=== PATIENT | male | born 1955 | race Caucasian/White ===

== ENCOUNTER 2023-04-25 08:36 | Outpatient (REF) | payer MEDICARE, MEDICAID, SELFPAY ==
[2023-04-25 11:39] LABS: MANUAL DIFF FLAG NO
[2023-04-25 11:55] LABS: Basophils Percent Auto 0.1 % (0-2); Eosinophils Absolute Auto 0.1 X10*3/uL (0.0-0.4); Eosinophils Percent Auto 1.4 % (0-4); Hemoglobin 13.5 g/dl (14.0-18.0); Imm Gran Abs Auto 0.02 X10*3/uL (0.00-0.03); Imm Gran Pct Auto 0.3 % (0.0-0.4); Lymphocytes Absolute Auto 1.7 X10*3/uL (1.2-4.9); Mean Corpuscular HGB Conc 31.4 g/dl (31.0-36.0); Mean Corpuscular Volume 95.6 fL (80.0-98.0); Mean Platelet Volume 11.3 fL (9.4-12.4); Monocytes Absolute Auto 0.5 X10*3/uL (0.1-1.2); Monocytes Percent Auto 7.2 % (2-11); Neutrophils Absolute Auto 4.9 x10*3/uL (2.0-8.3); Platelet Count 151 X10*3/uL (160-400); Red Cell Distribution Width 14.6 % (11.0-16.0); White Blood Count 7.2 X10*3/uL (4.8-10.8)
[2023-04-25 12:26] LABS: Alanine Aminotransferase 14 U/L (0-40); Albumin Level 4.4 g/dL (3.5-5.0); Alkaline Phosphatase 87 U/L (39-117); Anion Gap 16 (12-20); Aspartate Amino Transferase 19 U/L (5-37); Bilirubin Total 0.3 mg/dL (0.0-1.0); Blood Urea Nitrogen 10 mg/dL (9-16); Calcium 9.8 mg/dL (8.4-10.2); Carbon Dioxide 23 mmol/L (22-29); Chloride 107 mmol/L (96-108); Estimated Glomerular Filt Rate > 60; Glucose Random 123 mg/dL (60-115); Potassium 4.4 mmol/L (3.3-5.1); Sodium 142 mmol/L (135-145); Total Protein 7.6 g/dL (6.5-8.0)
[2023-04-26 14:29] LABS: Absolute CD3 Count 1247 cells/uL (840-3060); Absolute CD4 Count 666 cells/uL (490-1740); Absolute CD8 Count 592 cells/uL (180-1170); Absolute Lymphocytes 1674 cells/uL (850-3900); CD4 CD8 Ratio 1.13 (0.86-5.00); Percent CD3 Cells 75 % (57-85); Percent CD4 Cells 40 % (30-61); Percent CD8 Cells 35 % (12-42)
[2023-04-26 15:28] LABS: HIV RNA PCR Qn Copies <20 DETECTED copies/mL (NOT DETECTED); HIV RNA PCR Qn Log Copies <1.30 DETECTED (NOT DETECTED)
== END 2023-04-25 08:37 | disposition home or self-care (01) ==
LOC: HO.HHCL 08:36
PROVIDERS: Visit Provider Family Medicine
DX: Z21 Asymptomatic human immunodeficiency virus [HIV] infection status (principal)
CPT/HCPCS: 36415; 80053; 85025; 86359; 86360; 87536

== ENCOUNTER 2023-04-27 09:55 | Outpatient (REF) | payer MEDICARE, MEDICAID, SELFPAY ==
--- NOTE | ~2023-04-27 | CT_ITS ---
EXAMINATION: CT ABDOMEN WITHOUT AND WITH CONTRAST CLINICAL INFORMATION: HIV COMPARISON: CT scan of the abdomen and pelvis dated 03/08/2013, renal ultrasound dated 08/29/2018. TECHNIQUE: Contiguous axial thin section helical images of the abdomen were performed before and after the administration of oral contrast and 85 mL of Omnipaque 350 intravenous contrast. The data set was reformatted in the coronal and sagittal planes and reviewed on an independent workstation. This CT examination was performed using dose optimization techniques as appropriate, variously including the following: *Automated exposure control *Adjustment of mA and/or kV according to patient size (this includes techniques or standardized protocols for targeted exams where dose is matched to indication/reason for exam; i.e. extremities or head) *Use of iterative reconstruction technique DLP: 393 mGy-cm FINDINGS: LUNG BASES: Unremarkable. LIVER, GALLBLADDER, AND BILIARY TREE: Diffuse decreased hepatic attenuation without focal abnormality. The gallbladder contains a gallstone measuring 2.0 cm without surrounding abnormality (image 16, series 5). No pericholecystic fluid. PANCREAS: Unremarkable. SPLEEN: Unremarkable. ADRENAL GLANDS: Unremarkable. KIDNEYS: Nonobstructing intrarenal calculi bilaterally. A calculus in the lower pole the right kidney measures 0.7 cm (image 63, series 8). A calculus in the upper pole left kidney measures 1.2 cm (image 64, series 8). A calculus in the lower pole the left kidney measures 0.3 cm (image 60, series 8). Tiny low-attenuation foci are seen bilaterally are too small to adequately characterize, not requiring follow-up at this time. No hydroureteronephrosis. BOWEL: The stomach, visualized small bowel, appendix and visualized large bowel are unremarkable. LYMPH NODES: No lymphadenopathy. VASCULAR: Moderate atherosclerosis in the infrarenal abdominal aorta measuring up to 2.7 cm in AP dimension (image 27, series 5). BONES: L5-S1 moderate to severe degenerative disc disease with moderate right neural foraminal narrowing. SOFT TISSUES: Mild superficial subcutaneous infiltrative changes are seen along of the left anterior abdominal wall without focal abnormality (image 20, series 5). CT/CT abdomen wo/w IV con IMPRESSION: 1. Hepatic steatosis without focal abnormality. 2. Cholelithiasis without evidence for acute cholecystitis. 3. Nonobstructing intrarenal calculi bilaterally. 4. L5-S1 moderate to severe degenerative disc disease with moderate right neural foraminal narrowing.
[2023-04-27] MEDS: iohexoL 350 MG/ML 100 ML INFUS..BTL IV (11:42)
== END 2023-04-27 09:56 | disposition home or self-care (01) ==
LOC: HO.CT 09:55
PROVIDERS: PCP Internal Medicine; Visit Provider Internal Medicine
DX: R63.4 Abnormal weight loss (principal); Z21 Asymptomatic human immunodeficiency virus [HIV] infection status
CPT/HCPCS: 74170; Q9967

== ENCOUNTER 2023-10-07 09:18 | Outpatient (AMB) | payer MEDICARE, MEDICAID, SELFPAY ==
--- NOTE | 2023-10-07 09:29 | MHC.OFFVIS ---
Intake Intake Visit Reasons: LDCT SD Allergies No Known Allergies [No Known Allergies*] Allergy (Unverified 06/12/20 16:17) HPI HPI Comments History of Present Illness Details Anthony is a pleasant 68 year old male, current 1/2 ppd smoker with a 106 PYH. Patient has been smoking since age 15 for 53 years at 1-3 ppd. Denies marijuana use. Denies exposure to chemicals or substances like asbestos. Admits second hand smoke exposure. Reports father with lung cancer. Denies personal history of cancers. Denies chest CT in last year. Denies recent travel outside the [place]. Denies testing positive for COVID. Admits receiving COVID Vaccine. Denies fever, chills, chest pain, new cough, hemoptysis or unintentional weight loss. Lung Cancer Screening Questionnaire reviewed with patient by provider. Shared Decision Making Completed. Discussed in detail with patient, the risk versus benefit of LDCT screening. Patient in agreement of proceeding with scan. [facility] Medical History (Updated 05/12/23 @ 12:48 by Juliane Mesa PA-C) Nicotine dependence, cigarettes, uncomplicated Type 2 diabetes mellitus Hepatitis B Hepatitis C HIV (human immunodeficiency virus infection) Surgical History (Updated 05/12/23 @ 12:48 by Juliane Mesa PA-C) History of cystoscopy History of colonoscopy Assessment & Plan Assessment & Plan (1) Nicotine dependence, cigarettes, uncomplicated: Code(s): F17.210 - Nicotine dependence, cigarettes, uncomplicated Plan Shared decision-making visit completed today in office. This patient meets criteria for LDCT for lung cancer screening purposes and is asymptomatic. Offered smoking cessation. Patient has been scheduled for a low dose chest CT for screening purposes at [facility]. We discussed how the results will be obtained depending on CT findings. RADS 1 and RADS 2 will receive a letter with results and will follow up for annual LDCT. Patient informed they will be contacted at later date to schedule upcoming LDCT scan. RADS 3 and RADS 4 will receive a telephone call, or an office visit after reviewing case at our Lung Cancer Conference to determine when the next LDCT will be scheduled or further interventions that may be needed. Discussed importance of screening program and compliance with yearly LDCT scan as scheduled. Risks, benefits, and alternatives were discussed in detail and patient agrees to proceed. Risks discussed include but are not limited to: radiation exposure and possibility of additional intervention for benign disease. Benefits include detection of lung cancer at an early stage. A copy of today's visit and LDCT results will be sent to patient's PCP. Incidental findings on LDCT are PCP's responsibility. If there are incidental findings, our office will ensure that PCP office is aware of these findings. All questions were answered and patient is in agreement of plan. Coding Level of Care Code Lung Cancer Screening G0296 Diagnoses Nicotine dependence, cigarettes, uncomplicated F17.210
== END 2023-10-07 09:38 | disposition home or self-care (01) ==
PROVIDERS: PCP Internal Medicine; Visit Provider Nurse Practitioner Family
DX: F17.210 Nicotine dependence, cigarettes, uncomplicated (principal)
CPT/HCPCS: G0296

== ENCOUNTER 2023-10-07 09:39 | Outpatient (REF) | payer MEDICARE, MEDICAID, SELFPAY ==
--- NOTE | ~2023-10-07 | CT_ITS ---
EXAMINATION: CT CHEST LOW-DOSE SCREENING WITHOUT CONTRAST HISTORY: Asymptomatic patient meeting criteria for lung screening. PATIENT PACK-YEAR HISTORY: 40 pack-years. Current Smoker: Yes. If former smoker, years since quitting: Not applicable. COMPARISON: CT abdomen 04/27/2023, chest radiograph 08/08/2009. TECHNIQUE: Multidetector volumetric noncontrast CT imaging of the chest was obtained using low-dose screening CT technique. Axial thin section 0.60 mm reformations in soft tissue and lung windows were obtained. Sagittal and coronal reformations were obtained. Axial MIP images were also created and reviewed. RECONSTRUCTED WIDTH: 1.25 mm x 1.[address] examination was performed using dose optimization techniques as appropriate, variously including the following: *Automated exposure control *Adjustment of mA and/or kV according to patient size (this includes techniques or standardized protocols for targeted exams where dose is matched to indication/reason for exam; i.e. extremities or head) *Use of iterative reconstruction technique TOTAL EXAM DLP: 47 mGy-cm CTDIvol: 1.08 mGy FINDINGS: LUNGS: Moderate emphysematous changes are present, most marked in the upper lobes. Mild peribronchial thickening is present. Lungs bilaterally symmetrically expanded. No effusion or pneumothorax. Central airways patent. At least 8 small pulmonary micronodules are present, the largest measuring 3 mm subpleural left lower lobe (5:289). Saenz images of all have been saved. No worrisome or concerning pulmonary masses seen. LYMPHATIC STRUCTURES: No mediastinal, hilar or axillary adenopathy or free fluid collection. THYROID GLAND: Unremarkable to the extent seen. CARDIOVASCULAR STRUCTURES: Aortic and heart size normal. Mild coronary artery calcifications. No pericardial effusion. UPPER ABDOMEN: The spleen is mildly enlarged at 12.6 cm in greatest dimension. There is new left-sided hydronephrosis. Previously seen left upper pole renal calculus is no longer seen in the included portions of the left kidney. A large calcified 3 cm gallstone is present, similar to prior. The upper abdomen is otherwise unremarkable. OSSEOUS STRUCTURES: No suspicious focal findings. SPINAL COMPRESSION: Absent. CT/CT lung screening IMPRESSION: No findings suspicious for malignancy. There are some small pulmonary micronodules, the largest measuring 3 mm. Incidental note made of splenomegaly and new left-sided hydronephrosis. A stone which had been present in the left upper pole is no longer seen and could be obstructing at the ureteropelvic junction. Ultrasound of the kidneys or a CT urogram may be useful for further evaluation. LUNG-RADS CATEGORY ASSESSMENT: Benign. INCIDENTAL FINDINGS (S CATEGORY): Finding: Left-sided hydronephrosis and cholelithiasis. Significance category: Clinically significant. RECOMMENDATION: Low-dose lung CT overall in 1 year. See recommendations above regarding left-sided hydronephrosis. Visual estimate of coronary calcified plaque burden: None. However, this exam cannot replace a dedicated cardiac CT calcium score for accurate assessment.
== END 2023-10-07 09:40 | disposition home or self-care (01) ==
LOC: HO.CT 09:39
PROVIDERS: PCP Internal Medicine; Visit Provider Physician Assistant Medical
DX: Z12.2 Encounter for screening for malignant neoplasm of respiratory organs (principal); F17.210 Nicotine dependence, cigarettes, uncomplicated
CPT/HCPCS: 71271; G0296

== ENCOUNTER 2023-10-14 09:12 | Outpatient (REF) | payer MEDICARE, MEDICAID, SELFPAY ==
--- NOTE | ~2023-10-14 | US_ITS ---
EXAMINATION: US RETROPERITONEAL LIMITED (RENAL ONLY) CLINICAL INFORMATION: Kidney stone. COMPARISON: CT abdomen 04/27/2023. Renal ultrasound 08/29/2018. Ultrasound abdomen complete 02/11/2016. TECHNIQUE: Real-time imaging of the kidneys. FINDINGS: RIGHT KIDNEY: 10.2 x 4.8 x 5.0 cm (SAG x AP x TRV). The kidney is normal in size, contour, and echogenicity. Renal cortical thickness is normal. No focal parenchymal lesions or hydronephrosis. 0.6 x 0.4 x 0.6 cm lower pole and 0.5 x 0.4 x 0.5 cm lower pole nonobstructing renal calculi are seen. LEFT KIDNEY: 11.7 x 5.3 x 5.9 cm (SAG x AP x TRV). The kidney is normal in size, contour, and echogenicity. Renal cortical thickness is normal. There is dilatation of the upper pole calyces without jet hydronephrosis. 0.7 x 0.5 x 0.5 cm lower pole and 0.4 x 0.5 x 0.5 cm nonobstructing renal calculi are seen. US/US renal BI IMPRESSION: Bilateral nonobstructing renal calculi in the lower pole of the right kidney. Dilatation of the left upper pole calyces without jet hydronephrosis. This is new since prior studies.
== END 2023-10-14 09:13 | disposition home or self-care (01) ==
LOC: HO.US 09:12
PROVIDERS: PCP Internal Medicine; Visit Provider Internal Medicine
DX: N20.0 Calculus of kidney (principal)
CPT/HCPCS: 76775

== ENCOUNTER 2023-10-19 08:36 | Outpatient (REF) | payer MEDICARE, MEDICAID, SELFPAY ==
[2023-10-19 11:18] LABS: Appearance Urine Clear; Color Urine Yellow; Glucose Urine UA Negative (Negative); Leukocyte Esterase Urine Moderate (2+) (Negative); Nitrite Urine Negative (Negative); PH 6.5 (5.0-9.0); UMIC TRIGGER UACC YES; Urine Blood Moderate (2+) (Negative); Urine Ketones Negative (Negative); Urine Protein 30 (1+) mg/dL (Neg-Trace)
[2023-10-19 11:25] LABS: Bacteria Urine None Seen (None Seen); Hyaline Casts Urine 0-2 /LPF (0-2); RBC Urine >20 /HPF (0-2); Squamous Epithelial Cell Urine 0-2 /HPF (0-2); UACC Culture Trigger YES; WBC Urine 21-50 /HPF (0-5)
[2023-10-19 11:34] LABS: MANUAL DIFF FLAG NO
[2023-10-19 11:41] LABS: Basophils Percent Auto 0.2 % (0-2); Eosinophils Absolute Auto 0.1 X10*3/uL (0.0-0.4); Hematocrit 43.2 % (42.0-52.0); Hemoglobin 13.7 g/dl (14.0-18.0); Imm Gran Abs Auto 0.08 X10*3/uL (0.00-0.03); Imm Gran Pct Auto 0.9 % (0.0-0.4); Lymphocytes Absolute Auto 1.3 X10*3/uL (1.2-4.9); Lymphocytes Percent Auto 14.7 % (20-40); Mean Corpuscular HGB Conc 31.7 g/dl (31.0-36.0); Mean Corpuscular Hemoglobin 30.3 pg (27.0-33.0); Mean Corpuscular Volume 95.6 fL (80.0-98.0); Mean Platelet Volume 11.1 fL (9.4-12.4); Monocytes Absolute Auto 0.5 X10*3/uL (0.1-1.2); Monocytes Percent Auto 5.9 % (2-11); Neutrophils Percent Auto 77.3 % (45-73); Platelet Count 153 X10*3/uL (160-400); Red Blood Count 4.52 X10*6/uL (4.60-5.80); Red Cell Distribution Width 14.7 % (11.0-16.0)
[2023-10-19 11:58] LABS: Alanine Aminotransferase 12 U/L (0-40); Albumin Level 4.5 g/dL (3.5-5.0); Alkaline Phosphatase 94 U/L (39-117); Anion Gap 13 (12-20); Aspartate Amino Transferase 16 U/L (5-37); Bilirubin Total 0.3 mg/dL (0.0-1.0); Blood Urea Nitrogen 12 mg/dL (9-16); Calcium 9.8 mg/dL (8.4-10.2); Carbon Dioxide 27 mmol/L (22-29); Chloride 104 mmol/L (96-108); Cholesterol 140 mg/dL (<200); Estimated Glomerular Filt Rate > 60; Glucose Random 99 mg/dL (60-115); HDL Cholesterol 43 mg/dL (>40); LDL Cholesterol Calculated 78 mg/dL (<100); Potassium 3.8 mmol/L (3.3-5.1); Sodium 140 mmol/L (135-145); Total Protein 7.7 g/dL (6.5-8.0); Triglycerides 96 mg/dL (<150)
[2023-10-19 12:32] LABS: Syphilis Screen Nonreactive (Nonreactive)
[2023-10-19 13:41] LABS: CT PCR NOT DETECTED (Not Detect.); NG PCR NOT DETECTED (Not Detect.)
[2023-10-20 08:04] LABS: ~HepC Num1 9.37 S/CO (0.00-0.79); ~Hepatitis C Antibody Reactive (Nonreactive)
[2023-10-21 10:33] LABS: Absolute CD3 Count 1074 cells/uL (840-3060); Absolute CD4 Count 555 cells/uL (490-1740); Absolute CD8 Count 531 cells/uL (180-1170); Absolute Lymphocytes 1440 cells/uL (850-3900); CD4 CD8 Ratio 1.05 (0.86-5.00); Percent CD3 Cells 75 % (57-85); Percent CD4 Cells 39 % (30-61); Percent CD8 Cells 37 % (12-42)
[2023-10-21 17:43] LABS: HIV RNA PCR Qn Copies 40 copies/mL (NOT DETECTED)
[2023-10-21 22:53] LABS: TS Negative Control Passed; TS Panel A 1; TS Panel B 0; TS Positive Control Passed; TSpotTB Negative (Negative)
[2023-10-22 13:18] LABS: HCV Log PCR <1.18 NOT DETECTED Log IU/mL (NOT DETECTED); HepC Viral Load <15 NOT DETECTED IU/mL (NOT DETECTED)
== END 2023-10-19 08:37 | disposition home or self-care (01) ==
LOC: HO.HHCL 08:36
PROVIDERS: Visit Provider Student in an Organized Health Care Education/Training Program
DX: Z21 Asymptomatic human immunodeficiency virus [HIV] infection status (principal)
CPT/HCPCS: 0353U; 36415; 80053; 80061; 81001; 85025; 86359; 86360; 86481; 86780; 86803; 87086; 87522; 87536

== ENCOUNTER 2023-10-31 08:55 | Outpatient (REF) | payer MEDICARE, MEDICAID, SELFPAY ==
[2023-11-01 15:52] LABS: HIV RNA PCR Qn Copies <20 DETECTED copies/mL (NOT DETECTED); HIV RNA PCR Qn Log Copies <1.30 DETECTED (NOT DETECTED)
== END 2023-10-31 08:56 | disposition home or self-care (01) ==
LOC: HO.HHCL 08:55
PROVIDERS: Visit Provider Student in an Organized Health Care Education/Training Program
DX: B20 Human immunodeficiency virus [HIV] disease (principal)
CPT/HCPCS: 36415; 87536

== ENCOUNTER 2024-01-12 09:22 | Outpatient (AMB) | payer MEDICARE, MEDICAID, SELFPAY ==
--- NOTE | 2024-01-12 09:30 | A.OFFVIS_ITS ---
Intake Intake Visit Reasons: kidney stones Intake Note: NEW Patient presents today to established treatment for Kidney Stones: Meds- None Allergies to Antibiotic- No Known Allergies Blood Thinner- None Drain Cleaner Required: Yes Drain Cleaner Language: Azeri Information Interpreted: non-clinical & clinical Accompanied by: Self / Same As Patient Allergies No Known Allergies [No Known Allergies*] Allergy (Verified 01/12/24 09:39) Medication List - Last Reconciled 01/12/24 by Alma Cifuentes MD atorvastatin 20 mg PO DAILY blood sugar diagnostic (FreeStyle Lite Strips) As directed buprenorphine-naloxone 8-2 mg 1 film sublingual DAILY docusate sodium 100 mg PO tnvbytpjbm-txcbbfyw-cmnfgd ala 200-25-25 mg (Odefsey) 1 tab PO DAILY insulin detemir U-100 (Levemir FlexPen) units subcut lancets (TRUEplus Lancets) As directed lisinopril 2.5 mg PO DAILY metformin ER 500 mg PO BID mirtazapine 30 mg PO BEDTIME pen needle, diabetic (Sure Comfort Pen Needle) As directed quetiapine 200 mg PO BEDTIME sertraline 100 mg PO DAILY HPI HPI Comments History of Present Illness Details Anthony is a 68-year-old man who is here for evaluation for nephrolithiasis. 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 Past medical history includes HIV positive, diabetes, nicotine dependence. He states that he has family history of state cancer. He had a renal ultrasound in September that needs bilateral kidney stones. He had a CT scan April of 2023 which also showed bilateral kidney stones with stone burden greater on the right side. The patient states that he has had episodes of gross hematuria. He denies dysuria. I have discussed workup for hematuria. I have discussed treatment options for kidney stones may include shockwave lithotripsy. Plan discussed CT urogram, office cystoscopy. PSA screening. Future stone management, consider shockwave lithotripsy. [facility] Medical History Nicotine dependence, cigarettes, uncomplicated Type 2 diabetes mellitus Hepatitis B Hepatitis C HIV (human immunodeficiency virus infection) Surgical History History of cystoscopy History of colonoscopy Review of Systems Const All systems reviewed & are unremarkable except as noted in HPI and below Reports no additional complaints Eyes Reports no additional complaints ENT Reports no additional complaints Card Reports no additional complaints Resp Reports no additional complaints GI Reports no additional complaints Reports as per HPI Musc Reports no additional complaints Skin/Breast Reports system reviewed and no additional complaints, except as documented Neuro Reports no additional complaints Psych Reports no additional complaints Endo Reports no additional complaints Isreal/Lymph Reports no additional complaints Aller/Immun Reports no additional complaints Physical Exam Const General: healthy appearing, no acute distress and well developed Orientation/consciousness: patient oriented x3 HEENT Head: Yes normocephalic and Yes atraumatic Eyes Conjunctivae: conjunctivae normal Neck Neck: Yes normal visual inspection Chest Chest palpation & inspection: normal inspection of the chest Resp Effort & Inspection: normal respiratory effort Cardio Rate: regular rate GI Inspection: Yes normal to inspection Skin General skin exam: no rashes or lesions noted Neuro General: patient oriented x3 Extrem General: No pedal edema Psych Appearance: grossly normal Affect: normal affect Results AMB Urinalysis, Automated UA Leukoctes 125 Myesha/uL Last Edit by KAYLEE Alcaraz on 01/12/24 09:44 2+ Yolis Sprague 01/12/24 09:44 UA Nitrite Negative Last Edit by KAYLEE Alcaraz on 01/12/24 09:44 UA Urobilinogen 0.2 mg/dL Last Edit by KAYLEE Alcaraz on 01/12/24 09:4 4 UA Protein 15 mg/dL Last Edit by KAYLEE Alcaraz on 01/12/24 09:44 UA pH 6.0 Last Edit by KAYLEE Alcaraz on 01/12/24 09:44 UA Blood 25 Laci/uL Last Edit by KAYLEE Alcaraz on 01/12/24 09:44 1+ Yolis Sprague 01/12/24 09:44 UA Specific [place] 1.015 Last Edit by KAYLEE Alcaraz on 01/12/24 09: 44 UA Ketone Negative Last Edit by KAYLEE Alcaraz on 01/12/24 09:44 UA Bilirubin 0 mg/dL Last Edit by KAYLEE Alcaraz on 01/12/24 09:44 UA Glucose 0 mg/dL Last Edit by KAYLEE Alcaraz on 01/12/24 09:44 Results Reviewed Results Reviewed: Laboratory Last Values Urine pH (Auto) 6.0 01/12/24 09:39 Specific [place] (Auto) 1.015 01/12/24 09:39 Urine Protein (Auto) 15 mg/dL 01/12/24 09:39 Glucose (UA)(Auto) 0 mg/dL 01/12/24 09:39 Urine Ketones (Auto) Negative 01/12/24 09:39 Urine Blood (Auto) 25 Laci/uL 01/12/24 09:39 Urine Nitrite (Auto) Negative 01/12/24 09:39 Urine Bilirubin (Auto) 0 mg/dL 01/12/24 09:39 Urine Urobilinogen (Auto) 0.2 mg/dL 01/12/24 09:39 Leukocyte Esterase (Auto) 125 Myesha/uL 01/12/24 09:39 Assessment & Plan Assessment & Plan (1) Screening PSA (prostate specific antigen): Code(s): Z12.5 - Encounter for screening for malignant neoplasm of prostate (2) FH: prostate carcinoma: Code(s): Z80.42 - Family history of malignant neoplasm of prostate Plan CT urogram, office cystoscopy. PSA screening. Future stone management, consider shockwave lithotripsy. Orders: Orders AMB Urinalysis Automated Today Z13.9 - Encounter for screening, unspecified CT urogram Today R31.0 - Gross hematuria PSA, Ultra Sensitive Today Z12.5 - Encounter for screening for malignant neoplasm of prostate, Z80.42 - Family history of malignant neoplasm of prostate Patient Instructions: The patient had an opportunity to ask questions regarding treatment plan. All questions were answered. Imaging, Laboratory studies and physical exam results were discussed and reviewed in detail. No major barriers to understanding were identified. The patient expressed understanding and agreement with the above treatment plan. The patient is aware they should contact our office by phone for worsening of their current condition or the appearance of new symptoms. Compliance is encouraged with any medications and followup testing that is ordered. It is a privilege to be allowed the opportunity to participate in the urologic care of your patient. If you have any questions or concerns regarding treatment for the above conditions please do not hesitate to contact me. The office telephone contact is [phone]. This note is constructed in part using voice recognition software. While every effort has been made to ensure accuracy office administration errors may have been included. Yours sincerely, Alma Cifuentes MD Coding Level of Care Code New Pt Level 4 (93979) Diagnoses Screening PSA (prostate specific antigen) Z12.5 FH: prostate carcinoma Z80.42
== END 2024-01-12 10:25 | disposition home or self-care (01) ==
PROVIDERS: PCP Internal Medicine; Visit Provider Urology
DX: Z12.5 Encounter for screening for malignant neoplasm of prostate (principal); Z80.42 Family history of malignant neoplasm of prostate; Z13.9 Encounter for screening, unspecified
CPT/HCPCS: 99204

== ENCOUNTER 2024-01-12 09:22 | Outpatient (REF) | payer MEDICARE, MEDICAID, SELFPAY ==
[2024-01-12 16:42] LABS: Urine Cytology See Pathology rpt
== END 2024-01-12 09:23 | disposition home or self-care (01) ==
LOC: HO.LAB 09:22
PROVIDERS: PCP Internal Medicine; Visit Provider Urology
DX: R31.0 Gross hematuria (principal); F17.210 Nicotine dependence, cigarettes, uncomplicated; Z80.42 Family history of malignant neoplasm of prostate
CPT/HCPCS: 81003; 88112; 99202

== ENCOUNTER 2024-03-06 07:51 | Outpatient (REF) | payer MEDICARE, MEDICAID, SELFPAY ==
[2024-03-06 09:02] LABS: Blood Urea Nitrogen 13 mg/dL (9-16); Estimated Glomerular Filt Rate 53
[2024-03-06 09:45] LABS: PSA,Total (Free>4and<10) 3.49 ng/mL (0.00-4.00)
[2024-03-11 18:19] LABS: PSA, Ultra Sensitive 3.52 ng/mL
== END 2024-03-06 07:52 | disposition home or self-care (01) ==
LOC: HO.CT 07:51
PROVIDERS: PCP Internal Medicine; Visit Provider Urology
DX: Z12.5 Encounter for screening for malignant neoplasm of prostate (principal); R31.0 Gross hematuria; Z80.42 Family history of malignant neoplasm of prostate
CPT/HCPCS: 36415; 82565; 84153; 84520

== ENCOUNTER 2024-03-08 13:49 | Outpatient (REF) | payer MEDICARE, MEDICAID, SELFPAY ==
--- NOTE | ~2024-03-08 | CT_ITS ---
EXAMINATION: CT ABDOMEN AND PELVIS WITHOUT AND WITH CONTRAST CLINICAL INFORMATION: Gross hematuria. COMPARISON: Renal ultrasound 10/14/2023, CT abdomen 04/27/2023. TECHNIQUE: Noncontrast CT of the abdomen and pelvis is performed followed by split bolus contrast-enhanced images using 85 mL Omnipaque 350 contrast.?Postcontrast imaging is performed during the combined nephrogram and excretion phase. Sagittal and coronal reformatted images were obtained on the technologist's workstation for both the precontrast and postcontrast phases. This CT examination was performed using dose optimization techniques as appropriate, variously including the following: *Automated exposure control *Adjustment of mA and/or kV according to patient size (this includes techniques or standardized protocols for targeted exams where dose is matched to indication/reason for exam; i.e. extremities or head) *Use of iterative reconstruction technique DLP: 539 mGy-cm FINDINGS: LUNG BASES: The visualized lung bases are unremarkable. LIVER, GALLBLADDER, AND BILIARY TREE: The liver is normal in size, shape, and attenuation. No focal hepatic lesion or biliary ductal dilatation is present. The gallbladder is unremarkable with no evidence of radiopaque gallstones, gallbladder wall thickening, or obvious pericholecystic inflammatory changes. PANCREAS: Unremarkable. SPLEEN: Unremarkable. ADRENAL GLANDS: Unremarkable. KIDNEYS: AND URETERS: The kidneys are normal in size, shape, and attenuation. Renal Stones: On the right, there is a 9 mm nonobstructing lower pole calculus present along with a smaller approximately 6 mm nonobstructing calculus in the mid kidney. This larger stone measures 1200 Hounsfield units and is 4.8 cm from the posterior axillary line. On the left, 2 nonobstructing lower pole calculi are seen, the largest measuring 4 mm. A benign right-sided subcentimeter Bosniak class I renal cyst is noted which requires no additional imaging or follow up. There is a tiny subcentimeter cortical cyst at the lower pole of the left kidney (13:42). No solid renal masses are seen. No right-sided hydronephrosis is seen. On the left, there is a duplicated collecting system present with hydronephrosis of the upper pole associated with a dilated ureter and an obstructing 8 x 10 mm calculus in the distal one third of the ureter. The lower pole collecting system appears normal. No uroepithelial abnormalities are seen in either kidney. BLADDER, PELVIS AND PROSTATE: Bladder is unremarkable aside from an impression from an enlarged prostate which measures 5.9 x 5.9 x 5.7 cm or 104 mL. GASTROINTESTINAL TRACT: The small and large bowel are unremarkable. The appendix is mildly dilated at 0.9 cm but is otherwise unremarkable. ABDOMINAL WALL: No significant hernia is appreciated. Tiny left inguinal hernia contains only fat. LYMPH NODES: No retroperitoneal lymphadenopathy. VASCULAR: Calcific atherosclerotic changes are present in the aorta and iliofemoral vessels with mild fusiform dilatation of the aorta and common iliac arteries with left common iliac artery measuring 1.8 cm and maximal dimension of the infrarenal abdominal aorta of 2.6 cm. OSSEUS STRUCTURES: Marked degenerative changes present at L5-S1. CT/CT urogram IMPRESSION: 1. Bilateral nonobstructing intrarenal calculi. 2. 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 3. Other incidental findings, as described above.
[2024-03-08] MEDS: iohexoL 350 MG/ML 100 ML INFUS..BTL 85 ML IV (14:23)
== END 2024-03-08 13:50 | disposition home or self-care (01) ==
LOC: HO.CT 13:49
PROVIDERS: PCP Internal Medicine; Visit Provider Urology
DX: R31.0 Gross hematuria (principal)
CPT/HCPCS: 74178; Q9967

== ENCOUNTER 2024-05-15 13:24 | Outpatient (REF) | payer MEDICARE, MEDICAID, SELFPAY ==
[2024-05-15 16:03] LABS: MANUAL DIFF FLAG NO
[2024-05-15 16:36] LABS: Basophils Percent Auto 0.4 % (0-2); Eosinophils Absolute Auto 0.1 X10*3/uL (0.0-0.4); Eosinophils Percent Auto 1.5 % (0-4); Hematocrit 34.9 % (42.0-52.0); Hemoglobin 11.5 g/dl (14.0-18.0); Imm Gran Abs Auto 0.01 X10*3/uL (0.00-0.03); Imm Gran Pct Auto 0.2 % (0.0-0.4); Lymphocytes Absolute Auto 1.7 X10*3/uL (1.2-4.9); Lymphocytes Percent Auto 30.7 % (20-40); Mean Corpuscular Hemoglobin 32.1 pg (27.0-33.0); Mean Corpuscular Volume 97.5 fL (80.0-98.0); Mean Platelet Volume 11.9 fL (9.4-12.4); Monocytes Absolute Auto 0.4 X10*3/uL (0.1-1.2); Monocytes Percent Auto 7.6 % (2-11); Neutrophils Absolute Auto 3.2 x10*3/uL (2.0-8.3); Neutrophils Percent Auto 59.6 % (45-73); Platelet Count 137 X10*3/uL (160-400); Red Blood Count 3.58 X10*6/uL (4.60-5.80); Red Cell Distribution Width 14.9 % (11.0-16.0); White Blood Count 5.4 X10*3/uL (4.8-10.8)
[2024-05-15 16:43] LABS: Alanine Aminotransferase 9 U/L (0-40); Albumin Level 4.2 g/dL (3.5-5.0); Alkaline Phosphatase 67 U/L (39-117); Anion Gap 12 (12-20); Aspartate Amino Transferase 14 U/L (5-37); Bilirubin Total 0.3 mg/dL (0.0-1.0); Blood Urea Nitrogen 16 mg/dL (9-16); Calcium 10.3 mg/dL (8.4-10.2); Carbon Dioxide 29 mmol/L (22-29); Chloride 104 mmol/L (96-108); Estimated Glomerular Filt Rate 56; Glucose Random 110 mg/dL (60-115); Potassium 3.8 mmol/L (3.3-5.1); Sodium 141 mmol/L (135-145)
[2024-05-16 08:01] LABS: HBc Num1 1.31 S/CO (0.00-0.79); HBsAGNum1 0.34 S/CO (0.00-0.99); Hepatitis B Surface Antigen Negative (Negative); ~Hepatitis B Surface Antibody NONREACTIVE (Nonreactive)
[2024-05-16 08:52] LABS: HBc Num2 1.32 S/CO; HBc Num3 1.36 S/CO; Hepatitis B Core Antibody Reactive (Nonreactive)
[2024-05-17 07:28] LABS: Hepatitis B Core Antibody IgM NON-REACTIVE (NON-REACTIVE)
[2024-05-17 16:00] LABS: Iron 39 mcg/dL (45-160); Percent Iron Saturation 14 % (15-50); Total Iron Binding Capacity 279 mcg/dL (228-428); Unsaturated Iron Binding 240 ug/dL
[2024-05-18 12:43] LABS: HIV RNA PCR Qn Copies <20 DETECTED copies/mL (NOT DETECTED); HIV RNA PCR Qn Log Copies <1.30 DETECTED (NOT DETECTED)
[2024-05-18 17:58] LABS: Absolute CD3 Count 1452 cells/uL (840-3060); Absolute CD4 Count 750 cells/uL (490-1740); Absolute CD8 Count 721 cells/uL (180-1170); Absolute Lymphocytes 1828 cells/uL (850-3900); CD4 CD8 Ratio 1.04 (0.86-5.00); Percent CD3 Cells 79 % (57-85); Percent CD4 Cells 41 % (30-61); Percent CD8 Cells 39 % (12-42)
== END 2024-05-15 13:25 | disposition home or self-care (01) ==
LOC: HO.HHCL 13:24
PROVIDERS: Visit Provider Student in an Organized Health Care Education/Training Program
DX: Z11.59 Encounter for screening for other viral diseases (principal); Z21 Asymptomatic human immunodeficiency virus [HIV] infection status; Z72.89 Other problems related to lifestyle
CPT/HCPCS: 36415; 80053; 83540; 85025; 86359; 86360; 86704; 86705; 86706; 87340; 87536

== ENCOUNTER 2024-06-04 10:27 | Outpatient (REF) | payer MEDICARE, MEDICAID, SELFPAY ==
[2024-06-04 12:25] LABS: Iron 45 mcg/dL (45-160); Percent Iron Saturation 16 % (15-50); Total Iron Binding Capacity 288 mcg/dL (228-428); Unsaturated Iron Binding 243 ug/dL
[2024-06-04 12:51] LABS: Folate 7.9 ng/mL (> or = 4.0); Vitamin B12 649 pg/mL (200-900)
[2024-06-04 15:06] LABS: Ferritin 52 ng/mL (20-250)
[2024-06-05 21:53] LABS: Prot Elec - Albumin 4.2 g/dL (3.8-4.8); Prot Elec - Alpha1 0.4 g/dL (0.2-0.3); Prot Elec - Alpha2 0.8 g/dL (0.5-0.9); Prot Elec - Beta 1 0.5 g/dL (0.4-0.6); Prot Elec - Beta 2 0.4 g/dL (0.2-0.5); Prot Elec - Gamma 0.9 g/dL (0.8-1.7); Prot Elec - Total Protein 7.1 g/dL (6.1-8.1)
== END 2024-06-04 10:28 | disposition home or self-care (01) ==
LOC: HO.HHCL 10:27
PROVIDERS: Student in an Organized Health Care Education/Training Program; Visit Provider Internal Medicine
DX: Z21 Asymptomatic human immunodeficiency virus [HIV] infection status (principal); R63.4 Abnormal weight loss; D64.89 Other specified anemias; D50.9 Iron deficiency anemia, unspecified
CPT/HCPCS: 36415; 82607; 82728; 82746; 83540; 84165; 88112

== ENCOUNTER → 2024-06-21 07:56 | Outpatient (BNV) | payer MEDICARE, MEDICAID, SELFPAY | PROVIDERS: PCP Internal Medicine; Visit Provider Internal Medicine Medical Oncology | DX: D64.9 Anemia, unspecified (principal); Z80.42 Family history of malignant neoplasm of prostate; R91.8 Other nonspecific abnormal finding of lung field | CPT/HCPCS: 99204 ==

== ENCOUNTER 2024-08-20 13:19 | Outpatient (AMB) | payer MEDICARE, MEDICAID, SELFPAY ==
--- NOTE | 2024-08-20 13:43 | MHC.OFFVIS ---
Vital Signs 08/20/24 13:51 Height 5 ft 5 in Weight 129 lb BMI 21.5 BP 113/59 L Blood Pressure Location Rt brachial Position Sitting Pulse 63 Intake Visit Reasons: Unilateral inguinal hernia w.o obstr or gangrene Intake Note: Patient referred by Dr. Caroline Holliday for unilateral inguinal hernia. Present since June. Patient c/o: lt testicle pain. Superintendent Car Construction Required: Yes Superintendent Car Construction Name: Camille Vizcaino KAYLEE Accompanied by: Self / Same As Patient Allergies No Known Allergies [No Known Allergies*] Allergy (Verified 08/20/24 13:49) HPI Comments Details: Patient presents with a several month history of a symptomatic left inguinal hernia. It is increasing in size and becoming more symptomatic. He would like to have repaired. Patient was no other GI issues or complaints. He does occasional strenuous activities. Energy, appetite, and weight are otherwise stable. Chart was reviewed and patient evaluate [facility] Medical History Nicotine dependence, cigarettes, uncomplicated Type 2 diabetes mellitus Hepatitis B Hepatitis C HIV (human immunodeficiency virus infection) Surgical History History of cystoscopy History of colonoscopy Social History (Updated 08/20/24 @ 13:50 by KAYLEE Rutledge) Household Members: None Patient Tobacco Use Status: Current everyday Tobacco user Cigarettes Per Day: 10 Substance Use Type: Marijuana service: No Current occupational status: retired Physical Exam Vital Signs: Last Vital Signs Pulse 63 08/20/24 13:51 BP 113/59 L 08/20/24 13:51 BMI result Body Mass Index 21.5 Chest Other: Chest breath sounds bilaterally, HS 1 in 2 GI Other: Patient was examined both supine and standing with Valsalva. Right groin negative. Genitalia within normal limits. Abdomen is soft and otherwise benign. Moderately sized reducible left inguinal hernia. Assessment & Plan Assessment & Plan (1) Left inguinal hernia: Code(s): K40.90 - Unilateral inguinal hernia, without obstruction or gangrene, not specified as recurrent Category: Surgical Plan Risks, benefits, alternatives of open left inguinal hernia repair with mesh were reviewed with the patient and included but not limited to bleeding, infection, recurrence, numbness, pain, scarring and the patient wished to proceed. All questions answered. Arrangements were made for this. Coding Level of Care Code New Pt Level 5 (96138) Diagnoses Left inguinal hernia K40.90
[2024-08-20 13:51] VITALS: BP 113/59; PULSE 63; BMI 21.5
== END 2024-08-20 14:07 | disposition home or self-care (01) ==
PROVIDERS: PCP Internal Medicine; Visit Provider Surgery
DX: K40.90 Unilateral inguinal hernia, without obstruction or gangrene, not specified as recurrent (principal)
CPT/HCPCS: 99204

== ENCOUNTER → 2024-08-20 13:19 | Outpatient (BNVA) | payer MEDICARE, MEDICAID, SELFPAY | PROVIDERS: PCP Internal Medicine; Visit Provider Surgery | DX: K40.90 Unilateral inguinal hernia, without obstruction or gangrene, not specified as recurrent (principal) | CPT/HCPCS: 99202 ==

== ENCOUNTER 2024-08-28 14:31 | Outpatient (REF) | payer MEDICARE, MEDICAID, SELFPAY | END 2024-08-28 14:32 | disposition home or self-care (01) | LOC: HO.US 14:31 | PROVIDERS: PCP Internal Medicine; Visit Provider Student in an Organized Health Care Education/Training Program | DX: K40.91 Unilateral inguinal hernia, without obstruction or gangrene, recurrent (principal) | CPT/HCPCS: 76857 ==

== ENCOUNTER 2024-09-13 08:32 | Day surgery (SDC) | payer MEDICARE, MEDICAID, SELFPAY ==
[2024-09-11 07:05] VITALS: BMI 21.5
--- NOTE | 2024-09-12 08:25 | MHC.SHP ---
Pre-Procedural Eval Section A - 24 Hr Update-Section A only Date of Service: 09/13/24 The patient is an INPATIENT: No Changes since office visit: No Cold of Flu in the past 2 weeks, No New Medical Problems, No Changes in Medication and No Patient answered all questions Section B - Complete if H&P > 30 days Chief Complaint: Unilateral inguinal hernia, without obstruction or Allergies: Allergies Allergy/AdvReac Type Severity Reaction Status Date / Time No Known Allergies Allergy Verified 08/20/24 13:49 [No Known Allergies*] Review of Systems Sugical H&P ROS: Negative: Constitution, Cardiovascular, Respiratory, Neurological, Psychiatric, Hem-Onc, Allergic/Immunologic, Gastrointestinal, Genitourinary, Musculoskeletal, Integumentary, Endocrine and Eyes/Ears/Nose/Throat Exam Surgical H&P Exam: Normal: HEENT, Normal: Heart, Normal: Lungs, Normal: Extremities, Normal: Abdomen, Normal: Skin and Normal: Neurological Plan I have reviewed the history and physical and performed a pertinent physical examination on my patient. No changes have occurred unless specified. Time Spent With Patient Time: Total time managing care of this patient today ____ minutes.
--- NOTE | 2024-09-12 10:46 | P.CONAN_ITS ---
Documented by User: Masha Whyte NP 09/12/24 10:48 HPI - Anesthesia Eval Consult details Narrative: 69yo M for Left Open Hernia Inguinal Reducible with mesh Suboxone daily 8mg daily PMFSH Active Problems Active Problems: All Active Problems Left inguinal hernia (Acute) History of smoking 30 or more pack years (Acute) Normochromic normocytic anemia (Acute) FH: prostate carcinoma (Acute) Screening PSA (prostate specific antigen) (Acute) Nicotine dependence, cigarettes, uncomplicated (Acute) Past Medical History Medical History Nicotine dependence, cigarettes, uncomplicated Type 2 diabetes mellitus Hepatitis B Hepatitis C HIV (human immunodeficiency virus infection) Surgical History Surgical History History of cystoscopy History of colonoscopy Social History Social History Household Members: None Patient Tobacco Use Status: Current everyday Tobacco user Cigarettes Per Day: 10 Substance Use Type: Marijuana Have you been hit, kicked, punched, or otherwise hurt by someone within the past year? If so, by whom?: No Are you DNR?: No Advance Directives: No Advance Directives Information Provided: Yes service: No Current occupational status: retired [employer] Allergies Allergy/AdvReac Type Severity Reaction Status Date / Time No Known Allergies Allergy Verified 08/20/24 13:49 [No Known Allergies*] Home Medications ?Medication ?Instructions ?Recorded ?Confirmed ?Last Taken ?Type atorvastatin 20 mg tablet 20 mg PO DAILY 01/12/24 08/20/24 Unknown History buprenorphine 8 mg-naloxone 2 mg 1 film sublingual DAILY 01/12/24 08/20/24 09/13/24 History sublingual film emtricitabine 200 mg-rilpivirine 1 tab PO DAILY 01/12/24 08/20/24 09/13/24 History 25 mg-tenofovir alafenam 25 mg tablet (Kristyn) insulin detemir U-100 100 unit/mL 100 unit subcut DAILY 01/12/24 08/20/24 Unknown History (3 mL) subcutaneous pen (Levemir FlexPen) lisinopril 2.5 mg tablet 2.5 mg PO DAILY 01/12/24 08/20/24 Unknown History metformin 500 mg tablet,extended 500 mg PO BID 01/12/24 08/20/24 Unknown History release 24 hr mirtazapine 30 mg tablet 30 mg PO BEDTIME 01/12/24 08/20/24 Unknown History quetiapine 200 mg tablet 200 mg PO BEDTIME 01/12/24 08/20/24 Unknown History sertraline 100 mg tablet 100 mg PO DAILY 01/12/24 08/20/24 09/13/24 History Exam Height,Weight and Vital Signs: Height 5 ft 5 in Weight 58.513 kg Pertinent Lab Results Pertinent Lab Results: Laboratory Tests 06/21/24 08:41 WBC 5.2 Hgb 12.1 L Hct 36.6 L Plt Count 139 L Sodium 140 Potassium 4.2 Chloride 105 Carbon Dioxide 29 BUN 17 H Creatinine 1.11 Assessment and Plan Assessment Anesthesia Assessment: Chart Reviewed Documented by User: Melania Hatfield MD 09/13/24 09:25 [facility] Past Medical History Medical History Nicotine dependence, cigarettes, uncomplicated Type 2 diabetes mellitus Hepatitis B Hepatitis C HIV (human immunodeficiency virus infection) Family History Family history of problems with anesthesia: No Surgical History Surgical History History of cystoscopy History of colonoscopy History of Problems with Anesthesia: No Social History Social History Household Members: None Patient Tobacco Use Status: Current everyday Tobacco user Cigarettes Per Day: 10 Substance Use Type: Marijuana Have you been hit, kicked, punched, or otherwise hurt by someone within the past year? If so, by whom?: No Are you DNR?: No Advance Directives: No Advance Directives Information Provided: Yes service: No Current occupational status: retired Meds Allergies Allergy/AdvReac Type Severity Reaction Status Date / Time No Known Allergies Allergy Verified 08/20/24 13:49 [No Known Allergies*] Home Medications ?Medication ?Instructions ?Recorded ?Confirmed ?Last Taken ?Type atorvastatin 20 mg tablet 20 mg PO DAILY 01/12/24 08/20/24 Unknown History buprenorphine 8 mg-naloxone 2 mg 1 film sublingual DAILY 01/12/24 08/20/24 09/13/24 History sublingual film emtricitabine 200 mg-rilpivirine 1 tab PO DAILY 01/12/24 08/20/24 09/13/24 History 25 mg-tenofovir alafenam 25 mg tablet (Brianaefsey) insulin detemir U-100 100 unit/mL 100 unit subcut DAILY 01/12/24 08/20/24 Unknown History (3 mL) subcutaneous pen (Levemir FlexPen) lisinopril 2.5 mg tablet 2.5 mg PO DAILY 01/12/24 08/20/24 Unknown History metformin 500 mg tablet,extended 500 mg PO BID 01/12/24 08/20/24 Unknown History release 24 hr mirtazapine 30 mg tablet 30 mg PO BEDTIME 01/12/24 08/20/24 Unknown History quetiapine 200 mg tablet 200 mg PO BEDTIME 01/12/24 08/20/24 Unknown History sertraline 100 mg tablet 100 mg PO DAILY 01/12/24 08/20/24 09/13/24 History Exam Airway Mallampati Class: II TM Dist: >3cm Neck ROM: Limited Heart: rrr Lungs: cta Assessment and Plan Assessment Anesthesia Assessment: Anesthesia Plan Discussed Final Anesthetic Review Family History of Problems with Anesthesia: No History of Problems with Anesthesia: No NPO: Yes ASA Class: II Final Preanesthetic Review: No Changes in Pt Med Stat, Meds/Allgs Chart Reviewed, Consent Obtained/Reviewed and Anes Risks/Benef Reviewed Patient Risk: Intermediate Anesthetic Plan Anesthetic Plan: GA and MAC: Disposition: Standard PACU
[2024-09-13 09:05] VITALS: BP 136/72; PULSE 61; RESP 20; TEMP 36.6; O2SAT 96; BMI 21.0
[2024-09-13 09:14] LABS: Glucose, Whole Blood 132 mg/dL (60-115)
[2024-09-13] MEDS: Lactated Ringers 1,000 ML 100 ML IVCONT (09:24)
--- NOTE | 2024-09-13 12:40 | P.OP_ITS ---
Operative Note Operative Note Date of Service: 09/13/24 Narrative: Preoperative diagnosis: [] Symptomatic left inguinal hernia Postop diagnosis: [] The same Procedure [] open left inguinal herniorrhaphy with Bard mesh Surgeon: [] Virgil Patternmaker All Around: [] Clifford Type of Anesthesia: [] Mac Indication for surgery: [] Findings demonstrated moderately sized direct left inguinal hernia. No indirect hernia demonstrated Findings: [] Patient brought to the operating room, placed on operative table supine position, after an adequate level of MAC anesthesia was induced, the left groin was prepped and draped in usual sterile fashion using a small left para inguinal incision, this carried down through skin, subcutaneous tissue, Abdulaziz's fascia. External oblique fibers were opened their direction with care to isolate preserve the ilioinguinal nerve throughout the procedure. Spermatic cord was identified and retracted from the field. Exploration of the cord demonstrated no indirect hernia. Direct hernia was identified and reduced. A Bard plug was placed in this defect, and sutured inferiorly to the inguinal ligament, and superiorly to the transversalis fascia using interrupted 0 Ethibond suture. At completion, plug was in good position with no gaps or tension. Wound was irrigated, secured hemostasis, and closed in the following manner; external oblique fascia was closed using running 2-0 Vicryl suture. Abdulaziz's fascia was reapproximated using interrupted 3-0 Vicryl sutures. Interrupted inverted deep dermal 3-0 Vicryl sutures followed by running subcuticular 4-0 Vicryl sutures were placed. Steri-Strips and sterile dressings were applied. Wound was infiltrated the beginning and at the end of the case with 0.5% Marcaine/1% lidocaine. Sponge, needle, and instrument counts reported correct. Patient tolerated the procedure well and emerged from anesthesia stable condition. EBL minimal. Ipsilateral testicle was intrascrotal at completion.
[2024-09-13 12:51] VITALS: BP 113/58; PULSE 52; RESP 16; TEMP 36.8; O2SAT 100
[2024-09-13 13:05] VITALS: BP 137/72; PULSE 60; RESP 16; O2SAT 99
[2024-09-13 13:20] VITALS: BP 147/67; PULSE 59; RESP 16; O2SAT 99
[2024-09-13 13:35] VITALS: BP 157/76; PULSE 56; RESP 16; TEMP 36.7; O2SAT 99
== END 2024-09-13 14:14 | disposition home or self-care (01) ==
PROVIDERS: PCP Student in an Organized Health Care Education/Training Program; Visit Provider Surgery
PROC: (CPT 49505; principal; 2024-09-13 12:30)
DX: K40.90 Unilateral inguinal hernia, without obstruction or gangrene, not specified as recurrent (principal); E11.9 Type 2 diabetes mellitus without complications; B19.10 Unspecified viral hepatitis B without hepatic coma; B19.20 Unspecified viral hepatitis C without hepatic coma; B20 Human immunodeficiency virus [HIV] disease; Z79.4 Long term (current) use of insulin; Z79.84 Long term (current) use of oral hypoglycemic drugs; Z79.620 Long term (current) use of immunosuppressive biologic; Z79.899 Other long term (current) drug therapy; F17.210 Nicotine dependence, cigarettes, uncomplicated
CPT/HCPCS: 49505; 82947; C1781; J0131; J0690; J1596; J1885; J2003; J2405; J2704; J2795; J3010

== ENCOUNTER → 2024-09-13 08:32 | Outpatient (BNV) | payer MEDICARE, MEDICAID, SELFPAY | PROVIDERS: PCP Student in an Organized Health Care Education/Training Program; Visit Provider Surgery | DX: K40.90 Unilateral inguinal hernia, without obstruction or gangrene, not specified as recurrent (principal) | CPT/HCPCS: 49505 ==

== ENCOUNTER 2024-10-01 12:45 | Outpatient (AMB) | payer MEDICARE, MEDICAID, SELFPAY ==
--- NOTE | 2024-10-01 12:48 | MHC.OFFVIS ---
Intake Visit Reasons: S/P LIH w/mesh Intake Note: Patient here s/p open left inguinal herniorrhaphy with Bard mesh. Reports incisions healing well. Patient c/o:steri strips removed. 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 Patient presents for follow-up. He is no wound issues or complaints. He is tolerating a diet. Having regular bowel habits. He is increasing his activity level. [facility] Medical History (Updated 09/24/24 @ 14:42 by Juliane Mesa PA-C) Nicotine dependence, cigarettes, uncomplicated Type 2 diabetes mellitus Hepatitis B Hepatitis C HIV (human immunodeficiency virus infection) Surgical History (Updated 10/01/24 @ 13:36 by Josafat Herman MD) History of left inguinal hernia repair History of cystoscopy History of colonoscopy Social History Household Members: None Patient Tobacco Use Status: Current everyday Tobacco user Cigarettes Per Day: 10 Substance Use Type: Marijuana service: No Current occupational status: retired Physical Exam GI Other: Abdomen is soft. Incision clean dry and intact healing very well Assessment & Plan Assessment & Plan (1) Postop check: Code(s): Z09 - Encounter for follow-up examination after completed treatment for conditions other than malignant neoplasm Category: Surgical (2) Status post inguinal hernia repair: Code(s): Z98.890 - Other specified postprocedural states; Z87.19 - Personal history of other diseases of the digestive system Category: Surgical Plan Patient was been given local instructions including avoiding strenuous activities for next few weeks time and will otherwise follow-up p.r.n.. All questions answered. Coding Level of Care Code Global (27365) Diagnoses Postop check Z09 Status post inguinal hernia repair Z98.890; Z87.19
== END 2024-10-01 12:59 | disposition home or self-care (01) ==
PROVIDERS: PCP Student in an Organized Health Care Education/Training Program; Visit Provider Surgery
DX: Z09 Encounter for follow-up examination after completed treatment for conditions other than malignant neoplasm (principal); Z98.890 Other specified postprocedural states; Z87.19 Personal history of other diseases of the digestive system
CPT/HCPCS: 99024

== ENCOUNTER → 2024-10-01 12:45 | Outpatient (BNVA) | payer MEDICARE, MEDICAID, SELFPAY | PROVIDERS: PCP Student in an Organized Health Care Education/Training Program; Visit Provider Surgery | DX: Z09 Encounter for follow-up examination after completed treatment for conditions other than malignant neoplasm (principal); Z98.890 Other specified postprocedural states; Z87.19 Personal history of other diseases of the digestive system | CPT/HCPCS: 99212 ==

== ENCOUNTER 2024-11-14 11:07 | Outpatient (REF) | payer MEDICARE, MEDICAID, SELFPAY ==
[2024-11-14 13:25] LABS: MANUAL DIFF FLAG NO
[2024-11-14 13:40] LABS: Basophils Percent Auto 0.2 % (0-2); Eosinophils Absolute Auto 0.1 X10*3/uL (0.0-0.4); Eosinophils Percent Auto 1.1 % (0-4); Hematocrit 36.4 % (42.0-52.0); Hemoglobin 11.8 g/dl (14.0-18.0); Imm Gran Abs Auto 0.05 X10*3/uL (0.00-0.03); Imm Gran Pct Auto 0.8 % (0.0-0.4); Lymphocytes Absolute Auto 1.6 X10*3/uL (1.2-4.9); Lymphocytes Percent Auto 25.6 % (20-40); Mean Corpuscular HGB Conc 32.4 g/dl (31.0-36.0); Mean Corpuscular Hemoglobin 31.1 pg (27.0-33.0); Mean Platelet Volume 11.3 fL (9.4-12.4); Monocytes Absolute Auto 0.5 X10*3/uL (0.1-1.2); Monocytes Percent Auto 8.1 % (2-11); Neutrophils Percent Auto 64.2 % (45-73); Platelet Count 147 X10*3/uL (160-400); Red Blood Count 3.79 X10*6/uL (4.60-5.80); Red Cell Distribution Width 14.1 % (11.0-16.0); White Blood Count 6.2 X10*3/uL (4.8-10.8)
[2024-11-14 13:51] LABS: Alanine Aminotransferase 18 U/L (0-40); Albumin Level 4.2 g/dL (3.5-5.0); Alkaline Phosphatase 72 U/L (39-117); Anion Gap 9 (12-20); Aspartate Amino Transferase 25 U/L (5-37); Bilirubin Total 0.4 mg/dL (0.0-1.0); Blood Urea Nitrogen 15 mg/dL (9-16); Calcium 9.2 mg/dL (8.4-10.2); Carbon Dioxide 29 mmol/L (22-29); Chloride 106 mmol/L (96-108); Estimated Glomerular Filt Rate > 60; Glucose Random 70 mg/dL (60-115); Sodium 140 mmol/L (135-145); Total Protein 7.4 g/dL (6.5-8.0)
[2024-11-14 14:10] LABS: ~HepC Num1 9.41 S/CO (0.00-0.79); ~Hepatitis C Antibody Reactive (Nonreactive)
[2024-11-15 15:24] LABS: HIV RNA PCR Qn Copies 82 copies/mL (NOT DETECTED); HIV RNA PCR Qn Log Copies 1.91 (NOT DETECTED)
[2024-11-16 22:13] LABS: Hepatitis BE Antigen NON-REACTIVE (NON-REACTIVE)
[2024-11-17 16:32] LABS: Absolute CD3 Count 1191 cells/uL (840-3060); Absolute CD4 Count 613 cells/uL (490-1740); Absolute CD8 Count 583 cells/uL (180-1170); Absolute Lymphocytes 1457 cells/uL (850-3900); CD4 CD8 Ratio 1.05 (0.86-5.00); Percent CD3 Cells 82 % (57-85); Percent CD4 Cells 42 % (30-61); Percent CD8 Cells 40 % (12-42)
[2024-11-19 12:34] LABS: HCV Log PCR <1.18 NOT DETECTED Log IU/mL (NOT DETECTED); HepC Viral Load <15 NOT DETECTED IU/mL (NOT DETECTED)
== END 2024-11-14 11:08 | disposition home or self-care (01) ==
LOC: HO.HHCL 11:07
PROVIDERS: Visit Provider Internal Medicine
DX: Z21 Asymptomatic human immunodeficiency virus [HIV] infection status (principal)
CPT/HCPCS: 36415; 80053; 82550; 85025; 86359; 86360; 86803; 87350; 87522; 87536

== ENCOUNTER 2025-02-11 08:50 | Outpatient (AMB) | payer MEDICARE, MEDICAID, SELFPAY ==
--- NOTE | 2025-02-11 08:57 | MHC.OFFVIS ---
Vital Signs 02/11/25 09:03 Height 5 ft 5 in Weight 125 lb BMI 20.8 BP 107/52 L Blood Pressure Location Lt brachial Position Sitting Pulse 62 Oxygen Delivery Method Room Air Oxygen Flow Rate 99 Intake Visit Reasons: colo screening Intake Note: Patient new consult for pre colonoscopy screening. Patient last colonoscopy was [address] Centeno , denies any GI issues for today. Safety And Skill Based Pay Manager Required: Yes Safety And Skill Based Pay Manager Name: [facility] Interpeter Accompanied by: Self / Same As Patient Allergies No Known Allergies [No Known Allergies*] Allergy (Verified 02/11/25 08:57) HPI HPI colo screening: Details: 69 year old? male with past medical history of anemia, prostate carcinoma, nicotine dependence, HIV, hep B, hep C is here today for pre colonoscopy screening.? Patient was sent to us by his PCP.? Normal colonoscopy in [address] Centeno. Patient denies any gastrointestinal symptoms in the past or at present.? Denies any personal or family history of gastrointestinal disease, colon polyps, or CRC.? Denies history of difficulty with sedation or anesthesia in the past.? Patient reports constipation. No bowel movements for 3-4 days. Currently is using stool softeners without effect. Negative for history of sleep apnea.? Denies any history of cardiac, renal, pulmonary, or hepatic disease.?? ? Patient is not on any anticoagulation [facility] Medical History (Updated 09/24/24 @ 14:42 by Juliane Mesa PA-C) Nicotine dependence, cigarettes, uncomplicated Type 2 diabetes mellitus Hepatitis B Hepatitis C HIV (human immunodeficiency virus infection) Surgical History History of left inguinal hernia repair History of cystoscopy History of colonoscopy Family History (Updated 02/11/25 @ 09:01 by Carol Fraser) Father Cancer of abdominal wall Paternal Uncle Cancer of abdominal wall Mother Alzheimer dementia Maternal Uncle Cancer Maternal Grandmother Cancer Social History Household Members: None Patient Tobacco Use Status: Current everyday Tobacco user Cigarettes Per Day: 10 Substance Use Type: Marijuana service: No Current occupational status: retired Review of Systems Const Denies weight gain and Denies weight loss ENT Reports no additional complaints, Denies dysphagia and Denies odynophagia Card Reports no additional complaints Resp Reports no additional complaints GI Denies abdominal pain, Denies belching, Denies melena, Denies bloating, Denies change in bowel habits, Reports constipation, Denies dysphagia, Denies excessive flatus, Denies dyspepsia, Denies heartburn, Denies diarrhea, Denies loose stools, Denies nausea, Denies odynophagia and Denies vomiting Reports no additional complaints Musc Reports no additional complaints Neuro Reports no additional complaints Psych Reports no additional complaints Endo Reports no additional complaints Physical Exam Const General: healthy appearing, no acute distress and well developed Nutritional Appearance: well nourished Orientation/consciousness: patient oriented x3 Resp Effort & Inspection: normal respiratory effort, able to speak in complete sentences, no tracheal deviation and symmetric chest movement Auscultation: clear to auscultation bilaterally Cardio Rate: regular rate GI Inspection: Yes normal to inspection and No distended Palpation (GI): Soft to palpation, not firm, nontender and No hepatosplenomegaly present Auscultation: normal bowel sounds General: Yes no CVA tenderness Back/Spine/Pelvis Back: no CVA tenderness Skin General skin exam: elasticity normal, turgor normal and dry skin Neuro General: patient oriented x3 Psych Appearance: grossly normal Mental Status: mental status grossly normal Assessment & Plan Assessment & Plan (1) Screen for colon cancer: Code(s): Z12.11 - Encounter for screening for malignant neoplasm of colon Plan Patient denies any GI, cardiac or respiratory symptoms.? Patient reports constipation. Taking stool softeners, will order him Dulcolax. Patient was encouraged to take it 2 tablets daily. Increase fluid intake and activity to promote better bowel motility. Denies any issues with anesthesia in the past.? Denies any history of sleep apnea.? Not on any anticoagulation therapy.? No family or personal history of colon cancer or polyps.? Patient denies melena, hematochezia, unintentional weight loss or ribbon like stools.? Discussed at length the pre-procedure,? prep, diet & medications as well as what to expect prior, during and after the procedure.?? Stressed the importance of good bowel prep.? Recommended the use of Vaseline or Calmoseptine OTC & baby wipes with bowel movements to promote comfort.? ?Patient verbalizes understanding and agrees to plan of care.? He was given the opportunity to ask questions and all questions answered.? We will see him after the procedure.? Medications: New bisacodyl (Dulcolax (bisacodyl)) 10 mg (2 x 5 mg) PO BEDTIME 180 tabs 4RF polyethylene glycol 3350 (Miralax) As directed by gastroenterology department at [facility] 238 grams PO ONCE 238 grams 0RF Z12.11 - Encounter for screening for malignant neoplasm of colon Coding Level of Care Code New Pt Level 3 (56898) Diagnoses Screen for colon cancer Z12.11 Time Spent (min) 40 Comment 30 minutes spent with patient and additional 10 minutes spent reviewing her records
[2025-02-11 09:03] VITALS: BP 107/52; PULSE 62; BMI 20.8
== END 2025-02-11 09:24 | disposition home or self-care (01) ==
LOC: HO.HGI 08:51
PROVIDERS: PCP Student in an Organized Health Care Education/Training Program; Visit Provider Nurse Practitioner Family
DX: Z12.11 Encounter for screening for malignant neoplasm of colon (principal); Z01.818 Encounter for other preprocedural examination
CPT/HCPCS: 99024

== ENCOUNTER → 2025-02-11 08:50 | Outpatient (BNVA) | payer MEDICARE, MEDICAID, SELFPAY | PROVIDERS: PCP Student in an Organized Health Care Education/Training Program; Visit Provider Nurse Practitioner Family | DX: Z12.11 Encounter for screening for malignant neoplasm of colon (principal) | CPT/HCPCS: 99212 ==

== ENCOUNTER 2025-05-02 16:56 | Outpatient (REF) | payer OTHER, SELFPAY ==
[2025-05-02 17:10] LABS: Appearance Urine Cloudy; Glucose Urine UA Negative (Negative); PH 5.5 (5.0-9.0); Specific Gravity - Urine 1.020 (1.005-1.025); UMIC TRIGGER UACC YES
[2025-05-02 17:25] LABS: UACC Culture Trigger YES
== END 2025-05-02 16:57 | disposition home or self-care (01) ==
LOC: HO.HHCLNP 16:56
PROVIDERS: Visit Provider Student in an Organized Health Care Education/Training Program
DX: R31.9 Hematuria, unspecified (principal)
CPT/HCPCS: 81001; 87086; 88112

== ENCOUNTER 2025-05-10 12:56 | Outpatient (AMB) | payer OTHER, SELFPAY ==
--- OUTSIDE RECORDS SUMMARY | 2025-05-10 12:58 | XMS_ITS | Patient Health Record ---
Demographics Address [address] [place] [address] Preferred Language Unknown Marital Status unmarried Latter-Day Affiliation Unknown Race Unknown Ethnic Group Unknown Author Organization [facility] Address [address] [place] [address] Care Team Providers Care Information Technology Advisor Name Role Phone Barrera Nuñez Unavailable [phone] Reason For Referral No Information Plan Of Treatment No Information
[2025-05-10 13:06] VITALS: BP 120/68; PULSE 68; O2SAT 97; BMI 20.3
--- NOTE | 2025-05-10 13:06 | A.OFFVIS_ITS ---
Vital Signs 05/10/25 13:06 Height 5 ft 5 in Weight 122 lb BMI 20.3 BP 120/68 Blood Pressure Location Rt brachial Position Sitting Pulse 68 Pulse Source Pulse Oximeter Pulse Oximetry (%) 97 Oxygen Delivery Method Room Air Intake Visit Reasons: Urgent - unintentional W/L. Intake Note: Est pt for mgmt of unintentional W/L + CIC. CC; C.O. dysphagia and W/L over the last few weeks. Pt denies any additional sx at this time. 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 Patient reports constipation. Taking stool softeners, will order him Dulcolax. Patient was encouraged to take it 2 tablets daily. Increase fluid intake and activity to promote better bowel motility. Denies any issues with anesthesia in the past.? Denies any history of sleep apnea.? Not on any anticoagulation therapy.? No family or personal history of colon cancer or polyps.? Patient denies melena, hematochezia, unintentional weight loss or ribbon like stools.? Discussed at length the pre-procedure,? prep, diet & medications as well as what to expect prior, during and after the procedure.?? Stressed the importance of good bowel prep.? Recommended the use of Vaseline or Calmoseptine OTC & baby wipes with bowel movements to promote comfort.? ?Patient verbalizes understanding and agrees to plan of care.? He was given the opportunity to ask questions and all questions answered.? We will see him after the procedure.? New bisacodyl (Dulcolax (bisacodyl)) 10 mg (2 x 5 mg) PO BEDTIME 180 tabs 4RF polyethylene glycol 3350 (Miralax) As directed by gastroenterology department at [facility] 238 grams PO ONCE 238 grams 0RF Z12.11 TODAY'S VISIT Patient is here today for requested visit. Patient was last seen in January, reports that colonoscopy was not scheduled yet. Patient lost additional 3 lb. Reports to have good appetite. Denies any dyspepsia, dysphagia or odynophagia. Denies melena, hematochezia or ribbon like stools. Patient denies any significant GI concerning symptoms is still taking the Dulcolax, will need more refills. Last colonoscopy in [address] Centeno. Patient denies any family history of CRC. Denies any cardiac or respiratory symptoms [facility] Medical History Nicotine dependence, cigarettes, uncomplicated Type 2 diabetes mellitus Hepatitis B Hepatitis C HIV (human immunodeficiency virus infection) Surgical History History of left inguinal hernia repair History of cystoscopy History of colonoscopy Family History Father Cancer of abdominal wall Paternal Uncle Cancer of abdominal wall Mother Alzheimer dementia Maternal Uncle Cancer Maternal Grandmother Cancer Social History Household Members: None Patient Tobacco Use Status: Current everyday Tobacco user Cigarettes Per Day: 10 Substance Use Type: Marijuana service: No Current occupational status: retired Review of Systems Const Denies weight gain and Denies weight loss ENT Reports no additional complaints, Denies dysphagia and Denies odynophagia Card Reports no additional complaints Resp Reports no additional complaints GI Denies abdominal pain, Denies belching, Denies melena, Denies bloating, Denies change in bowel habits, Reports constipation (Occasional), Denies dysphagia, Denies excessive flatus, Denies dyspepsia, Denies heartburn, Denies diarrhea, Denies loose stools, Denies nausea, Denies odynophagia and Denies vomiting Reports no additional complaints Musc Reports no additional complaints Neuro Reports no additional complaints Psych Reports no additional complaints Endo Reports no additional complaints Physical Exam Vital Signs: Last Vital Signs Pulse 68 05/10/25 13:06 BP 120/68 05/10/25 13:06 Pulse Ox 97 05/10/25 13:06 Oxygen Delivery Method Room Air 05/10/25 13:06 BMI result Body Mass Index 20.3 Const General: healthy appearing, no acute distress and well developed Nutritional Appearance: well nourished Orientation/consciousness: patient oriented x3 Resp Effort & Inspection: normal respiratory effort, able to speak in complete sentences, no tracheal deviation and symmetric chest movement Auscultation: clear to auscultation bilaterally Cardio Rate: regular rate GI Inspection: Yes normal to inspection and No distended Palpation (GI): Soft to palpation, not firm, nontender and No hepatosplenomegaly present Auscultation: normal bowel sounds General: Yes no CVA tenderness Back/Spine/Pelvis Back: no CVA tenderness Skin General skin exam: elasticity normal, turgor normal and dry skin Neuro General: patient oriented x3 Psych Appearance: grossly normal Mental Status: mental status grossly normal Assessment & Plan Assessment & Plan (1) Encounter for screening for malignant neoplasm of colon: Code(s): Z12.11 - Encounter for screening for malignant neoplasm of colon Plan Message sent to surgical schedulers again we went over his prep. What to expect before during and after procedure discussed with patient. Patient will continue taking Dulcolax daily. Increase fluid intake and activity to promote better bowel motility. Patient reports that he has Dulcolax and MiraLax at home. Stressed the importance of clear liquid diet and good bowel prep day before procedure. I will see patient after the procedure, sooner on as needed basis. Currently patient is not having any epigastric pain or acid reflux. However if patient does we can always add upper endoscopy. Please call patient if any symptoms before scheduling the procedure. He is agreeable to this plan and verbalizes understanding of instructions. He was given the opportunity to ask questions and all questions answered. Thank you for allowing me to participate in his care Coding Level of Care Code Est Pt Level 3 (29659) Diagnoses Encounter for screening for malignant neoplasm of colon Z12.11 Time Spent (min) 30 Comment 20 minutes spent with patient and additional 10 minutes spent reviewing his records
== END 2025-05-10 13:32 | disposition home or self-care (01) ==
LOC: HO.HGI 12:56
PROVIDERS: PCP Student in an Organized Health Care Education/Training Program; Visit Provider Nurse Practitioner Family
DX: R63.4 Abnormal weight loss (principal); K59.04 Chronic idiopathic constipation; Z12.11 Encounter for screening for malignant neoplasm of colon
CPT/HCPCS: 99213

== ENCOUNTER → 2025-05-10 12:56 | Outpatient (BNVA) | payer OTHER, SELFPAY | PROVIDERS: PCP Student in an Organized Health Care Education/Training Program; Visit Provider Nurse Practitioner Family | DX: Z01.818 Encounter for other preprocedural examination (principal); K59.00 Constipation, unspecified | CPT/HCPCS: 99212 ==

== ENCOUNTER → 2025-06-13 11:00 | Outpatient (BNV) | payer OTHER, SELFPAY | PROVIDERS: PCP Internal Medicine; Visit Provider Radiology Diagnostic Radiology | DX: M85.89 Other specified disorders of bone density and structure, multiple sites (principal); B20 Human immunodeficiency virus [HIV] disease | CPT/HCPCS: 77080 ==

== ENCOUNTER 2025-06-13 11:15 | Outpatient (REF) | payer OTHER, SELFPAY ==
--- NOTE | ~2025-06-13 | MM_ITS ---
EXAMINATION: DXA BONE DENSITY AXIAL HISTORY: pt w HIV on ARV needs r/O osteoporosis TECHNIQUE: [employer] Dual energy absorptiometry (DEXA) of the lumbar spine, total left hip, and femoral neck was performed. COMPARISON: There are no prior studies for comparison. FINDINGS: The bone mineral density of the lumbar spine is 1.042 g/cm2, corresponding to a T-score of -1.5, and a Z-score of -0.2. This is indicative of osteopenia. The bone mineral density of the left total hip is 0.850 g/cm2, corresponding to a T-score of -1.7, and a Z-score of -0.6. This is indicative of osteopenia. The bone mineral density of the left femoral neck is 0.777 g/cm2, corresponding to a T-score of -2.3, and a Z-score of -0.5. This is indicative of osteopenia. FRACTURE RISK: The FRAX index suggests a risk of major osteoporotic fracture of 4.4%, and of hip fracture 1.8%. MM/XR DEXA axial skeleton IMPRESSION: Based on bone mineral density, and according to World Health Organization (WHO) criteria, the diagnosis is consistent with osteopenia. Statistically, 68% of repeat scans fall within 1 SD (+/- 0.010 g/cm2 for AP spine L1-L4) and 1 SD (+/- 0.012 g/cm2 for femur total) FRAX is a trademark of the [employer]'s [place] [facility] Metabolic [employer] Disease, a World Health Organization (WHO) Collaborating Center. Electronically signed by: Barrera Bustamante MD 06/13/2025 11:46 AM EDT
== END 2025-06-13 11:16 | disposition home or self-care (01) ==
LOC: HO.MAMMO 11:15
PROVIDERS: PCP Internal Medicine; Visit Provider Student in an Organized Health Care Education/Training Program
DX: Z13.820 Encounter for screening for osteoporosis (principal); M85.89 Other specified disorders of bone density and structure, multiple sites; Z21 Asymptomatic human immunodeficiency virus [HIV] infection status; F17.200 Nicotine dependence, unspecified, uncomplicated
CPT/HCPCS: 77080

== ENCOUNTER 2025-06-17 08:46 | Outpatient (REF) | payer OTHER, SELFPAY ==
--- OUTSIDE RECORDS SUMMARY | 2025-06-17 10:09 | XMS_ITS | Patient Health Record ---
Demographics Address [address] [place] [address] Preferred Language Unknown Marital Status unmarried Judaism Affiliation Unknown Race Unknown Ethnic Group Unknown Author Organization [facility] Address [address] [place] [address] Care Team Providers Care Stock Dealer Name Role Phone Barrera Nuñez Unavailable [phone] Reason For Referral No Information Plan Of Treatment No Information
[2025-06-17 11:29] LABS: MANUAL DIFF FLAG NO
[2025-06-17 11:52] LABS: Hemoglobin A1C 115.2823 umol/L; Total Hemoglobin (HGBA1C) 3057.5514 umol/L
[2025-06-17 11:55] LABS: Alanine Aminotransferase 14 U/L (0-40); Albumin Level 4.4 g/dL (3.5-5.0); Alkaline Phosphatase 79 U/L (39-117); Anion Gap 9 (12-20); Aspartate Amino Transferase 23 U/L (5-37); Blood Urea Nitrogen 14 mg/dL (9-16); Calcium 9.6 mg/dL (8.4-10.2); Carbon Dioxide 30 mmol/L (22-29); Chloride 105 mmol/L (96-108); Cholesterol 131 mg/dL (<200); Estimated Glomerular Filt Rate > 60; HDL Cholesterol 42 mg/dL (>40); Potassium 4.3 mmol/L (3.3-5.1); Sodium 140 mmol/L (135-145); Total Protein 7.2 g/dL (6.5-8.0); Triglycerides 52 mg/dL (<150)
[2025-06-17 11:56] LABS: Hematocrit 35.0 % (42.0-52.0); Hemoglobin 11.5 g/dl (14.0-18.0); Imm Gran Abs Auto 0.01 X10*3/uL (0.00-0.03); Imm Gran Pct Auto 0.2 % (0.0-0.4); Lymphocytes Absolute Auto 1.1 X10*3/uL (1.2-4.9); Mean Corpuscular HGB Conc 32.9 g/dl (31.0-36.0); Mean Corpuscular Hemoglobin 30.4 pg (27.0-33.0); Mean Corpuscular Volume 92.6 fL (80.0-98.0); NRBC Abs Auto 0.000 X10*3/uL (0.0-0.012); NRBC Pct Auto 0.0 /100WBC (0.0-0.2); Platelet Count 165 X10*3/uL (160-400); Red Blood Count 3.78 X10*6/uL (4.60-5.80); White Blood Count 4.7 X10*3/uL (4.8-10.8)
[2025-06-17 12:12] LABS: Syphilis Screen Nonreactive (Nonreactive)
[2025-06-17 12:15] LABS: ~HepC Num1 8.89 S/CO (0.00-0.79); ~Hepatitis C Antibody Reactive (Nonreactive)
[2025-06-17 12:42] LABS: Reflex LDLD? No
[2025-06-19 01:02] LABS: HIV RNA PCR Qn Copies NOT DETECTED copies/mL (NOT DETECTED); HIV RNA PCR Qn Log Copies NOT DETECTED (NOT DETECTED)
[2025-06-19 15:25] LABS: HCV Log PCR <1.18 NOT DETECTED Log IU/mL (NOT DETECTED); HepC Viral Load <15 NOT DETECTED IU/mL (NOT DETECTED)
[2025-06-20 05:10] LABS: TS Negative Control Passed; TS Panel A 0; TS Panel B 0; TS Positive Control Passed; TSpotTB Negative (Negative)
[2025-06-21 14:58] LABS: Absolute CD3 Count 1087 cells/uL (840-3060); Absolute CD8 Count 527 cells/uL (180-1170); Percent CD3 Cells 79 % (57-85); Percent CD8 Cells 38 % (12-42)
== END 2025-06-17 08:47 | disposition home or self-care (01) ==
LOC: HO.HHCL 08:46
PROVIDERS: PCP Internal Medicine; Visit Provider Student in an Organized Health Care Education/Training Program
DX: Z21 Asymptomatic human immunodeficiency virus [HIV] infection status (principal); Z11.1 Encounter for screening for respiratory tuberculosis; Z13.6 Encounter for screening for cardiovascular disorders; Z13.1 Encounter for screening for diabetes mellitus
CPT/HCPCS: 36415; 80053; 80061; 83036; 85025; 86359; 86360; 86481; 86592; 86780; 86803; 87522; 87536

== ENCOUNTER 2025-07-06 06:56 | Emergency (ER) | payer OTHER, SELFPAY ==
--- NOTE | ~2025-07-06 | XR_ITS ---
CLINICAL HISTORY: constipation 1 view abdomen Comparison: None Findings: Nonspecific bowel gas pattern. Mild increased stool burden. No pneumoperitoneum or pneumatosis. No urinary tract calculi are present. Renal and psoas margins are normal. No organomegaly. No acute fracture. Impression: 1. Nonspecific bowel gas pattern. 2. Mild increased stool burden. This document has been electronically signed by: Sukhjinder Fink MD on 07/06/2025 08:16:25
[2025-07-06 06:59] VITALS: BP 199/91; PULSE 62; RESP 16; TEMP 36.7; O2SAT 100; BMI 20.1
--- NOTE | 2025-07-06 07:10 | ECG_ITS ---
Test Reason : ABD PAIN Blood Pressure : */* mmHG Vent. Rate : 50 BPM Atrial Rate : 50 BPM P-R Int : 130 ms QRS Dur : 92 ms QT Int : 450 ms P-R-T Axes : -27 85 79 degrees QTcB Int : 410 ms Sinus bradycardia with Premature atrial complexes Otherwise normal ECG When compared with ECG of 31-Mar-2012 09:27, Premature atrial complexes are now Present Referred By: Generic ED Physician Electronically Signed By: SHALONDA YING MD
--- NOTE | 2025-07-06 07:29 | ED.ABDPAIN ---
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 Bladder scan revealed 1200 cc did not reporting any dysuria. Related Data Home Medications ?Medication ?Instructions ?Recorded ?Confirmed atorvastatin 20 mg tablet 20 mg PO DAILY 01/12/24 10/01/24 buprenorphine 8 mg-naloxone 2 mg 1 film sublingual DAILY 01/12/24 10/01/24 sublingual film emtricitabine 200 mg-rilpivirine 1 tab PO DAILY 01/12/24 10/01/24 25 mg-tenofovir alafenam 25 mg tablet (Odefsey) insulin detemir U-100 100 unit/mL 100 unit subcut DAILY 01/12/24 10/01/24 (3 mL) subcutaneous pen (Levemir FlexPen) lisinopril 2.5 mg tablet 2.5 mg PO DAILY 01/12/24 10/01/24 metformin 500 mg tablet,extended 500 mg PO BID 01/12/24 10/01/24 release 24 hr mirtazapine 30 mg tablet 30 mg PO BEDTIME 01/12/24 10/01/24 quetiapine 200 mg tablet 200 mg PO BEDTIME 01/12/24 10/01/24 sertraline 100 mg tablet 100 mg PO DAILY 01/12/24 10/01/24 Previous Rx's ?Medication ?Instructions ?Recorded ibuprofen 800 mg tablet 800 mg PO Q8H PRN pain #30 tabs 09/13/24 bisacodyl 5 mg tablet,delayed 10 mg (2 x 5 mg) PO BEDTIME #180 02/11/25 release (Dulcolax (bisacodyl)) tabs Allergies Allergy/AdvReac Type Severity Reaction Status Date / Time No Known Allergies (No Known Allergy Verified 07/06/25 07:04 Allergies*) Review of Systems Constitutional: Reports as per [facility] Past Medical History Medical History Nicotine dependence, cigarettes, uncomplicated Type 2 diabetes mellitus Hepatitis B Hepatitis C HIV (human immunodeficiency virus infection) Surgical History History of left inguinal hernia repair History of cystoscopy History of colonoscopy Family History Family History Father Cancer of abdominal wall Paternal Uncle Cancer of abdominal wall Mother Alzheimer dementia Maternal Uncle Cancer Maternal Grandmother Cancer Social History Social History Household Members: None Patient Tobacco Use Status: Current everyday Tobacco user Cigarettes Per Day: 10 Smoked in Last 30 Days: Yes Use of substances other than those prescribed or required for medical reasons: Yes Substance Use Type: Marijuana Substance Use Frequency: Occasionally Advance Directives: No Advance Directives Information Provided: Yes service: No Current occupational status: retired Physical Exam ED Vital Signs: Vital Signs - 24 hr 07/06/25 06:59 07/06/25 07:35 Temperature 98.1 F Pulse Rate 62 51 Respiratory Rate 16 Blood Pressure 199/91 H 178/86 H Pulse Oximetry 100 Oxygen Delivery Method Room Air BMI result Body Mass Index 20.1 Const Other: General: ?Appears of stated age, in discomfort ? ?CV: RRR, no obvious murmurs appreciated ? ?Resp: ?No wheezing rales rhonchi no stridor moving air well ? Abd: ?Suprapubic distention and tenderness, bowel sounds present throughout : Normal penis and testicles ? ?MSK: FROM, strength 5/5 all extremities ? Skin: Warm, dry, intact, ? ?Neuro: ?Alert and oriented x3, moving upper and lower extremities symmetrically, no obvious facial asymmetry noted, cranial nerves 2-12 intact Medical Decision Making Medical Decision Making MDM Narrative: 7:33 AM 07/06/2025 (Dr. Giles Iyer): Low suspicion for SBO based on physical examination we will obtain KUB to evaluate whether the patient needs additional medications for constipation, he had significant retention of urine and Angel catheter was placed with the immediate release of discomfort, we will evaluate for a UTI, KIRAN disposition to be determined did not feel further imaging such as CT is indicated based on physical examination in his symptoms 9:10 AM 07/06/2025 (Dr. Giles Iyer): Patient's urine will be sent for culture there was no bacteria seen, he always has elevated leuks with RBCs and some white cells in the urine that has not really changed much but there was no bacteria, Differential Diagnosis Differential Diagnoses: The differential diagnosis associated with the presentation includes (Constipation due to Suboxone, UTI, BPH, KIRAN, SBO) Admission/Observation Consideration of admission/observation: Escalation of care including admission/observation considered Lab Data MDM Lab Attestation statement: I reviewed the patient's lab results. 07/06/25 07:40 07/06/25 07:40 Labs: Lab Results 07/06/25 Range/Units 07:40 WBC 6.4 (4.8-10.8) X10*3/uL RBC 3.93 L (4.60-5.80) X10*6/uL Hgb 11.9 L (14.0-18.0) g/dl Hct 36.1 L (42.0-52.0) % MCV 91.9 (80.0-98.0) fL MCH 30.3 (27.0-33.0) pg MCHC 33.0 (31.0-36.0) g/dl RDW 14.7 (11.0-16.0) % Plt Count 148 L (160-400) X10*3/uL MPV 10.5 (9.4-12.4) fL Immature Gran % (Auto) 0.3 (0.0-0.4) % Neut % (Auto) 71.5 (45-73) % Lymph % (Auto) 19.0 L (20-40) % [place] % (Auto) 7.9 (2-11) % Eos % (Auto) 1.1 (0-4) % Baso % (Auto) 0.2 (0-2) % Lymph # (Auto) 1.2 (1.2-4.9) X10*3/uL [place] # (Auto) 0.5 (0.1-1.2) X10*3/uL Eos # (Auto) 0.1 (0.0-0.4) X10*3/uL Baso # (Auto) 0.0 (0.0-0.2) X10*3/uL Abs Immat Gran (auto) 0.02 (0.00-0.03) X10*3/uL Absolute Neuts (auto) 4.6 (2.0-8.3) x10*3/uL Absolute Nucleated RBC 0.000 (0.0-0.012) X10*3/uL Nucleated RBC % (auto) 0.0 (0.0-0.2) /100WBC Sodium 137 (135-145) mmol/L Potassium 4.2 (3.3-5.1) mmol/L Chloride 106 (96-108) mmol/L Carbon Dioxide 21 L (22-29) mmol/L Anion Gap 14 (12-20) BUN 16 (9-16) mg/dL Creatinine 1.20 (0.5-1.4) mg/dL Estim Creat Clear Calc 45.5 Estimated GFR > 60 Random Glucose 77 (60-115) mg/dL Calcium 10.0 (8.4-10.2) mg/dL Total Bilirubin 0.3 (0.0-1.0) mg/dL Direct Bilirubin 0.1 (0.0-0.5) mg/dL AST 34 (5-37) U/L ALT 22 (0-40) U/L Alkaline Phosphatase 78 (39-117) U/L Total Protein 7.0 (6.5-8.0) g/dL Albumin 4.1 (3.5-5.0) g/dL Lipase 12 (8-78) U/L Urine Color Yellow Urine Appearance Clear Urine pH >= 9.0 (5.0-9.0) Ur Specific Moodus 1.010 (1.005-1.025) Urine Protein Negative (Neg-Trace) mg/dL Urine Glucose (UA) Negative (Negative) mg/dL Urine Ketones Negative (Negative) mg/dL Urine Blood Small (1+) H (Negative) Urine Nitrite Negative (Negative) Ur Leukocyte Esterase Moderate (2+) H (Negative) Urine RBC >20 H (0-2) /HPF Urine WBC 21-50 H (0-5) /HPF Ur Squamous Epith Cells 0-2 (0-2) /HPF Urine Bacteria None Seen (None Seen) Hyaline Casts 0-2 (0-2) /LPF Independent Interpretation I performed an independent interpretation of an: EKG (50 beats per minute sinus bradycardia with a PAC) and Plain X-Ray (No obstructive patterns, stool burden) Radiology Impression Discussion of test interpretation with radiology: I have reviewed the radiologist's reading. Independent Historian Clinical information obtained from an independent historian. History obtained from or confirmed by: EMS Tests considered The following testing was considered but not selected: CT abdomen and pelvis Prescription Management I considered prescription management with: Antibiotic Discharge Plan Discharge Clinical Impression: Acute urinary retention, Chronic constipation Patient Disposition: Home, Self-Care Instructions: How to Care for Your Suprapubic Catheter (DC), Urinary Retention in Men (ED) Additional Instructions: As far as constipation, your x-ray shows some stool without any obstruction, you are taking B-often, your also take Dulcolax at home, this is a chronic issue, please follow up with the PCP and discuss better bowel regimen, you did present with urinary retention and Angel catheter was placed there was no evidence for infection and this is likely related to your prostate, again this will need outpatient follow up The rest of the blood work is reassuring Prescriptions: No Action ibuprofen 800 mg tablet 800 mg PO Q8H PRN (Reason: pain) Qty: 30 0RF buprenorphine-naloxone 8-2 mg film 1 film sublingual DAILY Odefsey 200-25-25 mg tablet 1 tab PO DAILY lisinopril 2.5 mg tablet 2.5 mg PO DAILY mirtazapine 30 mg tablet 30 mg PO BEDTIME quetiapine 200 mg tablet 200 mg PO BEDTIME sertraline 100 mg tablet 100 mg PO DAILY atorvastatin 20 mg tablet 20 mg PO DAILY metformin 500 mg tablet extended release 24 hr 500 mg PO BID Levemir FlexPen 100 unit/mL (3 mL) insulin pen 100 unit subcut DAILY bisacodyl [Dulcolax (bisacodyl)] 5 mg tablet,delayed release (DR/EC) 10 mg PO BEDTIME Qty: 180 4RF Referrals: Lonnie Britton MD [Primary Care Provider, Medical] - 10 days Clinical Impression: Chronic constipation; Acute urinary retention Print Language: Sami
[2025-07-06 07:35] VITALS: BP 178/86; PULSE 51
--- NOTE | 2025-07-06 07:37 | PC.NURSE ---
Pt BIBA by ambulance for 05/05 abdominal pain starting this morning, reports constipation and difficulty urinating. Reports last time he urinated was at some point yesterday, bladder scan showed 1120mL. MD notified and holguin cath placed. Pt reports some relief to abdominal pain and Holguin output 1200mL of CYU. U/A obtained, labs obtained and sent. 20G IV to [facility].
[2025-07-06 07:46] LABS: MANUAL DIFF FLAG NO
[2025-07-06 07:48] LABS: Hematocrit 36.1 % (42.0-52.0); Hemoglobin 11.9 g/dl (14.0-18.0); Imm Gran Abs Auto 0.02 X10*3/uL (0.00-0.03); Imm Gran Pct Auto 0.3 % (0.0-0.4); Lymphocytes Absolute Auto 1.2 X10*3/uL (1.2-4.9); Mean Corpuscular HGB Conc 33.0 g/dl (31.0-36.0); Mean Corpuscular Hemoglobin 30.3 pg (27.0-33.0); Mean Corpuscular Volume 91.9 fL (80.0-98.0); NRBC Abs Auto 0.000 X10*3/uL (0.0-0.012); NRBC Pct Auto 0.0 /100WBC (0.0-0.2); Platelet Count 148 X10*3/uL (160-400); Red Blood Count 3.93 X10*6/uL (4.60-5.80); White Blood Count 6.4 X10*3/uL (4.8-10.8)
[2025-07-06 07:49] LABS: Appearance Urine Clear; Glucose Urine UA Negative (Negative); PH >= 9.0 (5.0-9.0); Specific Gravity - Urine 1.010 (1.005-1.025); UMIC TRIGGER UACC YES
[2025-07-06 07:52] LABS: UACC Culture Trigger YES
--- OUTSIDE RECORDS SUMMARY | 2025-07-06 07:52 | XMS_ITS | Patient Health Record ---
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
[2025-07-06 08:03] LABS: Alanine Aminotransferase 22 U/L (0-40); Albumin Level 4.1 g/dL (3.5-5.0); Alkaline Phosphatase 78 U/L (39-117); Anion Gap 14 (12-20); Aspartate Amino Transferase 34 U/L (5-37); Blood Urea Nitrogen 16 mg/dL (9-16); Calcium 10.0 mg/dL (8.4-10.2); Carbon Dioxide 21 mmol/L (22-29); Chloride 106 mmol/L (96-108); Creatinine Clr Calc Pharmacy 45.5; Estimated Glomerular Filt Rate > 60; Lipase 12 U/L (8-78); Potassium 4.2 mmol/L (3.3-5.1); Sodium 137 mmol/L (135-145); Total Protein 7.0 g/dL (6.5-8.0)
[2025-07-06 09:42] VITALS: BP 163/67; PULSE 69; RESP 15; TEMP 36.9; O2SAT 95
== END 2025-07-06 10:01 | disposition home or self-care (01) ==
PROVIDERS: Emergency Provider Emergency Medicine; PCP Internal Medicine
DX: R33.9 Retention of urine, unspecified (principal); K59.00 Constipation, unspecified; E11.9 Type 2 diabetes mellitus without complications; Z79.4 Long term (current) use of insulin; Z79.899 Other long term (current) drug therapy
CPT/HCPCS: 36415; 51702; 74018; 80053; 81001; 82248; 83690; 85025; 87086; 93005; 99283; 99285

== ENCOUNTER → 2025-07-06 07:10 | Outpatient (BNV) | payer OTHER, SELFPAY | PROVIDERS: Emergency Provider Emergency Medicine; PCP Internal Medicine; Visit Provider Internal Medicine Cardiovascular Disease | DX: R00.1 Bradycardia, unspecified (principal); I49.1 Atrial premature depolarization | CPT/HCPCS: 93010 ==

== ENCOUNTER → 2025-07-06 07:30 | Outpatient (BNV) | payer OTHER, SELFPAY | PROVIDERS: Emergency Provider Emergency Medicine; PCP Internal Medicine; Visit Provider Radiology Diagnostic Radiology | DX: K59.00 Constipation, unspecified (principal) | CPT/HCPCS: 74018 ==

== ENCOUNTER 2025-07-12 19:39 | Emergency (ER) | payer OTHER, SELFPAY ==
--- NOTE | ~2025-07-12 | CT_ITS ---
CLINICAL HISTORY: urinary retention, hx of prostate carcinoma CT abdomen and pelvis with contrast Comparison: CT - CT ABDOMEN PELVIS W IV CON - 07/12/25 23:15 EDT Findings: Markedly enlarged urinary bladder. Markedly enlarged and heterogenous prostate consistent with the provided history of prostatic carcinoma. Mild bilateral hydronephrosis. Large gallstone. Mildly distended gallbladder. Mild biliary ductal dilatation. Mild splenomegaly. Igansgcp-[id number] colonic fecal retention. No small bowel abnormality. Stomach is normal. No free fluid or free air. Normal caliber abdominal aorta. No acute fracture or suspicious bone lesion. IMPRESSION: 1. Severely enlarged prostate with marked urinary bladder enlargement consistent with prosthetic carcinoma producing urinary outlet obstruction. 2. Moderate to severe colonic fecal loading. Correlate for constipation. 3. Cholelithiasis. 4. Mild splenomegaly. This document has been electronically signed by: Adam Membreno MD on 07/13/2025 00:49:31
[2025-07-12 19:49] VITALS: BP 130/82; PULSE 87; O2SAT 97; BMI 22.7
[2025-07-12 19:55] VITALS: BP 152/71; PULSE 61; RESP 18; TEMP 37.3; O2SAT 98
--- NOTE | 2025-07-12 20:10 | PC.NURSE ---
pt vish from home, PCT at home changed his holguin and pt think it was pulled out when the tube was unclamped from his leg by mistake, when pt arrived he had a medium amount of blood on EMS stretcher and front upper thigh area on L side of sweat pants were saturated in blood. pants removed and holguin observed to be out of urethra, holguin taken off of pt and pants removed. pt leg cleaned of dried blood and gauze placed loosely between testicles an penis.
[2025-07-12 20:29] LABS: Imm Gran Abs Auto 0.03 X10*3/uL (0.00-0.03); Imm Gran Pct Auto 0.4 % (0.0-0.4); MANUAL DIFF FLAG SCAN; NRBC Abs Auto 0.000 X10*3/uL (0.0-0.012); NRBC Pct Auto 0.0 /100WBC (0.0-0.2); PLT CLUMP 1; SCAN SMEAR FLAG 1
[2025-07-12 20:31] LABS: Hematocrit 29.8 % (42.0-52.0); Hemoglobin 9.7 g/dl (14.0-18.0); Lymphocytes Absolute Auto 1.1 X10*3/uL (1.2-4.9); Mean Corpuscular HGB Conc 32.6 g/dl (31.0-36.0); Mean Corpuscular Hemoglobin 30.3 pg (27.0-33.0); Mean Corpuscular Volume 93.1 fL (80.0-98.0); Red Blood Count 3.20 X10*6/uL (4.60-5.80)
[2025-07-12 20:34] LABS: INTERNATIONAL NORM RATIO 1.4 (0.9-1.1); Prothrombin Time 16.3 SEC (10.9-12.4)
--- OUTSIDE RECORDS SUMMARY | 2025-07-12 20:38 | XMS_ITS | Data Portability ---
Author Organization [facility] [employer] [facility] Address [address] [place] [phone] Care Team Providers Care Printing Agent Name Role Phone HIM CCA OTHER Unavailable Primary Care Provider [phone] Assessment Encounter Date Assessment Date Assessment LastModified by Organization Details LastModified Time 07/12/2025 07/12/2025 I provided real -time medical direction via phone for this encounter, and was available for additional phone based assistance as needed. I have reviewed and agree with the Assessment and Plan as documented by the Electrical Apprentice. We discussed the diagnostic uncertainty of home visits and the risk associated with this. In this case the patient and I felt this to be an acceptable and reasonable amount of risk given the benefit of avoiding an ED visit. The patient given the opportunity to ask questions. Advised if develops CP/severe SOB/turning blue/unable to void 6 hrs /severe abd pain distention/uncon trolled n/v/d / AMS/ syncope/ hi fever to call 911- verbalized understanding of instruction Not available 07/12/2025 14:02:58 Plan of Treatment Reminders Order Date Submit Date Provider Last Modified By Organization Details Last Modified Time Details Appointments Urgent Care 2024 01:08P Vero Varma MD Not available Not available Not available Lab culture, urine 2024 [facility] (Centralized Electronic Ordering - All Locations), Patient Can Go To The Location Of Their Choice, [id number] 07/12/2025 13:14:48 urinalysi s, dipstick 2024 [facility], [address] [place], [phone] 07/12/2025 18:23:14 BMP, serum or plasma 2024 [facility], [address] [place] [address], [phone] 07/12/2025 18:23:30 Referral None recorded. Procedures None recorded. Surgeries None recorded. Imaging None recorded. Medication Orders Macrobid 100 mg capsule 2024 025 [email or web address] [facility], [address] [place] [address], [id number], 07/12/2025 14:03:10 Macrobid 100 mg capsule 2024 025 [facility], [address] [place] [address], [id number], 07/12/2025 14:07:48 Patient TargetsNo targets recorded. Patient Instructions Encounter Date Encounter Id Patient Instructions Last Modified By Organization Details Last Modified Time 07/12/2025 [id number] holguin catheter change* [email or web address] Not available 07/12/2025 13:14:43 Reason for Referral None Reported. Results Created Date Observation Date Name Description Value Unit Range Abnormal Flag Note LastModifiedBy Organization Detail LastModifiedTime Result Notes None recorded. Medical Equipment None Reported. Allergies Allergen ID Allergen Name Allergen Category Reaction Reaction Severity Criticality Documentation Date Start Date Code Code System Note Provider Name and Address Organization Details Recorded Time 02255 ibuprofen medicatio n Not available Not available Not available 07/12/2025 5640 RxNorm Not Available [facility] - production 11:09:01 Medications Name Sig Start Date Stop Date Status Note LastModified by Organization Details LastModified Time atorvastatin 20 mg tablet TAKE 1 TABLET BY MOUTH EVERY DAY active Not Available Not Available No t Available ibuprofen 800 mg tablet TAKE 1 TABLET BY MOUTH EVERY 8 HOURS NEEDED FOR PAIN active Not Available Not Available No t Available sertraline 100 mg tablet TAKE 1 TABLET BY MOUTH EVERY DAY active Not Available Not Available No t Available quetiapine 200 mg tablet TAKE 1 TABLET BY MOUTH EVERY DAY AT BEDTIME active Not Available Not Available No t Available Macrobid 100 mg capsule Take 1 capsule every 12 hours by oral route for 6 days. 2024 active Not Available Not Available Not Avai lable mirtazapine 30 mg tablet TAKE 1 TABLET BY MOUTH EVERY DAY AT BEDTIME active Not Available Not Available No t Available docusate sodium 100 mg capsule TAKE 1 CAPSULE BY MOUTH TWICE DAILY IN THE MORNING AND AT BEDTIME NEEDED FOR CONSTIPATIO N active Not Available Not Available No t Available bisacodyl 5 mg tablet,delay ed release TAKE 2 TABLETS BY MOUTH ONCE DAILY AT BEDTIME active Not Available Not Available No t Available polyethylene glycol 3350 17 gram/dose oral powder MIX DIRECTED AND TAKE DIRECTED BY GI Dept active Not Available Not Available No t Available metformin ER 500 mg tablet,exten ded release 24 hr TAKE 2 TABLETS BY MOUTH DAILY IN THE EVENING WITH MEALS active Not Available Not Available N ot Available lisinopril 2.5 mg tablet TAKE 1 TABLET BY MOUTH DAILY active Not Available Not Available Not Available nicotine (polacrilex) 4 mg buccal lozenge DISSOLVE 1 LOZENGE BY MOUTH EVERY 2 HOURS NEEDED FOR SMOKING CESSATION active Not Available Not Available No t Available nicotine (polacrilex) 2 mg buccal lozenge DISSOLVE 1 LOZENGE IN MOUTH NEEDED SMOKING CESSATION DO NOT EXCEED 20 LOZENGE IN 24 HOURS active Not Available Not Available No t Available calcium 500 mg (as carbonate)-v it D3 10 mcg (400 unit) chewable tablet CHEW 1 TABLET BY MOUTH TWICE DAILY AT NOON AND IN THE EVENING active Not Available Not Available Not Available varenicline tartrate 0.5 mg (11)-1 mg (42) tablets in a dose pack USE DIRECTED ON PACKAGE active Not Available Not Available No t Available ferrous gluconate 324 mg (38 mg iron) tablet TAKE 1 TABLET BY MOUTH EVERY DAY BEFORE BREAKFAST active Not Available Not Available No t Available FreeStyle Lite Strips USE DIRECTED TO CHECK BLOOD SUGAR THREE TIMES DAILY active Not Available Not Available Not Available Lantus Solostar U-100 Insulin 100 unit/mL (3 mL) subcutaneous pen INJECT 34 UNITS SUBCUTANEOU SLY AT BEDTIME active Not Available Not Available No t Available buprenorphin e 8 mg-naloxone 2 mg sublingual film DISSOLVE 1 FILM UNDER THE TONGUE EVERY DAY active Not Available Not Available No t Available TRUEplus Lancets 33 gauge USE DIRECTED TO CHECK BLOOD SUGAR THREE TIMES DAILY BEFORE MEALS active Not Available Not Available No t Available Odefsey 200 mg-25 mg-25 mg tablet TAKE 1 TABLET BY MOUTH ONCE DAILY active Not Available Not Available No t Available Reguloid (psyllium husk-sucrose ) 3 gram/12 gram oral powder DISSOLVE 1 TABLESPOONF UL (3 GRAMS OF fiber) IN 8 OUNCES OF WATER AND TAKE BY MOUTH TWICE DAILY active Not Available Not Available No t Available Ultra-Fine Pen Needle 31 gauge x 12/09 USE DIRECTED active Not Available Not Available No t Available Omron Blood Pressure Monitor-3 Series kit USE TO CHECK BLOOD PRESSURE ONCE DAILY DIRECTED active Not Available Not Available Not Available Vitals Date Recorded Body temperature Body weight Respiratory rate Heart rate Body height Oxygen saturation Oxygen saturation in Arterial blood by Pulse oximetry Systolic And Diastolic Provider Name and Address Organization Details Last Updated DateTime 97.5 [degF] 05174.9 2 g 18 /min 76 /min 170.18 cm 99 % 99 % 117/56 mm[Hg] Not Available [facility] - production 13:08:57 Social History None recorded. Functional Status None recorded. Mental Status None recorded. Family History Nothing Reported. Medical History No medical history recorded. Past Encounters Encounter ID Performer Location Encounter Start Date Encounter Closed Date Diagnosis/Indication Diagnosis SNOMED-CT Code Diagnosis ICD10 Code Diagnosis IMO Codes Diagnosis Note [id number] Jesusita Varma MD [facility] ED Medical [facility] [address] [place] [address] 07/12/2025 13:08:49 07/12/2025 17:45:45 Complication of urinary catheter 246324922 T83.9XXA [id number] With the complaint of urethral plain there was concern that the Holguin had slipped into the urethra -status post obtaining verbal consent old holguin removed easily / 16 fr replaced w/ sterile technique/ 10 cc balloon w/o incident- draining 100 cc clear kenan urine-no trauma no blood and patient had relief of penile pain status post insertion of new Holguin. Urine specimen and culture obtained from new Holguin tubing-con cern for possible UTI/will cover with Macrobid and notify the patient if the urine culture reveals the need for another interventi on. BMP reviewed. Labs not concerning . He has a mildly elevated creatinine of 1.32 which is to be expected in the middle-age d diabetic; blood sugar is normal. He has mild anemia-pat ient informed. I have no old labs on this patient he will follow-up with PCP. He is agreeable with the plan and red flags reviewed. The patient does not have a urologist so I advised that he follow-up with PCP on Tuesday and request referral to a urologist- he verbalized understand ing to the medic Health Concerns Section Related Observation LastModified by Organization Detai ls LastModified Time None Recorded Concern Status LastModified by Organization Details LastModified Time None Recorded Advance Directives Directive None Recorded Payers Insurance Date Sequence Insurance Name Policy Number Policy Fall Covered Member ID Fall Member ID Guarantor Name 07/12/2025 1 [facility] - DOS ON OR AFTER 2022 - DUAL ELIGIBLE - RETIREMENT OPTIONS AND ONE CARE (MEDICARE REPLACEMENT/ADV ANTAGE - HMO) Anthony Marmolejo [id number] Darnell Francie Notes Date Note Type Note Provider Name and Address Organization Details Recorded Time 07/12/2025 text/html ROS as noted in the HPI HPI: Pt went to [facility] ED 07/06/25 for urinary retention, got Holguin catheter, lives alone, no urology referral in place yet and no support for catheter. Patient states the catheter is painful and he passed some blood but today it is okay. He denies fever, reports drinking water. He states there is urine in the bag and he was instructed how to change the bag but unsure if pain and blood is new concern or if Holguin is in place properly still. .................... .................... .................... .................... .................... .................... .................... . [facility] Nurse Triage Notes (Maribel Rubio): Chief Complaints: Urinary Catheter/Nephrostomy Tube Problems, Urinary Symptoms PMH: HIV/AIDS, Diabetes Mellitus Type 2 PMH Reviewed at 07/12/2025 - 11:08 Allergies Reviewed at 07/12/2025 - 11:08 Comments: Reviewed HPI. Electrical Apprentice Organization Information for Jourdan Quintero Legal Name: [employer] Address: [address] [place] [address], [place] [address], Geometry Tutor: Carl SANTIAGO No.: [id number] Electrical Apprentice POC Test Results from Jourdan Quintero - ALS Urine Dipstick (13:31:30) Urine leukocytes: 2+LEUUrine nitrites: -NITUrine urobilinogen: 0.2UROUrine protein: 4+PROUrine pH: -pHUrine blood: 1.0BLOUrine specific gravity: 1.02SGUrine ketones: -KETUrine bilirubin: -BILUrine glucose: -GLUAttachments uploaded as part of this test result can be found under Documents section. epoc (13:41:45) pH: 7.391pH unitspCO2: 44.6diKhdC1: 27.7mmHgNa: 137mmol/LK: 4.3mmol/LiCa: 1.25mmol/LCl: 97mmol/LTCO2: 25.6mEq/LHct: 32%Hb: 10.8g/dLGlu: 94mg/dLLac: 1.01mmol/LCr: 1.32mg/dLBUN: 19mg/dLAmmol/LHCO3: 26.8mmol/LAttachment s uploaded as part of this test result can be found under Documents section. .................... .................... .................... .................... .................... .................... .................... . Electrical Apprentice Note From Jourdan Quintero: Patient Chief complaint today of pain as well as bloody urine at site of fully catheter insertion. Patient states that Holguin catheter was placed on July 062024 ( SEGMD: placed in ER for acute urinary retention) with no noted abnormalities at point of insertion. Patient notes that only a few days afterward he started to have bloody urination into the bag. Patient notes that no discharge has come from the actual penis itself as well as no leakage. Patient notes that the pain that he is feeling is a 7 out of 10 level and located roughly at about the alf point of the shaft. Patient notes no swelling/ no discoloration and or deformity of the affected area. At this current point in time, patient is asking to have a general assessment performed as well as possible replacement of Holguin catheter. Patient curly expresses no signs and symptoms of chest pain, shortness of breath, nvd, dizziness and ore changes in vision. Patient expresses he is not on any anticoagulation. Patient allergies. Noted as nkda. Non-neural focal exam, afebrile, all vital signs are within normal limits for the baseline of the patient. Patient noted to be able to ambulate at his appropriate baseline without the assistance of a walking device and or person. Patient lungs. Noted to be clear bilaterally upon auscultation. Benign abdominal exam no distension, rigidity, tenderness on palpation. No new and or worsening lower extremity edema noted. Patient is YUEN* 4 with a GCS of 15. Upon examination of affected area. Again no noted deformity swelling or tenderness upon examination of Holguin catheter or bag noted, urine is tinged red with no noted clots. [facility] [place] Varma consulted [facility] provider removes old Holguin catheter with no disturbances and or abnormalities, new fully catheter inserted 16 Persian size, sterile technique applied. 100cc urine output, kenan in color. Both urine dip and culture acquired, noted leukocytes. Pt expresses significant relief after replacing holguin. Pt given 100 mg of oral macrobid on scene. POC blood work acquired. Culture sent to appropriate facility[place] [facility] [place] macrobid to local pharmacy for patient. Patient educated on red flag signs and symptoms and informed to call emergency services if any present. [facility] Lab Orders: culture, urine: Performed urinalysis, dipstick: Performed BMP, serum or plasma: Performed [facility] Medication Orders: Macrobid 100 mg capsule: Performed .................... .................... .................... .................... .................... .................... .................... . [facility] Consulted: Jesusita Varma .................... .................... .................... .................... .................... .................... .................... . Disposition: Fulfilled Jesusita Varma MD [address] [facility],[address], [place], [address], [place] - [place]Z 07/12/2025 17:45:41
--- OUTSIDE RECORDS SUMMARY | 2025-07-12 20:38 | XMS_ITS | Continuity of Care Document ---
Author Name [facility], Medical Address [address] [place] [address] Organization Unknown Address [address] [place] [id number] Medications No known medications Problems No known problems
--- OUTSIDE RECORDS SUMMARY | 2025-07-12 20:38 | XMS_ITS | Continuity of Care Document ---
Author Organization [facility], [facility] Address [address] [place] [address] Care Team Providers Care Connie Cleaner Name Role Phone HIM CCA OTHER Unavailable Primary Care Provider [phone] Assessment Encounter Date Assessment Date Assessment LastModified by Organization Details LastModified Time 07/12/2025 07/12/2025 I provided real -time medical direction via phone for this encounter, and was available for additional phone based assistance as needed. I have reviewed and agree with the Assessment and Plan as documented by the Chemist Instrumentation. We discussed the diagnostic uncertainty of home [...] to call 911- verbalized understanding of instruction [email or web address] Not available 07/12/2025 14:02:58 Plan of Treatment Reminders Order Date Submit Date Provider Last Modified By Organization Details Last Modified Time Details Appointments Urgent Care 2024 01:08P Vero Varma MD Not available Not available Not available Lab culture, urine 2024 [place] (Centralized Electronic Ordering - All Locations), Patient Can Go To The Location Of Their Choice, [id number] 07/12/2025 13:14:48 urinalysi s, dipstick 2024 [facility], [address] [place], [phone] 07/12/2025 18:23:14 BMP, serum or plasma 2024 [facility], [address] [place] [address], [phone] 07/12/2025 18:23:30 Referral None recorded. Procedures None recorded. Surgeries None recorded. Imaging None recorded. Medication Orders Macrobid 100 mg capsule 2024 025 [email or web address] [facility], [address] [place] [address], [id number], 07/12/2025 14:03:10 Macrobid 100 mg capsule [address] [facility], [address] [place] [address], [id number], 07/12/2025 14:07:48 Patient TargetsNo targets recorded. Patient Instructions Encounter Date Encounter Id Patient Instructions Last Modified By Organization Details Last Modified Time 07/12/2025 [id number] holguin catheter change* Not available 07/12/2025 13:14:43 Reason for Referral None Reported. Results Created Date Observation Date Name Description Value Unit Range Abnormal Flag Note LastModifiedBy Organization Detail LastModifiedTime Result Notes None recorded. Medical Equipment None Reported. Allergies Allergen ID Allergen Name Allergen Category Reaction Reaction Severity Criticality Documentation Date Start Date Code Code System Note Provider Name and Address Organization Details Recorded Time 30662 ibuprofen medicatio n Not available Not available [...] Organization Details Last Updated DateTime 97.5 [degF] 61888.9 2 g 18 /min 76 /min 170.18 [...] ICD10 Code Diagnosis IMO Codes Diagnosis Note [id number] Jesusita Varma MD [facility] ED Medical [facility] [address] [place] [address] 07/12/2025 13:08:49 07/12/2025 17:45:45 Complication of urinary catheter [id number] T83.9XXA [id number] With the complaint of urethral plain there [...] by Organization Details LastModified Time None Recorded Payers Encounter Date Sequence Insurance Name Policy Number Policy Fall Covered Member ID Fall Member ID Guarantor Name 07/12/2025 1 [facility] - DOS ON OR AFTER 2022 - DUAL ELIGIBLE - DETENTION OPTIONS AND ONE CARE (MEDICARE REPLACEMENT/ADV ANTAGE - HMO) Anthony Marmolejo [id number] Anhtony Marmolejo Notes Date Note Type Note Provider Name and Address Organization Details Recorded Time 07/12/2025 text/html ROS as noted in the HPI HPI: Pt went to [facility] ED 07/06/25 for urinary retention, got Holguin [...] Type 2 PMH Reviewed at 07/12/2025 - :08 Allergies Reviewed at 07/12/2025 - 11:08 Comments: Reviewed HPI. Chemist Instrumentation Organization Information for Jourdan Quintero Legal Name: [employer] Address: [address] [place] [address], [place] [address], Grinding Machine Operator: Carl SANTIAGO No.: [id number] Chemist Instrumentation POC Test Results from Jourdan Quintero - ALS Urine Dipstick (13:31:30) Urine leukocytes: 2+LEUUrine nitrites: -NITUrine urobilinogen: 0.2UROUrine protein: 4+PROUrine pH: -pHUrine blood: 1.0BLOUrine specific gravity: 1.02SGUrine ketones: -KETUrine bilirubin: -BILUrine glucose: -GLUAttachments uploaded as part of this test result can be found under Documents section. epoc (13:41:45) pH: 7.391pH unitspCO2: 44.8tnRseX7: 27.7mmHgNa: 137mmol/LK: 4.3mmol/LiCa: 1.25mmol/LCl: 97mmol/LTCO2: 25.6mEq/LHct: 32%Hb: 10.8g/dLGlu: 94mg/dLLac: 1.01mmol/LCr: 1.32mg/dLBUN: 19mg/dLAmmol/LHCO3: 26.8mmol/LAttachment s uploaded as part of this test result can be found under Documents section. .................... .................... .................... .................... .................... .................... .................... . Chemist Instrumentation Note From Jourdan Quintero: Patient Chief complaint [...] level and located roughly at about the residential point of the shaft. Patient notes no [...] is tinged red with no noted clots. [facility] Jesusita Varma consulted [facility] provider removes old Holguin catheter with no disturbances and or abnormalities, new fully catheter inserted 16 Danish size, sterile technique applied. 100cc urine output, kenan in color. Both urine dip and culture acquired, noted leukocytes. Pt expresses significant relief after replacing holguin. Pt given 100 mg of oral macrobid on scene. POC blood work acquired. Culture [place] [facility] [place] [place] macrobid to local pharmacy for patient. Patient educated on red flag signs and symptoms and informed to call emergency services if any present. [facility] Lab Orders: culture, urine: Performed urinalysis, dipstick: Performed BMP, serum or plasma: Performed [facility] Medication Orders: Macrobid 100 mg capsule: Performed .................... .................... .................... .................... .................... .................... .................... . [facility] Consulted: Jesusita Varma .................... .................... .................... .................... .................... .................... .................... . Disposition: Fulfilled Jesusita Varma MD [address] [facility],[address], [place], [address], [place] [employer] 07/12/2025 17:45:41
--- OUTSIDE RECORDS SUMMARY | 2025-07-12 20:38 | XMS_ITS | Patient Health Record ---
Demographics Address [address] [place] [address] Preferred Language Unknown Marital Status unmarried Confucianist Affiliation Unknown Race Unknown Ethnic Group Unknown Author Organization [facility] [facility] Address [address] [place] [address] Care Team Providers Care Retail Tire Sales Manager Name Role Phone Barrera Nuñez Unavailable [phone] Reason For Referral No Information Plan Of Treatment No Information
--- OUTSIDE RECORDS SUMMARY | 2025-07-12 20:38 | XMS_ITS | Encounter Summary ---
Author Organization Directr [facility] Address [address] [place] [address] Encounters * CPT with Medical instED at [facility] on 2025-07-12 Pt went to [facility] ED 07/06/25 for urinary retention, got Holguin catheter, lives alone, no urology referral in place yet and no support for catheter. Patient states the catheter is painful and he passed some blood but today it is okay. He denies fever, reports drinking water. He states there is urine inthe bag and he was instructed how to change the bag but unsure if pain and blood is new concern or if Holguin is in place properly still. { reasonForRequest : , patientReports : , denies&quot ;:[], chiefComplaints : Urinary Catheter/Nephrostomy Tube Problems, Urinary Symptoms", pmh : HIV/AIDS, Diabetes Mellitus Type 2 , allergies : Ibu Alejandrina sofiaergies : , painAssessment : , v isitOutcome : , additionalComments : Reviewed HPI. } Patient Chief complaint today of pain as well as bloody urine at site of fully catheter insertion. Patient states that Holguin catheter was placed on July [id number] with no noted abnormalities atpoint of insertion. Patient notes that only a few days afterward he started to have bloody urination into the bag. Patient notes that no discharge has come from the actual penis itself as well as no leakage. Patient notes that the pain that he is feeling is a 7 out of 10 level and located roughly at about the usp point of the shaft. Patient notes no swelling/ no discoloration and or deformityof the affected area. At this current point in time, patient is asking to have a general assessmentperformed as well as possible replacement of Holguin [...] his appropriate baseline without the assistance of awalking device and or person. Patient lungs. Noted [...] is tinged red with no noted clots. [facility] Jesusita Varma consulted [facility] provider removes old Holguin catheter with no disturbances and or abnormalities, new fully catheter inserted 16 Lao size, sterile technique applied. 100cc urine output, kenan in color. Both urine dip and culture acquired, noted leukocytes. Pt expresses significant relief after replacing holguin. Pt given 100 mg of oral macrobid on scene. POC blood work acquired. Culture sent to appropriate facility, [facility] sends an order for macrobid to local pharmacy for patient. Patient educated on red flag signs and symptoms and informed to call emergency services if any present. ORAL_MEDICATION, EKG, POC_BLOODWORK, GLUCOSE, URINE_DIPSTICK, WOUND_CARE, STRAIGHT_CATHETERIZATION,CULTURE_URINE Written by Medical instED on 2025-07-12
[2025-07-12 20:50] LABS: Alanine Aminotransferase 17 U/L (0-40); Albumin Level 3.9 g/dL (3.5-5.0); Alkaline Phosphatase 73 U/L (39-117); Anion Gap 11 (12-20); Aspartate Amino Transferase 26 U/L (5-37); Blood Urea Nitrogen 18 mg/dL (9-16); Calcium 9.2 mg/dL (8.4-10.2); Carbon Dioxide 26 mmol/L (22-29); Chloride 104 mmol/L (96-108); Creatinine Clr Calc Pharmacy 45.8; Estimated Glomerular Filt Rate > 60; Potassium 4.0 mmol/L (3.3-5.1); Sodium 137 mmol/L (135-145); Total Protein 6.5 g/dL (6.5-8.0)
--- NOTE | 2025-07-12 20:50 | ED.GENADULT ---
HPI - General Adult General Chief complaint: Wound/Laceration Stated complaint: Bleeding from penis after holguin changed by computational scientist Time Seen by Provider: 07/12/25 20:26 Source: patient, EMS, RN notes reviewed and old records reviewed Mode of arrival: EMS Limitations: language barrier (Citizen Of [place]-speaking) History of Present Illness ED Provider: TALHA Mehta HPI narrative: 69-year-old male with medical history of HIV on ART, anemia, hepatitis C, T2DM, presents to ED due to blood coming from urinary catheter. Patient states he was seen in the department on 07/06 for urinary retention and holguin catheter placed. Patient states he has been experiencing pain after holguin was placed. Patient states HOUSE FATHER came today to change holguin catheter and he began bleeding. Patient arrived in the ED by EMS with moderate amount of blood in his sweatpants. Denies chest pain, SOB, difficulty breathing, abdominal pain, nausea, vomiting, diarrhea. MD complaint: bleeding after holguin catheter change with pain Related Data Home Medications ?Medication ?Instructions ?Recorded ?Confirmed atorvastatin 20 mg tablet 20 mg PO DAILY 01/12/24 10/01/24 buprenorphine 8 mg-naloxone 2 mg 1 film sublingual DAILY 01/12/24 10/01/24 sublingual film emtricitabine 200 mg-rilpivirine 1 tab PO DAILY 01/12/24 10/01/24 25 mg-tenofovir alafenam 25 mg tablet (Ediliasey) insulin detemir U-100 100 unit/mL 100 unit subcut DAILY 01/12/24 10/01/24 (3 mL) subcutaneous pen (Levemir FlexPen) lisinopril 2.5 mg tablet 2.5 mg PO DAILY 01/12/24 10/01/24 metformin 500 mg tablet,extended 500 mg PO BID 01/12/24 10/01/24 release 24 hr mirtazapine 30 mg tablet 30 mg PO BEDTIME 01/12/24 10/01/24 quetiapine 200 mg tablet 200 mg PO BEDTIME 01/12/24 10/01/24 sertraline 100 mg tablet 100 mg PO DAILY 01/12/24 10/01/24 Previous Rx's ?Medication ?Instructions ?Recorded ibuprofen 800 mg tablet 800 mg PO Q8H PRN pain #30 tabs 09/13/24 bisacodyl 5 mg tablet,delayed 10 mg (2 x 5 mg) PO BEDTIME #180 02/11/25 release (Dulcolax (bisacodyl)) tabs Allergies Allergy/AdvReac Type Severity Reaction Status Date / Time No Known Allergies (No Known Allergy Verified 07/12/25 19:51 Allergies*) [facility] Past Medical History Attestation statement: The following information was validated with the patient. Source: old records reviewed and nursing notes reviewed Medical History Nicotine dependence, cigarettes, uncomplicated Type 2 diabetes mellitus Hepatitis B Hepatitis C HIV (human immunodeficiency virus infection) Surgical History History of left inguinal hernia repair History of cystoscopy History of colonoscopy Family History Family History Father Cancer of abdominal wall Paternal Uncle Cancer of abdominal wall Mother Alzheimer dementia Maternal Uncle Cancer Maternal Grandmother Cancer Social History Social History Household Members: None Patient Tobacco Use Status: Current everyday Tobacco user Cigarettes Per Day: 10 Smoked in Last 30 Days: Yes Use of substances other than those prescribed or required for medical reasons: No Substance Use Type: Marijuana Advance Directives: No Advance Directives Information Provided: No service: No Current occupational status: retired Physical Exam ED Vital Signs: Vital Signs - 24 hr 07/12/25 19:55 07/12/25 22:23 Temperature 99.2 F Pulse Rate 61 58 Respiratory Rate 18 16 Blood Pressure 152/71 H 180/61 H Pulse Oximetry 98 98 Oxygen Delivery Method Room Air Room Air BMI result Body Mass Index 22.7 GENERAL APPEARANCE: ?AxOx4, patient is thin and appears disheveled, non toxic appearing, no acute distress. HEENT: ?NC, AT. MMM. EOMI, clear conjunctiva, oropharynx clear. NECK: ?Supple without lymphadenopathy.? No stiffness or restricted ROM. HEART:? Normal rate and regular rhythm, normal S1/S2, no m/r/g LUNGS:? CTAB, moving air well. No crackles or wheezes are heard. ABDOMEN: ?Soft, nontender, nondistended with good bowel sounds heard. : Blood coming from meatus, no testicular or penile swelling. BACK: No CVAT, no obvious deformity. EXTREMITIES: ?Without cyanosis, clubbing or edema. NEUROLOGICAL: ?Grossly nonfocal. Alert and oriented, moving all 4 extremities. Skin: ?Warm and dry without any rash. Medications Administered Discontinued Medications Generic Name Dose Route Start Last Admin Trade Name Stuartq PRN Reason Stop Dose Admin Lactated Ringer's 1,000 mls @ 999 mls/hr 07/12/25 22:27 07/12/25 22:46 Lr IV 07/12/25 23:27 999 mls/hr .Q1H1M ONE Administration Iohexol 85 ml 07/12/25 23:30 07/12/25 23:31 Iohexol 350 Mg/Ml 100 Ml Infus..Btl IV 07/12/25 23:31 85 ml ONCE ONE Administration Medical Decision Making Medical Decision Making MDM Narrative: 69-year-old male with medical history of HIV on ART, anemia, hepatitis C, T2DM, presents to ED due to blood coming from urinary catheter. Patient states he was seen in the department on 07/06 for urinary retention and holguin catheter placed. Patient states he has been experiencing pain after holguin was placed. Patient states HOUSE FATHER came today to change holguin catheter and he began bleeding. Patient arrived in the ED by EMS with moderate amount of blood in his sweatpants. Patient states he was not told if he needs to follow up with urology when he was last seen in the department. VS on initial observation-BP 152/71, pulse rate of 61, respiratory rate of 18, oral temp of 99.2?, O2 saturation 98% on room air. On exam Blood coming from meatus, no testicular or penile swelling. During exam patient had to urinate and was able to produce urine which was bloody. Labs without leukocytosis/leukopenia, normocytic anemia with a hemoglobin of 9.7, hematocrit of 29.8, thrombocytopenia with a platelet count of 133, random glucose of 56, no electrolyte abnormalities. Serum glucose of 56, however patient asymptomatic, states he took insulin around 8am. Patient was given orange juice x2, turkey sandwich, and juan david crackers, POC glucose now 137. Patient recently evaluated in the department for urinary retention (07/06) with 1200cc of urine seen on bladder scanner. Patient did not recieve imaging at that time. Due to urinary retention, now with blood and pain will obtain CT abdomen pelvis for further evaluation. Course CT abdomen pelvis reveals enlarged urinary bladder, with enlarged prostate, mild bilateral hydronephrosis, large gallstone with mildly distended gallbladder, mild biliary ductal dilation with mild splenomegaly. Moderate to severe colonic fecal retention Patient has been urinating multiple times while in the department, urine is visually non bloody. On bladder scan after urination there is >397ml of urine retained in the bladder. Due to >397ml of urinary retention on bladder scan I plan to place a 3 way catheter and do extensive bladder irrigation to ensure there was no obstruction or blood. However, patient is adamant that he does not want a Holguin catheter placed at this time as it was causing him pain. Patient states he is urinating, with no blood in the urine. I tried to explain to the patient that the blood is not the issue here the fact that he is retaining urine is the issue and needs to have a Holguin catheter to allow for urinary drainage. I explained to patient that if he goes home without the urinary catheter he is at risk for bladder rupture, sepsis, and possible . Patient states then he will go home and as he does not want a Holguin catheter placed at this time. I counseled patient that I will still provide referral to Urology, that he should call urology office Tuesday morning. Patient states that he will do that. I asked patient to repeat the risks of leaving AMA today and he stated that he could have infection or by leaving without placement of Holguin catheter. Patient is leaving AMA due to refusing placement of urinary catheter. Patient is of sound mind, is alert and oriented and is capable of making his own medical decisions. I attempted to blackfeet patient once more on the importance of holguin catheter placement to allow for urinary drainage. He is refusing and wants to leave AMA. Differential Diagnosis Differential Diagnoses: The differential diagnosis associated with the presentation includes Prostate mass Bladder mass BPH Urethral mucosal trauma Bladder neck/prostatic urethra trauma Admission/Observation Consideration of admission/observation: Escalation of care including admission/observation considered Lab Data 07/12/25 20:20 07/12/25 20:20 Labs: Lab Results 07/12/25 07/12/25 07/12/25 Range/Units 20:20 21:14 21:23 WBC 7.2 (4.8-10.8) X10*3/uL RBC 3.20 L (4.60-5.80) X10*6/uL Hgb 9.7 L (14.0-18.0) g/dl Hct 29.8 L (42.0-52.0) % MCV 93.1 (80.0-98.0) fL MCH 30.3 (27.0-33.0) pg MCHC 32.6 (31.0-36.0) g/dl RDW 15.0 (11.0-16.0) % Plt Count 133 L (160-400) X10*3/uL MPV 10.5 (9.4-12.4) fL Immature Gran % (Auto) 0.4 (0.0-0.4) % Neut % (Auto) 74.2 H (45-73) % Lymph % (Auto) 15.5 L (20-40) % Gentry % (Auto) 7.9 (2-11) % Eos % (Auto) 1.7 (0-4) % Baso % (Auto) 0.3 (0-2) % Lymph # (Auto) 1.1 L (1.2-4.9) X10*3/uL Gentry # (Auto) 0.6 (0.1-1.2) X10*3/uL Eos # (Auto) 0.1 (0.0-0.4) X10*3/uL Baso # (Auto) 0.0 (0.0-0.2) X10*3/uL Abs Immat Gran (auto) 0.03 (0.00-0.03) X10*3/uL Absolute Neuts (auto) 5.4 (2.0-8.3) x10*3/uL Absolute Nucleated RBC 0.000 (0.0-0.012) X10*3/uL Nucleated RBC % (auto) 0.0 (0.0-0.2) /100WBC Smear Tech's Comments VERIFIED PT 16.3 H (10.9-12.4) SEC INR 1.4 H (0.9-1.1) Sodium 137 (135-145) mmol/L Potassium 4.0 (3.3-5.1) mmol/L Chloride 104 (96-108) mmol/L Carbon Dioxide 26 (22-29) mmol/L Anion Gap 11 L (12-20) BUN 18 H (9-16) mg/dL Creatinine 1.14 (0.5-1.4) mg/dL Estim Creat Clear Calc 45.8 Estimated GFR > 60 POC Glucose 69 (60-115) mg/dL Random Glucose 56 L* (60-115) mg/dL Calcium 9.2 D (8.4-10.2) mg/dL Total Bilirubin 0.3 (0.0-1.0) mg/dL AST 26 (5-37) U/L ALT 17 (0-40) U/L Alkaline Phosphatase 73 (39-117) U/L Total Protein 6.5 (6.5-8.0) g/dL Albumin 3.9 (3.5-5.0) g/dL Urine Color RED Urine Appearance Hazy Urine pH 7.0 (5.0-9.0) Ur Specific Madison 1.015 (1.005-1.025) Urine Protein 100 (2+) H (Neg-Trace) mg/dL Urine Glucose (UA) Negative (Negative) mg/dL Urine Ketones Trace (Negative) mg/dL Urine Blood Large (3+) H (Negative) Urine Nitrite Positive H (Negative) Ur Leukocyte Esterase Small (1+) H (Negative) Urine RBC >20 H (0-2) /HPF Urine WBC 0-5 (0-5) /HPF Ur Squamous Epith Cells 0-2 (0-2) /HPF Urine Bacteria None Seen (None Seen) Hyaline Casts 0-2 (0-2) /LPF 07/12/25 Range/Units 22:21 WBC (4.8-10.8) X10*3/uL RBC (4.60-5.80) X10*6/uL Hgb (14.0-18.0) g/dl Hct (42.0-52.0) % MCV (80.0-98.0) fL MCH (27.0-33.0) pg MCHC (31.0-36.0) g/dl RDW (11.0-16.0) % Plt Count (160-400) X10*3/uL MPV (9.4-12.4) fL Immature Gran % (Auto) (0.0-0.4) % Neut % (Auto) (45-73) % Lymph % (Auto) (20-40) % Gentry % (Auto) (2-11) % Eos % (Auto) (0-4) % Baso % (Auto) (0-2) % Lymph # (Auto) (1.2-4.9) X10*3/uL Gentry # (Auto) (0.1-1.2) X10*3/uL Eos # (Auto) (0.0-0.4) X10*3/uL Baso # (Auto) (0.0-0.2) X10*3/uL Abs Immat Gran (auto) (0.00-0.03) X10*3/uL Absolute Neuts (auto) (2.0-8.3) x10*3/uL Absolute Nucleated RBC (0.0-0.012) X10*3/uL Nucleated RBC % (auto) (0.0-0.2) /100WBC Smear Tech's Comments PT (10.9-12.4) SEC INR (0.9-1.1) Sodium (135-145) mmol/L Potassium (3.3-5.1) mmol/L Chloride (96-108) mmol/L Carbon Dioxide (22-29) mmol/L Anion Gap (12-20) BUN (9-16) mg/dL Creatinine (0.5-1.4) mg/dL Estim Creat Clear Calc Estimated GFR POC Glucose 137 H (60-115) mg/dL Random Glucose (60-115) mg/dL Calcium (8.4-10.2) mg/dL Total Bilirubin (0.0-1.0) mg/dL AST (5-37) U/L ALT (0-40) U/L Alkaline Phosphatase (39-117) U/L Total Protein (6.5-8.0) g/dL Albumin (3.5-5.0) g/dL Urine Color Urine Appearance Urine pH (5.0-9.0) Ur Specific Madison (1.005-1.025) Urine Protein (Neg-Trace) mg/dL Urine Glucose (UA) (Negative) mg/dL Urine Ketones (Negative) mg/dL Urine Blood (Negative) Urine Nitrite (Negative) Ur Leukocyte Esterase (Negative) Urine RBC (0-2) /HPF Urine WBC (0-5) /HPF Ur Squamous Epith Cells (0-2) /HPF Urine Bacteria (None Seen) Hyaline Casts (0-2) /LPF Independent Interpretation I performed an independent interpretation of an: CT Scan Interpretation: I personally interpreted the CT abdomen and pelvis which reveals enlarged prostate, gallstones, with gallbladder wall thickening, I agree with the radiologist's interpretation Radiology Impression Discussion of test interpretation with radiology: I have reviewed the radiologist's reading. Radiologist Impression: CT abdomen and pelvis Findings: Markedly enlarged urinary bladder. Markedly enlarged and heterogenous prostate consistent with the provided history of prostatic carcinoma. Mild bilateral hydronephrosis. Large gallstone. Mildly distended gallbladder. Mild biliary ductal dilatation. Mild splenomegaly. Ovvooldh-[id number] colonic fecal retention. No small bowel abnormality. Stomach is normal. No free fluid or free air. Normal caliber abdominal aorta. No acute fracture or suspicious bone lesion. IMPRESSION: 1. Severely enlarged prostate with marked urinary bladder enlargement consistent with prosthetic carcinoma producing urinary outlet obstruction. 2. Moderate to severe colonic fecal loading. Correlate for constipation. 3. Cholelithiasis. 4. Mild splenomegaly. This document has been electronically signed by: Adam Membreno MD on 07/13/2025 00:49:31 Dictated By: Adam Membreno MD Signed By: <Electronically signed by Adam Membreno MD in OV> 07/13/25 0050 External Record Review External record reviewed: Inpatient record, Office record and Outpatient record Chronic Conditions Patient?s care impacted by: Diabetes and Other (HIV, hepatitis-C, anemia) Social Determinants Patient?s care significantly limited by Social Determinants of Health including: Other Social Determinant of Health Discharge Plan Discharge Clinical Impression: Urinary retention Patient Disposition: Left Against Medical Advice Additional Instructions: You were evaluated in the ED today due to blood in the urinary catheter. The CT of your abdomen and pelvis revealed enlarged prostate, gallstones, gallbladder wall thickening, and enlargement of your spleen. Please follow up with your primary care provider of these findings. [facility] will be contacting you within 2 business?days after being discharged from the Emergency?Department.? During this?phone call, they will inform you when your follow up appointment will be scheduled. If you have not received a call from [facility] after 2 business?days, please call the?office at [phone]. Prescriptions: No Action ibuprofen 800 mg tablet 800 mg PO Q8H PRN (Reason: pain) Qty: 30 0RF buprenorphine-naloxone 8-2 mg film 1 film sublingual DAILY Odefsey 200-25-25 mg tablet 1 tab PO DAILY lisinopril 2.5 mg tablet 2.5 mg PO DAILY mirtazapine 30 mg tablet 30 mg PO BEDTIME quetiapine 200 mg tablet 200 mg PO BEDTIME sertraline 100 mg tablet 100 mg PO DAILY atorvastatin 20 mg tablet 20 mg PO DAILY metformin 500 mg tablet extended release 24 hr 500 mg PO BID Levemir FlexPen 100 unit/mL (3 mL) insulin pen 100 unit subcut DAILY bisacodyl [Dulcolax (bisacodyl)] 5 mg tablet,delayed release (DR/EC) 10 mg PO BEDTIME Qty: 180 4RF Referrals: [facility] Urology Services [Provider Group, Urology] Print Language: Citizen Of [place]
[2025-07-12 21:01] LABS: Platelet Count 133 X10*3/uL (160-400); White Blood Count 7.2 X10*3/uL (4.8-10.8)
--- NOTE | 2025-07-12 21:15 | PC.NURSE ---
pt POC 69, given another 40 mL of orange juice.
[2025-07-12 21:17] LABS: Glucose, Whole Blood 69 mg/dL (60-115)
[2025-07-12 21:31] LABS: Appearance Urine Hazy; Glucose Urine UA Negative (Negative); PH 7.0 (5.0-9.0); Specific Gravity - Urine 1.015 (1.005-1.025); UMIC TRIGGER UACC YES
[2025-07-12 21:52] LABS: UACC Culture Trigger YES
[2025-07-12 22:23] VITALS: BP 180/61; PULSE 58; RESP 16; O2SAT 98
[2025-07-12 22:25] LABS: Glucose, Whole Blood 137 mg/dL (60-115)
[2025-07-12] MEDS: Lactated Ringers 1,000 ML 999 ML IV (22:46)
[2025-07-12] MEDS: iohexoL 350 MG/ML 100 ML INFUS..BTL 85 ML IV (23:31)
--- NOTE | 2025-07-13 02:35 | PC.NURSE ---
pt left ama refusing holguin cath insertion, at bedside using coil wrapper. pt voiced understanding of all risks of leaving without holguin including bladder rupture. pt still refuses to have holguin placed. left department ambulatory in stable cond at this time
== END 2025-07-13 02:35 | disposition left against medical advice (07) ==
PROVIDERS: Emergency Provider Emergency Medicine; PCP Internal Medicine
DX: R33.9 Retention of urine, unspecified (principal)
CPT/HCPCS: 36415; 74177; 80053; 81001; 82947; 85025; 85610; 87086; 99284; J7120; Q9967

== ENCOUNTER → 2025-07-12 21:56 | Outpatient (BNV) | payer OTHER, SELFPAY | PROVIDERS: Emergency Provider Emergency Medicine; PCP Internal Medicine; Visit Provider Radiology Diagnostic Radiology | DX: N13.2 Hydronephrosis with renal and ureteral calculous obstruction (principal); K80.20 Calculus of gallbladder without cholecystitis without obstruction; R16.2 Hepatomegaly with splenomegaly, not elsewhere classified | CPT/HCPCS: 74177 ==

== ENCOUNTER 2025-07-15 10:46 | Inpatient (IN) | payer OTHER, SELFPAY ==
[2025-07-15] VITALS (24 sets, daily range): BP systolic 60–139; BP diastolic 34–74; PULSE 53–95; RESP 16–24; TEMP 36.7–38.2; O2SAT 92–100; BMI 20.5
--- NOTE | ~2025-07-15 | XR_ITS ---
EXAMINATION: XR CHEST CLINICAL INFORMATION: hypoxia COMPARISON: CT chest 10/07/2023. TECHNIQUE: Frontal view of the chest was obtained. FINDINGS: There is mild leftward rotation. The cardiac, hilar, and mediastinal contours are normal. Subsegmental atelectasis in both lung bases. Lungs otherwise clear. No pneumothorax or effusion. No focal osseous or soft tissue abnormality. XR/XR chest 1V IMPRESSION: 1. Minor atelectasis in both lung bases. Mild cardiac enlargement. No superimposed active lung disease. Electronically signed by: Froy Flores MD 07/15/2025 01:28 PM EDT
--- NOTE | ~2025-07-15 | CT_ITS ---
EXAMINATION: CT ABDOMEN PELVIS WITH IV CONTRAST HISTORY: abd pain COMPARISON: Comparison is made with the prior examination dated 07/12/2025. TECHNIQUE: CT scan of the abdomen and pelvis was performed following administration of 85 mL Omnipaque 350 using standard departmental protocol. Coronal and sagittal reformatted images were generated and reviewed. Oral contrast material was not administered at the request of the referring physician. This CT exam was performed with one or more of the following dose reduction techniques: automated exposure control, adjustment of the mA and/or kV according to patient size, use of iterative reconstruction technique. DLP: 323 mGy-cm FINDINGS: LOWER CHEST: There is scarring at the lung bases. There is no pleural effusion. CARDIOVASCULATURE: The heart is normal in size. There is no pericardial effusion. LIVER: The liver is enlarged. No liver mass is identified. The hepatic and portal veins are patent. GALLBLADDER / BILE DUCTS: The gallbladder is distended and demonstrates a large gallstone. There is no intra or extrahepatic biliary ductal dilatation. SPLEEN: The spleen is enlarged. No focal splenic lesion is identified. PANCREAS: The pancreas is unremarkable in appearance. ADRENAL GLANDS: Within normal limits. KIDNEYS/RETROPERITONEUM: There is a delayed nephrogram on the right and moderate hydronephrosis to the level of a 7 mm proximal ureteral calculus at the level of the superior endplate of L4 (series 3, image 37). No renal masses are identified. LYMPH NODES: No abdominal or pelvic lymphadenopathy. VASCULATURE: The abdominal aorta demonstrates atherosclerotic calcification, but is normal in caliber. MESENTERY/PERITONEUM: There is a small amount of free fluid in the right upper quadrant. No masses. There is no free intraperitoneal gas. STOMACH: There is marked distention of the stomach with gas and fluid suggestive of gastric outlet obstruction. SMALL BOWEL: The small bowel is normal in caliber. COLON: The colon is unremarkable. APPENDIX: Normal. URINARY BLADDER/PELVIC ORGANS: The urinary bladder is decompressed with a Angel catheter. The prostate is enlarged. BONES / SOFT TISSUES: There is degenerative disc disease of the spine. CT/CT abdomen pelvis w IV con IMPRESSION: 1. Moderate right hydroureteronephrosis to the level of a 7 mm proximal ureteral calculus. 2. Findings suggestive of gastric outlet obstruction. 3. Cholelithiasis. 4. Hepatosplenomegaly. Electronically signed by: Barrera Bustamante MD 07/15/2025 01:45 PM EDT RP
--- NOTE | ~2025-07-15 | XR_ITS ---
EXAMINATION: XR CHEST CLINICAL INFORMATION: ng tube placement COMPARISON: Earlier same day. TECHNIQUE: AP portable view of the chest was obtained. FINDINGS: NG tube is coiled in the superior esophagus with the tip at the approximate T1 level. This device should be repositioned. The cardiac, hilar, and mediastinal contours are normal. Aortic mural calcifications. Lungs demonstrate patchy opacities bilaterally, not previously seen and possibly related to technique. No pneumothorax or pleural effusion. No focal osseous or soft tissue abnormality. XR/XR chest 1V IMPRESSION: 1. NG tube coiled in the superior esophagus. This device should be repositioned. 2. Lungs demonstrating patchy opacities bilaterally, not previously seen and possibly artifactual. Developing pneumonia or mild pulmonary edema is a possibility. Electronically signed by: Froy Flores MD 07/15/2025 03:45 PM EDT
--- NOTE | ~2025-07-15 | US_ITS ---
EXAMINATION: US ABDOMEN HISTORY: RUQ pain, elevated Kidney function TECHNIQUE: Real-time grayscale ultrasound imaging of the abdomen was performed and images were reviewed. COMPARISON: Correlation is made with a CT of the abdomen with contrast performed earlier in the day. FINDINGS: Liver: The right lobe of the liver measures 18.4 cm in size. The left lobe of the liver measures 12.0 cm in size. The liver demonstrates normal homogeneous echotexture. No focal mass or intrahepatic biliary ductal dilatation is identified. There is normal hepatopedal flow in the portal vein. Gallbladder and biliary tree: There is cholelithiasis. There is gallbladder wall thickening measuring up to 8mm in thickness with probable gallbladder wall edema. The patient appears mildly tender over the gallbladder according to the mechanical technologist. The common bile duct is normal in caliber measuring 4 mm. Kidneys: The right kidney measures 10.7 cm in length. The left kidney measures 10.6 cm in length. There is moderate right-sided hydronephrosis as noted on CT. Trace perinephric fluid is seen bilaterally. Pancreas: There is mild dilatation of the pancreatic duct. The pancreatic head, neck, and body are otherwise unremarkable. The pancreatic tail is obscured by bowel gas. Spleen: The spleen is normal in size and contour, measuring 11.7 cm in length. Abdominal aorta and inferior vena cava: The visualized portions of the abdominal aorta and inferior vena cava are normal in caliber. There is distention of the stomach with fluid. US/US abdomen complete IMPRESSION: 1. Cholelithiasis with gallbladder wall thickening and probable gallbladder wall edema. Possible sonographic Quintero sign. If there is clinical concern for acute cholecystitis, HIDA scan could be performed. 2. Moderate right hydronephrosis as seen on CT, which demonstrated a proximal ureteral obstructing calculus. 3. Hepatomegaly. 4. Distention of the stomach with fluid. Electronically signed by: Barrera Bustamante MD 07/15/2025 02:21 PM EDT
--- NOTE | ~2025-07-15 | XR_ITS ---
EXAMINATION: XR ABDOMEN 1 VIEW (KUB) HISTORY: gastric outlet obstruction COMPARISON: Comparison is made with the prior examination dated 1124. FINDINGS: Two portable supine views of the abdomen performed at 11:55 AM are submitted. The bowel gas pattern is unremarkable, without evidence of mechanical obstruction. There is a 10 mm calcification overlying the right transverse process of L4, compatible with the ureteral calculus noted on CT 07/15/2025. A Angel catheter is seen in place. There are no abnormal soft tissue masses. The bones are intact. XR/XR KUB IMPRESSION: 1. Unremarkable bowel gas pattern. 2. 10 mm calcification overlying the right transverse process of L4 compatible with a ureteral calculus noted on CT. Electronically signed by: Barrera Bustamante MD 07/16/2025 12:16 PM EDT
--- NOTE | ~2025-07-15 | FL_ITS ---
EXAMINATION: FL GUIDANCE ONLY HISTORY: right stent COMPARISON: Correlation is made with CT of the abdomen with contrast dated 07/15/2025. TECHNIQUE: Fluoroscopy time: 21.7 seconds. Cumulative Dose: 3.30 mGy. Images: 2. FINDINGS: Fluoroscopic spot films of the right abdomen demonstrate placement of a nephroureteral stent. FL/FL guidance in OR IMPRESSION: Fluoroscopy during procedure. Please see procedure report for additional information. Electronically signed by: Barrera Bustamante MD 07/17/2025 07:55 AM EDT
--- NOTE | ~2025-07-15 | XR_ITS ---
EXAMINATION: XR ABDOMEN KUB CLINICAL INDICATION: check stent COMPARISON: Fluoroscopic image from 2 days ago TECHNIQUE: AP view of the abdomen. FINDINGS: Double-J catheter is noted in the right side extending from the region of the right kidney to the bladder. There remains in a similar position to the prior. 7 mm short axis calcified stone is again identified at the level of the superior endplate of L4, similar to the prior. XR/XR KUB IMPRESSION: Stable position of a double-J right ureteral catheter. Stable 7 mm short axis diameter stone in the mid right ureter. Electronically signed by: Sheldon Ascencio MD 07/18/2025 12:39 PM EDT
--- NOTE | 2025-07-15 10:58 | ED_ITS ---
HPI - General Adult General Chief complaint: Urogenital-Male Stated complaint: WEAKNESS,H/O PANCREATIC CA PER EMS Time Seen by Provider: 07/15/25 10:58 Source: patient, EMS and diesel technician (all interactions with this patient were facilitated with an [employer] radar systems engineer (Dayna)) Mode of arrival: EMS Limitations: language barrier (all interactions with this patient were facilitated with an [employer] radar systems engineer (Dayna)) History of Present Illness ED Provider: Lani Martinez PA-C HPI narrative: Patient is a 69 year old assigned male at with a history of prostate cancer, BPH requiring holguin catheterization intermittently, hepatitis C, hepatitis B, DM, HIV on ART, and anemia presenting to the emergency department today with difficulty urinating. Patient states that he is again having issues with urinating and would like a catheter put in that is longer than he had previously so it does not accidentally become dislodged again. Patient denies any other complaints at this time. Patient states that he does NOT have pancreatic cancer. Related Data Home Medications ?Medication ?Instructions ?Recorded ?Confirmed buprenorphine 8 mg-naloxone 2 mg 1 film sublingual BETSEY LY 01/12/24 07/15/25 sublingual film emtricitabine 200 mg-rilpivirine 1 tab PO DAILY 07/15/25 25 mg-tenofovir alafenam 25 mg tablet (Odefsey) lisinopril 2.5 mg tablet 2.5 mg PO DAILY 01/12/24 metformin 500 mg tablet,extended 1,000 mg PO DAILY@170 0 01/12/24 07/15/25 release 24 hr mirtazapine 30 mg tablet 30 mg PO BEDTIME 01/12/24 quetiapine 200 mg tablet 200 mg PO BEDTIME 01/12/24 1 sertraline 100 mg tablet 100 mg PO DAILY 01/12/24 calcium 500 mg (as carbonate)-vit 1 tab PO BID 5 07/15/25 D3 10 mcg (400 unit) chewable tablet ferrous gluconate 324 mg (38 mg 324 mg PO QAM 07/15/25 07/15/25 iron) tablet insulin glargine 100 unit/mL (3 34 unit subcut BEDTIME 10/20/25 10/20/25 mL) subcutaneous pen (Lantus Solostar U-100 Insulin) Previous Rx's ?Medication ?Instructions ?Recorded bisacodyl 5 mg tablet,delayed 10 mg (2 x 5 mg) PO BEDT [facility] #180 02/11/25 release (Dulcolax (bisacodyl)) tabs Allergies Allergy/AdvReac Type Severity Reaction Status Date / Time No Known Allergies (No Known Allergy Verified 07/15/25 11:06 Allergies*) Review of Systems 2 Constitutional: Constitutional: Reports as per HPI Eyes: Eyes: Reports as per HPI ENT: Reports as per HPI Cardiovascular: Cardiovascular: Reports as per HPI Respiratory: Respiratory: Reports as per HPI Gastrointestinal: Gastrointestinal: Reports as per HPI Genitourinary: Genitourinary: Reports as per HPI Musculoskeletal: Musculoskeletal: Reports as per HPI Integumentary/Breasts: Skin/Breast: Reports as per HPI Neurologic: Reports as per HPI Psychiatric: Psychiatric: Reports as per HPI Endocrine: Endocrine: Reports as per HPI Hematologic/Lymphatic: Hematologic/Lymphatic: Reports as per HPI Allergic/Immunologic: Allergic/Immunologic: Reports as per HPI [facility] Past Medical History Attestation statement: The following information was validated with the patient. Source: old records reviewed and nursing notes reviewed Medical History Nicotine dependence, cigarettes, uncomplicated Type 2 diabetes mellitus Hepatitis B Hepatitis C HIV (human immunodeficiency virus infection) Surgical History History of left inguinal hernia repair History of cystoscopy History of colonoscopy Family History Family History Father Cancer of abdominal wall Paternal Uncle Cancer of abdominal wall Mother Alzheimer dementia Maternal Uncle Cancer Maternal Grandmother Cancer Social History Social History Household Members: None Housing: Apartment Do you presently have visiting nurse or other home services: Yes (housekeeping) Patient Tobacco Use Status: Current everyday Tobacco user Tobacco use type: Cigarette Cigarette Packs Per Day: 0.5 Cigarettes Per Day: 10.0 Substance Use Type: Marijuana service: No Current occupational status: retired Physical Exam ED Vital Signs: Vital Signs - 24 hr 07/15/25 10:56 07/15/25 12:27 07/15/25 12:38 Temperature 98.2 F Pulse Rate 91 81 80 Respiratory Rate 18 24 H 22 H Blood Pressure 110/58 L 76/37 L 122/52 L Pulse Oximetry 96 100 Oxygen Delivery Method Room Air Nasal Cannula Oxygen Flow Rate 2 07/15/25 13:07 07/15/25 14:18 07/15/25 14:38 Temperature 100.8 F H Pulse Rate 80 Respiratory Rate 24 H Blood Pressure 116/49 L 71/44 L 82/53 L Pulse Oximetry 92 Oxygen Delivery Method Nasal Cannula Oxygen Flow Rate 2 07/15/25 14:41 07/15/25 14:45 07/15/25 14:52 Temperature Pulse Rate Respiratory Rate Blood Pressure 73/48 L 70/47 L 65/35 L Pulse Oximetry Oxygen Delivery Method Oxygen Flow Rate 07/15/25 14:55 07/15/25 14:59 07/15/25 15:06 Temperature Pulse Rate Respiratory Rate Blood Pressure 60/37 L 80/44 L 71/41 L Pulse Oximetry Oxygen Delivery Method Oxygen Flow Rate 07/15/25 15:18 07/15/25 15:37 07/15/25 15:54 Temperature 100.6 F H Pulse Rate 76 75 81 Respiratory Rate 20 Blood Pressure 77/53 L 74/53 L 85/57 L Pulse Oximetry 99 Oxygen Delivery Method Nasal Cannula Oxygen Flow Rate 2 07/15/25 16:26 Temperature Pulse Rate 81 Respiratory Rate Blood Pressure 88/34 L Pulse Oximetry Oxygen Delivery Method Oxygen Flow Rate BMI result Body Mass Index 20.5 Const General: cooperative, no acute distress, alert and awake Nutritional Appearance: well nourished Orientation/consciousness: patient oriented x3 HENMT Head: Yes normal to inspection and Yes atraumatic Ears: hearing grossly normal bilaterally and external ears normal General nose exam: Normal external nose present, no nasal discharge noted and no epistaxis Face and sinus: Yes normal facial exam, No abrasion and No laceration Mouth: Normal oral and palatal mucosa present, no drooling and no muffled voice Eyes General: appearance normal, both eyes and all related structures Periorbital: periorbital findings normal Eyelids: Yes eyelids normal Conjunctivae: conjunctivae normal Pupils: Equal, round and reactive pupils present EOM: EOMs intact bilaterally Neck Neck: Yes normal visual inspection and Yes full ROM Resp Effort & Inspection: normal respiratory effort and able to speak in complete sentences Skin General skin exam: jaundice Neuro General: patient oriented x3, moves all extremities and CN's II-XI intact bilaterally Cranial nerves: Yes Equal, round and reactive pupils present Cognition (Neuro): normal cognition Extrem General: Yes normal to inspection, Yes full ROM and Yes capillary refill normal Psych Appearance: grossly normal Mental Status: mental status grossly normal Affect: normal affect Attitude: cooperative Thought process: Normal thought process present Thought content: Normal thought content present Insight: Good insight present (Psych) Course Course Course Narrative: I was involved with the care of this patient including disposition to ICU MATHER 07/15/25 404pm Medications Administered Generic Name Dose Route Start Last Admin Trade Name Freq PRN Reason Stop Dose Admin Buprenorphine/Naloxone 1 film 07/16/25 10:00 07/16/25 10:02 Buprenorphine/Naloxone 8/2 Mg Film SUBLINGUAL 1 film DAILY GERMAN Administration Dextrose 25 gm 07/16/25 06:40 07/16/25 06:49 Dextrose 50 % 25 Gm/50 Ml Syringe IVPUSH 25 gm Q15M PRN Administration per Hypoglycemia Standing Ord. Protocol Famotidine 20 mg 07/15/25 21:00 07/16/25 20:44 Famotidine/Pf 20 Mg/2 Ml Vial IVPUSH 20 mg BID GERMAN Administration Heparin Sodium (Porcine) 5,000 unit 07/15/25 17:00 07/17/25 00:54 Heparin Sodium,Porcine 5,000 Unit/Ml Vial SUBCUT Not Given Q8H GERMAN Hydromorphone HCl 0.5 mg 07/16/25 02:50 07/16/25 15:32 Hydromorphone Hcl 1 Mg/Ml Syringe IVPUSH 0.5 mg Q4H PRN Administration Pain, Moderate(Pain Scale 4-6) Protocol Piperacillin Sod/Tazobactam 100 mls @ 200 mls/hr 07/15/25 20:00 07/17/25 06:08 Sod 4.5 gm/ Sodium Chloride IV Infused Q8H GERMAN Infusion Dextrose 1,000 mls @ 100 mls/hr 07/16/25 12:15 07/17/25 05:33 D10 IVCONT 100 mls/hr .Q10H GERMAN Administration Insulin Human Lispro 0 unit 07/16/25 06:00 07/17/25 06:33 Insulin Lispro 100 Unit/Ml 3 Ml Vial SUBCUT Not Given Q6H GERMAN Protocol Mirtazapine 30 mg 07/16/25 21:00 07/16/25 19:57 Mirtazapine 30 Mg Tablet PO Not Given BEDTIME GERMAN Nicotine 14 mg 07/16/25 05:25 07/16/25 05:53 Nicotine 14 Mg Patch.Td24 TRANSDERMA 14 mg DAILY GERMAN Administration Ondansetron HCl 4 mg 07/15/25 16:39 07/16/25 10:15 Ondansetron Hcl 4 Mg/2 Ml Vial IVPUSH 4 mg Q8H PRN Administration Nausea and Vomiting Quetiapine Fumarate 200 mg 07/16/25 21:00 07/16/25 19:57 Quetiapine Fumarate 200 Mg Tablet PO Not Given BEDTIME GERMAN Discontinued Medications Generic Name Dose Route Start Last Admin Trade Name Freq PRN Reason Stop Dose Admin Ceftriaxone Sodium 2 gm 07/15/25 11:51 07/15/25 12:14 Ceftriaxone Sodium 2 Gm Vial IVPUSH 07/15/25 11:52 2 gm ONCE ONE Administration Dextrose 25 gm 07/15/25 12:22 07/15/25 14:39 Dextrose 50 % 25 Gm/50 Ml Syringe IVPUSH 07/15/25 12:23 Not Given ONCE ONE Dextrose 25 gm 07/15/25 12:28 07/15/25 12:30 Dextrose 50 % 25 Gm/50 Ml Syringe IVPUSH 07/15/25 12:29 25 gm ONCE ONE Administration Fentanyl 50 mcg 07/15/25 12:36 07/15/25 12:39 Fentanyl Citrate/Pf 100 Mcg/2 Ml Vial IVPUSH 07/15/25 12:37 50 mcg ONCE ONE Administration Protocol Hydromorphone HCl 0.5 mg 07/15/25 16:39 07/16/25 00:39 Hydromorphone Hcl 1 Mg/Ml Syringe IVPUSH 0.5 mg Q6H PRN Administration Pain, Moderate(Pain Scale 4-6) Protocol Dextrose/Sodium Chloride 1,000 mls @ 150 mls/hr 07/15/25 12:00 07/16/25 13:01 D5ns IVCONT Infused .Q6H40M GERMAN Infusion Sodium Chloride 1,000 mls @ 999 mls/hr 07/15/25 12:30 07/15/25 13:24 Ns IV 10/20/25 13:30 Infused .Q1H1M GERMAN Infusion Vancomycin HCl 1,000 mg/ 270 mls @ 270 mls/hr 07/15/25 12:34 07/15/25 13:45 Sodium Chloride IV 07/15/25 13:33 Infused ONCE ONE Infusion Potassium Chloride 10 meq in 100 mls @ 100 mls/hr 07/15/25 13:00 07/15/25 20:15 Potassium Chloride/H20 IV 07/15/25 16:59 Infused Q1H GERMAN Infusion Acetaminophen 1,000 mg in 100 mls @ 400 mls/hr 07/15/25 13:58 07/15/25 15:38 Ofirmev IV 07/15/25 14:12 Infused ONCE ONE Infusion Norepinephrine Bitartrate 8 mg in 250 mls @ 0 mls/hr 07/15/25 15:15 07/16/25 13:00 Levophed IVCONT Infused .Q0M GERMAN Titration Protocol Per Protocol Sodium Chloride 1,000 mls @ 999 mls/hr 07/15/25 15:15 07/15/25 18:03 Ns IV 07/15/25 16:15 Infused .Q1H1M GERMAN Infusion Potassium Phosphate 15 mmol in 250 mls @ 62.5 mls/hr 07/16/25 06:45 07/16/25 11:01 Kphos IV 07/16/25 10:44 Infused ONCE ONE Infusion Cefazolin Sodium/Dextrose 2 gm in 50 mls @ 100 mls/hr 07/16/25 13:32 07/16/25 15:26 Ancef IV 07/16/25 14:01 Infused PREOP ONE Infusion Iohexol 100 ml 07/15/25 13:20 07/15/25 13:22 Iohexol 350 Mg/Ml 100 Ml Infus..Btl IV 07/15/25 13:21 85 ml ONCE ONE Administration Ketorolac Tromethamine 15 mg 07/15/25 12:57 07/15/25 13:05 Ketorolac Tromethamine 15 Mg/Ml Vial IVPUSH 07/15/25 12:58 15 mg ONCE ONE Administration Medical Decision Making Medical Decision Making MDM Narrative: Patient is a 69 year old assigned male at with a history of prostate cancer, BPH requiring holguin catheterization intermittently, hepatitis C, hepatitis B, DM, HIV on ART, and anemia presenting to the emergency department today with difficulty urinating. Patient's initial physical exam was as noted in the physical exam portion of this note. Patient's blood work showed 11% band neutrophils, lactic acid of 3.9, glucose of 33, BUN of 31, CR of 1.96, potassium of 3.2, AST of 653, ALT 364, alk phos of 154, and trop of 299.9. Patient's 11% band neutrophisl, glucose, BUN, CR, AST, ALT, and alk phos were all newly abnormal when compared to his labs drawn on 07/12/2025. Patient was started on a D5W drip for his hypoglycemia. Patient's urine showed large leuks, >20 RBC, >50 WBC, and 4+ bacteria. Patient's EKG was unremarkable. Patient's chest x-ray showed no acute process. While awaiting results - the patient developed sharp abdominal pain. Patient became febrile and hypotensive at 76/37 and 100.8 respectively. At 1227 I suspected the patient to be septic. Patient was given 2 grams of IV ceftriaxone. CT abdomen/pelvis showed moderate right hydroureternephrosis with a 7mm proximal ureteral calculus, a very large / distended abdomen consistent with gastric outlet obstruction, hepatosplenomegaly, and cholelithiasis. Patient's abdominal US showed cholelithiasis with gallbladder wall thickening + probable gallbladder wall edema. Given patient's imaging findings, clinical presentation, and medical history - he was also given IV vancomycin. I spoke with the general surgery team who recommended medicine admission and placing an NG tube to decompress the patient's abdomen. I spoke with the urologist team who recommended medicine admission and they'd continue to follow the case. I spoke with the medicine team who recommended speaking with the GI specialist given the gallbladder / LFT findings as well as the computer hardware designer given the patient's intermittent hypotension. I spoke with the GI specialist, Dr. Foreman, who recommended medicine admission and stated the LFT elevation did not appear secondary to an obstructive biliary process. Patient again became hypotensive. Patient was given 2 liters of NS and an amp of D50 and remained hypotensive. Patient was started on levophed. I spoke with the computer hardware designer, Dr. Ventura, who agreed to admission to the ICU. I explained my physical exam findings as well as all test results to the patient. I answered all questions asked by the patient. Nursing attempted to place the NG tube twice, without success. Patient [and the patient's] verbalized agreement and understanding with this treatment plan and admission to the ICU. Differential Diagnosis Differential Diagnoses: The differential diagnosis associated with the presentation includes Sepsis Urosepsis Gastric outlet obstruction Hypotension Cholecystitis Cholelithiasis Admission/Observation Consideration of admission/observation: Escalation of care including admission/observation considered Patient admitted to the ICU as noted in the MDM Rationale portion of this note. Consult Healthcare Provider Management of the patient was discussed with: Hospitalist (recommended GI consultation and ICU admission) and Land Surveying Party Chief (spoke with Dr. Ventura, Dr. Foreman, Dr. Rodrigez, and Dennis Senior PA-C, with the ICU, GI team, team, and Surgical teams respectively as noted in the MDM Rationale portion of this note.) Lab Data [facility] Lab Attestation statement: I reviewed the patient's lab results. My interpretation of these results are in the MDM Rationale portion of this note. 07/16/25 17:06 07/16/25 09:03 Labs: Lab Results 07/15/25 07/15/25 07/15/25 Range/Units 11:13 11:37 12:02 WBC 10.1 (4.8-10.8) X10*3/uL RBC 3.31 L (4.60-5.80) X10*6/uL Hgb 10.1 L (14.0-18.0) g/dl Hct 31.1 L (42.0-52.0) % MCV 94.0 (80.0-98.0) fL MCH 30.5 (27.0-33.0) pg MCHC 32.5 (31.0-36.0) g/dl RDW 15.1 (11.0-16.0) % Plt Count 115 L (160-400) X10*3/uL MPV 10.5 (9.4-12.4) fL Immature Gran % (Auto) Cancelled Neut % (Auto) Cancelled Lymph % (Auto) Cancelled Clare % (Auto) Cancelled Eos % (Auto) Cancelled Baso % (Auto) Cancelled Lymph # (Auto) Cancelled Clare # (Auto) Cancelled Eos # (Auto) Cancelled Baso # (Auto) Cancelled Abs Immat Gran (auto) Cancelled Absolute Neuts (auto) Cancelled Absolute Nucleated RBC 0.000 (0.0-0.012) X10*3/uL Nucleated RBC % (auto) 0.0 (0.0-0.2) /100WBC Neutrophils % (Manual) 77 H (45-73) % Band Neutrophils % 11 H (3-5) % Lymphocytes % (Manual) 6 L (20-40) % Monocytes % (Manual) 6 (2-11) % Abs Neuts (Manual) 8.9 H (2.0-8.3) X10*3/uL Lymphocytes # (Manual) 0.6 L (1.2-4.9) X10*3/uL Monocytes # (Manual) 0.6 (0.1-1.2) X10*3/uL Platelet Estimate DECREASED (NORMAL) Plt Morphology Comment NORMAL RBC Morphology NOTED Spherocytes 1+ (0-2) /OIF Schistocytes 1+ (0-2) /OIF Sodium 137 (135-145) mmol/L Potassium 3.2 L (3.3-5.1) mmol/L Chloride 103 (96-108) mmol/L Carbon Dioxide 23 (22-29) mmol/L Anion Gap 14 (12-20) BUN 31 H (9-16) mg/dL Creatinine 1.96 H (0.5-1.4) mg/dL Estim Creat Clear Calc 28.5 Estimated GFR 34 POC Glucose (60-115) mg/dL Random Glucose 33 L* (60-115) mg/dL Lactic Acid 3.9 H* (0.5-2.0) mmol/L Lactic Acid F/U @ 2Hr (0.5-2.0) mmol/L Calcium 9.1 (8.4-10.2) mg/dL Total Bilirubin 0.8 (0.0-1.0) mg/dL AST 653 H (5-37) U/L ALT 364 H (0-40) U/L Alkaline Phosphatase 154 H (39-117) U/L Troponin I High Sens 299.9 H* (<3.5-35.0) ng/L Total Protein 6.4 L (6.5-8.0) g/dL Albumin 3.6 (3.5-5.0) g/dL Urine Color Yellow Urine Appearance Cloudy Urine pH 6.0 (5.0-9.0) Ur Specific Benson 1.010 (1.005-1.025) Urine Protein 100 (2+) H (Neg-Trace) mg/dL Urine Glucose (UA) Negative (Negative) mg/dL Urine Ketones Negative (Negative) mg/dL Urine Blood Large (3+) H (Negative) Urine Nitrite Negative (Negative) Ur Leukocyte Esterase Large (3+) H (Negative) Urine RBC >20 H (0-2) /HPF Urine WBC >50 H (0-5) /HPF Ur Squamous Epith Cells 0-2 (0-2) /HPF Urine Bacteria 4+ (None Seen) Hyaline Casts 0-2 (0-2) /LPF Urine Opiates Screen (Not Detect) Ur Buprenorphine Scrn (Not Detect) ng/mL Ur Oxycodone Screen (Not Detect) ng/mL Urine Methadone Screen (Not Detect) ng/mL Urine Fentanyl Screen (Not Detect) Ur Barbiturates Screen (Not Detect) Ur Phencyclidine Scrn (Not Detect) Ur Amphetamines Screen (Not Detect) U Benzodiazepines Scrn (Not Detect) Urine Cocaine Screen (Not Detect) U Marijuana (THC) Screen (Not Detect) Ethyl Alcohol mg/dL A.phagocytophil DNA PCR (NOT DETECTED) Babesia microti DNA PCR (NOT DETECTED) Borrelia sp DNA (PCR) (NOT DETECTED) Lyme Screen IgG & IgM index Lyme Progressive Test Borrelia miyamotoi (PCR) (NOT DETECTED) COVID-19 (STEVE) Negative (Negative) COVID-19 Clin Com See Note E.chaffeensis DNA (PCR) (NOT DETECTED) Influenza Type A (AISHA) Negative (Negative) Influenza Type B (AISHA) Negative (Negative) Influenza A & B Note See Note Tick-borne Disease PCR 07/15/25 07/15/25 07/15/25 Range/Units 12:14 12:39 12:58 WBC (4.8-10.8) X10*3/uL RBC (4.60-5.80) X10*6/uL Hgb (14.0-18.0) g/dl Hct (42.0-52.0) % MCV (80.0-98.0) fL MCH (27.0-33.0) pg MCHC (31.0-36.0) g/dl RDW (11.0-16.0) % Plt Count (160-400) X10*3/uL MPV (9.4-12.4) fL Immature Gran % (Auto) Neut % (Auto) Lymph % (Auto) Clare % (Auto) Eos % (Auto) Baso % (Auto) Lymph # (Auto) Clare # (Auto) Eos # (Auto) Baso # (Auto) Abs Immat Gran (auto) Absolute Neuts (auto) Absolute Nucleated RBC (0.0-0.012) X10*3/uL Nucleated RBC % (auto) (0.0-0.2) /100WBC Neutrophils % (Manual) (45-73) % Band Neutrophils % (3-5) % Lymphocytes % (Manual) (20-40) % Monocytes % (Manual) (2-11) % Abs Neuts (Manual) (2.0-8.3) X10*3/uL Lymphocytes # (Manual) (1.2-4.9) X10*3/uL Monocytes # (Manual) (0.1-1.2) X10*3/uL Platelet Estimate (NORMAL) Plt Morphology Comment RBC Morphology Spherocytes /OIF Schistocytes /OIF Sodium (135-145) mmol/L Potassium (3.3-5.1) mmol/L Chloride (96-108) mmol/L Carbon Dioxide (22-29) mmol/L Anion Gap (12-20) BUN (9-16) mg/dL Creatinine (0.5-1.4) mg/dL Estim Creat Clear Calc Estimated GFR POC Glucose 36 L* 114 162 H (60-115) mg/dL Random Glucose (60-115) mg/dL Lactic Acid (0.5-2.0) mmol/L Lactic Acid F/U @ 2Hr (0.5-2.0) mmol/L Calcium (8.4-10.2) mg/dL Total Bilirubin (0.0-1.0) mg/dL AST (5-37) U/L ALT (0-40) U/L Alkaline Phosphatase (39-117) U/L Troponin I High Sens (<3.5-35.0) ng/L Total Protein (6.5-8.0) g/dL Albumin (3.5-5.0) g/dL Urine Color Urine Appearance Urine pH (5.0-9.0) Ur Specific Benson (1.005-1.025) Urine Protein (Neg-Trace) mg/dL Urine Glucose (UA) (Negative) mg/dL Urine Ketones (Negative) mg/dL Urine Blood (Negative) Urine Nitrite (Negative) Ur Leukocyte Esterase (Negative) Urine RBC (0-2) /HPF Urine WBC (0-5) /HPF Ur Squamous Epith Cells (0-2) /HPF Urine Bacteria (None Seen) Hyaline Casts (0-2) /LPF Urine Opiates Screen (Not Detect) Ur Buprenorphine Scrn (Not Detect) ng/mL Ur Oxycodone Screen (Not Detect) ng/mL Urine Methadone Screen (Not Detect) ng/mL Urine Fentanyl Screen (Not Detect) Ur Barbiturates Screen (Not Detect) Ur Phencyclidine Scrn (Not Detect) Ur Amphetamines Screen (Not Detect) U Benzodiazepines Scrn (Not Detect) Urine Cocaine Screen (Not Detect) U Marijuana (THC) Screen (Not Detect) Ethyl Alcohol mg/dL A.phagocytophil DNA PCR (NOT DETECTED) Babesia microti DNA PCR (NOT DETECTED) Borrelia sp DNA (PCR) (NOT DETECTED) Lyme Screen IgG & IgM index Lyme Progressive Test Borrelia miyamotoi (PCR) (NOT DETECTED) COVID-19 (STEVE) (Negative) COVID-19 Clin Com E.chaffeensis DNA (PCR) (NOT DETECTED) Influenza Type A (AISHA) (Negative) Influenza Type B (AISHA) (Negative) Influenza A & B Note Tick-borne Disease PCR 07/15/25 07/15/25 07/15/25 Range/Units 13:44 14:03 14:04 WBC (4.8-10.8) X10*3/uL RBC (4.60-5.80) X10*6/uL Hgb (14.0-18.0) g/dl Hct (42.0-52.0) % MCV (80.0-98.0) fL MCH (27.0-33.0) pg MCHC (31.0-36.0) g/dl RDW (11.0-16.0) % Plt Count (160-400) X10*3/uL MPV (9.4-12.4) fL Immature Gran % (Auto) Neut % (Auto) Lymph % (Auto) Clare % (Auto) Eos % (Auto) Baso % (Auto) Lymph # (Auto) Clare # (Auto) Eos # (Auto) Baso # (Auto) Abs Immat Gran (auto) Absolute Neuts (auto) Absolute Nucleated RBC (0.0-0.012) X10*3/uL Nucleated RBC % (auto) (0.0-0.2) /100WBC Neutrophils % (Manual) (45-73) % Band Neutrophils % (3-5) % Lymphocytes % (Manual) (20-40) % Monocytes % (Manual) (2-11) % Abs Neuts (Manual) (2.0-8.3) X10*3/uL Lymphocytes # (Manual) (1.2-4.9) X10*3/uL Monocytes # (Manual) (0.1-1.2) X10*3/uL Platelet Estimate (NORMAL) Plt Morphology Comment RBC Morphology Spherocytes /OIF Schistocytes /OIF Sodium (135-145) mmol/L Potassium (3.3-5.1) mmol/L Chloride (96-108) mmol/L Carbon Dioxide (22-29) mmol/L Anion Gap (12-20) BUN (9-16) mg/dL Creatinine (0.5-1.4) mg/dL Estim Creat Clear Calc Estimated GFR POC Glucose 136 H (60-115) mg/dL Random Glucose (60-115) mg/dL Lactic Acid (0.5-2.0) mmol/L Lactic Acid F/U @ 2Hr (0.5-2.0) mmol/L Calcium (8.4-10.2) mg/dL Total Bilirubin (0.0-1.0) mg/dL AST (5-37) U/L ALT (0-40) U/L Alkaline Phosphatase (39-117) U/L Troponin I High Sens (<3.5-35.0) ng/L Total Protein (6.5-8.0) g/dL Albumin (3.5-5.0) g/dL Urine Color Urine Appearance Urine pH (5.0-9.0) Ur Specific Benson (1.005-1.025) Urine Protein (Neg-Trace) mg/dL Urine Glucose (UA) (Negative) mg/dL Urine Ketones (Negative) mg/dL Urine Blood (Negative) Urine Nitrite (Negative) Ur Leukocyte Esterase (Negative) Urine RBC (0-2) /HPF Urine WBC (0-5) /HPF Ur Squamous Epith Cells (0-2) /HPF Urine Bacteria (None Seen) Hyaline Casts (0-2) /LPF Urine Opiates Screen Not Detected (Not Detect) Ur Buprenorphine Scrn Positive H (Not Detect) ng/mL Ur Oxycodone Screen Not Detected (Not Detect) ng/mL Urine Methadone Screen Not Detected (Not Detect) ng/mL Urine Fentanyl Screen POSITIVE H (Not Detect) Ur Barbiturates Screen Not Detected (Not Detect) Ur Phencyclidine Scrn Not Detected (Not Detect) Ur Amphetamines Screen Not Detected (Not Detect) U Benzodiazepines Scrn Not Detected (Not Detect) Urine Cocaine Screen Not Detected (Not Detect) U Marijuana (THC) Screen POSITIVE H (Not Detect) Ethyl Alcohol 11 mg/dL A.phagocytophil DNA PCR NOT DETECTED (NOT DETECTED) Babesia microti DNA PCR NOT DETECTED (NOT DETECTED) Borrelia sp DNA (PCR) NOT DETECTED (NOT DETECTED) Lyme Screen IgG & IgM <0.90 index Lyme Progressive Test Not Reportable Borrelia miyamotoi (PCR) NOT DETECTED (NOT DETECTED) COVID-19 (STEVE) (Negative) COVID-19 Clin Com E.chaffeensis DNA (PCR) NOT DETECTED (NOT DETECTED) Influenza Type A (AISHA) Negative (Negative) Influenza Type B (AISHA) Negative (Negative) Influenza A & B Note See Note Tick-borne Disease PCR SEE NOTE 07/15/25 07/15/25 Range/Units 15:18 15:30 WBC (4.8-10.8) X10*3/uL RBC (4.60-5.80) X10*6/uL Hgb (14.0-18.0) g/dl Hct (42.0-52.0) % MCV (80.0-98.0) fL MCH (27.0-33.0) pg MCHC (31.0-36.0) g/dl RDW (11.0-16.0) % Plt Count (160-400) X10*3/uL MPV (9.4-12.4) fL Immature Gran % (Auto) Neut % (Auto) Lymph % (Auto) Clare % (Auto) Eos % (Auto) Baso % (Auto) Lymph # (Auto) Clare # (Auto) Eos # (Auto) Baso # (Auto) Abs Immat Gran (auto) Absolute Neuts (auto) Absolute Nucleated RBC (0.0-0.012) X10*3/uL Nucleated RBC % (auto) (0.0-0.2) /100WBC Neutrophils % (Manual) (45-73) % Band Neutrophils % (3-5) % Lymphocytes % (Manual) (20-40) % Monocytes % (Manual) (2-11) % Abs Neuts (Manual) (2.0-8.3) X10*3/uL Lymphocytes # (Manual) (1.2-4.9) X10*3/uL Monocytes # (Manual) (0.1-1.2) X10*3/uL Platelet Estimate (NORMAL) Plt Morphology Comment RBC Morphology Spherocytes /OIF Schistocytes /OIF Sodium (135-145) mmol/L Potassium (3.3-5.1) mmol/L Chloride (96-108) mmol/L Carbon Dioxide (22-29) mmol/L Anion Gap (12-20) BUN (9-16) mg/dL Creatinine (0.5-1.4) mg/dL Estim Creat Clear Calc Estimated GFR POC Glucose 100 (60-115) mg/dL Random Glucose (60-115) mg/dL Lactic Acid (0.5-2.0) mmol/L Lactic Acid F/U @ 2Hr 4.5 H* (0.5-2.0) mmol/L Calcium (8.4-10.2) mg/dL Total Bilirubin (0.0-1.0) mg/dL AST (5-37) U/L ALT (0-40) U/L Alkaline Phosphatase (39-117) U/L Troponin I High Sens (<3.5-35.0) ng/L Total Protein (6.5-8.0) g/dL Albumin (3.5-5.0) g/dL Urine Color Urine Appearance Urine pH (5.0-9.0) Ur Specific [place] (1.005-1.025) Urine Protein (Neg-Trace) mg/dL Urine Glucose (UA) (Negative) mg/dL Urine Ketones (Negative) mg/dL Urine Blood (Negative) Urine Nitrite (Negative) Ur Leukocyte Esterase (Negative) Urine RBC (0-2) /HPF Urine WBC (0-5) /HPF Ur Squamous Epith Cells (0-2) /HPF Urine Bacteria (None Seen) Hyaline Casts (0-2) /LPF Urine Opiates Screen (Not Detect) Ur Buprenorphine Scrn (Not Detect) ng/mL Ur Oxycodone Screen (Not Detect) ng/mL Urine Methadone Screen (Not Detect) ng/mL Urine Fentanyl Screen (Not Detect) Ur Barbiturates Screen (Not Detect) Ur Phencyclidine Scrn (Not Detect) Ur Amphetamines Screen (Not Detect) U Benzodiazepines Scrn (Not Detect) Urine Cocaine Screen (Not Detect) U Marijuana (THC) Screen (Not Detect) Ethyl Alcohol mg/dL A.phagocytophil DNA PCR (NOT DETECTED) Babesia microti DNA PCR (NOT DETECTED) Borrelia sp DNA (PCR) (NOT DETECTED) Lyme Screen IgG & IgM index Lyme Progressive Test Borrelia miyamotoi (PCR) (NOT DETECTED) COVID-19 (STEVE) (Negative) COVID-19 Clin Com E.chaffeensis DNA (PCR) (NOT DETECTED) Influenza Type A (AISHA) (Negative) Influenza Type B (AISHA) (Negative) Influenza A & B Note Tick-borne Disease PCR Independent Interpretation I performed an independent interpretation of an: EKG, Plain X-Ray, Ultrasound and CT Scan Interpretation: My interpretation is in agreement with the radiologist's impression of these imaging studies. L Reason for Exam: hypoxia EXAMINATION: XR CHEST CLINICAL INFORMATION: hypoxia COMPARISON: CT chest 10/07/2023. TECHNIQUE: Frontal view of the chest was obtained. FINDINGS: There is mild leftward rotation. The cardiac, hilar, and mediastinal contours are normal. Subsegmental atelectasis in both lung bases. Lungs otherwise clear. No pneumothorax or effusion. No focal osseous or soft tissue abnormality. XR/XR chest 1V IMPRESSION: 1. Minor atelectasis in both lung bases. Mild cardiac enlargement. No superimposed active lung disease. Electronically signed by: Froy Flores MD 07/15/2025 01:28 PM EDT Dictated By: Froy Flores MD Signed By: Electronically signed by Froy Flores MD 07/15/25 1328 Report Number: [id number]: Total DLP = 323.00 mGy-cm Reason for Exam: abd pain EXAMINATION: CT ABDOMEN PELVIS WITH IV CONTRAST HISTORY: abd pain COMPARISON: Comparison is made with the prior examination dated 07/12/2025. TECHNIQUE: CT scan of the abdomen and pelvis was performed following administration of 85 mL Omnipaque 350 using standard departmental protocol. Coronal and sagittal reformatted images were generated and reviewed. Oral contrast material was not administered at the request of the referring physician. This CT exam was performed with one or more of the following dose reduction techniques: automated exposure control, adjustment of the mA and/or kV according to patient size, use of iterative reconstruction technique. DLP: 323 mGy-cm FINDINGS: LOWER CHEST: There is scarring at the lung bases. There is no pleural effusion. CARDIOVASCULATURE: The heart is normal in size. There is no pericardial effusion. LIVER: The liver is enlarged. No liver mass is identified. The hepatic and portal veins are patent. GALLBLADDER / BILE DUCTS: The gallbladder is distended and demonstrates a large gallstone. There is no intra or extrahepatic biliary ductal dilatation. SPLEEN: The spleen is enlarged. No focal splenic lesion is identified. PANCREAS: The pancreas is unremarkable in appearance. ADRENAL GLANDS: Within normal limits. KIDNEYS/RETROPERITONEUM: There is a delayed nephrogram on the right and moderate hydronephrosis to the level of a 7 mm proximal ureteral calculus at the level of the superior endplate of L4 (series 3, image 37). No renal masses are identified. LYMPH NODES: No abdominal or pelvic lymphadenopathy. VASCULATURE: The abdominal aorta demonstrates atherosclerotic calcification, but is normal in caliber. MESENTERY/PERITONEUM: There is a small amount of free fluid in the right upper quadrant. No masses. There is no free intraperitoneal gas. STOMACH: There is marked distention of the stomach with gas and fluid suggestive of gastric outlet obstruction. SMALL BOWEL: The small bowel is normal in caliber. COLON: The colon is unremarkable. APPENDIX: Normal. URINARY BLADDER/PELVIC ORGANS: The urinary bladder is decompressed with a Holguin catheter. The prostate is enlarged. BONES / SOFT TISSUES: There is degenerative disc disease of the spine. CT/CT abdomen pelvis w IV con IMPRESSION: 1. Moderate right hydroureteronephrosis to the level of a 7 mm proximal ureteral calculus. 2. Findings suggestive of gastric outlet obstruction. 3. Cholelithiasis. 4. Hepatosplenomegaly. Electronically signed by: Barrera Bustamante MD 07/15/2025 01:45 PM EDT RP Dictated By: Barrera Bustamante MD Signed By: Electronically signed by Barrera Bustamante MD 07/15/25 1345 Reason for Exam: RUQ pain, elevated Kidney function EXAMINATION: US ABDOMEN HISTORY: RUQ pain, elevated Kidney function TECHNIQUE: Real-time grayscale ultrasound imaging of the abdomen was performed and images were reviewed. COMPARISON: Correlation is made with a CT of the abdomen with contrast performed earlier in the day. FINDINGS: Liver: The right lobe of the liver measures 18.4 cm in size. The left lobe of the liver measures 12.0 cm in size. The liver demonstrates normal homogeneous echotexture. No focal mass or intrahepatic biliary ductal dilatation is identified. There is normal hepatopedal flow in the portal vein. Gallbladder and biliary tree: There is cholelithiasis. There is gallbladder wall thickening measuring up to 8mm in thickness with probable gallbladder wall edema. The patient appears mildly tender over the gallbladder according to the geospatial technologist. The common bile duct is normal in caliber measuring 4 mm. Kidneys: The right kidney measures 10.7 cm in length. The left kidney measures 10.6 cm in length. There is moderate right-sided hydronephrosis as noted on CT. Trace perinephric fluid is seen bilaterally. Pancreas: There is mild dilatation of the pancreatic duct. The pancreatic head, neck, and body are otherwise unremarkable. The pancreatic tail is obscured by bowel gas. Spleen: The spleen is normal in size and contour, measuring 11.7 cm in length. Abdominal aorta and inferior vena cava: The visualized portions of the abdominal aorta and inferior vena cava are normal in caliber. There is distention of the stomach with fluid. US/US abdomen complete IMPRESSION: 1. Cholelithiasis with gallbladder wall thickening and probable gallbladder wall edema. Possible sonographic Quintero sign. If there is clinical concern for acute cholecystitis, HIDA scan could be performed. 2. Moderate right hydronephrosis as seen on CT, which demonstrated a proximal ureteral obstructing calculus. 3. Hepatomegaly. 4. Distention of the stomach with fluid. Electronically signed by: Barrera Bustamante MD 07/15/2025 02:21 PM EDT RP Dictated By: Barrera Bustamante MD Signed By: Electronically signed by Barrera Bustamante MD 07/15/25 1421 I independently interpreted this EKG and am in agreement with the below findings: Vent. Rate: 82 BPM Atrial Rate: 82 BPM P-R Int: 140 ms QRS Dur: 88 ms QT Int: 348 ms P-R-T Axes: 77 81 76 degrees QTcB Int: 406 ms Sinus rhythm with Premature atrial complexes Anterior infarct, age undetermined When compared with ECG of 06-Jul-2025 07:31, Vent. rate has increased by [address] no longer elevated in Anterior leads Referred By: Lani Martinez Electronically Signed By: HUNTER YING MD Dictated By: Hunter Ying MD Signed By: Electronically signed by Hunter Ying MD 07/15/25 1514 Radiology Impression Discussion of test interpretation with radiology: I have reviewed the radiologist's reading. Independent Historian Clinical information obtained from an independent historian. History obtained from or confirmed by: EMS (EMS provided additional history and confirmed the history provided by the patient. ) External Record Review External record reviewed: Office record Critical Care Time Critical Care Time Critical Care Time: Yes Total Critical Care Time: 79 Attestation: I spent 79 minutes of Critical Care Time with this patient. This does not include time spent on separately reported billable procedures. Discharge Plan Discharge Clinical Impression: Acute hypotension, Gastric outlet obstruction, Urinary tract obstruction by kidney stone, Acute UTI Sepsis Qualifiers: Sepsis type: sepsis due to unspecified organism Sepsis acute organ dysfunction status: unspecified Qualified Code(s): A41.9 - Sepsis, unspecified organism Cholelithiasis Qualifiers: Cholelithiasis location: other site Biliary obstruction: without biliary obstruction Qualified Code(s): K80.80 - Other cholelithiasis without obstruction Patient Disposition: Admitted As Inpatient Discharge Date/Time: 07/15/25 17:34
[2025-07-15 11:24] LABS: Hematocrit 31.1 % (42.0-52.0); Hemoglobin 10.1 g/dl (14.0-18.0); Mean Corpuscular HGB Conc 32.5 g/dl (31.0-36.0); Mean Corpuscular Hemoglobin 30.5 pg (27.0-33.0); Mean Corpuscular Volume 94.0 fL (80.0-98.0); NRBC Abs Auto 0.000 X10*3/uL (0.0-0.012); NRBC Pct Auto 0.0 /100WBC (0.0-0.2); Platelet Count 115 X10*3/uL (160-400); Red Blood Count 3.31 X10*6/uL (4.60-5.80); White Blood Count 10.1 X10*3/uL (4.8-10.8)
[2025-07-15 11:36] LABS: COVID-19 Test Negative (Negative); IDNOW Serial# 6674DD1D
[2025-07-15 11:40] LABS: IDNOW Serial# 08D9AD1C; Influenza B2 Negative (Negative)
[2025-07-15 11:43] LABS: Appearance Urine Cloudy; Glucose Urine UA Negative (Negative); PH 6.0 (5.0-9.0); Specific Gravity - Urine 1.010 (1.005-1.025); UMIC TRIGGER UACC YES
[2025-07-15 11:46] LABS: Alanine Aminotransferase 364 U/L (0-40); Albumin Level 3.6 g/dL (3.5-5.0); Alkaline Phosphatase 154 U/L (39-117); Anion Gap 14 (12-20); Aspartate Amino Transferase 653 U/L (5-37); Blood Urea Nitrogen 31 mg/dL (9-16); Calcium 9.1 mg/dL (8.4-10.2); Carbon Dioxide 23 mmol/L (22-29); Chloride 103 mmol/L (96-108); Creatinine Clr Calc Pharmacy 28.5; Estimated Glomerular Filt Rate 34; Potassium 3.2 mmol/L (3.3-5.1); Sodium 137 mmol/L (135-145); Total Protein 6.4 g/dL (6.5-8.0)
[2025-07-15 11:48] LABS: UACC Culture Trigger YES
--- NOTE | 2025-07-15 12:16 | PC.NURSE ---
gave 2 orange juices with 4 packets of sugar x 2. he drank them will take blood sugar in 15 mins
[2025-07-15 12:18] LABS: Glucose, Whole Blood 36 mg/dL (60-115)
[2025-07-15 12:26] LABS: Neutrophils Percent Manual 77 % (45-73)
--- NOTE | 2025-07-15 12:26 | PM.IMHP ---
History of Present Illness Date of Service: 07/15/25 Chief Complaint: unable to eat, drink and inability to void [facility] Medical History Nicotine dependence, cigarettes, uncomplicated Type 2 diabetes mellitus Hepatitis B Hepatitis C HIV (human immunodeficiency virus infection) Family History Father Cancer of abdominal wall Paternal Uncle Cancer of abdominal wall Mother Alzheimer dementia Maternal Uncle Cancer Maternal Grandmother Cancer Surgical History History of left inguinal hernia repair History of cystoscopy History of colonoscopy Social History Household Members: None Patient Tobacco Use Status: Current everyday Tobacco user Cigarettes Per Day: 10 Substance Use Type: Marijuana Advance Directives: No Advance Directives Information Provided: Yes service: No Current occupational status: retired [employer] Allergies Allergy/AdvReac Type Severity Reaction Status Date / Time No Known Allergies (No Known Allergy Verified 07/15/25 11:06 Allergies*) Active Medications: Current Medications Dextrose/Sodium Chloride (D5ns) 1,000 mls @ 125 mls/hr IVCONT .Q8H GERMAN Last Admin: 07/15/25 12:14 Dose: 125 mls/hr Home Medications ?Medication ?Instructions ?Recorded ?Confirmed ?Last Taken ?Type atorvastatin 20 mg tablet 20 mg PO DAILY 01/12/24 10/01/24 Unknown History buprenorphine 8 mg-naloxone 2 mg 1 film sublingual DAILY 01/12/24 10/01/24 09/13/24 History sublingual film emtricitabine 200 mg-rilpivirine 1 tab PO DAILY 01/12/24 10/01/24 09/13/24 History 25 mg-tenofovir alafenam 25 mg tablet (Brianaefsey) insulin detemir U-100 100 unit/mL 100 unit subcut DAILY 01/12/24 10/01/24 Unknown History (3 mL) subcutaneous pen (Levemir FlexPen) lisinopril 2.5 mg tablet 2.5 mg PO DAILY 01/12/24 10/01/24 Unknown History metformin 500 mg tablet,extended 500 mg PO BID 01/12/24 10/01/24 Unknown History release 24 hr mirtazapine 30 mg tablet 30 mg PO BEDTIME 01/12/24 10/01/24 Unknown History quetiapine 200 mg tablet 200 mg PO BEDTIME 01/12/24 10/01/24 Unknown History sertraline 100 mg tablet 100 mg PO DAILY 01/12/24 10/01/24 09/13/24 History Physical Exam Vital Signs and Narrative: Vital Signs: Last Vital Signs Temp 98.2 F 07/15/25 10:56 Pulse 91 07/15/25 10:56 Resp 18 07/15/25 10:56 BP 110/58 L 07/15/25 10:56 Pulse Ox 96 07/15/25 10:56 O2 Del Method Room Air 07/15/25 10:56 BMI result Body Mass Index 20.5 Results Labs 07/15/25 11:13 07/15/25 11:13 Labs: Laboratory Results - last 24 hr 07/15/25 07/15/25 07/15/25 11:13 11:37 12:14 MCV 94.0 MCH 30.5 MCHC 32.5 RDW 15.1 Plt Count 115 L MPV 10.5 Immature Gran % (Auto) Cancelled Neut % (Auto) Cancelled Lymph % (Auto) Cancelled [place] % (Auto) Cancelled Eos % (Auto) Cancelled Baso % (Auto) Cancelled Lymph # (Auto) Cancelled [place] # (Auto) Cancelled Eos # (Auto) Cancelled Baso # (Auto) Cancelled Abs Immat Gran (auto) Cancelled Absolute Neuts (auto) Cancelled Absolute Nucleated RBC 0.000 Nucleated RBC % (auto) 0.0 Anion Gap 14 Estim Creat Clear Calc 28.5 Estimated GFR 34 POC Glucose 36 L* Random Glucose 33 L* Calcium 9.1 Total Bilirubin 0.8 AST 653 H ALT 364 H Alkaline Phosphatase 154 H Total Protein 6.4 L Albumin 3.6 Urine Color Yellow Urine Appearance Cloudy Urine pH 6.0 Ur Specific [place] 1.010 Urine Protein 100 (2+) H Urine Glucose (UA) Negative Urine Ketones Negative Urine Blood Large (3+) H Urine Nitrite Negative Ur Leukocyte Esterase Large (3+) H Urine RBC >20 H Urine WBC >50 H Ur Squamous Epith Cells 0-2 Urine Bacteria 4+ Hyaline Casts 0-2 COVID-19 (STEVE) Negative COVID-19 Clin Com See Note Influenza Type A (AISHA) Negative Influenza Type B (AISHA) Negative Influenza A & B Note See Note
--- NOTE | 2025-07-15 12:27 | ECG_ITS ---
Test Reason : WEAKNESS Blood Pressure : */* mmHG Vent. Rate : 82 BPM Atrial Rate : 82 BPM P-R Int : 140 ms QRS Dur : 88 ms QT Int : 348 ms P-R-T Axes : 77 81 76 degrees QTcB Int : 406 ms Sinus rhythm with Premature atrial complexes Anterior infarct , age undetermined Abnormal ECG When compared with ECG of 06-Jul-2025 07:31, Vent. rate has increased by [address] no longer elevated in Anterior leads Referred By: Lani Martinez Electronically Signed By: SHALONDA YING MD
[2025-07-15 12:28] LABS: Band Neutrophils Percent 11 % (3-5); Lymphocytes Absolute Manual 0.6 X10*3/uL (1.2-4.9); Lymphocytes Percent Manual 6 % (20-40); Monocytes Absolute Manual 0.6 X10*3/uL (0.1-1.2); Monocytes Percent Manual 6 % (2-11); Neutrophils Absolute Manual 8.9 X10*3/uL (2.0-8.3); RBC Morphology NOTED
[2025-07-15 12:29] LABS: Schistocytes 1+ (0-2) /OIF; Spherocytes 1+ (0-2) /OIF
[2025-07-15 12:43] LABS: Glucose, Whole Blood 114 mg/dL (60-115)
--- NOTE | 2025-07-15 12:51 | PHA.MEDREC ---
Pharmacy Consult ? Medication Reconciliation Pharmacy has completed the medication reconciliation. Pt could not list medications, pt could only answer yes or no questions on med list. Confirm medications on list. Pt states he is not on Macrobid, Lipitor, or docusate.
[2025-07-15 13:00] LABS: Troponin-I High Sensitivity 299.9 ng/L (<3.5-35.0)
[2025-07-15 13:02] LABS: Glucose, Whole Blood 162 mg/dL (60-115)
--- NOTE | 2025-07-15 13:13 | PC.NURSE ---
this RN assumed care of patient in bed 5. patient shivering upon arrival into room, rectal temp probe placed - 100.8. provider made aware. medicated per the MAR for fever, off in ct scan.
[2025-07-15] MEDS: iohexoL 350 MG/ML 100 ML INFUS..BTL IV (13:22)
[2025-07-15] MEDS: Potassium Chloride/H20 10 MEQ/100 ML PIGGYBACK 100 MEQ IV ×4 (13:24→17:41)
[2025-07-15 13:48] LABS: Glucose, Whole Blood 136 mg/dL (60-115)
[2025-07-15 14:10] LABS: Reflex Lactate? Lactic Acid Added
--- NOTE | 2025-07-15 14:21 | PM.IMHP ---
History of Present Illness Date of Service: 07/15/25 [facility] Medical History Nicotine dependence, cigarettes, uncomplicated Type 2 diabetes mellitus Hepatitis B Hepatitis C HIV (human immunodeficiency virus infection) Family History Father Cancer of abdominal wall Paternal Uncle Cancer of abdominal wall Mother Alzheimer dementia Maternal Uncle Cancer Maternal Grandmother Cancer Surgical History History of left inguinal hernia repair History of cystoscopy History of colonoscopy Social History Household Members: None Patient Tobacco Use Status: Current everyday Tobacco user Cigarettes Per Day: 10 Substance Use Type: Marijuana Advance Directives: No Advance Directives Information Provided: Yes service: No Current occupational status: [employer] Allergies Allergy/AdvReac Type Severity Reaction Status Date / Time No Known Allergies (No Known Allergy Verified 07/15/25 11:06 Allergies*) Active Medications: Current Medications Dextrose/Sodium Chloride (D5ns) 1,000 mls @ 125 mls/hr IVCONT .Q8H GERMAN Last Admin: 07/15/25 12:14 Dose: 125 mls/hr Potassium Chloride (Potassium Chloride/H20) 10 meq in 100 mls @ 100 mls/hr IV Q1H GERMAN Stop: 07/15/25 16:59 Last Admin: 07/15/25 13:24 Dose: 100 mls/hr Home Medications ?Medication ?Instructions ?Recorded ?Confirmed ?Last Taken ?Type buprenorphine 8 mg-naloxone 2 mg 1 film sublingual DAILY 01/12/24 07/15/25 09/13/24 History sublingual film emtricitabine 200 mg-rilpivirine 1 tab PO DAILY 01/12/24 07/15/25 09/13/24 History 25 mg-tenofovir alafenam 25 mg tablet (Kristyn) lisinopril 2.5 mg tablet 2.5 mg PO DAILY 01/12/24 07/15/25 Unknown History metformin 500 mg tablet,extended 1,000 mg PO DAILY@1700 01/12/24 07/15/25 Unknown History release 24 hr mirtazapine 30 mg tablet 30 mg PO BEDTIME 01/12/24 07/15/25 Unknown History quetiapine 200 mg tablet 200 mg PO BEDTIME 01/12/24 07/15/25 Unknown History sertraline 100 mg tablet 100 mg PO DAILY 01/12/24 07/15/25 09/13/24 History calcium 500 mg (as carbonate)-vit 1 tab PO BID 07/15/25 07/15/25 Unknown History D3 10 mcg (400 unit) chewable tablet ferrous gluconate 324 mg (38 mg 324 mg PO QAM 07/15/25 07/15/25 Unknown History iron) tablet insulin glargine 100 unit/mL (3 34 unit subcut BEDTIME 07/15/25 07/15/25 Unknown History mL) subcutaneous pen (Lantus Solostar U-100 Insulin) Physical Exam Vital Signs and Narrative: Vital Signs: Last Vital Signs Temp 100.8 F H 07/15/25 13:07 Pulse 80 07/15/25 13:07 Resp 24 H 07/15/25 13:07 BP 116/49 L 07/15/25 13:07 Pulse Ox 92 07/15/25 13:07 O2 Del Method Nasal Cannula 07/15/25 13:07 O2 Flow Rate 2 07/15/25 13:07 BMI result Body Mass Index 20.5 Results Labs 07/15/25 11:13 07/15/25 11:13 Labs: Laboratory Results - last 24 hr 07/15/25 07/15/25 07/15/25 11:13 11:37 12:02 MCV 94.0 MCH 30.5 MCHC 32.5 RDW 15.1 Plt Count 115 L MPV 10.5 Immature Gran % (Auto) Cancelled Neut % (Auto) Cancelled Lymph % (Auto) Cancelled [place] % (Auto) Cancelled Eos % (Auto) Cancelled Baso % (Auto) Cancelled Lymph # (Auto) Cancelled [place] # (Auto) Cancelled Eos # (Auto) Cancelled Baso # (Auto) Cancelled Abs Immat Gran (auto) Cancelled Absolute Neuts (auto) Cancelled Absolute Nucleated RBC 0.000 Nucleated RBC % (auto) 0.0 Neutrophils % (Manual) 77 H Band Neutrophils % 11 H Lymphocytes % (Manual) 6 L Monocytes % (Manual) 6 Abs Neuts (Manual) 8.9 H Lymphocytes # (Manual) 0.6 L Monocytes # (Manual) 0.6 Platelet Estimate DECREASED Plt Morphology Comment NORMAL RBC Morphology NOTED Spherocytes 1+ (0-2) Schistocytes 1+ (0-2) Anion Gap 14 Estim Creat Clear Calc 28.5 Estimated GFR 34 POC Glucose Random Glucose 33 L* Lactic Acid 3.9 H* Calcium 9.1 Total Bilirubin 0.8 AST 653 H ALT 364 H Alkaline Phosphatase 154 H Troponin I High Sens 299.9 H* Total Protein 6.4 L Albumin 3.6 Urine Color Yellow Urine Appearance Cloudy Urine pH 6.0 Ur Specific [place] 1.010 Urine Protein 100 (2+) H Urine Glucose (UA) Negative Urine Ketones Negative Urine Blood Large (3+) H Urine Nitrite Negative Ur Leukocyte Esterase Large (3+) H Urine RBC >20 H Urine WBC >50 H Ur Squamous Epith Cells 0-2 Urine Bacteria 4+ Hyaline Casts 0-2 COVID-19 (STEVE) Negative COVID-19 Clin Com See Note Influenza Type A (AISHA) Negative Influenza Type B (AISHA) Negative Influenza A & B Note See Note 07/15/25 07/15/25 07/15/25 12:14 12:39 12:58 MCV MCH MCHC RDW Plt Count MPV Immature Gran % (Auto) Neut % (Auto) Lymph % (Auto) [place] % (Auto) Eos % (Auto) Baso % (Auto) Lymph # (Auto) [place] # (Auto) Eos # (Auto) Baso # (Auto) Abs Immat Gran (auto) Absolute Neuts (auto) Absolute Nucleated RBC Nucleated RBC % (auto) Neutrophils % (Manual) Band Neutrophils % Lymphocytes % (Manual) Monocytes % (Manual) Abs Neuts (Manual) Lymphocytes # (Manual) Monocytes # (Manual) Platelet Estimate Plt Morphology Comment RBC Morphology Spherocytes Schistocytes Anion Gap Estim Creat Clear Calc Estimated GFR POC Glucose 36 L* 114 162 H Random Glucose Lactic Acid Calcium Total Bilirubin AST ALT Alkaline Phosphatase Troponin I High Sens Total Protein Albumin Urine Color Urine Appearance Urine pH Ur Specific [place] Urine Protein Urine Glucose (UA) Urine Ketones Urine Blood Urine Nitrite Ur Leukocyte Esterase Urine RBC Urine WBC Ur Squamous Epith Cells Urine Bacteria Hyaline Casts COVID-19 (STEVE) COVID-19 Clin Com Influenza Type A (AISHA) Influenza Type B (AISHA) Influenza A & B Note 07/15/25 13:44 MCV MCH MCHC RDW Plt Count MPV Immature Gran % (Auto) Neut % (Auto) Lymph % (Auto) [place] % (Auto) Eos % (Auto) Baso % (Auto) Lymph # (Auto) [place] # (Auto) Eos # (Auto) Baso # (Auto) Abs Immat Gran (auto) Absolute Neuts (auto) Absolute Nucleated RBC Nucleated RBC % (auto) Neutrophils % (Manual) Band Neutrophils % Lymphocytes % (Manual) Monocytes % (Manual) Abs Neuts (Manual) Lymphocytes # (Manual) Monocytes # (Manual) Platelet Estimate Plt Morphology Comment RBC Morphology Spherocytes Schistocytes Anion Gap Estim Creat Clear Calc Estimated GFR POC Glucose 136 H Random Glucose Lactic Acid Calcium Total Bilirubin AST ALT Alkaline Phosphatase Troponin I High Sens Total Protein Albumin Urine Color Urine Appearance Urine pH Ur Specific [place] Urine Protein Urine Glucose (UA) Urine Ketones Urine Blood Urine Nitrite Ur Leukocyte Esterase Urine RBC Urine WBC Ur Squamous Epith Cells Urine Bacteria Hyaline Casts COVID-19 (STEVE) COVID-19 Clin Com Influenza Type A (AISHA) Influenza Type B (AISHA) Influenza A & B Note Imaging Radiologist's Impressions: Impressions Chest X-Ray 07/15/25 13:00 IMPRESSION: 1. Minor atelectasis in both lung bases. Mild cardiac enlargement. No superimposed active lung disease. Electronically signed by: Froy Flores MD 07/15/2025 01:28 PM EDT Abdomen/Pelvis CT 07/15/25 13:07 IMPRESSION: 1. Moderate right hydroureteronephrosis to the level of a 7 mm proximal ureteral calculus. 2. Findings suggestive of gastric outlet obstruction. 3. Cholelithiasis. 4. Hepatosplenomegaly. Electronically signed by: Barrera Bustamante MD 07/15/2025 01:45 PM EDT
[2025-07-15 14:25] LABS: Cannabinoid Screen Urine POSITIVE (Not Detect)
[2025-07-15 14:50] LABS: IDNOW Serial# 6674DD1D; Influenza B2 Negative (Negative)
--- NOTE | 2025-07-15 14:58 | PC.NURSE ---
attempted x2 for NG tube, unable to place properly - patient tolerated fairly however attempts to refuse new placement. patient made aware of the need for NG tube. patient became hypotensive 70's. normal saline infusing w/ pressure bag. patient remains alert and oriented, reports his pain has improved. medicated for fever, pending results.
[2025-07-15 15:54] LABS: Glucose, Whole Blood 100 mg/dL (60-115)
[2025-07-15 16:20] LABS: ~Lactic Acid-LAB USE ONLY 4.5 mmol/L (0.5-2.0)
--- NOTE | 2025-07-15 16:41 | PM.CCHP ---
History of Present Illness Date of Service: 07/15/25 Chief Complaint: Pain while urinating 69-year-old gentleman with past medical history of HIV disease on HAART, hepatitis-B and C, prostate cancer, hypertension, BPH requiring intermittent catheterization for dysuria presents to the ED with complaints of pain during urination. He requested to place in a Angel to help him pass urine. In the ED he was found to be hypotensive, CT abdomen and pelvis was done which showed right-sided hydroureter with proximal ureteric calculi. However his up CT abdomen was also suggesting gastric outlet obstruction, has significant transaminitis underwent ultrasound of the abdomen which showed cholelithiasis with gallbladder wall edema. He received septic bolus fluids, but persisted to be hypotensive so MICU was consulted for admission. Review of Systems Constitutional: Constitutional: Reports anorexia, Denies body ache(s), Denies daytime sleepiness, Denies excessive sweating and Denies frequent falls Eyes: Eyes: Denies blurry vision, Denies exophthalmos, Denies change in vision and Denies diplopia ENT: Reports Normal hearing present, Denies bleeding gums, Denies change in voice and Denies ear discharge Cardiovascular: Cardiovascular: Denies chest pain and Denies chest pain at rest Respiratory: Respiratory: Denies chest congestion, Denies cough, Denies hemoptysis and Denies excessive phlegm production Gastrointestinal: Gastrointestinal: Denies abdominal pain and Denies melena Genitourinary: Genitourinary: Denies hematuria, Denies oliguria and Reports difficulty urinating Musculoskeletal: Musculoskeletal: Denies abnormal gait and Denies myalgias Neurologic: Reports Normal hearing present, Denies Neuro-related abnormal movements, Denies abnormal gait and Denies frequent falls Endocrine: Endocrine: Denies change in body appearance, Denies cold intolerance and Denies excessive sweating PMF Past Medical History Medical History Nicotine dependence, cigarettes, uncomplicated Type 2 diabetes mellitus Hepatitis B Hepatitis C HIV (human immunodeficiency virus infection) Family History Family History Father Cancer of abdominal wall Paternal Uncle Cancer of abdominal wall Mother Alzheimer dementia Maternal Uncle Cancer Maternal Grandmother Cancer Surgical History Surgical History History of left inguinal hernia repair History of cystoscopy History of colonoscopy Social History Social History Household Members: None Patient Tobacco Use Status: Current everyday Tobacco user Cigarettes Per Day: 10 Substance Use Type: Marijuana Advance Directives: No Advance Directives Information Provided: Yes service: No Current occupational status: retired Meds Allergies Allergy/AdvReac Type Severity Reaction Status Date / Time No Known Allergies (No Known Allergy Verified 07/15/25 11:06 Allergies*) Active Medications: Current Medications Dextrose/Sodium Chloride (D5ns) 1,000 mls @ 125 mls/hr IVCONT .Q8H GERMAN Last Infusion: 07/15/25 14:40 Dose: 0 mls/hr Potassium Chloride (Potassium Chloride/H20) 10 meq in 100 mls @ 100 mls/hr IV Q1H GERMAN Stop: 07/15/25 16:59 Last Admin: 07/15/25 16:07 Dose: 100 mls/hr Norepinephrine Bitartrate (Levophed) 8 mg in 250 mls @ 0 mls/hr IVCONT .Q0M GERMAN; Protocol Last Titration: 07/15/25 16:26 Dose: 0.09 mcg/kg/min, 9.44 mls/hr Home Medications ?Medication ?Instructions ?Recorded ?Confirmed ?Last Taken ?Type buprenorphine 8 mg-naloxone 2 mg 1 film sublingual DAILY 01/12/24 07/15/25 09/13/24 History sublingual film emtricitabine 200 mg-rilpivirine 1 tab PO DAILY 01/12/24 07/15/25 09/13/24 History 25 mg-tenofovir alafenam 25 mg tablet (Kristyn) lisinopril 2.5 mg tablet 2.5 mg PO DAILY 01/12/24 07/15/25 Unknown History metformin 500 mg tablet,extended 1,000 mg PO DAILY@1700 01/12/24 07/15/25 Unknown History release 24 hr mirtazapine 30 mg tablet 30 mg PO BEDTIME 01/12/24 07/15/25 Unknown History quetiapine 200 mg tablet 200 mg PO BEDTIME 01/12/24 07/15/25 Unknown History sertraline 100 mg tablet 100 mg PO DAILY 01/12/24 07/15/25 09/13/24 History calcium 500 mg (as carbonate)-vit 1 tab PO BID 07/15/25 07/15/25 Unknown History D3 10 mcg (400 unit) chewable tablet ferrous gluconate 324 mg (38 mg 324 mg PO QAM 07/15/25 07/15/25 Unknown History iron) tablet insulin glargine 100 unit/mL (3 34 unit subcut BEDTIME 07/15/25 07/15/25 Unknown History mL) subcutaneous pen (Lantus Solostar U-100 Insulin) Physical Exam Vital Signs: Vital Signs: Last Vital Signs Temp 100.6 F H 07/15/25 15:18 Pulse 81 07/15/25 16:26 Resp 20 07/15/25 15:18 BP 88/34 L 07/15/25 16:26 Pulse Ox 99 07/15/25 15:18 O2 Del Method Nasal Cannula 07/15/25 15:18 O2 Flow Rate 2 07/15/25 15:18 BMI result Body Mass Index 20.5 General: Elderly male in acute distress, ill appearing and tired appearing Nutritional Appearance: Poorly nourished and underweight Eyes: appearance normal, both eyes and all related structures; Alignment and Position: alignment normal and position normal Neck: No lymphadenopathy, no thyromegaly Resp: bilateral air entry equal, occasional added sounds present Cardio: Regular rate, regular rhythm; Heart sounds: S1 normal heart sound present and S2 normal heart sound present GI: soft, distended, nontender, no guarding, no hepatosplenomegaly : bladder normal to inspection, bladder normal to palpation, no renal angle tenderness Skin: no rashes or lesions noted and elasticity normal Neuro: oriented to person, oriented to place, oriented to time and moves all extremities Neuro: Cranial nerves: Yes Normal hearing present Results Labs 07/15/25 11:13 07/15/25 11:13 Labs: Laboratory Results - last 24 hr 07/15/25 07/15/25 07/15/25 11:13 11:37 12:02 MCV 94.0 MCH 30.5 MCHC 32.5 RDW 15.1 Plt Count 115 L MPV 10.5 Immature Gran % (Auto) Cancelled Neut % (Auto) Cancelled Lymph % (Auto) Cancelled Wilkes % (Auto) Cancelled Eos % (Auto) Cancelled Baso % (Auto) Cancelled Lymph # (Auto) Cancelled [place]kes # (Auto) Cancelled Eos # (Auto) Cancelled Baso # (Auto) Cancelled Abs Immat Gran (auto) Cancelled Absolute Neuts (auto) Cancelled Absolute Nucleated RBC 0.000 Nucleated RBC % (auto) 0.0 Neutrophils % (Manual) 77 H Band Neutrophils % 11 H Lymphocytes % (Manual) 6 L Monocytes % (Manual) 6 Abs Neuts (Manual) 8.9 H Lymphocytes # (Manual) 0.6 L Monocytes # (Manual) 0.6 Platelet Estimate DECREASED Plt Morphology Comment NORMAL RBC Morphology NOTED Spherocytes 1+ (0-2) Schistocytes 1+ (0-2) Anion Gap 14 Estim Creat Clear Calc 28.5 Estimated GFR 34 POC Glucose Random Glucose 33 L* Lactic Acid 3.9 H* Lactic Acid F/U @ 2Hr Calcium 9.1 Total Bilirubin 0.8 AST 653 H ALT 364 H Alkaline Phosphatase 154 H Troponin I High Sens 299.9 H* Total Protein 6.4 L Albumin 3.6 Urine Color Yellow Urine Appearance Cloudy Urine pH 6.0 Ur Specific [place] 1.010 Urine Protein 100 (2+) H Urine Glucose (UA) Negative Urine Ketones Negative Urine Blood Large (3+) H Urine Nitrite Negative Ur Leukocyte Esterase Large (3+) H Urine RBC >20 H Urine WBC >50 H Ur Squamous Epith Cells 0-2 Urine Bacteria 4+ Hyaline Casts 0-2 Urine Opiates Screen Ur Buprenorphine Scrn Ur Oxycodone Screen Urine Methadone Screen Urine Fentanyl Screen Ur Barbiturates Screen Ur Phencyclidine Scrn Ur Amphetamines Screen U Benzodiazepines Scrn Urine Cocaine Screen U Marijuana (THC) Screen Ethyl Alcohol COVID-19 (STEVE) Negative COVID-19 Clin Com See Note Influenza Type A (AISHA) Negative Influenza Type B (AISHA) Negative Influenza A & B Note See Note 07/15/25 07/15/25 07/15/25 12:14 12:39 12:58 MCV MCH MCHC RDW Plt Count MPV Immature Gran % (Auto) Neut % (Auto) Lymph % (Auto) [place] % (Auto) Eos % (Auto) Baso % (Auto) Lymph # (Auto) [place] # (Auto) Eos # (Auto) Baso # (Auto) Abs Immat Gran (auto) Absolute Neuts (auto) Absolute Nucleated RBC Nucleated RBC % (auto) Neutrophils % (Manual) Band Neutrophils % Lymphocytes % (Manual) Monocytes % (Manual) Abs Neuts (Manual) Lymphocytes # (Manual) Monocytes # (Manual) Platelet Estimate Plt Morphology Comment RBC Morphology Spherocytes Schistocytes Anion Gap Estim Creat Clear Calc Estimated GFR POC Glucose 36 L* 114 162 H Random Glucose Lactic Acid Lactic Acid F/U @ 2Hr Calcium Total Bilirubin AST ALT Alkaline Phosphatase Troponin I High Sens Total Protein Albumin Urine Color Urine Appearance Urine pH Ur Specific [place] Urine Protein Urine Glucose (UA) Urine Ketones Urine Blood Urine Nitrite Ur Leukocyte Esterase Urine RBC Urine WBC Ur Squamous Epith Cells Urine Bacteria Hyaline Casts Urine Opiates Screen Ur Buprenorphine Scrn Ur Oxycodone Screen Urine Methadone Screen Urine Fentanyl Screen Ur Barbiturates Screen Ur Phencyclidine Scrn Ur Amphetamines Screen U Benzodiazepines Scrn Urine Cocaine Screen U Marijuana (THC) Screen Ethyl Alcohol COVID-19 (STEVE) COVID-19 Clin Com Influenza Type A (AISHA) Influenza Type B (AISHA) Influenza A & B Note 07/15/25 07/15/25 07/15/25 13:44 14:03 14:04 MCV MCH MCHC RDW Plt Count MPV Immature Gran % (Auto) Neut % (Auto) Lymph % (Auto) [place] % (Auto) Eos % (Auto) Baso % (Auto) Lymph # (Auto) [place] # (Auto) Eos # (Auto) Baso # (Auto) Abs Immat Gran (auto) Absolute Neuts (auto) Absolute Nucleated RBC Nucleated RBC % (auto) Neutrophils % (Manual) Band Neutrophils % Lymphocytes % (Manual) Monocytes % (Manual) Abs Neuts (Manual) Lymphocytes # (Manual) Monocytes # (Manual) Platelet Estimate Plt Morphology Comment RBC Morphology Spherocytes Schistocytes Anion Gap Estim Creat Clear Calc Estimated GFR POC Glucose 136 H Random Glucose Lactic Acid Lactic Acid F/U @ 2Hr Calcium Total Bilirubin AST ALT Alkaline Phosphatase Troponin I High Sens Total Protein Albumin Urine Color Urine Appearance Urine pH Ur Specific [place] Urine Protein Urine Glucose (UA) Urine Ketones Urine Blood Urine Nitrite Ur Leukocyte Esterase Urine RBC Urine WBC Ur Squamous Epith Cells Urine Bacteria Hyaline Casts Urine Opiates Screen Not Detected Ur Buprenorphine Scrn Positive H Ur Oxycodone Screen Not Detected Urine Methadone Screen Not Detected Urine Fentanyl Screen POSITIVE H Ur Barbiturates Screen Not Detected Ur Phencyclidine Scrn Not Detected Ur Amphetamines Screen Not Detected U Benzodiazepines Scrn Not Detected Urine Cocaine Screen Not Detected U Marijuana (THC) Screen POSITIVE H Ethyl Alcohol 11 COVID-19 (STEVE) COVID-19 Clin Com Influenza Type A (AISHA) Negative Influenza Type B (AISHA) Negative Influenza A & B Note See Note 07/15/25 07/15/25 15:18 15:30 MCV MCH MCHC RDW Plt Count MPV Immature Gran % (Auto) Neut % (Auto) Lymph % (Auto) [place] % (Auto) Eos % (Auto) Baso % (Auto) Lymph # (Auto) [place] # (Auto) Eos # (Auto) Baso # (Auto) Abs Immat Gran (auto) Absolute Neuts (auto) Absolute Nucleated RBC Nucleated RBC % (auto) Neutrophils % (Manual) Band Neutrophils % Lymphocytes % (Manual) Monocytes % (Manual) Abs Neuts (Manual) Lymphocytes # (Manual) Monocytes # (Manual) Platelet Estimate Plt Morphology Comment RBC Morphology Spherocytes Schistocytes Anion Gap Estim Creat Clear Calc Estimated GFR POC Glucose 100 Random Glucose Lactic Acid Lactic Acid F/U @ 2Hr 4.5 H* Calcium Total Bilirubin AST ALT Alkaline Phosphatase Troponin I High Sens Total Protein Albumin Urine Color Urine Appearance Urine pH Ur Specific [place] Urine Protein Urine Glucose (UA) Urine Ketones Urine Blood Urine Nitrite Ur Leukocyte Esterase Urine RBC Urine WBC Ur Squamous Epith Cells Urine Bacteria Hyaline Casts Urine Opiates Screen Ur Buprenorphine Scrn Ur Oxycodone Screen Urine Methadone Screen Urine Fentanyl Screen Ur Barbiturates Screen Ur Phencyclidine Scrn Ur Amphetamines Screen U Benzodiazepines Scrn Urine Cocaine Screen U Marijuana (THC) Screen Ethyl Alcohol COVID-19 (STEVE) COVID-19 Clin Com Influenza Type A (AISHA) Influenza Type B (AISHA) Influenza A & B Note Imaging Radiologist's Impressions: Impressions Chest X-Ray 07/15/25 13:00 IMPRESSION: 1. Minor atelectasis in both lung bases. Mild cardiac enlargement. No superimposed active lung disease. Electronically signed by: Froy Flores MD 07/15/2025 01:28 PM EDT Abdomen/Pelvis CT 07/15/25 13:07 IMPRESSION: 1. Moderate right hydroureteronephrosis to the level of a 7 mm proximal ureteral calculus. 2. Findings suggestive of gastric outlet obstruction. 3. Cholelithiasis. 4. Hepatosplenomegaly. Electronically signed by: Barrera Bustamante MD 07/15/2025 01:45 PM EDT RP Abdomen Ultrasound 07/15/25 13:34 IMPRESSION: 1. Cholelithiasis with gallbladder wall thickening and probable gallbladder wall edema. Possible sonographic Quintero sign. If there is clinical concern for acute cholecystitis, HIDA scan could be performed. 2. Moderate right hydronephrosis as seen on CT, which demonstrated a proximal ureteral obstructing calculus. 3. Hepatomegaly. 4. Distention of the stomach with fluid. Electronically signed by: Barrera Bustamante MD 07/15/2025 02:21 PM EDT RP Chest X-Ray 07/15/25 15:00 IMPRESSION: 1. NG tube coiled in the superior esophagus. This device should be repositioned. 2. Lungs demonstrating patchy opacities bilaterally, not previously seen and possibly artifactual. Developing pneumonia or mild pulmonary edema is a possibility. Electronically signed by: Froy Flores MD 07/15/2025 03:45 PM EDT Assessment and Plan (1) Septic shock: Status: Acute (2) Gastric outlet obstruction: Status: Acute (3) Urinary tract obstruction by kidney stone: Status: Acute (4) Acute UTI: Status: Acute (5) Acute kidney injury: Status: Acute Plan Septic shock: Possibly secondary to complex urinary tract infection CTA abdomen and pelvis showing a proximal ureteric stone and a right-sided hydronephrosis. It looks like the stone that might have passed down into the ureter might have caused the obstruction, if the shock does not improve we will consult Urology for intervention. He received 3 L of fluid bolus, but remains hypotensive so Levophed was started On Levophed for vasopressor support, titrate to keep map above 65 mm Hg Bedside echo shows IVC fluctuating with respiration but 1.9 cm, RV normal, LV systolic function slightly reduced. GI: Gastric outlet obstruction: As seen on the CT abdomen and pelvis We will place an NG tube to decompress We will consult gastroenterology for further evaluate Transaminitis: AST 650, ALT 360 Possibly secondary to SIRS from systemic sepsis Ultrasound showing cholelithiasis with gallbladder edema, equivocal for cholecystitis If the symptoms persist or the shock persists will get HIDA scan Renal: Acute kidney injury possibly secondary to ATN from hypotension and volume depletion Baseline creatinine normal, creatinine today is 1.9 Right-sided hydronephrosis on the CT abdomen from a stone that might have been passed to ureter We will closely monitor I's and O's Avoid nephrotoxic medications Lactic acidosis: Secondary to shock Received IV fluid boluses, bedside echo suggestive of volume repletion We will trend lactate Heme: Chronic anemia, closely monitor H&H, transfuse for hemoglobin less than 7 grams/deciliter Endocrine: Blood sugars under control Sliding scale insulin as needed Infectious disease: We will send pancultures We will start on empiric Zosyn Musculoskeletal: Decubitus ulcer prevention protocol Lines: Peripheral Prophylaxis: Heparin, famotidine Total critical care time spent is about 45 minutes on evaluation and admission of this critically ill patient with multiple organ failure including septic shock, transaminitis, acute kidney injury, lactic acidosis to medical intensive care unit. Time spent is mostly on chart review, vasopressor management, close hemodynamic monitoring, bedside echo, formulating critical care plan and management, coordination of care at this time is excluding any procedural time
[2025-07-15 17:21] LABS: Reflex Lactate? 2 Y
--- NOTE | 2025-07-15 18:21 | PC.NURSE ---
Assumed care at 1730. Upon arrival to unit, levophed drip running at 0.09 mcg/kg/hr. Upon initial assessment, pt is A&Ox4, drowsy. Breathing somewhat rochorous. Pt answered questions pleasantly, denied pain. Pt noted that he ?sometimes chokes? when eating. Fall & safety precautions in place. See MAR and assessments for further details.
[2025-07-15 18:29] LABS: ~Lactic Acid-LAB USE ONLY 2.9 mmol/L (0.5-2.0)
--- NOTE | 2025-07-15 18:31 | PM.CNGS ---
History of Present Illness Consult details Consult date: 07/15/25 Narrative: 69-year-old male with HIV, admitted because of urinary retention. He has was also hypotensive and was diagnosed to have sepsis He says she has had some episodes of vomiting as well. He denies abdominal pain currently. His CAT scan in the ER showed a distended stomach consistent with gastric outlet obstruction. He also has hydronephrosis in the right side. He is currently in the ICU on low-dose pressors. Review of Systems Constitutional: Constitutional: Denies chills and Denies fever(s) Cardiovascular: Cardiovascular: Denies chest pain Respiratory: Respiratory: Denies cough Gastrointestinal: Gastrointestinal: Denies abdominal pain and Reports vomiting Genitourinary: Comments: Urinary retention PMFSH Past Medical History Medical History Nicotine dependence, cigarettes, uncomplicated Type 2 diabetes mellitus Hepatitis B Hepatitis C HIV (human immunodeficiency virus infection) Family History Family History Father Cancer of abdominal wall Paternal Uncle Cancer of abdominal wall Mother Alzheimer dementia Maternal Uncle Cancer Maternal Grandmother Cancer Surgical History Surgical History History of left inguinal hernia repair History of cystoscopy History of colonoscopy Social History Social History Household Members: None Housing: Apartment Do you presently have visiting nurse or other home services: Yes (housekeeping) Patient Tobacco Use Status: Current everyday Tobacco user Tobacco use type: Cigarette Cigarette Packs Per Day: 0.5 Cigarettes Per Day: 10.0 Substance Use Type: Marijuana service: No Current occupational status: retired [employer] Allergies Allergy/AdvReac Type Severity Reaction Status Date / Time No Known Allergies (No Known Allergy Verified 07/15/25 11:06 Allergies*) Active Medications: Current Medications Famotidine (Famotidine/Pf 20 Mg/2 Ml Vial) 20 mg IVPUSH BID [facility]ERMAN Heparin Sodium (Porcine) (Heparin Sodium,Porcine 5,000 Unit/Ml Vial) 5,000 unit SUBCUT Q8H [facility] Last Admin: 07/15/25 17:42 Dose: 5,000 unit Hydromorphone HCl (Hydromorphone Hcl 1 Mg/Ml Syringe) 0.5 mg IVPUSH Q6H PRN; Protocol PRN Reason: Pain, Moderate(Pain Scale 4-6) Dextrose/Sodium Chloride (D5ns) 1,000 mls @ 125 mls/hr IVCONT .Q8H [facility] Last Infusion: 07/15/25 18:05 Dose: Infused Norepinephrine Bitartrate (Levophed) 8 mg in 250 mls @ 0 mls/hr IVCONT .Q0M [facility]; Protocol Last Titration: 07/15/25 16:26 Dose: 0.09 mcg/kg/min, 9.44 mls/hr Ondansetron HCl (Ondansetron Hcl 4 Mg/2 Ml Vial) 4 mg IVPUSH Q8H PRN PRN Reason: Nausea and Vomiting Home Medications ?Medication ?Instructions ?Recorded ?Confirmed ?Last Taken ?Type buprenorphine 8 mg-naloxone 2 mg 1 film sublingual DAILY 01/12/24 07/15/25 09/13/24 History sublingual film emtricitabine 200 mg-rilpivirine 1 tab PO DAILY 01/12/24 07/15/25 09/13/24 History 25 mg-tenofovir alafenam 25 mg tablet (Kristyn) lisinopril 2.5 mg tablet 2.5 mg PO DAILY 01/12/24 07/15/25 Unknown History metformin 500 mg tablet,extended 1,000 mg PO DAILY@1700 01/12/24 07/15/25 Unknown History release 24 hr mirtazapine 30 mg tablet 30 mg PO BEDTIME 01/12/24 07/15/25 Unknown History quetiapine 200 mg tablet 200 mg PO BEDTIME 01/12/24 07/15/25 Unknown History sertraline 100 mg tablet 100 mg PO DAILY 01/12/24 07/15/25 09/13/24 History calcium 500 mg (as carbonate)-vit 1 tab PO BID 07/15/25 07/15/25 Unknown History D3 10 mcg (400 unit) chewable tablet ferrous gluconate 324 mg (38 mg 324 mg PO QAM 07/15/25 07/15/25 Unknown History iron) tablet insulin glargine 100 unit/mL (3 34 unit subcut BEDTIME 07/15/25 07/15/25 Unknown History mL) subcutaneous pen (Lantus Solostar U-100 Insulin) Physical Exam Vital Signs: Vital Signs: Last Vital Signs Temp 99.3 F 07/15/25 17:55 Pulse 75 07/15/25 17:55 Resp 18 07/15/25 17:55 BP 105/68 07/15/25 17:55 Pulse Ox 92 07/15/25 17:55 O2 Del Method Nasal Cannula 07/15/25 17:55 O2 Flow Rate 2 07/15/25 17:55 BMI result Body Mass Index 20.5 Const: Other: Appears comfortable, answers questions Resp: Effort & Inspection: normal respiratory effort Cardio: Rate: regular rate GI: Palpation (GI): Soft to palpation, not firm, nontender and no guarding Results Labs 07/17/25 08:01 07/17/25 08:03 Labs: Abnormal lab results 07/15/25 07/15/25 07/15/25 Range/Units 11:13 11:37 12:02 RBC 3.31 L (4.60-5.80) X10*6/uL Hgb 10.1 L (14.0-18.0) g/dl Hct 31.1 L (42.0-52.0) % Plt Count 115 L (160-400) X10*3/uL Neutrophils % (Manual) 77 H (45-73) % Band Neutrophils % 11 H (3-5) % Lymphocytes % (Manual) 6 L (20-40) % Abs Neuts (Manual) 8.9 H (2.0-8.3) X10*3/uL Lymphocytes # (Manual) 0.6 L (1.2-4.9) X10*3/uL Potassium 3.2 L (3.3-5.1) mmol/L BUN 31 H (9-16) mg/dL Creatinine 1.96 H (0.5-1.4) mg/dL POC Glucose (60-115) mg/dL Random Glucose 33 L* (60-115) mg/dL Lactic Acid 3.9 H* (0.5-2.0) mmol/L Lactic Acid F/U @ 2Hr (0.5-2.0) mmol/L Lactic Acid F/U @ 4Hr (0.5-2.0) mmol/L Phosphorus (2.7-4.5) mg/dL AST 653 H (5-37) U/L ALT 364 H (0-40) U/L Alkaline Phosphatase 154 H (39-117) U/L Troponin I High Sens 299.9 H* (<3.5-35.0) ng/L Total Protein 6.4 L (6.5-8.0) g/dL Urine Protein 100 (2+) H (Neg-Trace) mg/dL Urine Blood Large (3+) H (Negative) Ur Leukocyte Esterase Large (3+) H (Negative) Urine RBC >20 H (0-2) /HPF Urine WBC >50 H (0-5) /HPF Ur Buprenorphine Scrn (Not Detect) ng/mL Urine Fentanyl Screen (Not Detect) U Marijuana (THC) Screen (Not Detect) 07/15/25 07/15/25 07/15/25 Range/Units 12:14 12:58 13:44 RBC (4.60-5.80) X10*6/uL Hgb (14.0-18.0) g/dl Hct (42.0-52.0) % Plt Count (160-400) X10*3/uL Neutrophils % (Manual) (45-73) % Band Neutrophils % (3-5) % Lymphocytes % (Manual) (20-40) % Abs Neuts (Manual) (2.0-8.3) X10*3/uL Lymphocytes # (Manual) (1.2-4.9) X10*3/uL Potassium (3.3-5.1) mmol/L BUN (9-16) mg/dL Creatinine (0.5-1.4) mg/dL POC Glucose 36 L* 162 H 136 H (60-115) mg/dL Random Glucose (60-115) mg/dL Lactic Acid (0.5-2.0) mmol/L Lactic Acid F/U @ 2Hr (0.5-2.0) mmol/L Lactic Acid F/U @ 4Hr (0.5-2.0) mmol/L Phosphorus (2.7-4.5) mg/dL AST (5-37) U/L ALT (0-40) U/L Alkaline Phosphatase (39-117) U/L Troponin I High Sens (<3.5-35.0) ng/L Total Protein (6.5-8.0) g/dL Urine Protein (Neg-Trace) mg/dL Urine Blood (Negative) Ur Leukocyte Esterase (Negative) Urine RBC (0-2) /HPF Urine WBC (0-5) /HPF Ur Buprenorphine Scrn (Not Detect) ng/mL Urine Fentanyl Screen (Not Detect) U Marijuana (THC) Screen (Not Detect) 07/15/25 07/15/25 07/15/25 Range/Units 14:04 15:18 17:00 RBC (4.60-5.80) X10*6/uL Hgb (14.0-18.0) g/dl Hct (42.0-52.0) % Plt Count (160-400) X10*3/uL Neutrophils % (Manual) (45-73) % Band Neutrophils % (3-5) % Lymphocytes % (Manual) (20-40) % Abs Neuts (Manual) (2.0-8.3) X10*3/uL Lymphocytes # (Manual) (1.2-4.9) X10*3/uL Potassium (3.3-5.1) mmol/L BUN (9-16) mg/dL Creatinine (0.5-1.4) mg/dL POC Glucose (60-115) mg/dL Random Glucose (60-115) mg/dL Lactic Acid (0.5-2.0) mmol/L Lactic Acid F/U @ 2Hr 4.5 H* (0.5-2.0) mmol/L Lactic Acid F/U @ 4Hr (0.5-2.0) mmol/L Phosphorus 0.8 L* (2.7-4.5) mg/dL AST (5-37) U/L ALT (0-40) U/L Alkaline Phosphatase (39-117) U/L Troponin I High Sens (<3.5-35.0) ng/L Total Protein (6.5-8.0) g/dL Urine Protein (Neg-Trace) mg/dL Urine Blood (Negative) Ur Leukocyte Esterase (Negative) Urine RBC (0-2) /HPF Urine WBC (0-5) /HPF Ur Buprenorphine Scrn Positive H (Not Detect) ng/mL Urine Fentanyl Screen POSITIVE H (Not Detect) U Marijuana (THC) Screen POSITIVE H (Not Detect) 07/15/25 Range/Units 17:46 RBC (4.60-5.80) X10*6/uL Hgb (14.0-18.0) g/dl Hct (42.0-52.0) % Plt Count (160-400) X10*3/uL Neutrophils % (Manual) (45-73) % Band Neutrophils % (3-5) % Lymphocytes % (Manual) (20-40) % Abs Neuts (Manual) (2.0-8.3) X10*3/uL Lymphocytes # (Manual) (1.2-4.9) X10*3/uL Potassium (3.3-5.1) mmol/L BUN (9-16) mg/dL Creatinine (0.5-1.4) mg/dL POC Glucose (60-115) mg/dL Random Glucose (60-115) mg/dL Lactic Acid (0.5-2.0) mmol/L Lactic Acid F/U @ 2Hr (0.5-2.0) mmol/L Lactic Acid F/U @ 4Hr 2.9 H* (0.5-2.0) mmol/L Phosphorus (2.7-4.5) mg/dL AST (5-37) U/L ALT (0-40) U/L Alkaline Phosphatase (39-117) U/L Troponin I High Sens (<3.5-35.0) ng/L Total Protein (6.5-8.0) g/dL Urine Protein (Neg-Trace) mg/dL Urine Blood (Negative) Ur Leukocyte Esterase (Negative) Urine RBC (0-2) /HPF Urine WBC (0-5) /HPF Ur Buprenorphine Scrn (Not Detect) ng/mL Urine Fentanyl Screen (Not Detect) U Marijuana (THC) Screen (Not Detect) Short CBC 07/15/25 Range/Units 11:13 WBC 10.1 (4.8-10.8) X10*3/uL Hgb 10.1 L (14.0-18.0) g/dl Hct 31.1 L (42.0-52.0) % Plt Count 115 L (160-400) X10*3/uL BMP 07/15/25 11:13 Sodium 137 Potassium 3.2 L Chloride 103 Carbon Dioxide 23 BUN 31 H Creatinine 1.96 H Calcium 9.1 Liver Function 07/15/25 Range/Units 11:13 Total Bilirubin 0.8 (0.0-1.0) mg/dL AST 653 H (5-37) U/L ALT 364 H (0-40) U/L Alkaline Phosphatase 154 H (39-117) U/L Albumin 3.6 (3.5-5.0) g/dL Urine 07/15/25 Range/Units 11:37 Urine Color Yellow Urine Appearance Cloudy Urine pH 6.0 (5.0-9.0) Ur Specific [place] 1.010 (1.005-1.025) Urine Protein 100 (2+) H (Neg-Trace) mg/dL Urine Glucose (UA) Negative (Negative) mg/dL All other labs normal. Assessment and Plan (1) Gastric outlet obstruction: Status: Acute 69-year-old male admitted because of sepsis. He has diagnosis urinary tract infection. He also has a CAT scan showing gastric outlet obstruction with a distended stomach. There is question of cholecystitis on CAT scan but the changes seen maybe secondary to edema from his ongoing sepsis. He also has transaminitis. He will benefit from endoscopy to diagnose etiology of his gastric outlet obstruction. His abdomen is otherwise soft and benign. He appears comfortable overall although he is on pressors We will follow along while he is in the hospital. Procedures Date of Service Date of Service: 07/19/25
[2025-07-16] VITALS (26 sets, daily range): BP systolic 91–150; BP diastolic 58–83; PULSE 53–72; RESP 15–22; TEMP 36.2–36.8; O2SAT 88–100; BMI 20.8
[2025-07-16 00:16] LABS: Glucose, Whole Blood 162 mg/dL (60-115)
--- NOTE | 2025-07-16 05:26 | PC.NURSE ---
0520 Nursing Note Pt alert, oriented x3 sleeping in naps throughout the night. Intermittent c/o upper epigastric pain verbal rating 5 out of 10, 0.5mg Dilaudid IV given with good effect. No complaints of N/V and NGT placement is on hold per Richard Britt BACK END DEVELOPER. IVF's infusing per MAR as patient is NPO. Levophed titrated to off at 0530 as patients BP is hemodynamically stable per protocol. Pt reports he wears continuous 2L Oxygen via NC at home. Pt presently on 2LNC as on RA patient's O2 sats dropped to 88% with increase wob noted. 0500 Critical blood cultures results came back with gram negative rods, BACK END DEVELOPER notified. Pt is presently on Zosyn. AM labs pending.
[2025-07-16] MEDS: Nicotine 14 MG PATCH.TD24 TRANSDERMA (05:53)
[2025-07-16 06:36] LABS: Hematocrit 30.8 % (42.0-52.0); Hemoglobin 10.1 g/dl (14.0-18.0); Mean Corpuscular HGB Conc 32.8 g/dl (31.0-36.0); Mean Corpuscular Hemoglobin 30.4 pg (27.0-33.0); Mean Corpuscular Volume 92.8 fL (80.0-98.0); NRBC Abs Auto 0.020 X10*3/uL (0.0-0.012); NRBC Pct Auto 0.1 /100WBC (0.0-0.2); Red Blood Count 3.32 X10*6/uL (4.60-5.80); White Blood Count 13.7 X10*3/uL (4.8-10.8)
[2025-07-16 06:42] LABS: Glucose, Whole Blood 62 mg/dL (60-115)
[2025-07-16 06:43] LABS: Band Neutrophils Percent 19 % (3-5); INTERNATIONAL NORM RATIO 2.2 (0.9-1.1); Lymphocytes Absolute Manual 0.3 X10*3/uL (1.2-4.9); Lymphocytes Percent Manual 2 % (20-40); Monocytes Absolute Manual 0.4 X10*3/uL (0.1-1.2); Monocytes Percent Manual 3 % (2-11); Neutrophils Absolute Manual 13.0 X10*3/uL (2.0-8.3); Neutrophils Percent Manual 76 % (45-73); Prothrombin Time 25.7 SEC (10.9-12.4)
[2025-07-16 06:45] LABS: Burr Cells 3+ (>5) /OIF; RBC Morphology NORMAL
[2025-07-16 06:46] LABS: Toxic Granulation PRESENT; Toxic Vacuolation PRESENT
[2025-07-16 06:47] LABS: Platelet Count 80 X10*3/uL (160-400)
[2025-07-16] MEDS: Potassium Phosphate/NS 15 MMOL/250 ML PLAST..BAG 62.5 MMOL IV (06:49)
[2025-07-16 07:28] LABS: Glucose, Whole Blood 156 mg/dL (60-115)
--- NOTE | 2025-07-16 09:21 | PM.CCPN ---
Subjective Subjective Date of Service: 07/16/25 Interval History: Off levophed since this morning 5AM. doing well, no new complaints Critical Care Time (minutes): 35 Physical Exam Vital Signs: Vital Signs: Last Vital Signs Temp 97.3 F 07/16/25 08:00 Pulse 67 07/16/25 09:00 Resp 17 07/16/25 09:00 BP 127/66 07/16/25 09:00 Pulse Ox 100 07/16/25 09:00 O2 Del Method Nasal Cannula 07/16/25 09:00 O2 Flow Rate 2 07/16/25 09:00 BMI result Body Mass Index 20.8 General: Elderly male in mild acute distress, chronically ill appearing and tired appearing Nutritional Appearance: Poor nourished and under weight Eyes: appearance normal, both eyes and all related structures; Alignment and Position: alignment normal and position normal Neck: No lymphadenopathy, no thyromegaly Resp: bilateral air entry equal, occasional added sounds present Cardio: Regular rate, regular rhythm; Heart sounds: S1 normal heart sound present and S2 normal heart sound present GI: soft, Quintero's sign positive, midabdominal tenderness +, no hepatosplenomegaly : bladder normal to inspection, bladder normal to palpation, no renal angle tenderness Skin: no rashes or lesions noted and elasticity normal Neuro: oriented to person, oriented to place, oriented to time and moves all extremities Objective Data Labs 07/16/25 05:58 07/15/25 11:13 Labs: Laboratory Results - last 24 hr 07/15/25 07/15/25 07/15/25 11:13 11:37 12:02 WBC 10.1 RBC 3.31 L Hgb 10.1 L Hct 31.1 L MCV 94.0 MCH 30.5 MCHC 32.5 RDW 15.1 Plt Count 115 L MPV 10.5 Immature Gran % (Auto) Cancelled Neut % (Auto) Cancelled Lymph % (Auto) Cancelled [place] % (Auto) Cancelled Eos % (Auto) Cancelled Baso % (Auto) Cancelled Lymph # (Auto) Cancelled [place] # (Auto) Cancelled Eos # (Auto) Cancelled Baso # (Auto) Cancelled Abs Immat Gran (auto) Cancelled Absolute Neuts (auto) Cancelled Absolute Nucleated RBC 0.000 Nucleated RBC % (auto) 0.0 Neutrophils % (Manual) 77 H Band Neutrophils % 11 H Lymphocytes % (Manual) 6 L Monocytes % (Manual) 6 Abs Neuts (Manual) 8.9 H Lymphocytes # (Manual) 0.6 L Monocytes # (Manual) 0.6 Toxic Granulation Toxic Vacuolation Platelet Estimate DECREASED Plt Morphology Comment NORMAL RBC Morphology NOTED Spherocytes 1+ (0-2) [place] Cells Schistocytes 1+ (0-2) PT INR Sodium 137 Potassium 3.2 L Chloride 103 Carbon Dioxide 23 Anion Gap 14 BUN 31 H Creatinine 1.96 H Estim Creat Clear Calc 28.5 Estimated GFR 34 POC Glucose Random Glucose 33 L* Lactic Acid 3.9 H* Lactic Acid F/U @ 2Hr Lactic Acid F/U @ 4Hr Calcium 9.1 Phosphorus Total Bilirubin 0.8 AST 653 H ALT 364 H Alkaline Phosphatase 154 H Troponin I High Sens 299.9 H* Total Protein 6.4 L Albumin 3.6 Urine Color Yellow Urine Appearance Cloudy Urine pH 6.0 Ur Specific [place] 1.010 Urine Protein 100 (2+) H Urine Glucose (UA) Negative Urine Ketones Negative Urine Blood Large (3+) H Urine Nitrite Negative Ur Leukocyte Esterase Large (3+) H Urine RBC >20 H Urine WBC >50 H Ur Squamous Epith Cells 0-2 Urine Bacteria 4+ Hyaline Casts 0-2 Urine Opiates Screen Ur Buprenorphine Scrn Ur Oxycodone Screen Urine Methadone Screen Urine Fentanyl Screen Ur Barbiturates Screen Ur Phencyclidine Scrn Ur Amphetamines Screen U Benzodiazepines Scrn Urine Cocaine Screen U Marijuana (THC) Screen Ethyl Alcohol COVID-19 (STEVE) Negative COVID-19 Clin Com See Note Influenza Type A (AISHA) Negative Influenza Type B (AISHA) Negative Influenza A & B Note See Note 07/15/25 07/15/25 07/15/25 12:14 12:39 12:58 WBC RBC Hgb Hct MCV MCH MCHC RDW Plt Count MPV Immature Gran % (Auto) Neut % (Auto) Lymph % (Auto) [place] % (Auto) Eos % (Auto) Baso % (Auto) Lymph # (Auto) [place] # (Auto) Eos # (Auto) Baso # (Auto) Abs Immat Gran (auto) Absolute Neuts (auto) Absolute Nucleated RBC Nucleated RBC % (auto) Neutrophils % (Manual) Band Neutrophils % Lymphocytes % (Manual) Monocytes % (Manual) Abs Neuts (Manual) Lymphocytes # (Manual) Monocytes # (Manual) Toxic Granulation Toxic Vacuolation Platelet Estimate Plt Morphology Comment RBC Morphology Spherocytes [place] Cells Schistocytes PT INR Sodium Potassium Chloride Carbon Dioxide Anion Gap BUN Creatinine Estim Creat Clear Calc Estimated GFR POC Glucose 36 L* 114 162 H Random Glucose Lactic Acid Lactic Acid F/U @ 2Hr Lactic Acid F/U @ 4Hr Calcium Phosphorus Total Bilirubin AST ALT Alkaline Phosphatase Troponin I High Sens Total Protein Albumin Urine Color Urine Appearance Urine pH Ur Specific [place] Urine Protein Urine Glucose (UA) Urine Ketones Urine Blood Urine Nitrite Ur Leukocyte Esterase Urine RBC Urine WBC Ur Squamous Epith Cells Urine Bacteria Hyaline Casts Urine Opiates Screen Ur Buprenorphine Scrn Ur Oxycodone Screen Urine Methadone Screen Urine Fentanyl Screen Ur Barbiturates Screen Ur Phencyclidine Scrn Ur Amphetamines Screen U Benzodiazepines Scrn Urine Cocaine Screen U Marijuana (THC) Screen Ethyl Alcohol COVID-19 (STEVE) COVID-19 Clin Com Influenza Type A (AISHA) Influenza Type B (AISHA) Influenza A & B Note 07/15/25 07/15/25 07/15/25 13:44 14:03 14:04 WBC RBC Hgb Hct MCV MCH MCHC RDW Plt Count MPV Immature Gran % (Auto) Neut % (Auto) Lymph % (Auto) [place] % (Auto) Eos % (Auto) Baso % (Auto) Lymph # (Auto) [place] # (Auto) Eos # (Auto) Baso # (Auto) Abs Immat Gran (auto) Absolute Neuts (auto) Absolute Nucleated RBC Nucleated RBC % (auto) Neutrophils % (Manual) Band Neutrophils % Lymphocytes % (Manual) Monocytes % (Manual) Abs Neuts (Manual) Lymphocytes # (Manual) Monocytes # (Manual) Toxic Granulation Toxic Vacuolation Platelet Estimate Plt Morphology Comment RBC Morphology Spherocytes [place] Cells Schistocytes PT INR Sodium Potassium Chloride Carbon Dioxide Anion Gap BUN Creatinine Estim Creat Clear Calc Estimated GFR POC Glucose 136 H Random Glucose Lactic Acid Lactic Acid F/U @ 2Hr Lactic Acid F/U @ 4Hr Calcium Phosphorus Total Bilirubin AST ALT Alkaline Phosphatase Troponin I High Sens Total Protein Albumin Urine Color Urine Appearance Urine pH Ur Specific [place] Urine Protein Urine Glucose (UA) Urine Ketones Urine Blood Urine Nitrite Ur Leukocyte Esterase Urine RBC Urine WBC Ur Squamous Epith Cells Urine Bacteria Hyaline Casts Urine Opiates Screen Not Detected Ur Buprenorphine Scrn Positive H Ur Oxycodone Screen Not Detected Urine Methadone Screen Not Detected Urine Fentanyl Screen POSITIVE H Ur Barbiturates Screen Not Detected Ur Phencyclidine Scrn Not Detected Ur Amphetamines Screen Not Detected U Benzodiazepines Scrn Not Detected Urine Cocaine Screen Not Detected U Marijuana (THC) Screen POSITIVE H Ethyl Alcohol 11 COVID-19 (STEVE) COVID-19 Clin Com Influenza Type A (AISHA) Negative Influenza Type B (AISHA) Negative Influenza A & B Note See Note 07/15/25 07/15/25 07/15/25 15:18 15:30 17:00 WBC RBC Hgb Hct MCV MCH MCHC RDW Plt Count MPV Immature Gran % (Auto) Neut % (Auto) Lymph % (Auto) [place] % (Auto) Eos % (Auto) Baso % (Auto) Lymph # (Auto) [place] # (Auto) Eos # (Auto) Baso # (Auto) Abs Immat Gran (auto) Absolute Neuts (auto) Absolute Nucleated RBC Nucleated RBC % (auto) Neutrophils % (Manual) Band Neutrophils % Lymphocytes % (Manual) Monocytes % (Manual) Abs Neuts (Manual) Lymphocytes # (Manual) Monocytes # (Manual) Toxic Granulation Toxic Vacuolation Platelet Estimate Plt Morphology Comment RBC Morphology Spherocytes [place] Cells Schistocytes PT INR Sodium Potassium Chloride Carbon Dioxide Anion Gap BUN Creatinine Estim Creat Clear Calc Estimated GFR POC Glucose 100 Random Glucose Lactic Acid Lactic Acid F/U @ 2Hr 4.5 H* Lactic Acid F/U @ 4Hr Calcium Phosphorus 0.8 L* Total Bilirubin AST ALT Alkaline Phosphatase Troponin I High Sens Total Protein Albumin Urine Color Urine Appearance Urine pH Ur Specific [place] Urine Protein Urine Glucose (UA) Urine Ketones Urine Blood Urine Nitrite Ur Leukocyte Esterase Urine RBC Urine WBC Ur Squamous Epith Cells Urine Bacteria Hyaline Casts Urine Opiates Screen Ur Buprenorphine Scrn Ur Oxycodone Screen Urine Methadone Screen Urine Fentanyl Screen Ur Barbiturates Screen Ur Phencyclidine Scrn Ur Amphetamines Screen U Benzodiazepines Scrn Urine Cocaine Screen U Marijuana (THC) Screen Ethyl Alcohol COVID-19 (STEVE) COVID-19 Clin Com Influenza Type A (AISHA) Influenza Type B (AISHA) Influenza A & B Note 07/15/25 07/16/25 07/16/25 17:46 00:12 05:58 WBC 13.7 H RBC 3.32 L Hgb 10.1 L Hct 30.8 L MCV 92.8 MCH 30.4 MCHC 32.8 RDW 15.4 Plt Count 80 L D MPV 11.7 Immature Gran % (Auto) Cancelled Neut % (Auto) Cancelled Lymph % (Auto) Cancelled [place] % (Auto) Cancelled Eos % (Auto) Cancelled Baso % (Auto) Cancelled Lymph # (Auto) Cancelled [place] # (Auto) Cancelled Eos # (Auto) Cancelled Baso # (Auto) Cancelled Abs Immat Gran (auto) Cancelled Absolute Neuts (auto) Cancelled Absolute Nucleated RBC 0.020 H Nucleated RBC % (auto) 0.1 Neutrophils % (Manual) 76 H Band Neutrophils % 19 H Lymphocytes % (Manual) 2 L Monocytes % (Manual) 3 Abs Neuts (Manual) 13.0 H Lymphocytes # (Manual) 0.3 L Monocytes # (Manual) 0.4 Toxic Granulation PRESENT Toxic Vacuolation PRESENT Platelet Estimate DECREASED Plt Morphology Comment NORMAL RBC Morphology NORMAL Spherocytes [place] Cells 3+ (>5) Schistocytes PT 25.7 H D INR 2.2 H Sodium Potassium Chloride Carbon Dioxide Anion Gap BUN Creatinine Estim Creat Clear Calc Estimated GFR POC Glucose 162 H Random Glucose Lactic Acid Lactic Acid F/U @ 2Hr Lactic Acid F/U @ 4Hr 2.9 H* Calcium Phosphorus Total Bilirubin AST ALT Alkaline Phosphatase Troponin I High Sens Total Protein Albumin Urine Color Urine Appearance Urine pH Ur Specific [place] Urine Protein Urine Glucose (UA) Urine Ketones Urine Blood Urine Nitrite Ur Leukocyte Esterase Urine RBC Urine WBC Ur Squamous Epith Cells Urine Bacteria Hyaline Casts Urine Opiates Screen Ur Buprenorphine Scrn Ur Oxycodone Screen Urine Methadone Screen Urine Fentanyl Screen Ur Barbiturates Screen Ur Phencyclidine Scrn Ur Amphetamines Screen U Benzodiazepines Scrn Urine Cocaine Screen U Marijuana (THC) Screen Ethyl Alcohol COVID-19 (STEVE) COVID-19 Clin Com Influenza Type A (AISHA) Influenza Type B (AISHA) Influenza A & B Note 07/16/25 07/16/25 06:38 07:24 WBC RBC Hgb Hct MCV MCH MCHC RDW Plt Count MPV Immature Gran % (Auto) Neut % (Auto) Lymph % (Auto) [place] % (Auto) Eos % (Auto) Baso % (Auto) Lymph # (Auto) [place] # (Auto) Eos # (Auto) Baso # (Auto) Abs Immat Gran (auto) Absolute Neuts (auto) Absolute Nucleated RBC Nucleated RBC % (auto) Neutrophils % (Manual) Band Neutrophils % Lymphocytes % (Manual) Monocytes % (Manual) Abs Neuts (Manual) Lymphocytes # (Manual) Monocytes # (Manual) Toxic Granulation Toxic Vacuolation Platelet Estimate Plt Morphology Comment RBC Morphology Spherocytes [place] Cells Schistocytes PT INR Sodium Potassium Chloride Carbon Dioxide Anion Gap BUN Creatinine Estim Creat Clear Calc Estimated GFR POC Glucose 62 156 H Random Glucose Lactic Acid Lactic Acid F/U @ 2Hr Lactic Acid F/U @ 4Hr Calcium Phosphorus Total Bilirubin AST ALT Alkaline Phosphatase Troponin I High Sens Total Protein Albumin Urine Color Urine Appearance Urine pH Ur Specific [place] Urine Protein Urine Glucose (UA) Urine Ketones Urine Blood Urine Nitrite Ur Leukocyte Esterase Urine RBC Urine WBC Ur Squamous Epith Cells Urine Bacteria Hyaline Casts Urine Opiates Screen Ur Buprenorphine Scrn Ur Oxycodone Screen Urine Methadone Screen Urine Fentanyl Screen Ur Barbiturates Screen Ur Phencyclidine Scrn Ur Amphetamines Screen U Benzodiazepines Scrn Urine Cocaine Screen U Marijuana (THC) Screen Ethyl Alcohol COVID-19 (STEVE) COVID-19 Clin Com Influenza Type A (AISHA) Influenza Type B (AISHA) Influenza A & B Note Microbiology Microbiology Results: Microbiology 07/15/25 12:05 Blood - Venous Blood Culture - Preliminary Prelim: GNR Gram Stain only 07/15/25 12:02 Blood - Venous Blood Culture - Preliminary Prelim: GNR Gram Stain only Progress Note: A&P Assessment and plan (1) Septic shock: Status: Acute (2) Acute kidney injury: Status: Acute (3) Acute UTI: Status: Acute (4) Gastric outlet obstruction: Status: Acute Plan Septic shock: Possibly secondary to complex urinary tract infection CTA abdomen and pelvis showing a proximal ureteric stone and a right-sided hydronephrosis. It looks like the stone that might have passed down into the ureter might have caused the obstruction. Urology consult placed. He received 3 L of fluid bolus, but remains hypotensive so Levophed was started Off levophed this morning 5 AM. Bedside echo shows IVC fluctuating with respiration but 1.9 cm, RV normal, LV systolic function slightly reduced. GI: Gastric outlet obstruction: As seen on the CT abdomen and pelvis We will consult gastroenterology for further evaluate Transaminitis: AST 650, ALT 360 Possibly secondary to SIRS from systemic sepsis Ultrasound showing cholelithiasis with gallbladder edema, equivocal for cholecystitis General surgery consulted, has Quintero's sign positive; we will get a HIDA scan Renal: Acute kidney injury possibly secondary to ATN from hypotension and volume depletion Baseline creatinine normal, creatinine today is 1.9 Right-sided hydronephrosis on the CT abdomen from a stone that might have been passed to ureter We will closely monitor I's and O's Avoid nephrotoxic medications Lactic acidosis: Secondary to shock Received IV fluid boluses, bedside echo suggestive of volume repletion Lactate trended down, volume repleted, capillary refilling time normal, blood pressure normal, perfusion normal. Heme: Chronic anemia, closely monitor H&H, transfuse for hemoglobin less than 7 grams/deciliter Endocrine: At home he is on 34 units of Lantus but at the hospital he was hypoglycemic even without getting any insulin possibly secondary to sepsis and poor reserve given his malnutrition. Blood sugars under control Sliding scale insulin as needed Infectious disease: Pending pancultures on empiric Zosyn Musculoskeletal: Decubitus ulcer prevention protocol Lines: Peripheral Prophylaxis: Heparin, famotidine Quality Stroke Does the patient have a stroke diagnosis?: No VTE Prior VTE?: No VTE Risk Level:: Medical - low VTE Device Contraindication: N/A - Device Ordered VTE Drug Contraindication: N/A - Med Ordered
[2025-07-16 09:33] LABS: Lyme Abs Screen <0.90 index
--- NOTE | 2025-07-16 09:34 | PM.GICN ---
History of Present Illness Data of Consult Service Date: 07/16/25 Requesting physician: Juarez Ventura Primary Care Provider: Lonnie Britton MD HPI Reason for consult: GOO 69-year-old gentleman with past medical history of HIV, hx of hep C (treated), type 2 diabetes, constipation, who presented to the emergency room for recurrent urinary retention and was found to have severe hypotension with concern for septic shock and was therefore admitted to the medical ICU. Gastroenterology has been consulted for question of gastric outlet obstruction. Patient seen at bedside with the help of staff interpreter. Patient reports difficulty passing urine for the last 10 days. Has been seen in the emergency room a couple of times for this. Yesterday, he presented again for urinary retention and abdominal distention. This time, he also reported subjective fevers, chills, decreased appetite. Nausea but no vomiting. He also had diarrhea a day before presentation, no blood noted per his report. Course complicated by circulatory shock and he was therefore admitted to ICU. CT abd/pel shows ureteric stone with R hydronephrosis as well as distended stomach suspicious for GOO. Labs with elevated LFTs and KIRAN - all improving today. At bedside, pt reports nausea but no vomiting. Endorses good appetite. Review of Systems Review of Systems: Yes all other systems are reviewed and are negative PMFSH Past Medical History Medical History Nicotine dependence, cigarettes, uncomplicated Type 2 diabetes mellitus Hepatitis B Hepatitis C HIV (human immunodeficiency virus infection) Family History Family History Father Cancer of abdominal wall Paternal Uncle Cancer of abdominal wall Mother Alzheimer dementia Maternal Uncle Cancer Maternal Grandmother Cancer Surgical History Surgical History History of left inguinal hernia repair History of cystoscopy History of colonoscopy Social History Social History Household Members: None Housing: Apartment Do you presently have visiting nurse or other home services: Yes (housekeeping) Patient Tobacco Use Status: Current everyday Tobacco user Tobacco use type: Cigarette Cigarette Packs Per Day: 0.5 Cigarettes Per Day: 10.0 Substance Use Type: Marijuana service: No Current occupational status: retired Meds Allergies Allergy/AdvReac Type Severity Reaction Status Date / Time No Known Allergies (No Known Allergy Verified 07/15/25 11:06 Allergies*) Active Medications: Current Medications Buprenorphine/Naloxone (Buprenorphine/Naloxone 8/2 Mg Film) 1 film SUBLINGUAL DAILY ANDREA Dextrose (Dextrose 50 % 25 Gm/50 Ml Syringe) 25 gm IVPUSH Q15M PRN; Protocol PRN Reason: per Hypoglycemia Standing Ord. Last Admin: 07/16/25 06:49 Dose: 25 gm Famotidine (Famotidine/Pf 20 Mg/2 Ml Vial) 20 mg IVPUSH BID ANDREA Last Admin: 07/15/25 20:24 Dose: 20 mg Heparin Sodium (Porcine) (Heparin Sodium,Porcine 5,000 Unit/Ml Vial) 5,000 unit SUBCUT Q8H ANDREA Last Admin: 07/16/25 09:29 Dose: Not Given Hydromorphone HCl (Hydromorphone Hcl 1 Mg/Ml Syringe) 0.5 mg IVPUSH Q4H PRN; Protocol PRN Reason: Pain, Moderate(Pain Scale 4-6) Last Admin: 07/16/25 03:02 Dose: 0.5 mg Dextrose/Sodium Chloride (D5ns) 1,000 mls @ 150 mls/hr IVCONT .Q6H40M [facility] Last Infusion: 07/16/25 06:42 Dose: 150 mls/hr Norepinephrine Bitartrate (Levophed) 8 mg in 250 mls @ 0 mls/hr IVCONT .Q0M ANDREA; Protocol Last Titration: 07/16/25 05:18 Dose: 0 mcg/kg/min, 0 mls/hr Piperacillin Sod/Tazobactam (Sod 4.5 gm/ Sodium Chloride) 100 mls @ 200 mls/hr IV Q8H [facility] Last Infusion: 07/16/25 04:36 Dose: Infused Potassium Phosphate (Kphos) 15 mmol in 250 mls @ 62.5 mls/hr IV ONCE ONE Stop: 07/16/25 10:44 Last Admin: 07/16/25 06:49 Dose: 62.5 mls/hr Insulin Human Lispro (Insulin Lispro 100 Unit/Ml 3 Ml Vial) 0 unit SUBCUT Q6H ANDREA; Protocol Last Admin: 07/16/25 06:39 Dose: Not Given Mirtazapine (Mirtazapine 30 Mg Tablet) 30 mg PO BEDTIME [facility] Nicotine (Nicotine 14 Mg Patch.Td24) 14 mg TRANSDERMA DAILY [facility] Last Admin: 07/16/25 05:53 Dose: 14 mg Non-Formulary Medication (Bunhbvcjxe-Srrscaeq-Pkjcrf Ala [Brianaefsey]) 1 tab PO DAILY [facility] Ondansetron HCl (Ondansetron Hcl 4 Mg/2 Ml Vial) 4 mg IVPUSH Q8H PRN PRN Reason: Nausea and Vomiting Quetiapine Fumarate (Quetiapine Fumarate 200 Mg Tablet) 200 mg PO BEDTIME ANDREA Sertraline HCl (Sertraline Hcl 100 Mg Tablet) 100 mg PO DAILY [facility] Home Medications ?Medication ?Instructions ?Recorded ?Confirmed ?Last Taken ?Type buprenorphine 8 mg-naloxone 2 mg 1 film sublingual DAILY 01/12/24 07/15/25 09/13/24 History sublingual film emtricitabine 200 mg-rilpivirine 1 tab PO DAILY 01/12/24 07/15/25 09/13/24 History 25 mg-tenofovir alafenam 25 mg tablet (Kristyn) lisinopril 2.5 mg tablet 2.5 mg PO DAILY 01/12/24 07/15/25 Unknown History metformin 500 mg tablet,extended 1,000 mg PO DAILY@1700 01/12/24 07/15/25 Unknown History release 24 hr mirtazapine 30 mg tablet 30 mg PO BEDTIME 01/12/24 07/15/25 Unknown History quetiapine 200 mg tablet 200 mg PO BEDTIME 01/12/24 07/15/25 Unknown History sertraline 100 mg tablet 100 mg PO DAILY 01/12/24 07/15/25 09/13/24 History calcium 500 mg (as carbonate)-vit 1 tab PO BID 07/15/25 07/15/25 Unknown History D3 10 mcg (400 unit) chewable tablet ferrous gluconate 324 mg (38 mg 324 mg PO QAM 07/15/25 07/15/25 Unknown History iron) tablet insulin glargine 100 unit/mL (3 34 unit subcut BEDTIME 07/15/25 07/15/25 Unknown History mL) subcutaneous pen (Lantus Solostar U-100 Insulin) Physical Exam Exam: Exam: Appears older than stated age Undernourished Nonicteric Abd soft, tender in mid epigastrium with guarding, mildly distended No overt resp distress no peripheral edema Vital Signs: Vital Signs: Last Vital Signs Temp 97.3 F 07/16/25 08:00 Pulse 67 07/16/25 09:00 Resp 17 07/16/25 09:00 BP 127/66 07/16/25 09:00 Pulse Ox 100 07/16/25 09:00 O2 Del Method Nasal Cannula 07/16/25 09:00 O2 Flow Rate 2 07/16/25 09:00 BMI result Body Mass Index 20.8 Results Labs 07/16/25 05:58 07/16/25 09:03 Labs: Short CBC 07/15/25 07/16/25 Range/Units 11:13 05:58 WBC 10.1 13.7 H (4.8-10.8) X10*3/uL Hgb 10.1 L 10.1 L (14.0-18.0) g/dl Hct 31.1 L 30.8 L (42.0-52.0) % Plt Count 115 L 80 L D (160-400) X10*3/uL BMP 07/15/25 11:13 Sodium 137 Potassium 3.2 L Chloride 103 Carbon Dioxide 23 BUN 31 H Creatinine 1.96 H Calcium 9.1 Liver Function 07/15/25 Range/Units 11:13 Total Bilirubin 0.8 (0.0-1.0) mg/dL AST 653 H (5-37) U/L ALT 364 H (0-40) U/L Alkaline Phosphatase 154 H (39-117) U/L Albumin 3.6 (3.5-5.0) g/dL Urine 07/15/25 Range/Units 11:37 Urine Color Yellow Urine Appearance Cloudy Urine pH 6.0 (5.0-9.0) Ur Specific [place] 1.010 (1.005-1.025) Urine Protein 100 (2+) H (Neg-Trace) mg/dL Urine Glucose (UA) Negative (Negative) mg/dL Microbiology Microbiology Results: Microbiology 07/15/25 12:05 Blood - Venous Blood Culture - Preliminary Prelim: GNR Gram Stain only 07/15/25 12:02 Blood - Venous Blood Culture - Preliminary Prelim: GNR Gram Stain only Assessment and Plan (1) Gastric outlet obstruction: Status: Acute (2) Abdominal pain: Status: Acute (3) Nausea: Status: Acute (4) Elevated LFTs: Status: Acute Plan CT imaging suspicious for GOO, differentials include PUD, mass, transient delay in gastric emptying due to critical illness/shock. No NGT in place as pt currently asymptomatic. Will andrea for diagnostic EGD tmrw however will need decompression if has true/persistent GOO to reduce aspiration risk. In terms of elevated LFTs, likely 2/2 hypoxic hepatitis given rapid improvment in numbers. Given hx of occult HBV, will get viral load to r/o reactivation. Plan: - Repeat imaging (can get KUB). If has enlarged gastric bubble, would recommend NGT placement for decompression - EGD tentatively andrea for tmrw - HBV serology and VL ordered Thank you for allowing me to participate in his care. Please do not hesitate to reach out for questions or concerns. Procedures Date of Service Date of Service: 07/16/25
[2025-07-16 09:41] LABS: Alanine Aminotransferase 208 U/L (0-40); Albumin Level 3.1 g/dL (3.5-5.0); Alkaline Phosphatase 100 U/L (39-117); Anion Gap 11 (12-20); Aspartate Amino Transferase 193 U/L (5-37); Blood Urea Nitrogen 27 mg/dL (9-16); Calcium 7.9 mg/dL (8.4-10.2); Carbon Dioxide 21 mmol/L (22-29); Chloride 110 mmol/L (96-108); Creatinine Clr Calc Pharmacy 38.1; Estimated Glomerular Filt Rate 47; Magnesium 1.7 mg/dL (1.6-2.6); Potassium 5.4 mmol/L (3.3-5.1); Sodium 137 mmol/L (135-145); Total Protein 5.6 g/dL (6.5-8.0)
--- NOTE | 2025-07-16 09:55 | HO.ANESPROP2 ---
Documented by User: Shnona Buckner NP 07/16/25 10:24 HPI - Anesthesia Eval Consult details Narrative: 69 yr old male for upper endoscopy Admitted from ED to ICU for septic/shock, hypotension, required pressor support. NG tube placed 07/15/25 Chest xray from 07/15/25 showing ?developing pneumonia vs pulmonary edema vs artifact; on 2 liters O2, sats 100% 07/16/25 No documented cirrhosis or varices: LFTs markedly elevated; INR 2.2 07/16/25 History of HIV disease on HAART, hepatitis-B and C On suboxone s/p hernia repair with TIVA 08/2025 [facility] Active Problems Active Problems: All Active Problems Acute kidney injury (Acute) Septic shock (Acute) Acute UTI (Acute) Urinary tract obstruction by kidney stone (Acute) Cholelithiasis (Acute) Gastric outlet obstruction (Acute) Acute hypotension (Acute) Sepsis (Acute) Status post inguinal hernia repair (Acute) Postop check (Acute) Normochromic normocytic anemia (Acute) FH: prostate carcinoma (Acute) Screening PSA (prostate specific antigen) (Acute) Nicotine dependence, cigarettes, uncomplicated (Acute) Past Medical History Medical History Nicotine dependence, cigarettes, uncomplicated Type 2 diabetes mellitus Hepatitis B Hepatitis C HIV (human immunodeficiency virus infection) Family History Family History Father Cancer of abdominal wall Paternal Uncle Cancer of abdominal wall Mother Alzheimer dementia Maternal Uncle Cancer Maternal Grandmother Cancer Family history of problems with anesthesia: No Surgical History Surgical History History of left inguinal hernia repair History of cystoscopy History of colonoscopy History of Problems with Anesthesia: No Social History Social History Household Members: None Housing: Apartment Do you presently have visiting nurse or other home services: Yes (housekeeping) Patient Tobacco Use Status: Current everyday Tobacco user Tobacco use type: Cigarette Cigarette Packs Per Day: 0.5 Cigarettes Per Day: 10.0 Substance Use Type: Marijuana service: No Current occupational status: retired Meds Allergies Allergy/AdvReac Type Severity Reaction Status Date / Time No Known Allergies (No Known Allergy Verified 07/15/25 11:06 Allergies*) Active Medications: Current Medications Buprenorphine/Naloxone (Buprenorphine/Naloxone 8/2 Mg Film) 1 film SUBLINGUAL DAILY GERMAN Dextrose (Dextrose 50 % 25 Gm/50 Ml Syringe) 25 gm IVPUSH Q15M PRN; Protocol PRN Reason: per Hypoglycemia Standing Ord. Last Admin: 07/16/25 06:49 Dose: 25 gm Famotidine (Famotidine/Pf 20 Mg/2 Ml Vial) 20 mg IVPUSH BID GERMAN Last Admin: 07/15/25 20:24 Dose: 20 mg Heparin Sodium (Porcine) (Heparin Sodium,Porcine 5,000 Unit/Ml Vial) 5,000 unit SUBCUT Q8H GERMAN Last Admin: 07/16/25 09:29 Dose: Not Given Hydromorphone HCl (Hydromorphone Hcl 1 Mg/Ml Syringe) 0.5 mg IVPUSH Q4H PRN; Protocol PRN Reason: Pain, Moderate(Pain Scale 4-6) Last Admin: 07/16/25 03:02 Dose: 0.5 mg Dextrose/Sodium Chloride (D5ns) 1,000 mls @ 150 mls/hr IVCONT .Q6H40M GERMAN Last Infusion: 07/16/25 06:42 Dose: 150 mls/hr Norepinephrine Bitartrate (Levophed) 8 mg in 250 mls @ 0 mls/hr IVCONT .Q0M GERMAN; Protocol Last Titration: 07/16/25 05:18 Dose: 0 mcg/kg/min, 0 mls/hr Piperacillin Sod/Tazobactam (Sod 4.5 gm/ Sodium Chloride) 100 mls @ 200 mls/hr IV Q8H GERMAN Last Infusion: 07/16/25 04:36 Dose: Infused Potassium Phosphate (Kphos) 15 mmol in 250 mls @ 62.5 mls/hr IV ONCE ONE Stop: 07/16/25 10:44 Last Admin: 07/16/25 06:49 Dose: 62.5 mls/hr Insulin Human Lispro (Insulin Lispro 100 Unit/Ml 3 Ml Vial) 0 unit SUBCUT Q6H GERMAN; Protocol Last Admin: 07/16/25 06:39 Dose: Not Given Mirtazapine (Mirtazapine 30 Mg Tablet) 30 mg PO BEDTIME PENDING SALE TO [facility] Nicotine (Nicotine 14 Mg Patch.Td24) 14 mg TRANSDERMA DAILY PENDING SALE TO [facility] Last Admin: 07/16/25 05:53 Dose: 14 mg Non-Formulary Medication (Lrcwsddomm-Xmeawlho-Nuuuow Ala [Brianaefsey]) 1 tab PO DAILY PENDING SALE TO [facility] Ondansetron HCl (Ondansetron Hcl 4 Mg/2 Ml Vial) 4 mg IVPUSH Q8H PRN PRN Reason: Nausea and Vomiting Quetiapine Fumarate (Quetiapine Fumarate 200 Mg Tablet) 200 mg PO BEDTIME GERMAN Sertraline HCl (Sertraline Hcl 100 Mg Tablet) 100 mg PO DAILY PENDING SALE TO [facility] Home Medications ?Medication ?Instructions ?Recorded ?Confirmed ?Last Taken ?Type buprenorphine 8 mg-naloxone 2 mg 1 film sublingual DAILY 01/12/24 07/15/25 09/13/24 History sublingual film emtricitabine 200 mg-rilpivirine 1 tab PO DAILY 01/12/24 07/15/25 09/13/24 History 25 mg-tenofovir alafenam 25 mg tablet (Kristyn) lisinopril 2.5 mg tablet 2.5 mg PO DAILY 01/12/24 07/15/25 Unknown History metformin 500 mg tablet,extended 1,000 mg PO DAILY@1700 01/12/24 07/15/25 Unknown History release 24 hr mirtazapine 30 mg tablet 30 mg PO BEDTIME 01/12/24 07/15/25 Unknown History quetiapine 200 mg tablet 200 mg PO BEDTIME 01/12/24 07/15/25 Unknown History sertraline 100 mg tablet 100 mg PO DAILY 01/12/24 07/15/25 09/13/24 History calcium 500 mg (as carbonate)-vit 1 tab PO BID 07/15/25 07/15/25 Unknown History D3 10 mcg (400 unit) chewable tablet ferrous gluconate 324 mg (38 mg 324 mg PO QAM 07/15/25 07/15/25 Unknown History iron) tablet insulin glargine 100 unit/mL (3 34 unit subcut BEDTIME 07/15/25 07/15/25 Unknown History mL) subcutaneous pen (Lantus Solostar U-100 Insulin) Exam Height,Weight and Vital Signs: Height 5 ft 5 in Weight 56.8 kg Last Vital Signs Temp 97.3 F 07/16/25 08:00 Pulse 67 07/16/25 09:00 Resp 17 07/16/25 09:00 BP 127/66 07/16/25 09:00 Pulse Ox 100 07/16/25 09:00 O2 Del Method Nasal Cannula 07/16/25 09:00 O2 Flow Rate 2 07/16/25 09:00 Pertinent Lab Results Pertinent Lab Results: Laboratory Tests 07/15/25 07/15/25 07/15/25 11:13 11:37 12:02 WBC 10.1 RBC 3.31 L Hgb 10.1 L Hct 31.1 L MCV 94.0 MCH 30.5 MCHC 32.5 RDW 15.1 Plt Count 115 L MPV 10.5 Immature Gran % (Auto) Cancelled Neut % (Auto) Cancelled Lymph % (Auto) Cancelled [place] % (Auto) Cancelled Eos % (Auto) Cancelled Baso % (Auto) Cancelled Lymph # (Auto) Cancelled [place] # (Auto) Cancelled Eos # (Auto) Cancelled Baso # (Auto) Cancelled Abs Immat Gran (auto) Cancelled Absolute Neuts (auto) Cancelled Absolute Nucleated RBC 0.000 Nucleated RBC % (auto) 0.0 Neutrophils % (Manual) 77 H Band Neutrophils % 11 H Lymphocytes % (Manual) 6 L Monocytes % (Manual) 6 Abs Neuts (Manual) 8.9 H Lymphocytes # (Manual) 0.6 L Monocytes # (Manual) 0.6 Toxic Granulation Toxic Vacuolation Platelet Estimate DECREASED Plt Morphology Comment NORMAL RBC Morphology NOTED Spherocytes 1+ (0-2) [place] Cells Schistocytes 1+ (0-2) PT INR Sodium 137 Potassium 3.2 L Chloride 103 Carbon Dioxide 23 Anion Gap 14 BUN 31 H Creatinine 1.96 H Estim Creat Clear Calc 28.5 Estimated GFR 34 POC Glucose Random Glucose 33 L* Lactic Acid 3.9 H* Lactic Acid F/U @ 2Hr Lactic Acid F/U @ 4Hr Calcium 9.1 Phosphorus Magnesium Total Bilirubin 0.8 AST 653 H ALT 364 H Alkaline Phosphatase 154 H Troponin I High Sens 299.9 H* Total Protein 6.4 L Albumin 3.6 Urine Color Yellow Urine Appearance Cloudy Urine pH 6.0 Ur Specific [place] 1.010 Urine Protein 100 (2+) H Urine Glucose (UA) Negative Urine Ketones Negative Urine Blood Large (3+) H Urine Nitrite Negative Ur Leukocyte Esterase Large (3+) H Urine RBC >20 H Urine WBC >50 H Ur Squamous Epith Cells 0-2 Urine Bacteria 4+ Hyaline Casts 0-2 Urine Opiates Screen Ur Buprenorphine Scrn Ur Oxycodone Screen Urine Methadone Screen Urine Fentanyl Screen Ur Barbiturates Screen Ur Phencyclidine Scrn Ur Amphetamines Screen U Benzodiazepines Scrn Urine Cocaine Screen U Marijuana (THC) Screen Ethyl Alcohol Lyme Screen IgG & IgM COVID-19 (STEVE) Negative COVID-19 Clin Com See Note Influenza Type A (AISHA) Negative Influenza Type B (AISHA) Negative Influenza A & B Note See Note 07/15/25 07/15/25 07/15/25 12:14 12:39 12:58 WBC RBC Hgb Hct MCV MCH MCHC RDW Plt Count MPV Immature Gran % (Auto) Neut % (Auto) Lymph % (Auto) [place] % (Auto) Eos % (Auto) Baso % (Auto) Lymph # (Auto) [place] # (Auto) Eos # (Auto) Baso # (Auto) Abs Immat Gran (auto) Absolute Neuts (auto) Absolute Nucleated RBC Nucleated RBC % (auto) Neutrophils % (Manual) Band Neutrophils % Lymphocytes % (Manual) Monocytes % (Manual) Abs Neuts (Manual) Lymphocytes # (Manual) Monocytes # (Manual) Toxic Granulation Toxic Vacuolation Platelet Estimate Plt Morphology Comment RBC Morphology Spherocytes [place] Cells Schistocytes PT INR Sodium Potassium Chloride Carbon Dioxide Anion Gap BUN Creatinine Estim Creat Clear Calc Estimated GFR POC Glucose 36 L* 114 162 H Random Glucose Lactic Acid Lactic Acid F/U @ 2Hr Lactic Acid F/U @ 4Hr Calcium Phosphorus Magnesium Total Bilirubin AST ALT Alkaline Phosphatase Troponin I High Sens Total Protein Albumin Urine Color Urine Appearance Urine pH Ur Specific [place] Urine Protein Urine Glucose (UA) Urine Ketones Urine Blood Urine Nitrite Ur Leukocyte Esterase Urine RBC Urine WBC Ur Squamous Epith Cells Urine Bacteria Hyaline Casts Urine Opiates Screen Ur Buprenorphine Scrn Ur Oxycodone Screen Urine Methadone Screen Urine Fentanyl Screen Ur Barbiturates Screen Ur Phencyclidine Scrn Ur Amphetamines Screen U Benzodiazepines Scrn Urine Cocaine Screen U Marijuana (THC) Screen Ethyl Alcohol Lyme Screen IgG & IgM COVID-19 (STEVE) COVID-19 Clin Com Influenza Type A (AISHA) Influenza Type B (AISHA) Influenza A & B Note 1007/15/25 07/15/25 13:44 14:03 14:04 WBC RBC Hgb Hct MCV MCH MCHC RDW Plt Count MPV Immature Gran % (Auto) Neut % (Auto) Lymph % (Auto) [place] % (Auto) Eos % (Auto) Baso % (Auto) Lymph # (Auto) [place] # (Auto) Eos # (Auto) Baso # (Auto) Abs Immat Gran (auto) Absolute Neuts (auto) Absolute Nucleated RBC Nucleated RBC % (auto) Neutrophils % (Manual) Band Neutrophils % Lymphocytes % (Manual) Monocytes % (Manual) Abs Neuts (Manual) Lymphocytes # (Manual) Monocytes # (Manual) Toxic Granulation Toxic Vacuolation Platelet Estimate Plt Morphology Comment RBC Morphology Spherocytes [place] Cells Schistocytes PT INR Sodium Potassium Chloride Carbon Dioxide Anion Gap BUN Creatinine Estim Creat Clear Calc Estimated GFR POC Glucose 136 H Random Glucose Lactic Acid Lactic Acid F/U @ 2Hr Lactic Acid F/U @ 4Hr Calcium Phosphorus Magnesium Total Bilirubin AST ALT Alkaline Phosphatase Troponin I High Sens Total Protein Albumin Urine Color Urine Appearance Urine pH Ur Specific [place] Urine Protein Urine Glucose (UA) Urine Ketones Urine Blood Urine Nitrite Ur Leukocyte Esterase Urine RBC Urine WBC Ur Squamous Epith Cells Urine Bacteria Hyaline Casts Urine Opiates Screen Not Detected Ur Buprenorphine Scrn Positive H Ur Oxycodone Screen Not Detected Urine Methadone Screen Not Detected Urine Fentanyl Screen POSITIVE H Ur Barbiturates Screen Not Detected Ur Phencyclidine Scrn Not Detected Ur Amphetamines Screen Not Detected U Benzodiazepines Scrn Not Detected Urine Cocaine Screen Not Detected U Marijuana (THC) Screen POSITIVE H Ethyl Alcohol 11 Lyme Screen IgG & IgM <0.90 COVID-19 (STEVE) COVID-19 Clin Com Influenza Type A (AISHA) Negative Influenza Type B (AISHA) Negative Influenza A & B Note See Note 07/15/25 07/15/25 07/15/25 15:18 15:30 17:00 WBC RBC Hgb Hct MCV MCH MCHC RDW Plt Count MPV Immature Gran % (Auto) Neut % (Auto) Lymph % (Auto) [place] % (Auto) Eos % (Auto) Baso % (Auto) Lymph # (Auto) [place] # (Auto) Eos # (Auto) Baso # (Auto) Abs Immat Gran (auto) Absolute Neuts (auto) Absolute Nucleated RBC Nucleated RBC % (auto) Neutrophils % (Manual) Band Neutrophils % Lymphocytes % (Manual) Monocytes % (Manual) Abs Neuts (Manual) Lymphocytes # (Manual) Monocytes # (Manual) Toxic Granulation Toxic Vacuolation Platelet Estimate Plt Morphology Comment RBC Morphology Spherocytes [place] Cells Schistocytes PT INR Sodium Potassium Chloride Carbon Dioxide Anion Gap BUN Creatinine Estim Creat Clear Calc Estimated GFR POC Glucose 100 Random Glucose Lactic Acid Lactic Acid F/U @ 2Hr 4.5 H* Lactic Acid F/U @ 4Hr Calcium Phosphorus 0.8 L* Magnesium Total Bilirubin AST ALT Alkaline Phosphatase Troponin I High Sens Total Protein Albumin Urine Color Urine Appearance Urine pH Ur Specific [place] Urine Protein Urine Glucose (UA) Urine Ketones Urine Blood Urine Nitrite Ur Leukocyte Esterase Urine RBC Urine WBC Ur Squamous Epith Cells Urine Bacteria Hyaline Casts Urine Opiates Screen Ur Buprenorphine Scrn Ur Oxycodone Screen Urine Methadone Screen Urine Fentanyl Screen Ur Barbiturates Screen Ur Phencyclidine Scrn Ur Amphetamines Screen U Benzodiazepines Scrn Urine Cocaine Screen U Marijuana (THC) Screen Ethyl Alcohol Lyme Screen IgG & IgM COVID-19 (STEVE) COVID-19 Clin Com Influenza Type A (AISHA) Influenza Type B (AISHA) Influenza A & B Note 07/15/25 07/16/25 07/16/25 17:46 00:12 05:58 WBC 13.7 H RBC 3.32 L Hgb 10.1 L Hct 30.8 L MCV 92.8 MCH 30.4 MCHC 32.8 RDW 15.4 Plt Count 80 L D MPV 11.7 Immature Gran % (Auto) Cancelled Neut % (Auto) Cancelled Lymph % (Auto) Cancelled [place] % (Auto) Cancelled Eos % (Auto) Cancelled Baso % (Auto) Cancelled Lymph # (Auto) Cancelled [place] # (Auto) Cancelled Eos # (Auto) Cancelled Baso # (Auto) Cancelled Abs Immat Gran (auto) Cancelled Absolute Neuts (auto) Cancelled Absolute Nucleated RBC 0.020 H Nucleated RBC % (auto) 0.1 Neutrophils % (Manual) 76 H Band Neutrophils % 19 H Lymphocytes % (Manual) 2 L Monocytes % (Manual) 3 Abs Neuts (Manual) 13.0 H Lymphocytes # (Manual) 0.3 L Monocytes # (Manual) 0.4 Toxic Granulation PRESENT Toxic Vacuolation PRESENT Platelet Estimate DECREASED Plt Morphology Comment NORMAL RBC Morphology NORMAL Spherocytes [place] Cells 3+ (>5) Schistocytes PT 25.7 H D INR 2.2 H Sodium Potassium Chloride Carbon Dioxide Anion Gap BUN Creatinine Estim Creat Clear Calc Estimated GFR POC Glucose 162 H Random Glucose Lactic Acid Lactic Acid F/U @ 2Hr Lactic Acid F/U @ 4Hr 2.9 H* Calcium Phosphorus Magnesium Total Bilirubin AST ALT Alkaline Phosphatase Troponin I High Sens Total Protein Albumin Urine Color Urine Appearance Urine pH Ur Specific [place] Urine Protein Urine Glucose (UA) Urine Ketones Urine Blood Urine Nitrite Ur Leukocyte Esterase Urine RBC Urine WBC Ur Squamous Epith Cells Urine Bacteria Hyaline Casts Urine Opiates Screen Ur Buprenorphine Scrn Ur Oxycodone Screen Urine Methadone Screen Urine Fentanyl Screen Ur Barbiturates Screen Ur Phencyclidine Scrn Ur Amphetamines Screen U Benzodiazepines Scrn Urine Cocaine Screen U Marijuana (THC) Screen Ethyl Alcohol Lyme Screen IgG & IgM COVID-19 (STEVE) COVID-19 Clin Com Influenza Type A (AISHA) Influenza Type B (AISHA) Influenza A & B Note 07/16/25 07/16/25 07/16/25 06:38 07:24 09:03 WBC RBC Hgb Hct MCV MCH MCHC RDW Plt Count MPV Immature Gran % (Auto) Neut % (Auto) Lymph % (Auto) [place] % (Auto) Eos % (Auto) Baso % (Auto) Lymph # (Auto) [place] # (Auto) Eos # (Auto) Baso # (Auto) Abs Immat Gran (auto) Absolute Neuts (auto) Absolute Nucleated RBC Nucleated RBC % (auto) Neutrophils % (Manual) Band Neutrophils % Lymphocytes % (Manual) Monocytes % (Manual) Abs Neuts (Manual) Lymphocytes # (Manual) Monocytes # (Manual) Toxic Granulation Toxic Vacuolation Platelet Estimate Plt Morphology Comment RBC Morphology Spherocytes [place] Cells Schistocytes PT INR Sodium 137 Potassium 5.4 H D Chloride 110 H Carbon Dioxide 21 L Anion Gap 11 L BUN 27 H Creatinine 1.49 H Estim Creat Clear Calc 38.1 Estimated GFR 47 POC Glucose 62 156 H Random Glucose 140 H Lactic Acid Lactic Acid F/U @ 2Hr Lactic Acid F/U @ 4Hr Calcium 7.9 L D Phosphorus 3.7 Magnesium 1.7 Total Bilirubin 0.4 AST 193 H ALT 208 H Alkaline Phosphatase 100 Troponin I High Sens Total Protein 5.6 L Albumin 3.1 L Urine Color Urine Appearance Urine pH Ur Specific [place] Urine Protein Urine Glucose (UA) Urine Ketones Urine Blood Urine Nitrite Ur Leukocyte Esterase Urine RBC Urine WBC Ur Squamous Epith Cells Urine Bacteria Hyaline Casts Urine Opiates Screen Ur Buprenorphine Scrn Ur Oxycodone Screen Urine Methadone Screen Urine Fentanyl Screen Ur Barbiturates Screen Ur Phencyclidine Scrn Ur Amphetamines Screen U Benzodiazepines Scrn Urine Cocaine Screen U Marijuana (THC) Screen Ethyl Alcohol Lyme Screen IgG & IgM COVID-19 (STEVE) COVID-19 Clin Com Influenza Type A (AISHA) Influenza Type B (AISHA) Influenza A & B Note Narrative Narrative: EKG 07/15/25 Vent. Rate : 82 BPM Atrial Rate : 82 BPM P-R Int : 140 ms QRS Dur : 88 ms QT Int : 348 ms P-R-T Axes : 77 81 76 degrees QTcB Int : 406 ms Sinus rhythm with Premature atrial complexes Anterior infarct , age undetermined Abnormal ECG When compared with ECG of 06-Jul-2025 07:31, Vent. rate has increased by [address] no longer elevated in Anterior leads Chest xray 07/15/25 IMPRESSION: 1. NG tube coiled in the superior esophagus. This device should be repositioned. 2. Lungs demonstrating patchy opacities bilaterally, not previously seen and possibly artifactual. Developing pneumonia or mild pulmonary edema is a possibility. Assessment and Plan Final Anesthetic Review Family History of Problems with Anesthesia: No History of Problems with Anesthesia: No Documented by User: Reji Martin MD 07/16/25 14:18 [facility] Past Medical History Medical History Nicotine dependence, cigarettes, uncomplicated Type 2 diabetes mellitus Hepatitis B Hepatitis C HIV (human immunodeficiency virus infection) Family History Family History Father Cancer of abdominal wall Paternal Uncle Cancer of abdominal wall Mother Alzheimer dementia Maternal Uncle Cancer Maternal Grandmother Cancer Surgical History Surgical History History of left inguinal hernia repair History of cystoscopy History of colonoscopy Social History Social History Household Members: None Housing: Apartment Do you presently have visiting nurse or other home services: Yes (housekeeping) Patient Tobacco Use Status: Current everyday Tobacco user Tobacco use type: Cigarette Cigarette Packs Per Day: 0.5 Cigarettes Per Day: 10.0 Substance Use Type: Marijuana service: No Current occupational status: retired [employer] Allergies Allergy/AdvReac Type Severity Reaction Status Date / Time No Known Allergies (No Known Allergy Verified 07/15/25 11:06 Allergies*) Home Medications ?Medication ?Instructions ?Recorded ?Confirmed ?Last Taken ?Type buprenorphine 8 mg-naloxone 2 mg 1 film sublingual DAILY 01/12/24 07/15/25 09/13/24 History sublingual film emtricitabine 200 mg-rilpivirine 1 tab PO DAILY 01/12/24 07/15/25 09/13/24 History 25 mg-tenofovir alafenam 25 mg tablet (Kristyn) lisinopril 2.5 mg tablet 2.5 mg PO DAILY 01/12/24 07/15/25 Unknown History metformin 500 mg tablet,extended 1,000 mg PO DAILY@1700 01/12/24 07/15/25 Unknown History release 24 hr mirtazapine 30 mg tablet 30 mg PO BEDTIME 01/12/24 07/15/25 Unknown History quetiapine 200 mg tablet 200 mg PO BEDTIME 01/12/24 07/15/25 Unknown History sertraline 100 mg tablet 100 mg PO DAILY 01/12/24 07/15/25 09/13/24 History calcium 500 mg (as carbonate)-vit 1 tab PO BID 07/15/25 07/15/25 Unknown History D3 10 mcg (400 unit) chewable tablet ferrous gluconate 324 mg (38 mg 324 mg PO QAM 07/15/25 07/15/25 Unknown History iron) tablet insulin glargine 100 unit/mL (3 34 unit subcut BEDTIME 07/15/25 07/15/25 Unknown History mL) subcutaneous pen (Lantus Solostar U-100 Insulin) Assessment and Plan Assessment Anesthesia Assessment: Anesthesia Plan Discussed and Chart Reviewed Final Anesthetic Review NPO: Yes ASA Class: III and Emergency Final Preanesthetic Review: No Changes in Pt Med Stat, Meds/Allgs Chart Reviewed, Consent Obtained/Reviewed and Anes Risks/Benef Reviewed Patient Risk: Intermediate Procedure Risk: Low Anesthetic Plan Anesthetic Plan: GA Disposition: Standard PACU
--- NOTE | 2025-07-16 10:18 | P.PNGS_ITS ---
Subjective Subjective Date of Service: 07/16/25 <Dennis Peraza PA-C - Last Filed: 07/16/25 14:31> 07/16/25 <Anam Centeno MD - Last Filed: 07/16/25 15:23> Interval history: Complaining of more abdominal pain today in the epigastric area. Endorses nausea, no vomiting. States he is passing gas. <Dennis Peraza PA-C - Last Filed: 07/16/25 14:31> Physical Exam 2 Vital Signs: Vital Signs: Last Vital Signs Temp 97.3 F 07/16/25 08:00 Pulse 67 07/16/25 09:00 Resp 17 07/16/25 09:00 BP 127/66 07/16/25 09:00 Pulse Ox 100 07/16/25 09:00 O2 Del Method Nasal Cannula 07/16/25 09:00 O2 Flow Rate 2 07/16/25 09:00 BMI result Body Mass Index 20.8 <Dennis Peraza PA-C - Last Filed: 07/16/25 14:31> Const: General: no acute distress <Dennis Peraza PA-C - Last Filed: 07/16/25 14:31> Orientation/consciousness: patient oriented x3 <Dennis Peraza PA-C - Last Filed: 07/16/25 14:31> Resp: Effort & Inspection: normal respiratory effort and able to speak in complete sentences <Dennis Peraza PA-C - Last Filed: 07/16/25 14:31> GI: Inspection: Yes distended (Mild) <Dennis Peraza PA-C - Last Filed: 07/16/25 14:31> Palpation (GI): Soft to palpation (All areas aside from epigastric), Firmness to palpation present (GI) other (Epigastric), Tenderness to palpation present (GI) in the epigastrum and Guarding due to palpation present (GI) (Voluntary) < TALHA Sandoval Last Filed: 07/16/25 14:31> Percussion: Yes tympanic to percussion <TALHA Sandoval Last Filed: 07/16/25 14:31> Neuro: General: patient oriented x3 <TALHA Sandoval Last Filed: 07/16/25 14:31> Objective Data Active Medications Buprenorphine/Naloxone (Buprenorphine/Naloxone 8/2 Mg Film) 1 film SUBLINGUAL DAILY [facility] Last Admin: 07/16/25 10:02 Dose: 1 film Documented By: GIOVANI Dextrose (Dextrose 50 % 25 Gm/50 Ml Syringe) 25 gm IVPUSH Q15M PRN; Protocol PRN Reason: per Hypoglycemia Standing Ord. Last Admin: 07/16/25 06:49 Dose: 25 gm Documented By: JOSEPH Emtricitabine/Tenofovir Alafenamide (Emtricitabine/Tenofov Alafenam Tablet) 1 tab PO DAILY [facility] Famotidine (Famotidine/Pf 20 Mg/2 Ml Vial) 20 mg IVPUSH BID [facility] Last Admin: 07/16/25 10:02 Dose: 20 mg Documented By: GIOVANI Heparin Sodium (Porcine) (Heparin Sodium,Porcine 5,000 Unit/Ml Vial) 5,000 unit SUBCUT Q8H [facility] Last Admin: 07/16/25 09:29 Dose: Not Given Documented By: GIOVANI Non-Admin Reason: Physician Held Med Hydromorphone HCl (Hydromorphone Hcl 1 Mg/Ml Syringe) 0.5 mg IVPUSH Q4H PRN; Protocol PRN Reason: Pain, Moderate(Pain Scale 4-6) Last Admin: 07/16/25 03:02 Dose: 0.5 mg Documented By: JOSEPH Dextrose/Sodium Chloride (D5ns) 1,000 mls @ 150 mls/hr IVCONT .Q6H40M [facility] Last Infusion: 07/16/25 06:42 Dose: 150 mls/hr Documented By: JOSEPH Norepinephrine Bitartrate (Levophed) 8 mg in 250 mls @ 0 mls/hr IVCONT .Q0M [facility]; Protocol Last Titration: 07/16/25 05:18 Dose: 0 mcg/kg/min, 0 mls/hr Documented By: JOSEPH Piperacillin Sod/Tazobactam (Sod 4.5 gm/ Sodium Chloride) 100 mls @ 200 mls/hr IV Q8H [facility] Last Infusion: 07/16/25 04:36 Dose: Infused Documented By: JOSEPH Potassium Phosphate (Kphos) 15 mmol in 250 mls @ 62.5 mls/hr IV ONCE ONE Stop: 07/16/25 10:44 Last Admin: 07/16/25 06:49 Dose: 62.5 mls/hr Documented By: JOSEPH Insulin Human Lispro (Insulin Lispro 100 Unit/Ml 3 Ml Vial) 0 unit SUBCUT Q6H [facility]; Protocol Last Admin: 07/16/25 06:39 Dose: Not Given Documented By: JOSEPH Non-Admin Reason: No Insulin Coverage Mirtazapine (Mirtazapine 30 Mg Tablet) 30 mg PO BEDTIME [facility] Nicotine (Nicotine 14 Mg Patch.Td24) 14 mg TRANSDERMA DAILY [facility] Last Admin: 07/16/25 05:53 Dose: 14 mg Documented By: SUNDAR Ondansetron HCl (Ondansetron Hcl 4 Mg/2 Ml Vial) 4 mg IVPUSH Q8H PRN PRN Reason: Nausea and Vomiting Last Admin: 07/16/25 10:15 Dose: 4 mg Documented By: GIOVANI Quetiapine Fumarate (Quetiapine Fumarate 200 Mg Tablet) 200 mg PO BEDTIME [facility] Rilpivirine (Rilpivirine Hcl 25 Mg Tablet) 25 mg PO DAILY [facility] Sertraline HCl (Sertraline Hcl 100 Mg Tablet) 100 mg PO DAILY [facility] <Dennis Peraza PA-C - Last Filed: 07/16/25 14:31> Labs CBC & Chem 7: 07/16/25 05:58 07/16/25 09:03 <Dennis Peraza PA-C - Last Filed: 07/16/25 14:31> Labs: Laboratory Results - last 24 hr 07/15/25 07/15/25 07/15/25 11:13 11:37 12:02 MCV 94.0 MCH 30.5 MCHC 32.5 RDW 15.1 Plt Count 115 L MPV 10.5 Immature Gran % (Auto) Cancelled Neut % (Auto) Cancelled Lymph % (Auto) Cancelled Foster % (Auto) Cancelled Eos % (Auto) Cancelled Baso % (Auto) Cancelled Lymph # (Auto) Cancelled Foster # (Auto) Cancelled Eos # (Auto) Cancelled Baso # (Auto) Cancelled Abs Immat Gran (auto) Cancelled Absolute Neuts (auto) Cancelled Absolute Nucleated RBC 0.000 Nucleated RBC % (auto) 0.0 Neutrophils % (Manual) 77 H Band Neutrophils % 11 H Lymphocytes % (Manual) 6 L Monocytes % (Manual) 6 Abs Neuts (Manual) 8.9 H Lymphocytes # (Manual) 0.6 L Monocytes # (Manual) 0.6 Toxic Granulation Toxic Vacuolation Platelet Estimate DECREASED Plt Morphology Comment NORMAL RBC Morphology NOTED Spherocytes 1+ (0-2) Lowes Cells Schistocytes 1+ (0-2) PT INR Anion Gap 14 Estim Creat Clear Calc 28.5 Estimated GFR 34 POC Glucose Random Glucose 33 L* Lactic Acid 3.9 H* Lactic Acid F/U @ 2Hr Lactic Acid F/U @ 4Hr Calcium 9.1 Phosphorus Magnesium Total Bilirubin 0.8 AST 653 H ALT 364 H Alkaline Phosphatase 154 H Troponin I High Sens 299.9 H* Total Protein 6.4 L Albumin 3.6 Urine Color Yellow Urine Appearance Cloudy Urine pH 6.0 Ur Specific [place] 1.010 Urine Protein 100 (2+) H Urine Glucose (UA) Negative Urine Ketones Negative Urine Blood Large (3+) H Urine Nitrite Negative Ur Leukocyte Esterase Large (3+) H Urine RBC >20 H Urine WBC >50 H Ur Squamous Epith Cells 0-2 Urine Bacteria 4+ Hyaline Casts 0-2 Urine Opiates Screen Ur Buprenorphine Scrn Ur Oxycodone Screen Urine Methadone Screen Urine Fentanyl Screen Ur Barbiturates Screen Ur Phencyclidine Scrn Ur Amphetamines Screen U Benzodiazepines Scrn Urine Cocaine Screen U Marijuana (THC) Screen Ethyl Alcohol Lyme Screen IgG & IgM COVID-19 (STEVE) Negative COVID-19 Clin Com See Note Influenza Type A (AISHA) Negative Influenza Type B (AISHA) Negative Influenza A & B Note See Note 07/15/25 07/15/25 07/15/25 12:14 12:39 12:58 MCV MCH MCHC RDW Plt Count MPV Immature Gran % (Auto) Neut % (Auto) Lymph % (Auto) Foster % (Auto) Eos % (Auto) Baso % (Auto) Lymph # (Auto) Foster # (Auto) Eos # (Auto) Baso # (Auto) Abs Immat Gran (auto) Absolute Neuts (auto) Absolute Nucleated RBC Nucleated RBC % (auto) Neutrophils % (Manual) Band Neutrophils % Lymphocytes % (Manual) Monocytes % (Manual) Abs Neuts (Manual) Lymphocytes # (Manual) Monocytes # (Manual) Toxic Granulation Toxic Vacuolation Platelet Estimate Plt Morphology Comment RBC Morphology Spherocytes Lowes Cells Schistocytes PT INR Anion Gap Estim Creat Clear Calc Estimated GFR POC Glucose 36 L* 114 162 H Random Glucose Lactic Acid Lactic Acid F/U @ 2Hr Lactic Acid F/U @ 4Hr Calcium Phosphorus Magnesium Total Bilirubin AST ALT Alkaline Phosphatase Troponin I High Sens Total Protein Albumin Urine Color Urine Appearance Urine pH Ur Specific [place] Urine Protein Urine Glucose (UA) Urine Ketones Urine Blood Urine Nitrite Ur Leukocyte Esterase Urine RBC Urine WBC Ur Squamous Epith Cells Urine Bacteria Hyaline Casts Urine Opiates Screen Ur Buprenorphine Scrn Ur Oxycodone Screen Urine Methadone Screen Urine Fentanyl Screen Ur Barbiturates Screen Ur Phencyclidine Scrn Ur Amphetamines Screen U Benzodiazepines Scrn Urine Cocaine Screen U Marijuana (THC) Screen Ethyl Alcohol Lyme Screen IgG & IgM COVID-19 (STEVE) COVID-19 Clin Com Influenza Type A (AISHA) Influenza Type B (AISHA) Influenza A & B Note 07/15/25 07/15/25 07/15/25 13:44 14:03 14:04 MCV MCH MCHC RDW Plt Count MPV Immature Gran % (Auto) Neut % (Auto) Lymph % (Auto) Foster % (Auto) Eos % (Auto) Baso % (Auto) Lymph # (Auto) Foster # (Auto) Eos # (Auto) Baso # (Auto) Abs Immat Gran (auto) Absolute Neuts (auto) Absolute Nucleated RBC Nucleated RBC % (auto) Neutrophils % (Manual) Band Neutrophils % Lymphocytes % (Manual) Monocytes % (Manual) Abs Neuts (Manual) Lymphocytes # (Manual) Monocytes # (Manual) Toxic Granulation Toxic Vacuolation Platelet Estimate Plt Morphology Comment RBC Morphology Spherocytes Lowes Cells Schistocytes PT INR Anion Gap Estim Creat Clear Calc Estimated GFR POC Glucose 136 H Random Glucose Lactic Acid Lactic Acid F/U @ 2Hr Lactic Acid F/U @ 4Hr Calcium Phosphorus Magnesium Total Bilirubin AST ALT Alkaline Phosphatase Troponin I High Sens Total Protein Albumin Urine Color Urine Appearance Urine pH Ur Specific [place] Urine Protein Urine Glucose (UA) Urine Ketones Urine Blood Urine Nitrite Ur Leukocyte Esterase Urine RBC Urine WBC Ur Squamous Epith Cells Urine Bacteria Hyaline Casts Urine Opiates Screen Not Detected Ur Buprenorphine Scrn Positive H Ur Oxycodone Screen Not Detected Urine Methadone Screen Not Detected Urine Fentanyl Screen POSITIVE H Ur Barbiturates Screen Not Detected Ur Phencyclidine Scrn Not Detected Ur Amphetamines Screen Not Detected U Benzodiazepines Scrn Not Detected Urine Cocaine Screen Not Detected U Marijuana (THC) Screen POSITIVE H Ethyl Alcohol 11 Lyme Screen IgG & IgM <0.90 COVID-19 (STEVE) COVID-19 Clin Com Influenza Type A (AISHA) Negative Influenza Type B (AISHA) Negative Influenza A & B Note See Note 07/15/25 07/15/25 07/15/25 15:18 15:30 17:00 MCV MCH MCHC RDW Plt Count MPV Immature Gran % (Auto) Neut % (Auto) Lymph % (Auto) Foster % (Auto) Eos % (Auto) Baso % (Auto) Lymph # (Auto) Foster # (Auto) Eos # (Auto) Baso # (Auto) Abs Immat Gran (auto) Absolute Neuts (auto) Absolute Nucleated RBC Nucleated RBC % (auto) Neutrophils % (Manual) Band Neutrophils % Lymphocytes % (Manual) Monocytes % (Manual) Abs Neuts (Manual) Lymphocytes # (Manual) Monocytes # (Manual) Toxic Granulation Toxic Vacuolation Platelet Estimate Plt Morphology Comment RBC Morphology Spherocytes Lowes Cells Schistocytes PT INR Anion Gap Estim Creat Clear Calc Estimated GFR POC Glucose 100 Random Glucose Lactic Acid Lactic Acid F/U @ 2Hr 4.5 H* Lactic Acid F/U @ 4Hr Calcium Phosphorus 0.8 L* Magnesium Total Bilirubin AST ALT Alkaline Phosphatase Troponin I High Sens Total Protein Albumin Urine Color Urine Appearance Urine pH Ur Specific [place] Urine Protein Urine Glucose (UA) Urine Ketones Urine Blood Urine Nitrite Ur Leukocyte Esterase Urine RBC Urine WBC Ur Squamous Epith Cells Urine Bacteria Hyaline Casts Urine Opiates Screen Ur Buprenorphine Scrn Ur Oxycodone Screen Urine Methadone Screen Urine Fentanyl Screen Ur Barbiturates Screen Ur Phencyclidine Scrn Ur Amphetamines Screen U Benzodiazepines Scrn Urine Cocaine Screen U Marijuana (THC) Screen Ethyl Alcohol Lyme Screen IgG & IgM COVID-19 (STEVE) COVID-19 Clin Com Influenza Type A (AISHA) Influenza Type B (AISHA) Influenza A & B Note 07/15/25 07/16/25 07/16/25 17:46 00:12 05:58 MCV 92.8 MCH 30.4 MCHC 32.8 RDW 15.4 Plt Count 80 L D MPV 11.7 Immature Gran % (Auto) Cancelled Neut % (Auto) Cancelled Lymph % (Auto) Cancelled Foster % (Auto) Cancelled Eos % (Auto) Cancelled Baso % (Auto) Cancelled Lymph # (Auto) Cancelled Foster # (Auto) Cancelled Eos # (Auto) Cancelled Baso # (Auto) Cancelled Abs Immat Gran (auto) Cancelled Absolute Neuts (auto) Cancelled Absolute Nucleated RBC 0.020 H Nucleated RBC % (auto) 0.1 Neutrophils % (Manual) 76 H Band Neutrophils % 19 H Lymphocytes % (Manual) 2 L Monocytes % (Manual) 3 Abs Neuts (Manual) 13.0 H Lymphocytes # (Manual) 0.3 L Monocytes # (Manual) 0.4 Toxic Granulation PRESENT Toxic Vacuolation PRESENT Platelet Estimate DECREASED Plt Morphology Comment NORMAL RBC Morphology NORMAL Spherocytes Tiki Cells 3+ (>5) Schistocytes PT 25.7 H D INR 2.2 H Anion Gap Estim Creat Clear Calc Estimated GFR POC Glucose 162 H Random Glucose Lactic Acid Lactic Acid F/U @ 2Hr Lactic Acid F/U @ 4Hr 2.9 H* Calcium Phosphorus Magnesium Total Bilirubin AST ALT Alkaline Phosphatase Troponin I High Sens Total Protein Albumin Urine Color Urine Appearance Urine pH Ur Specific [place] Urine Protein Urine Glucose (UA) Urine Ketones Urine Blood Urine Nitrite Ur Leukocyte Esterase Urine RBC Urine WBC Ur Squamous Epith Cells Urine Bacteria Hyaline Casts Urine Opiates Screen Ur Buprenorphine Scrn Ur Oxycodone Screen Urine Methadone Screen Urine Fentanyl Screen Ur Barbiturates Screen Ur Phencyclidine Scrn Ur Amphetamines Screen U Benzodiazepines Scrn Urine Cocaine Screen U Marijuana (THC) Screen Ethyl Alcohol Lyme Screen IgG & IgM COVID-19 (STEVE) COVID-19 Clin Com Influenza Type A (AISHA) Influenza Type B (AISHA) Influenza A & B Note 07/16/25 07/16/25 07/16/25 06:38 07:24 09:03 MCV MCH MCHC RDW Plt Count MPV Immature Gran % (Auto) Neut % (Auto) Lymph % (Auto) Foster % (Auto) Eos % (Auto) Baso % (Auto) Lymph # (Auto) Foster # (Auto) Eos # (Auto) Baso # (Auto) Abs Immat Gran (auto) Absolute Neuts (auto) Absolute Nucleated RBC Nucleated RBC % (auto) Neutrophils % (Manual) Band Neutrophils % Lymphocytes % (Manual) Monocytes % (Manual) Abs Neuts (Manual) Lymphocytes # (Manual) Monocytes # (Manual) Toxic Granulation Toxic Vacuolation Platelet Estimate Plt Morphology Comment RBC Morphology Spherocytes Lowes Cells Schistocytes PT INR Anion Gap 11 L Estim Creat Clear Calc 38.1 Estimated GFR 47 POC Glucose 62 156 H Random Glucose 140 H Lactic Acid Lactic Acid F/U @ 2Hr Lactic Acid F/U @ 4Hr Calcium 7.9 L D Phosphorus 3.7 Magnesium 1.7 Total Bilirubin 0.4 AST 193 H ALT 208 H Alkaline Phosphatase 100 Troponin I High Sens Total Protein 5.6 L Albumin 3.1 L Urine Color Urine Appearance Urine pH Ur Specific [place] Urine Protein Urine Glucose (UA) Urine Ketones Urine Blood Urine Nitrite Ur Leukocyte Esterase Urine RBC Urine WBC Ur Squamous Epith Cells Urine Bacteria Hyaline Casts Urine Opiates Screen Ur Buprenorphine Scrn Ur Oxycodone Screen Urine Methadone Screen Urine Fentanyl Screen Ur Barbiturates Screen Ur Phencyclidine Scrn Ur Amphetamines Screen U Benzodiazepines Scrn Urine Cocaine Screen U Marijuana (THC) Screen Ethyl Alcohol Lyme Screen IgG & IgM COVID-19 (STEVE) COVID-19 Clin Com Influenza Type A (AISHA) Influenza Type B (AISHA) Influenza A & B Note <Dennis Peraza PA-C - Last Filed: 07/16/25 14:31> Microbiology Microbiology Results: Microbiology 07/15/25 12:05 Blood Culture - Preliminary Blood - Venous Prelim: GNR Gram Stain only 07/15/25 12:02 Blood Culture - Preliminary Blood - Venous Prelim: GNR Gram Stain only <Dennis Peraza PA-C - Last Filed: 07/16/25 14:31> Procedures Date of Service Date of Service: 07/16/25 <Dennis Peraza PA-C - Last Filed: 07/16/25 14:31> 07/16/25 <Anam Centeno MD - Last Filed: 07/16/25 15:23> Progress Note: A&P Assessment and plan (1) Abdominal pain: Status: Acute <Dennis Peraza PA-C - Last Filed: 07/16/25 14:31> Assessment and Plan: The patient has had cystoscopy Currently confused from postop anesthesia Abdomen is soft and appears benign Endoscopy plan tomorrow for question of gastric outlet obstruction Question of cholecystitis If needing intervention for cholecystitis, would recommend IR drainage in view of the patient's overall medical condition Seen and examined independently <Anam Centeno MD - Last Filed: 07/16/25 15:23> Assessment and Plan: 69-year-old male admitted to ICU for sepsis, possibly secondary to complex UTI. General surgery following for ultrasound showing cholelithiasis, gallbladder edema, elevated liver enzymes. Patient complaining of epigastric pain today. Endorses nausea, no vomiting. On exam abdomen mildly distended, tympanic to percussion in the epigastric area. He is very tender in the epigastric area. At this time symptoms seem largely related to his gastric outlet obstruction and markedly distended stomach. He does have elevated transaminases which may be related to his underlying liver pathologies or secondary to edema from sepsis. Ingot Caster ordering HIDA scan results pending. Patient seen by Dr Boucher, recommending repeat KUB, if remains distended NG tube for decompression. Tentatively scheduled for EGD tomorrow. Will continue to follow during this admission <Dennis Peraza PA-C - Last Filed: 07/16/25 14:31> Time Spent With Patient Time: Total time managing care of this patient today ____ minutes. <Dennis Peraza PA-C - Last Filed: 07/16/25 14:31> Quality Stroke Does the patient have a stroke diagnosis?: No <Dennis Peraza PA-C - Last Filed: 07/16/25 14:31> VTE Prior VTE?: No <Dennis Peraza PA-C - Last Filed: 07/16/25 14:31> VTE Risk Level:: Medical - low <Dennis Peraza PA-C - Last Filed: 07/16/25 14:31> VTE Device Contraindication: N/A - Device Ordered <Dennis Peraza PA-C - Last Filed: 07/16/25 14:31> VTE Drug Contraindication: N/A - Med Ordered <Dennis Peraza PA-C - Last Filed: 07/16/25 14:31>
[2025-07-16 10:26] LABS: Glucose, Whole Blood 106 mg/dL (60-115)
[2025-07-16 12:13] LABS: Glucose, Whole Blood 86 mg/dL (60-115)
[2025-07-16 12:56] LABS: Glucose, Whole Blood 95 mg/dL (60-115)
[2025-07-16] MEDS: Dextrose 10 % 1,000 ML 100 ML IVCONT (13:06)
--- NOTE | 2025-07-16 13:31 | PM.UROCN ---
History of Present Illness Consult details Consult date: 07/16/25 Narrative: 69-year-old gentleman with past medical history of HIV disease on HAART, hepatitis-B and C, prostate cancer, hypertension, BPH requiring intermittent catheterization for dysuria presents to the ED with complaints of pain during urination. He requested to place in a Angel to help him pass urine. In the ED he was found to be hypotensive, CT abdomen and pelvis was done which showed right-sided hydroureter with proximal ureteric calculi. Also CT abdomen was also suggesting gastric outlet obstruction, has significant transaminitis underwent ultrasound of the abdomen which showed cholelithiasis with gallbladder wall edema. He received septic bolus fluids, but persisted to be hypotensive so MICU was consulted for admission. CTAP - Right hydro secondary to 7 mm right ureteric stone Review of Systems Review of Systems: Yes all other systems are reviewed and are negative Constitutional: Constitutional: Reports no additional constitutional complaints Eyes: Eyes: Reports no additional eye complaints ENT: Reports system reviewed and no additional complaints, except as documented Cardiovascular: Cardiovascular: Reports no additional cardiovascular complaints Respiratory: Respiratory: Reports no additional respiratory complaints Gastrointestinal: Gastrointestinal: Reports no additional gastrointestinal complaints Genitourinary: Genitourinary: Reports as per HPI Musculoskeletal: Musculoskeletal: Reports no additional musculoskeletal complaints Integumentary/Breasts: Skin/Breast: Reports system reviewed and no additional complaints, except as docu Neurologic: Reports system reviewed and no additional complaints, except as documented Psychiatric: Psychiatric: Reports no additional psychiatric complaints Endocrine: Endocrine: Reports no additional endocrine complaints Hematologic/Lymphatic: Hematologic/Lymphatic: Reports no additional hematologic/lymphatic complaints Allergic/Immunologic: Allergic/Immunologic: Reports no additional allergic/immunologic complaints [facility] Past Medical History Medical History Nicotine dependence, cigarettes, uncomplicated Type 2 diabetes mellitus Hepatitis B Hepatitis C HIV (human immunodeficiency virus infection) Family History Family History Father Cancer of abdominal wall Paternal Uncle Cancer of abdominal wall Mother Alzheimer dementia Maternal Uncle Cancer Maternal Grandmother Cancer Surgical History Surgical History History of left inguinal hernia repair History of cystoscopy History of colonoscopy Social History Social History Household Members: None Housing: Apartment Do you presently have visiting nurse or other home services: Yes (housekeeping) Patient Tobacco Use Status: Current everyday Tobacco user Tobacco use type: Cigarette Cigarette Packs Per Day: 0.5 Cigarettes Per Day: 10.0 Substance Use Type: Marijuana service: No Current occupational status: retired Meds Allergies Allergy/AdvReac Type Severity Reaction Status Date / Time No Known Allergies (No Known Allergy Verified 07/15/25 11:06 Allergies*) Active Medications: Current Medications Buprenorphine/Naloxone (Buprenorphine/Naloxone 8/2 Mg Film) 1 film SUBLINGUAL DAILY [facility] Last Admin: 07/16/25 10:02 Dose: 1 film Dextrose (Dextrose 50 % 25 Gm/50 Ml Syringe) 25 gm IVPUSH Q15M PRN; Protocol PRN Reason: per Hypoglycemia Standing Ord. Last Admin: 07/16/25 06:49 Dose: 25 gm Emtricitabine/Tenofovir Alafenamide (Emtricitabine/Tenofov Alafenam Tablet) 1 tab PO DAILY [facility] Famotidine (Famotidine/Pf 20 Mg/2 Ml Vial) 20 mg IVPUSH BID GERMAN Last Admin: 07/16/25 10:02 Dose: 20 mg Heparin Sodium (Porcine) (Heparin Sodium,Porcine 5,000 Unit/Ml Vial) 5,000 unit SUBCUT Q8H GERMAN Last Admin: 07/16/25 09:29 Dose: Not Given Hydromorphone HCl (Hydromorphone Hcl 1 Mg/Ml Syringe) 0.5 mg IVPUSH Q4H PRN; Protocol PRN Reason: Pain, Moderate(Pain Scale 4-6) Last Admin: 07/16/25 03:02 Dose: 0.5 mg Piperacillin Sod/Tazobactam (Sod 4.5 gm/ Sodium Chloride) 100 mls @ 200 mls/hr IV Q8H GER[facility] Last Infusion: 07/16/25 12:02 Dose: Infused Dextrose (D10) 1,000 mls @ 100 mls/hr IVCONT .Q10H GERMAN Last Admin: 07/16/25 13:06 Dose: 100 mls/hr Insulin Human Lispro (Insulin Lispro 100 Unit/Ml 3 Ml Vial) 0 unit SUBCUT Q6H GERMAN; Protocol Last Admin: 07/16/25 13:06 Dose: Not Given Mirtazapine (Mirtazapine 30 Mg Tablet) 30 mg PO BEDTIME [facility] Nicotine (Nicotine 14 Mg Patch.Td24) 14 mg TRANSDERMA DAILY GERMAN Last Admin: 07/16/25 05:53 Dose: 14 mg Ondansetron HCl (Ondansetron Hcl 4 Mg/2 Ml Vial) 4 mg IVPUSH Q8H PRN PRN Reason: Nausea and Vomiting Last Admin: 07/16/25 10:15 Dose: 4 mg Quetiapine Fumarate (Quetiapine Fumarate 200 Mg Tablet) 200 mg PO BEDTIME [facility] Rilpivirine (Rilpivirine Hcl 25 Mg Tablet) 25 mg PO DAILY [facility] Sertraline HCl (Sertraline Hcl 100 Mg Tablet) 100 mg PO DAILY [facility] Home Medications ?Medication ?Instructions ?Recorded ?Confirmed ?Last Taken ?Type buprenorphine 8 mg-naloxone 2 mg 1 film sublingual DAILY 01/12/24 07/15/25 09/13/24 History sublingual film emtricitabine 200 mg-rilpivirine 1 tab PO DAILY 01/12/24 07/15/25 09/13/24 History 25 mg-tenofovir alafenam 25 mg tablet (Kristyn) lisinopril 2.5 mg tablet 2.5 mg PO DAILY 01/12/24 07/15/25 Unknown History metformin 500 mg tablet,extended 1,000 mg PO DAILY@1700 01/12/24 07/15/25 Unknown History release 24 hr mirtazapine 30 mg tablet 30 mg PO BEDTIME 01/12/24 07/15/25 Unknown History quetiapine 200 mg tablet 200 mg PO BEDTIME 01/12/24 07/15/25 Unknown History sertraline 100 mg tablet 100 mg PO DAILY 01/12/24 07/15/25 09/13/24 History calcium 500 mg (as carbonate)-vit 1 tab PO BID 07/15/25 07/15/25 Unknown History D3 10 mcg (400 unit) chewable tablet ferrous gluconate 324 mg (38 mg 324 mg PO QAM 07/15/25 07/15/25 Unknown History iron) tablet insulin glargine 100 unit/mL (3 34 unit subcut BEDTIME 07/15/25 07/15/25 Unknown History mL) subcutaneous pen (Lantus Solostar U-100 Insulin) Physical Exam Vital Signs: Vital Signs: Last Vital Signs Temp 97.3 F 07/16/25 12:00 Pulse 63 07/16/25 13:00 Resp 16 07/16/25 12:00 BP 120/63 07/16/25 13:00 Pulse Ox 99 07/16/25 12:00 O2 Del Method Nasal Cannula 07/16/25 12:00 O2 Flow Rate 2 07/16/25 12:00 BMI result Body Mass Index 20.8 Const: Orientation/consciousness: patient oriented x3 HEENT: Head: Yes normocephalic and Yes atraumatic Eyes: Conjunctivae: conjunctivae normal Neck: Neck: Yes normal visual inspection Chest: Chest palpation & inspection: normal inspection of the chest Resp: Effort & Inspection: normal respiratory effort GI: Inspection: Yes normal to inspection Neuro: General: patient oriented x3 Psych: Appearance: grossly normal Affect: normal affect Results Labs 07/16/25 05:58 07/16/25 09:03 Labs: Abnormal lab results 07/15/25 07/15/25 07/15/25 Range/Units 12:14 12:58 13:44 WBC (4.8-10.8) X10*3/uL RBC (4.60-5.80) X10*6/uL Hgb (14.0-18.0) g/dl Hct (42.0-52.0) % Plt Count (160-400) X10*3/uL Absolute Nucleated RBC (0.0-0.012) X10*3/uL Neutrophils % (Manual) (45-73) % Band Neutrophils % (3-5) % Lymphocytes % (Manual) (20-40) % Abs Neuts (Manual) (2.0-8.3) X10*3/uL Lymphocytes # (Manual) (1.2-4.9) X10*3/uL PT (10.9-12.4) SEC INR (0.9-1.1) Potassium (3.3-5.1) mmol/L Chloride (96-108) mmol/L Carbon Dioxide (22-29) mmol/L Anion Gap (12-20) BUN (9-16) mg/dL Creatinine (0.5-1.4) mg/dL POC Glucose 36 L* 162 H 136 H (60-115) mg/dL Random Glucose (60-115) mg/dL Lactic Acid F/U @ 2Hr (0.5-2.0) mmol/L Lactic Acid F/U @ 4Hr (0.5-2.0) mmol/L Calcium (8.4-10.2) mg/dL Phosphorus (2.7-4.5) mg/dL AST (5-37) U/L ALT (0-40) U/L Total Protein (6.5-8.0) g/dL Albumin (3.5-5.0) g/dL Ur Buprenorphine Scrn (Not Detect) ng/mL Urine Fentanyl Screen (Not Detect) U Marijuana (THC) Screen (Not Detect) 07/15/25 07/15/25 07/15/25 Range/Units 14:04 15:18 17:00 WBC (4.8-10.8) X10*3/uL RBC (4.60-5.80) X10*6/uL Hgb (14.0-18.0) g/dl Hct (42.0-52.0) % Plt Count (160-400) X10*3/uL Absolute Nucleated RBC (0.0-0.012) X10*3/uL Neutrophils % (Manual) (45-73) % Band Neutrophils % (3-5) % Lymphocytes % (Manual) (20-40) % Abs Neuts (Manual) (2.0-8.3) X10*3/uL Lymphocytes # (Manual) (1.2-4.9) X10*3/uL PT (10.9-12.4) SEC INR (0.9-1.1) Potassium (3.3-5.1) mmol/L Chloride (96-108) mmol/L Carbon Dioxide (22-29) mmol/L Anion Gap (12-20) BUN (9-16) mg/dL Creatinine (0.5-1.4) mg/dL POC Glucose (60-115) mg/dL Random Glucose (60-115) mg/dL Lactic Acid F/U @ 2Hr 4.5 H* (0.5-2.0) mmol/L Lactic Acid F/U @ 4Hr (0.5-2.0) mmol/L Calcium (8.4-10.2) mg/dL Phosphorus 0.8 L* (2.7-4.5) mg/dL AST (5-37) U/L ALT (0-40) U/L Total Protein (6.5-8.0) g/dL Albumin (3.5-5.0) g/dL Ur Buprenorphine Scrn Positive H (Not Detect) ng/mL Urine Fentanyl Screen POSITIVE H (Not Detect) U Marijuana (THC) Screen POSITIVE H (Not Detect) 07/15/25 07/16/25 07/16/25 Range/Units 17:46 00:12 05:58 WBC 13.7 H (4.8-10.8) X10*3/uL RBC 3.32 L (4.60-5.80) X10*6/uL Hgb 10.1 L (14.0-18.0) g/dl Hct 30.8 L (42.0-52.0) % Plt Count 80 L D (160-400) X10*3/uL Absolute Nucleated RBC 0.020 H (0.0-0.012) X10*3/uL Neutrophils % (Manual) 76 H (45-73) % Band Neutrophils % 19 H (3-5) % Lymphocytes % (Manual) 2 L (20-40) % Abs Neuts (Manual) 13.0 H (2.0-8.3) X10*3/uL Lymphocytes # (Manual) 0.3 L (1.2-4.9) X10*3/uL PT 25.7 H D (10.9-12.4) SEC INR 2.2 H (0.9-1.1) Potassium (3.3-5.1) mmol/L Chloride (96-108) mmol/L Carbon Dioxide (22-29) mmol/L Anion Gap (12-20) BUN (9-16) mg/dL Creatinine (0.5-1.4) mg/dL POC Glucose 162 H (60-115) mg/dL Random Glucose (60-115) mg/dL Lactic Acid F/U @ 2Hr (0.5-2.0) mmol/L Lactic Acid F/U @ 4Hr 2.9 H* (0.5-2.0) mmol/L Calcium (8.4-10.2) mg/dL Phosphorus (2.7-4.5) mg/dL AST (5-37) U/L ALT (0-40) U/L Total Protein (6.5-8.0) g/dL Albumin (3.5-5.0) g/dL Ur Buprenorphine Scrn (Not Detect) ng/mL Urine Fentanyl Screen (Not Detect) U Marijuana (THC) Screen (Not Detect) 07/16/25 07/16/25 Range/Units 07:24 09:03 WBC (4.8-10.8) X10*3/uL RBC (4.60-5.80) X10*6/uL Hgb (14.0-18.0) g/dl Hct (42.0-52.0) % Plt Count (160-400) X10*3/uL Absolute Nucleated RBC (0.0-0.012) X10*3/uL Neutrophils % (Manual) (45-73) % Band Neutrophils % (3-5) % Lymphocytes % (Manual) (20-40) % Abs Neuts (Manual) (2.0-8.3) X10*3/uL Lymphocytes # (Manual) (1.2-4.9) X10*3/uL PT (10.9-12.4) SEC INR (0.9-1.1) Potassium 5.4 H D (3.3-5.1) mmol/L Chloride 110 H (96-108) mmol/L Carbon Dioxide 21 L (22-29) mmol/L Anion Gap 11 L (12-20) BUN 27 H (9-16) mg/dL Creatinine 1.49 H (0.5-1.4) mg/dL POC Glucose 156 H (60-115) mg/dL Random Glucose 140 H (60-115) mg/dL Lactic Acid F/U @ 2Hr (0.5-2.0) mmol/L Lactic Acid F/U @ 4Hr (0.5-2.0) mmol/L Calcium 7.9 L D (8.4-10.2) mg/dL Phosphorus (2.7-4.5) mg/dL AST 193 H (5-37) U/L ALT 208 H (0-40) U/L Total Protein 5.6 L (6.5-8.0) g/dL Albumin 3.1 L (3.5-5.0) g/dL Ur Buprenorphine Scrn (Not Detect) ng/mL Urine Fentanyl Screen (Not Detect) U Marijuana (THC) Screen (Not Detect) Short CBC 07/16/25 Range/Units 05:58 WBC 13.7 H (4.8-10.8) X10*3/uL Hgb 10.1 L (14.0-18.0) g/dl Hct 30.8 L (42.0-52.0) % Plt Count 80 L D (160-400) X10*3/uL BMP 07/16/25 09:03 Sodium 137 Potassium 5.4 H D Chloride 110 H Carbon Dioxide 21 L BUN 27 H Creatinine 1.49 H Calcium 7.9 L D Liver Function 07/16/25 Range/Units 09:03 Total Bilirubin 0.4 (0.0-1.0) mg/dL AST 193 H (5-37) U/L ALT 208 H (0-40) U/L Alkaline Phosphatase 100 (39-117) U/L Albumin 3.1 L (3.5-5.0) g/dL Urine 07/15/25 Range/Units 11:37 Urine Color Yellow Urine Appearance Cloudy Urine pH 6.0 (5.0-9.0) Ur Specific [place] 1.010 (1.005-1.025) Urine Protein 100 (2+) H (Neg-Trace) mg/dL Urine Glucose (UA) Negative (Negative) mg/dL Imaging Abdomen CT scan report/results: report reviewed and image reviewed CT scan - pelvis: report reviewed and image reviewed Additional studies: Date of Service: 07/15/25 EXAMINATION: CT ABDOMEN PELVIS WITH IV CONTRAST HISTORY: abd pain COMPARISON: Comparison is made with the prior examination dated 07/12/2025. TECHNIQUE: CT scan of the abdomen and pelvis was performed following administration of 85 mL Omnipaque 350 using standard departmental protocol. Coronal and sagittal reformatted images were generated and reviewed. Oral contrast material was not administered at the request of the referring physician. This CT exam was performed with one or more of the following dose reduction techniques: automated exposure control, adjustment of the mA and/or kV according to patient size, use of iterative reconstruction technique. DLP: 323 mGy-cm FINDINGS: LOWER CHEST: There is scarring at the lung bases. There is no pleural effusion. CARDIOVASCULATURE: The heart is normal in size. There is no pericardial effusion. LIVER: The liver is enlarged. No liver mass is identified. The hepatic and portal veins are patent. GALLBLADDER / BILE DUCTS: The gallbladder is distended and demonstrates a large gallstone. There is no intra or extrahepatic biliary ductal dilatation. SPLEEN: The spleen is enlarged. No focal splenic lesion is identified. PANCREAS: The pancreas is unremarkable in appearance. ADRENAL GLANDS: Within normal limits. KIDNEYS/RETROPERITONEUM: There is a delayed nephrogram on the right and moderate hydronephrosis to the level of a 7 mm proximal ureteral calculus at the level of the superior endplate of L4 (series 3, image 37). No renal masses are identified. LYMPH NODES: No abdominal or pelvic lymphadenopathy. VASCULATURE: The abdominal aorta demonstrates atherosclerotic calcification, but is normal in caliber. MESENTERY/PERITONEUM: There is a small amount of free fluid in the right upper quadrant. No masses. There is no free intraperitoneal gas. STOMACH: There is marked distention of the stomach with gas and fluid suggestive of gastric outlet obstruction. SMALL BOWEL: The small bowel is normal in caliber. COLON: The colon is unremarkable. APPENDIX: Normal. URINARY BLADDER/PELVIC ORGANS: The urinary bladder is decompressed with a Angel catheter. The prostate is enlarged. BONES / SOFT TISSUES: There is degenerative disc disease of the spine. IMPRESSION: 1. Moderate right hydroureteronephrosis to the level of a 7 mm proximal ureteral calculus. 2. Findings suggestive of gastric outlet obstruction. 3. Cholelithiasis. 4. Hepatosplenomegaly. Assessment and Plan (1) Gastric outlet obstruction: Status: Acute (2) Hydronephrosis, right: Status: Acute (3) Ureteral calculus, right: Status: Acute Plan cysto right uerteral stent possible ureteroscopy Procedures Date of Service Date of Service: 07/16/25
[2025-07-16 14:03] LABS: Glucose, Whole Blood 90 mg/dL (60-115)
--- NOTE | 2025-07-16 14:54 | W.PM.OPN ---
Operative Note Operative Note Date of Service: 07/16/25 Narrative: PreOperative Diagnosis:?? right hydronephrosis, right ureteral stone Post Operative Diagnosis:?? ?right hydronephrosis, right ureteral stone Procedure: Cystoscopy, right retrograde stent insertion, size 6 fr by 22-32 cm, remove bladder stone Surgeon:?Dr Alma Cifuentes Anesthesia:? General Procedure: After informed consent was verified the patient was brought to the operating placed on the OR table in supine position.? General Anesthesia was administered per protocol.? The patient was placed in lithotomy position, prepped and draped in the usual sterile fashion.? Safety pause time-out and side of surgery confirmed.? Antibiotics confirmed. A 22 [place] cystoscope was inserted transurethrally, the bulbous urethra was within normal limits. The prostatic urethra was nonobstructive. There was a stone in the prostatic urethra, that was pushed back into the bladder. A basket was used to remove the stone and send for analysis. The bladder was visualized.? The were edematous changes noted along both ureteral orifices. moderate trabeculations noted. The?right ureteric orifice was cannulated? a retrograde examination was performed, a filling defect was not noted. A hydrophilic guidewire was placed up to the level of the renal pelvis under fluoroscopy. A 6 fr by 22-32 cmureteral stent was passed over the guide wire under fluoroscopic guidance. The guide wire was removed. The bladder was emptied.? The rigid cystoscope was removed. ? The patient tolerated the procedure well and was brought to the recovery room in stable condition. Complications: None EBL: minimal (<5 mL) Drains: Ureteral stent as dictated above
[2025-07-16 15:07] LABS: Glucose, Whole Blood 68 mg/dL (60-115)
--- NOTE | 2025-07-16 15:25 | MHC.CM.PN ---
Met with pt to review d/c planning needs. Pt states he resides alone and has [employer] assistance 4 x weekly and a [facility] community RN/CM. His [employer] assists w/transportation, housekeeping, meals, laundry. During interview, pt continuously asked to return to his home. CM will reassess pt's d/c needs once he is more medically stable. At this time, pt will return to home w/existing services: ? transportation. Pt has a cellphone at bedside. IMM in chart, HCP possibly at MD office per pt.
[2025-07-16 15:28] LABS: Glucose, Whole Blood 90 mg/dL (60-115)
[2025-07-16 17:25] LABS: Mean Corpuscular Volume 92.3 fL (80.0-98.0); NRBC Abs Auto 0.030 X10*3/uL (0.0-0.012); NRBC Pct Auto 0.2 /100WBC (0.0-0.2); PLT CLUMP 1
[2025-07-16 17:27] LABS: Hematocrit 29.8 % (42.0-52.0); Hemoglobin 9.8 g/dl (14.0-18.0); Mean Corpuscular HGB Conc 32.9 g/dl (31.0-36.0); Mean Corpuscular Hemoglobin 30.3 pg (27.0-33.0); Red Blood Count 3.23 X10*6/uL (4.60-5.80)
[2025-07-16 17:28] LABS: White Blood Count 13.1 X10*3/uL (4.8-10.8)
[2025-07-16 17:36] LABS: Glucose, Whole Blood 118 mg/dL (60-115)
[2025-07-16 17:40] LABS: Platelet Count 75 X10*3/uL (160-400)
--- NOTE | 2025-07-16 19:11 | PM.EVENT ---
Event Note Date of Service: 07/16/25 Event Note: Received sign-out of observation Patient acute septic shock requiring pressors secondary to genitourinary source (obstructive uropathy nephrolithiasis) s/p stent placement, has been off pressors for over 12 hours Surgery following for cholelithiasis without cholecystitis, more positive Quintero's sign symptomatic management, deferring to IR for operative mx Urology placed a stent for obstructive uropathy We will continue broad-spectrum antibiotics For gastric outlet obstruction symptomatic management has an NG tube Hemodynamically stable Patient appears to be hypoglycemic despite not being on any insulin, to be continued on dextrose drip ID consulted for HIV management GI on board as well Hemodynamically stable for the floors Time Spent With Patient Time: Total time managing care of this patient today ____ minutes.
--- NOTE | 2025-07-16 21:02 | ECG_ITS ---
Test Reason : CP Blood Pressure : */* mmHG Vent. Rate : 66 BPM Atrial Rate : 66 BPM P-R Int : 126 ms QRS Dur : 82 ms QT Int : 416 ms P-R-T Axes : -12 75 70 degrees QTcB Int : 436 ms Normal sinus rhythm Normal ECG When compared to the previous EKG of No significant changes seen Referred By: Gisela Crisostomo Electronically Signed By: SHALONDA YING MD
[2025-07-16 22:49] LABS: Troponin-I High Sensitivity 554.7 ng/L (<3.5-35.0)
--- NOTE | 2025-07-16 23:44 | W.PM.IDCN ---
History of Present Illness Data of Consult Service Date: 07/16/25 Requesting physician: Juarez Ventura Primary Care Provider: Lonnie Britton MD HPI Reason for consult: bacteremia,right stone He presents with shivering and chills for a day. He has gram negative rods in blood. He has right ureterohydonephrosis and has had urinary stent placed today. He has HIV and getting Descovy and Edurant. Review of Systems Review of Systems: Yes all other systems are reviewed and are negative PMFSH Past Medical History Medical History Nicotine dependence, cigarettes, uncomplicated Type 2 diabetes mellitus Hepatitis B Hepatitis C HIV (human immunodeficiency virus infection) Family History Family History Father Cancer of abdominal wall Paternal Uncle Cancer of abdominal wall Mother Alzheimer dementia Maternal Uncle Cancer Maternal Grandmother Cancer Family history: reviewed and not pertinent Surgical History Surgical History History of left inguinal hernia repair History of cystoscopy History of colonoscopy Social History Social History Household Members: None Housing: Apartment Do you presently have visiting nurse or other home services: Yes (housekeeping) Patient Tobacco Use Status: Current everyday Tobacco user Tobacco use type: Cigarette Cigarette Packs Per Day: 0.5 Cigarettes Per Day: 10.0 Substance Use Type: Marijuana service: No Current occupational status: retired [employer] Allergies Allergy/AdvReac Type Severity Reaction Status Date / Time No Known Allergies (No Known Allergy Verified 07/15/25 11:06 Allergies*) Active Medications: Current Medications Buprenorphine/Naloxone (Buprenorphine/Naloxone 8/2 Mg Film) 1 film SUBLINGUAL DAILY [facility] Last Admin: 07/16/25 10:02 Dose: 1 film Dextrose (Dextrose 50 % 25 Gm/50 Ml Syringe) 25 gm IVPUSH Q15M PRN; Protocol PRN Reason: per Hypoglycemia Standing Ord. Last Admin: 07/16/25 06:49 Dose: 25 gm Emtricitabine/Tenofovir Alafenamide (Emtricitabine/Tenofov Alafenam Tablet) 1 tab PO DAILY [facility] Famotidine (Famotidine/Pf 20 Mg/2 Ml Vial) 20 mg IVPUSH BID [facility] Last Admin: 07/16/25 20:44 Dose: 20 mg Heparin Sodium (Porcine) (Heparin Sodium,Porcine 5,000 Unit/Ml Vial) 5,000 unit SUBCUT Q8H [facility] Last Admin: 07/16/25 16:44 Dose: Not Given Hydromorphone HCl (Hydromorphone Hcl 1 Mg/Ml Syringe) 0.5 mg IVPUSH Q4H PRN; Protocol PRN Reason: Pain, Moderate(Pain Scale 4-6) Last Admin: 07/16/25 15:32 Dose: 0.5 mg Piperacillin Sod/Tazobactam (Sod 4.5 gm/ Sodium Chloride) 100 mls @ 200 mls/hr IV Q8H [facility] Last Infusion: 07/16/25 21:14 Dose: Infused Dextrose (D10) 1,000 mls @ 100 mls/hr IVCONT .Q10H [facility] Last Admin: 07/16/25 21:36 Dose: Not Given Insulin Human Lispro (Insulin Lispro 100 Unit/Ml 3 Ml Vial) 0 unit SUBCUT Q6H [facility]; Protocol Last Admin: 07/16/25 17:32 Dose: Not Given Mirtazapine (Mirtazapine 30 Mg Tablet) 30 mg PO BEDTIME [facility] Last Admin: 07/16/25 19:57 Dose: Not Given Nicotine (Nicotine 14 Mg Patch.Td24) 14 mg TRANSDERMA DAILY [facility] Last Admin: 07/16/25 05:53 Dose: 14 mg Ondansetron HCl (Ondansetron Hcl 4 Mg/2 Ml Vial) 4 mg IVPUSH Q8H PRN PRN Reason: Nausea and Vomiting Last Admin: 07/16/25 10:15 Dose: 4 mg Quetiapine Fumarate (Quetiapine Fumarate 200 Mg Tablet) 200 mg PO BEDTIME [facility] Last Admin: 07/16/25 19:57 Dose: Not Given Rilpivirine (Rilpivirine Hcl 25 Mg Tablet) 25 mg PO DAILY [facility] Sertraline HCl (Sertraline Hcl 100 Mg Tablet) 100 mg PO DAILY [facility] Home Medications ?Medication ?Instructions ?Recorded ?Confirmed ?Last Taken ?Type buprenorphine 8 mg-naloxone 2 mg 1 film sublingual DAILY 01/12/24 07/15/25 09/13/24 History sublingual film emtricitabine 200 mg-rilpivirine 1 tab PO DAILY 01/12/24 07/15/25 09/13/24 History 25 mg-tenofovir alafenam 25 mg tablet (Odefsey) lisinopril 2.5 mg tablet 2.5 mg PO DAILY 01/12/24 07/15/25 Unknown History metformin 500 mg tablet,extended 1,000 mg PO DAILY@1700 01/12/24 07/15/25 Unknown History release 24 hr mirtazapine 30 mg tablet 30 mg PO BEDTIME 01/12/24 07/15/25 Unknown History quetiapine 200 mg tablet 200 mg PO BEDTIME 01/12/24 07/15/25 Unknown History sertraline 100 mg tablet 100 mg PO DAILY 01/12/24 07/15/25 09/13/24 History calcium 500 mg (as carbonate)-vit 1 tab PO BID 07/15/25 07/15/25 Unknown History D3 10 mcg (400 unit) chewable tablet ferrous gluconate 324 mg (38 mg 324 mg PO QAM 07/15/25 07/15/25 Unknown History iron) tablet insulin glargine 100 unit/mL (3 34 unit subcut BEDTIME 07/15/25 07/15/25 Unknown History mL) subcutaneous pen (Lantus Solostar U-100 Insulin) Physical Exam Vital Signs: Vital Signs: Last Vital Signs Temp 98.3 F 07/16/25 19:01 Pulse 71 07/16/25 19:01 Resp 18 07/16/25 19:01 BP 144/71 H 07/16/25 19:01 Pulse Ox 100 07/16/25 19:01 O2 Del Method Nasal Cannula 07/16/25 19:01 O2 Flow Rate 2 07/16/25 19:01 BMI result Body Mass Index 20.8 Const: General: cooperative HEENT: Head: Yes normal to inspection Face and sinus: Yes normal facial exam Mouth: Normal oral and palatal mucosa present Teeth and gingiva: dentition normal Eyes: General: appearance normal, both eyes and all related structures Pupils: Equal, round and reactive pupils present Resp: Effort & Inspection: normal respiratory effort Cardio: Rate: regular rate Rhythm: regular rhythm GI: Palpation (GI): Soft to palpation and nontender : General: Yes no CVA tenderness Back/Spine/Pelvis: Back: no CVA tenderness Skin: General skin exam: no rashes or lesions noted Neuro: General: moves all extremities Cranial nerves: Yes Equal, round and reactive pupils present Extrem: General: Yes normal to inspection Psych: Appearance: grossly normal Results Labs 07/16/25 17:06 07/16/25 09:03 Labs: Short CBC 07/16/25 07/16/25 Range/Units 05:58 17:06 WBC 13.7 H 13.1 H (4.8-10.8) X10*3/uL Hgb 10.1 L 9.8 L (14.0-18.0) g/dl Hct 30.8 L 29.8 L (42.0-52.0) % Plt Count 80 L D 75 L (160-400) X10*3/uL BMP 07/16/25 09:03 Sodium 137 Potassium 5.4 H D Chloride 110 H Carbon Dioxide 21 L BUN 27 H Creatinine 1.49 H Calcium 7.9 L D Liver Function 07/16/25 Range/Units 09:03 Total Bilirubin 0.4 (0.0-1.0) mg/dL AST 193 H (5-37) U/L ALT 208 H (0-40) U/L Alkaline Phosphatase 100 (39-117) U/L Albumin 3.1 L (3.5-5.0) g/dL Microbiology Microbiology Results: Microbiology 07/15/25 Unknown Urine Catheterized - Angel Catheter Urine Culture - Preliminary Culture in progress. 07/15/25 12:05 Blood - Venous Blood Culture - Preliminary Prelim: GNR Gram Stain only 07/15/25 12:02 Blood - Venous Blood Culture - Preliminary Prelim: GNR Gram Stain only Assessment and Plan (1) Acute hypotension: Status: Acute (2) Abdominal pain: Status: Acute Plan He has gram negative jennifer sepsis. He has cultures pending He has HIV and has been wll controlled with CD4 count of 576 Would continue current Descovy and Edurant. Continue piperacillin/tazobactam for now pending culture and antibiotics to be determined.
[2025-07-17] VITALS (7 sets, daily range): BP systolic 106–164; BP diastolic 62–82; PULSE 60–76; RESP 16–20; TEMP 36.1–37; O2SAT 97–100
[2025-07-17 00:53] LABS: Glucose, Whole Blood 146 mg/dL (60-115)
[2025-07-17 01:01] LABS: Troponin-I High Sensitivity 442.3 ng/L (<3.5-35.0)
[2025-07-17] MEDS: Dextrose 10 % 1,000 ML 100 ML IVCONT ×3 (05:33→20:55)
[2025-07-17 06:14] LABS: Glucose, Whole Blood 140 mg/dL (60-115)
[2025-07-17 06:29] LABS: A. Phagocytphilium DNA,RT-PCR NOT DETECTED (NOT DETECTED); Babesia Microti DNA, RT-PCR NOT DETECTED (NOT DETECTED); Borrelia Miyamotoi,DNA RT-PCR NOT DETECTED (NOT DETECTED); E.Chaffeensis DNA RT-PCR NOT DETECTED (NOT DETECTED); Lyme(Borrelia ssp)DNA RT-PCR NOT DETECTED (NOT DETECTED)
--- NOTE | 2025-07-17 07:00 | CA_ITS ---
Transthoracic Echocardiogram Patient (Last, First, Middle): Anthony Marmolejo, Gender: M Date of : 1955 Age: 69 Procedure Date: 07/17/2025 Procedure Type: Transthoracic Echocardiogram Location: [facility] – [place] Height: 165.1 cm Weight: 56.7 kg BSA: 1.62 m2 Heart Rate: 63 bpm BP: 109 / 63 mmHg Headwaitress: DIANE Referring MD: Chase Nuno MD Script Coordinator: Hunter Kaur MD Symptoms: high trops and bacteremia Study Quality: Fair ECG Rhythm: Sinus Conclusions: - 1. Mildly to moderately reduce LV ejection fraction 40-45% 2. Moderate biatrial enlargement 3. Normal cardiac valvular Dopplers 4. Normal RV systolic pressure 5. No gross pericardial effusion Findings Left Ventricle Normal left ventricular cavity size. There is normal left ventricular wall thickness. The left ventricular systolic function is mild to moderately decreased. The visually estimated ejection fraction is between 40-45%. There is mild global hypokinesis. Spectral Doppler is indicative of a normal filling pattern. Right Ventricle Mildly increased right ventricular cavity size. There is normal right ventricular systolic function. Atria Moderate biatrial enlargement. There is no evidence of interatrial shunt. Aortic Valve Normal aortic valve structure and function. There is no aortic valve stenosis. There is no aortic valve regurgitation. Mitral Valve Normal mitral valve structure and function. There is trace mitral valve regurgitation. There is no mitral valve stenosis. Pulmonic Valve The pulmonic valve is likely normal. Tricuspid Valve Normal tricuspid valve structure. There is mild tricuspid valve regurgitation. The right ventricular systolic pressure is normal. The right ventricular systolic pressure is 31 mmHg. Normal right atrial pressure. There is no evidence of pulmonary hypertension. Great Vessels All visible segments of the aorta are normal in size. The pulmonary artery was not well visualized. There is no dilatation of the ascending aorta measuring 3.10 cm. Venous The inferior vena cava is normal in size and collapses greater than 50% with inspiration. Pericardium/Pleural There is no evidence of pericardial effusion. Prior Study Comparison No prior study available for comparison. Measurements 2D Linear Measurements IVSd: 0.65 0.6-0.9/0.6-1.0 cm LVIDd: 5.42 3.9-5.3/4.2-5.9 cm LVIDd Index: 3.35 2.4-3.2/2.2-3.1 cm/m2 LVIDs: 4.09 2.0-3.6 cm LVPWd: 0.71 0.7-1.1 cm LA Diam: 3.80 2.7-3.8/3.0-4.0 cm LAIDs Index: 2.35 1.5-2.3 cm/m2 LV Mass: 158.69 67-162/88-224 g LV Mass Index: 97.95 43-95/49-115 g/m2 LVOT Diam: 2.50 3.0+(-)1.3 cm 2D Systolic Function EF 4C: 43.50 >55% EF 2C: 42.90 >55% EF BiP: 42.00 >55% Mitral Valve MV Pk E: 0.61 MV PK A: 0.43 MV Decel Time: 181.00 E/A: 1.40 E'Lateral: 6.09 E'Medial: 7.07 E/E' Med: 8.60 E/E' Lat: 10.00 PHT: 53.00 MVA PHT: 4.15 Decel [place]: 3.36 Aortic Valve AoV Pk Andrea: 1.12 AoV Mn Andrea: 0.82 AoV VTI: 0.25 AoV Pk Grad: 5.00 Aov Mn Grad: 3.00 KEV Cont.VTI: 3.74 LVOT LVOT Pk Andrea: 0.89 LVOT Mn Andrea: 0.58 LVOT VTI: 0.19 LVOT Pk Grad: 3.00 LVOT Mn Grad: 2.00 LVOT Diam: 2.50 LVOT Area: 4.91 Diastolic Function MV Pk E: 0.61 MV Pk A: 0.43 E/A: 1.40 E'Medial: 7.07 E/E' Med: 8.60 E' Laterial: 6.09 E/E' Lat: 10.00 Right Ventricle TAPSE (mm): 20.00 TVS' Andrea: 14.00 Tricuspid Valve TR Pk Andrea: 2.65 TR Pk Grad: 28.00 RA Press: 3.00 RVSP: 31.00 Great Vessels Aorta Sinus of Valsalva: 3.60 2.0-3.5 cm Ao Asc: 3.10 2.1-3.4 cm Pulmonary Valve PV Pk Andrea: 0.63 Peak PV Grad: 2.00 Updated in Other Vendor System with Status of Final Hunter Kaur MD electronically signed on 07/17/2025 12:38:00 PM with status of Final
--- NOTE | 2025-07-17 08:20 | HO.POSTANES ---
Post Anesthesia Evaluation Post Anesthesia Evaluation Date of Service: 07/17/25 Vital Signs: Vital Signs Temp Pulse Resp BP Pulse Ox O2 Del Method O2 Flow Rate 07/17/25 03:08 96.9 F 76 18 109/63 99 Nasal Cannula 2 07/17/25 00:00 97.6 F 71 16 106/62 98 Nasal Cannula 2 Anesthesia: General Mental Status: Awake Pain Control: Satisfactory Nausea/Vomiting: None Hydration: Adequate Anesthesia-Related Issues: No Anes. Related Issues
[2025-07-17 08:34] LABS: Hematocrit 28.8 % (42.0-52.0); Hemoglobin 9.5 g/dl (14.0-18.0); Mean Corpuscular HGB Conc 33.0 g/dl (31.0-36.0); Mean Corpuscular Hemoglobin 30.4 pg (27.0-33.0); Mean Corpuscular Volume 92.0 fL (80.0-98.0); NRBC Abs Auto 0.000 X10*3/uL (0.0-0.012); NRBC Pct Auto 0.0 /100WBC (0.0-0.2); Red Blood Count 3.13 X10*6/uL (4.60-5.80); White Blood Count 11.3 X10*3/uL (4.8-10.8)
--- NOTE | 2025-07-17 08:40 | HO.ANESPROP2 ---
HPI - Anesthesia Eval Consult details Narrative: 69 yr old male for upper endoscopy PT reported chest pain over night, troponins elevated x2; echo ordered. EKG NSR, No ST-T wave changes. Pulled out his NG tube overnight. Today 07/17 at bedside, pt denies CP or SOB, wants to go home. Labs pending. PMFSH Active Problems Active Problems: All Active Problems Ureteral calculus, right (Acute) Hydronephrosis, right (Acute) Elevated LFTs (Acute) Nausea (Acute) Abdominal pain (Acute) Acute kidney injury (Acute) Septic shock (Acute) Acute UTI (Acute) Urinary tract obstruction by kidney stone (Acute) Cholelithiasis (Acute) Gastric outlet obstruction (Acute) Acute hypotension (Acute) Sepsis (Acute) Status post inguinal hernia repair (Acute) Postop check (Acute) Normochromic normocytic anemia (Acute) FH: prostate carcinoma (Acute) Screening PSA (prostate specific antigen) (Acute) Nicotine dependence, cigarettes, uncomplicated (Acute) Past Medical History Medical History Nicotine dependence, cigarettes, uncomplicated Type 2 diabetes mellitus Hepatitis B Hepatitis C HIV (human immunodeficiency virus infection) Family History Family History Father Cancer of abdominal wall Paternal Uncle Cancer of abdominal wall Mother Alzheimer dementia Maternal Uncle Cancer Maternal Grandmother Cancer Family history of problems with anesthesia: No Surgical History Surgical History History of left inguinal hernia repair History of cystoscopy History of colonoscopy History of Problems with Anesthesia: No Social History Social History Household Members: None Housing: Apartment Do you presently have visiting nurse or other home services: Yes (housekeeping) Patient Tobacco Use Status: Current everyday Tobacco user Tobacco use type: Cigarette Cigarette Packs Per Day: 0.5 Cigarettes Per Day: 10.0 Substance Use Type: Marijuana service: No Current occupational status: retired Meds Allergies Allergy/AdvReac Type Severity Reaction Status Date / Time No Known Allergies (No Known Allergy Verified 07/15/25 11:06 Allergies*) Active Medications: Current Medications Buprenorphine/Naloxone (Buprenorphine/Naloxone 8/2 Mg Film) 1 film SUBLINGUAL DAILY [facility] Last Admin: 10/21/25 10:02 Dose: 1 film Dextrose (Dextrose 50 % 25 Gm/50 Ml Syringe) 25 gm IVPUSH Q15M PRN; Protocol PRN Reason: per Hypoglycemia Standing Ord. Last Admin: 07/16/25 06:49 Dose: 25 gm Emtricitabine/Tenofovir Alafenamide (Emtricitabine/Tenofov Alafenam Tablet) 1 tab PO DAILY [facility] Famotidine (Famotidine/Pf 20 Mg/2 Ml Vial) 20 mg IVPUSH BID [facility] Last Admin: 07/16/25 20:44 Dose: 20 mg Heparin Sodium (Porcine) (Heparin Sodium,Porcine 5,000 Unit/Ml Vial) 5,000 unit SUBCUT Q8H [facility] Last Admin: 07/17/25 00:54 Dose: Not Given Hydromorphone HCl (Hydromorphone Hcl 1 Mg/Ml Syringe) 0.5 mg IVPUSH Q4H PRN; Protocol PRN Reason: Pain, Moderate(Pain Scale 4-6) Last Admin: 07/16/25 15:32 Dose: 0.5 mg Piperacillin Sod/Tazobactam (Sod 4.5 gm/ Sodium Chloride) 100 mls @ 200 mls/hr IV Q8H [facility] Last Infusion: 07/17/25 06:08 Dose: Infused Dextrose (D10) 1,000 mls @ 100 mls/hr IVCONT .Q10H [facility] Last Admin: 07/17/25 05:33 Dose: 100 mls/hr Insulin Human Lispro (Insulin Lispro 100 Unit/Ml 3 Ml Vial) 0 unit SUBCUT Q6H GERMAN; Protocol Last Admin: 07/17/25 06:33 Dose: Not Given Mirtazapine (Mirtazapine 30 Mg Tablet) 30 mg PO BEDTIME [facility] Last Admin: 07/16/25 19:57 Dose: Not Given Nicotine (Nicotine 14 Mg Patch.Td24) 14 mg TRANSDERMA DAILY [facility] Last Admin: 07/16/25 05:53 Dose: 14 mg Ondansetron HCl (Ondansetron Hcl 4 Mg/2 Ml Vial) 4 mg IVPUSH Q8H PRN PRN Reason: Nausea and Vomiting Last Admin: 07/16/25 10:15 Dose: 4 mg Quetiapine Fumarate (Quetiapine Fumarate 200 Mg Tablet) 200 mg PO BEDTIME [facility] Last Admin: 07/16/25 19:57 Dose: Not Given Rilpivirine (Rilpivirine Hcl 25 Mg Tablet) 25 mg PO DAILY [facility] Sertraline HCl (Sertraline Hcl 100 Mg Tablet) 100 mg PO DAILY [facility] Home Medications ?Medication ?Instructions ?Recorded ?Confirmed ?Last Taken ?Type buprenorphine 8 mg-naloxone 2 mg 1 film sublingual DAILY 01/12/24 07/15/25 09/13/24 History sublingual film emtricitabine 200 mg-rilpivirine 1 tab PO DAILY 01/12/24 07/15/25 09/13/24 History 25 mg-tenofovir alafenam 25 mg tablet (Odefsey) lisinopril 2.5 mg tablet 2.5 mg PO DAILY 01/12/24 07/15/25 Unknown History metformin 500 mg tablet,extended 1,000 mg PO DAILY@1700 01/12/24 07/15/25 Unknown History release 24 hr mirtazapine 30 mg tablet 30 mg PO BEDTIME 01/12/24 07/15/25 Unknown History quetiapine 200 mg tablet 200 mg PO BEDTIME 01/12/24 07/15/25 Unknown History sertraline 100 mg tablet 100 mg PO DAILY 01/12/24 07/15/25 09/13/24 History calcium 500 mg (as carbonate)-vit 1 tab PO BID 07/15/25 07/15/25 Unknown History D3 10 mcg (400 unit) chewable tablet ferrous gluconate 324 mg (38 mg 324 mg PO QAM 07/15/25 07/15/25 Unknown History iron) tablet insulin glargine 100 unit/mL (3 34 unit subcut BEDTIME 07/15/25 07/15/25 Unknown History mL) subcutaneous pen (Lantus Solostar U-100 Insulin) Exam Height,Weight and Vital Signs: Height 5 ft 5 in Weight 56.8 kg Last Vital Signs Temp 96.9 F 07/17/25 03:08 Pulse 76 07/17/25 03:08 Resp 18 07/17/25 03:08 BP 109/63 07/17/25 03:08 Pulse Ox 99 07/17/25 03:08 O2 Del Method Nasal Cannula 07/17/25 03:08 O2 Flow Rate 2 07/17/25 03:08 Pertinent Lab Results Pertinent Lab Results: Laboratory Tests 07/15/25 07/15/2525 11:13 11:37 12:02 WBC 10.1 RBC 3.31 L Hgb 10.1 L Hct 31.1 L MCV 94.0 MCH 30.5 MCHC 32.5 RDW 15.1 Plt Count 115 L MPV 10.5 Immature Gran % (Auto) Cancelled Neut % (Auto) Cancelled Lymph % (Auto) Cancelled Mcmullen % (Auto) Cancelled Eos % (Auto) Cancelled Baso % (Auto) Cancelled Lymph # (Auto) Cancelled Mcmullen # (Auto) Cancelled Eos # (Auto) Cancelled Baso # (Auto) Cancelled Abs Immat Gran (auto) Cancelled Absolute Neuts (auto) Cancelled Absolute Nucleated RBC 0.000 Nucleated RBC % (auto) 0.0 Neutrophils % (Manual) 77 H Band Neutrophils % 11 H Lymphocytes % (Manual) 6 L Monocytes % (Manual) 6 Abs Neuts (Manual) 8.9 H Lymphocytes # (Manual) 0.6 L Monocytes # (Manual) 0.6 Toxic Granulation Toxic Vacuolation Platelet Estimate DECREASED Plt Morphology Comment NORMAL RBC Morphology NOTED Spherocytes 1+ (0-2) Tiki Cells Schistocytes 1+ (0-2) PT INR Sodium 137 Potassium 3.2 L Chloride 103 Carbon Dioxide 23 Anion Gap 14 BUN 31 H Creatinine 1.96 H Estim Creat Clear Calc 28.5 Estimated GFR 34 POC Glucose Random Glucose 33 L* Lactic Acid 3.9 H* Lactic Acid F/U @ 2Hr Lactic Acid F/U @ 4Hr Calcium 9.1 Phosphorus Magnesium Total Bilirubin 0.8 AST 653 H ALT 364 H Alkaline Phosphatase 154 H Troponin I High Sens 299.9 H* Total Protein 6.4 L Albumin 3.6 Urine Color Yellow Urine Appearance Cloudy Urine pH 6.0 Ur Specific Emerson 1.010 Urine Protein 100 (2+) H Urine Glucose (UA) Negative Urine Ketones Negative Urine Blood Large (3+) H Urine Nitrite Negative Ur Leukocyte Esterase Large (3+) H Urine RBC >20 H Urine WBC >50 H Ur Squamous Epith Cells 0-2 Urine Bacteria 4+ Hyaline Casts 0-2 Urine Opiates Screen Ur Buprenorphine Scrn Ur Oxycodone Screen Urine Methadone Screen Urine Fentanyl Screen Ur Barbiturates Screen Ur Phencyclidine Scrn Ur Amphetamines Screen U Benzodiazepines Scrn Urine Cocaine Screen U Marijuana (THC) Screen Ethyl Alcohol A.phagocytophil DNA PCR Babesia microti DNA PCR Borrelia sp DNA (PCR) Lyme Screen IgG & IgM Lyme Progressive Test Borrelia miyamotoi (PCR) COVID-19 (STEVE) Negative COVID-19 Clin Com See Note E.chaffeensis DNA (PCR) Influenza Type A (AISHA) Negative Influenza Type B (AISHA) Negative Influenza A & B Note See Note Tick-borne Disease PCR 07/15/25 07/15/25 07/15/25 12:14 12:39 12:58 WBC RBC Hgb Hct MCV MCH MCHC RDW Plt Count MPV Immature Gran % (Auto) Neut % (Auto) Lymph % (Auto) Mcmullen % (Auto) Eos % (Auto) Baso % (Auto) Lymph # (Auto) Mcmullen # (Auto) Eos # (Auto) Baso # (Auto) Abs Immat Gran (auto) Absolute Neuts (auto) Absolute Nucleated RBC Nucleated RBC % (auto) Neutrophils % (Manual) Band Neutrophils % Lymphocytes % (Manual) Monocytes % (Manual) Abs Neuts (Manual) Lymphocytes # (Manual) Monocytes # (Manual) Toxic Granulation Toxic Vacuolation Platelet Estimate Plt Morphology Comment RBC Morphology Spherocytes Tiki Cells Schistocytes PT INR Sodium Potassium Chloride Carbon Dioxide Anion Gap BUN Creatinine Estim Creat Clear Calc Estimated GFR POC Glucose 36 L* 114 162 H Random Glucose Lactic Acid Lactic Acid F/U @ 2Hr Lactic Acid F/U @ 4Hr Calcium Phosphorus Magnesium Total Bilirubin AST ALT Alkaline Phosphatase Troponin I High Sens Total Protein Albumin Urine Color Urine Appearance Urine pH Ur Specific Emerson Urine Protein Urine Glucose (UA) Urine Ketones Urine Blood Urine Nitrite Ur Leukocyte Esterase Urine RBC Urine WBC Ur Squamous Epith Cells Urine Bacteria Hyaline Casts Urine Opiates Screen Ur Buprenorphine Scrn Ur Oxycodone Screen Urine Methadone Screen Urine Fentanyl Screen Ur Barbiturates Screen Ur Phencyclidine Scrn Ur Amphetamines Screen U Benzodiazepines Scrn Urine Cocaine Screen U Marijuana (THC) Screen Ethyl Alcohol A.phagocytophil DNA PCR Babesia microti DNA PCR Borrelia sp DNA (PCR) Lyme Screen IgG & IgM Lyme Progressive Test Borrelia miyamotoi (PCR) COVID-19 (STEVE) COVID-19 Clin Com E.chaffeensis DNA (PCR) Influenza Type A (AISHA) Influenza Type B (AISHA) Influenza A & B Note Tick-borne Disease PCR 07/15/25 07/15/25 07/15/25 13:44 14:03 14:04 WBC RBC Hgb Hct MCV MCH MCHC RDW Plt Count MPV Immature Gran % (Auto) Neut % (Auto) Lymph % (Auto) Mcmullen % (Auto) Eos % (Auto) Baso % (Auto) Lymph # (Auto) Mcmullen # (Auto) Eos # (Auto) Baso # (Auto) Abs Immat Gran (auto) Absolute Neuts (auto) Absolute Nucleated RBC Nucleated RBC % (auto) Neutrophils % (Manual) Band Neutrophils % Lymphocytes % (Manual) Monocytes % (Manual) Abs Neuts (Manual) Lymphocytes # (Manual) Monocytes # (Manual) Toxic Granulation Toxic Vacuolation Platelet Estimate Plt Morphology Comment RBC Morphology Spherocytes Tiki Cells Schistocytes PT INR Sodium Potassium Chloride Carbon Dioxide Anion Gap BUN Creatinine Estim Creat Clear Calc Estimated GFR POC Glucose 136 H Random Glucose Lactic Acid Lactic Acid F/U @ 2Hr Lactic Acid F/U @ 4Hr Calcium Phosphorus Magnesium Total Bilirubin AST ALT Alkaline Phosphatase Troponin I High Sens Total Protein Albumin Urine Color Urine Appearance Urine pH Ur Specific Emerson Urine Protein Urine Glucose (UA) Urine Ketones Urine Blood Urine Nitrite Ur Leukocyte Esterase Urine RBC Urine WBC Ur Squamous Epith Cells Urine Bacteria Hyaline Casts Urine Opiates Screen Not Detected Ur Buprenorphine Scrn Positive H Ur Oxycodone Screen Not Detected Urine Methadone Screen Not Detected Urine Fentanyl Screen POSITIVE H Ur Barbiturates Screen Not Detected Ur Phencyclidine Scrn Not Detected Ur Amphetamines Screen Not Detected U Benzodiazepines Scrn Not Detected Urine Cocaine Screen Not Detected U Marijuana (THC) Screen POSITIVE H Ethyl Alcohol 11 A.phagocytophil DNA PCR NOT DETECTED Babesia microti DNA PCR NOT DETECTED Borrelia sp DNA (PCR) NOT DETECTED Lyme Screen IgG & IgM <0.90 Lyme Progressive Test Not Reportable Borrelia miyamotoi (PCR) NOT DETECTED COVID-19 (STEVE) COVID-19 Clin Com E.chaffeensis DNA (PCR) NOT DETECTED Influenza Type A (AISHA) Negative Influenza Type B (AISHA) Negative Influenza A & B Note See Note Tick-borne Disease PCR SEE NOTE 07/15/25 07/15/25 07/15/25 15:18 15:30 17:00 WBC RBC Hgb Hct MCV MCH MCHC RDW Plt Count MPV Immature Gran % (Auto) Neut % (Auto) Lymph % (Auto) Mcmullen % (Auto) Eos % (Auto) Baso % (Auto) Lymph # (Auto) Mcmullen # (Auto) Eos # (Auto) Baso # (Auto) Abs Immat Gran (auto) Absolute Neuts (auto) Absolute Nucleated RBC Nucleated RBC % (auto) Neutrophils % (Manual) Band Neutrophils % Lymphocytes % (Manual) Monocytes % (Manual) Abs Neuts (Manual) Lymphocytes # (Manual) Monocytes # (Manual) Toxic Granulation Toxic Vacuolation Platelet Estimate Plt Morphology Comment RBC Morphology Spherocytes Anvik Cells Schistocytes PT INR Sodium Potassium Chloride Carbon Dioxide Anion Gap BUN Creatinine Estim Creat Clear Calc Estimated GFR POC Glucose 100 Random Glucose Lactic Acid Lactic Acid F/U @ 2Hr 4.5 H* Lactic Acid F/U @ 4Hr Calcium Phosphorus 0.8 L* Magnesium Total Bilirubin AST ALT Alkaline Phosphatase Troponin I High Sens Total Protein Albumin Urine Color Urine Appearance Urine pH Ur Specific Emerson Urine Protein Urine Glucose (UA) Urine Ketones Urine Blood Urine Nitrite Ur Leukocyte Esterase Urine RBC Urine WBC Ur Squamous Epith Cells Urine Bacteria Hyaline Casts Urine Opiates Screen Ur Buprenorphine Scrn Ur Oxycodone Screen Urine Methadone Screen Urine Fentanyl Screen Ur Barbiturates Screen Ur Phencyclidine Scrn Ur Amphetamines Screen U Benzodiazepines Scrn Urine Cocaine Screen U Marijuana (THC) Screen Ethyl Alcohol A.phagocytophil DNA PCR Babesia microti DNA PCR Borrelia sp DNA (PCR) Lyme Screen IgG & IgM Lyme Progressive Test Borrelia miyamotoi (PCR) COVID-19 (STEVE) COVID-19 Clin Com E.chaffeensis DNA (PCR) Influenza Type A (AISHA) Influenza Type B (AISHA) Influenza A & B Note Tick-borne Disease PCR 07/15/25 07/16/25 07/16/25 17:46 00:12 05:58 WBC 13.7 H RBC 3.32 L Hgb 10.1 L Hct 30.8 L MCV 92.8 MCH 30.4 MCHC 32.8 RDW 15.4 Plt Count 80 L D MPV 11.7 Immature Gran % (Auto) Cancelled Neut % (Auto) Cancelled Lymph % (Auto) Cancelled Mcmullen % (Auto) Cancelled Eos % (Auto) Cancelled Baso % (Auto) Cancelled Lymph # (Auto) Cancelled Mcmullen # (Auto) Cancelled Eos # (Auto) Cancelled Baso # (Auto) Cancelled Abs Immat Gran (auto) Cancelled Absolute Neuts (auto) Cancelled Absolute Nucleated RBC 0.020 H Nucleated RBC % (auto) 0.1 Neutrophils % (Manual) 76 H Band Neutrophils % 19 H Lymphocytes % (Manual) 2 L Monocytes % (Manual) 3 Abs Neuts (Manual) 13.0 H Lymphocytes # (Manual) 0.3 L Monocytes # (Manual) 0.4 Toxic Granulation PRESENT Toxic Vacuolation PRESENT Platelet Estimate DECREASED Plt Morphology Comment NORMAL RBC Morphology NORMAL Spherocytes Tiki Cells 3+ (>5) Schistocytes PT 25.7 H D INR 2.2 H Sodium Potassium Chloride Carbon Dioxide Anion Gap BUN Creatinine Estim Creat Clear Calc Estimated GFR POC Glucose 162 H Random Glucose Lactic Acid Lactic Acid F/U @ 2Hr Lactic Acid F/U @ 4Hr 2.9 H* Calcium Phosphorus Magnesium Total Bilirubin AST ALT Alkaline Phosphatase Troponin I High Sens Total Protein Albumin Urine Color Urine Appearance Urine pH Ur Specific Emerson Urine Protein Urine Glucose (UA) Urine Ketones Urine Blood Urine Nitrite Ur Leukocyte Esterase Urine RBC Urine WBC Ur Squamous Epith Cells Urine Bacteria Hyaline Casts Urine Opiates Screen Ur Buprenorphine Scrn Ur Oxycodone Screen Urine Methadone Screen Urine Fentanyl Screen Ur Barbiturates Screen Ur Phencyclidine Scrn Ur Amphetamines Screen U Benzodiazepines Scrn Urine Cocaine Screen U Marijuana (THC) Screen Ethyl Alcohol A.phagocytophil DNA PCR Babesia microti DNA PCR Borrelia sp DNA (PCR) Lyme Screen IgG & IgM Lyme Progressive Test Borrelia miyamotoi (PCR) COVID-19 (STEVE) COVID-19 Clin Com E.chaffeensis DNA (PCR) Influenza Type A (AISHA) Influenza Type B (AISHA) Influenza A & B Note Tick-borne Disease PCR 07/16/25 07/16/25 07/16/25 06:38 07:24 09:03 WBC RBC Hgb Hct MCV MCH MCHC RDW Plt Count MPV Immature Gran % (Auto) Neut % (Auto) Lymph % (Auto) Mcmullen % (Auto) Eos % (Auto) Baso % (Auto) Lymph # (Auto) Mcmullen # (Auto) Eos # (Auto) Baso # (Auto) Abs Immat Gran (auto) Absolute Neuts (auto) Absolute Nucleated RBC Nucleated RBC % (auto) Neutrophils % (Manual) Band Neutrophils % Lymphocytes % (Manual) Monocytes % (Manual) Abs Neuts (Manual) Lymphocytes # (Manual) Monocytes # (Manual) Toxic Granulation Toxic Vacuolation Platelet Estimate Plt Morphology Comment RBC Morphology Spherocytes Anvik Cells Schistocytes PT INR Sodium 137 Potassium 5.4 H D Chloride 110 H Carbon Dioxide 21 L Anion Gap 11 L BUN 27 H Creatinine 1.49 H Estim Creat Clear Calc 38.1 Estimated GFR 47 POC Glucose 62 156 H Random Glucose 140 H Lactic Acid Lactic Acid F/U @ 2Hr Lactic Acid F/U @ 4Hr Calcium 7.9 L D Phosphorus 3.7 Magnesium 1.7 Total Bilirubin 0.4 AST 193 H ALT 208 H Alkaline Phosphatase 100 Troponin I High Sens Total Protein 5.6 L Albumin 3.1 L Urine Color Urine Appearance Urine pH Ur Specific Emerson Urine Protein Urine Glucose (UA) Urine Ketones Urine Blood Urine Nitrite Ur Leukocyte Esterase Urine RBC Urine WBC Ur Squamous Epith Cells Urine Bacteria Hyaline Casts Urine Opiates Screen Ur Buprenorphine Scrn Ur Oxycodone Screen Urine Methadone Screen Urine Fentanyl Screen Ur Barbiturates Screen Ur Phencyclidine Scrn Ur Amphetamines Screen U Benzodiazepines Scrn Urine Cocaine Screen U Marijuana (THC) Screen Ethyl Alcohol A.phagocytophil DNA PCR Babesia microti DNA PCR Borrelia sp DNA (PCR) Lyme Screen IgG & IgM Lyme Progressive Test Borrelia miyamotoi (PCR) COVID-19 (STEVE) COVID-19 Clin Com E.chaffeensis DNA (PCR) Influenza Type A (AISHA) Influenza Type B (AISHA) Influenza A & B Note Tick-borne Disease PCR 07/16/25 07/16/25 07/16/25 10:19 12:10 12:52 WBC RBC Hgb Hct MCV MCH MCHC RDW Plt Count MPV Immature Gran % (Auto) Neut % (Auto) Lymph % (Auto) Mcmullen % (Auto) Eos % (Auto) Baso % (Auto) Lymph # (Auto) Mcmullen # (Auto) Eos # (Auto) Baso # (Auto) Abs Immat Gran (auto) Absolute Neuts (auto) Absolute Nucleated RBC Nucleated RBC % (auto) Neutrophils % (Manual) Band Neutrophils % Lymphocytes % (Manual) Monocytes % (Manual) Abs Neuts (Manual) Lymphocytes # (Manual) Monocytes # (Manual) Toxic Granulation Toxic Vacuolation Platelet Estimate Plt Morphology Comment RBC Morphology Spherocytes Anvik Cells Schistocytes PT INR Sodium Potassium Chloride Carbon Dioxide Anion Gap BUN Creatinine Estim Creat Clear Calc Estimated GFR POC Glucose 106 86 95 Random Glucose Lactic Acid Lactic Acid F/U @ 2Hr Lactic Acid F/U @ 4Hr Calcium Phosphorus Magnesium Total Bilirubin AST ALT Alkaline Phosphatase Troponin I High Sens Total Protein Albumin Urine Color Urine Appearance Urine pH Ur Specific Emerson Urine Protein Urine Glucose (UA) Urine Ketones Urine Blood Urine Nitrite Ur Leukocyte Esterase Urine RBC Urine WBC Ur Squamous Epith Cells Urine Bacteria Hyaline Casts Urine Opiates Screen Ur Buprenorphine Scrn Ur Oxycodone Screen Urine Methadone Screen Urine Fentanyl Screen Ur Barbiturates Screen Ur Phencyclidine Scrn Ur Amphetamines Screen U Benzodiazepines Scrn Urine Cocaine Screen U Marijuana (THC) Screen Ethyl Alcohol A.phagocytophil DNA PCR Babesia microti DNA PCR Borrelia sp DNA (PCR) Lyme Screen IgG & IgM Lyme Progressive Test Borrelia miyamotoi (PCR) COVID-19 (STEVE) COVID-19 Clin Com E.chaffeensis DNA (PCR) Influenza Type A (AISHA) Influenza Type B (AISHA) Influenza A & B Note Tick-borne Disease PCR 07/16/25 07/16/25 07/16/25 13:54 15:02 15:25 WBC RBC Hgb Hct MCV MCH MCHC RDW Plt Count MPV Immature Gran % (Auto) Neut % (Auto) Lymph % (Auto) Mcmullen % (Auto) Eos % (Auto) Baso % (Auto) Lymph # (Auto) Mcmullen # (Auto) Eos # (Auto) Baso # (Auto) Abs Immat Gran (auto) Absolute Neuts (auto) Absolute Nucleated RBC Nucleated RBC % (auto) Neutrophils % (Manual) Band Neutrophils % Lymphocytes % (Manual) Monocytes % (Manual) Abs Neuts (Manual) Lymphocytes # (Manual) Monocytes # (Manual) Toxic Granulation Toxic Vacuolation Platelet Estimate Plt Morphology Comment RBC Morphology Spherocytes Anvik Cells Schistocytes PT INR Sodium Potassium Chloride Carbon Dioxide Anion Gap BUN Creatinine Estim Creat Clear Calc Estimated GFR POC Glucose 90 68 90 Random Glucose Lactic Acid Lactic Acid F/U @ 2Hr Lactic Acid F/U @ 4Hr Calcium Phosphorus Magnesium Total Bilirubin AST ALT Alkaline Phosphatase Troponin I High Sens Total Protein Albumin Urine Color Urine Appearance Urine pH Ur Specific Emerson Urine Protein Urine Glucose (UA) Urine Ketones Urine Blood Urine Nitrite Ur Leukocyte Esterase Urine RBC Urine WBC Ur Squamous Epith Cells Urine Bacteria Hyaline Casts Urine Opiates Screen Ur Buprenorphine Scrn Ur Oxycodone Screen Urine Methadone Screen Urine Fentanyl Screen Ur Barbiturates Screen Ur Phencyclidine Scrn Ur Amphetamines Screen U Benzodiazepines Scrn Urine Cocaine Screen U Marijuana (THC) Screen Ethyl Alcohol A.phagocytophil DNA PCR Babesia microti DNA PCR Borrelia sp DNA (PCR) Lyme Screen IgG & IgM Lyme Progressive Test Borrelia miyamotoi (PCR) COVID-19 (STEVE) COVID-19 Clin Com E.chaffeensis DNA (PCR) Influenza Type A (AISHA) Influenza Type B (AISHA) Influenza A & B Note Tick-borne Disease PCR 07/16/25 07/16/25 07/16/25 17:06 17:27 22:05 WBC 13.1 H RBC 3.23 L Hgb 9.8 L Hct 29.8 L MCV 92.3 MCH 30.3 MCHC 32.9 RDW 15.7 Plt Count 75 L MPV 11.4 Immature Gran % (Auto) Neut % (Auto) Lymph % (Auto) Mcmullen % (Auto) Eos % (Auto) Baso % (Auto) Lymph # (Auto) Mcmullen # (Auto) Eos # (Auto) Baso # (Auto) Abs Immat Gran (auto) Absolute Neuts (auto) Absolute Nucleated RBC 0.030 H Nucleated RBC % (auto) 0.2 Neutrophils % (Manual) Band Neutrophils % Lymphocytes % (Manual) Monocytes % (Manual) Abs Neuts (Manual) Lymphocytes # (Manual) Monocytes # (Manual) Toxic Granulation Toxic Vacuolation Platelet Estimate Plt Morphology Comment RBC Morphology Spherocytes [place] Cells Schistocytes PT INR Sodium Potassium Chloride Carbon Dioxide Anion Gap BUN Creatinine Estim Creat Clear Calc Estimated GFR POC Glucose 118 H Random Glucose Lactic Acid Lactic Acid F/U @ 2Hr Lactic Acid F/U @ 4Hr Calcium Phosphorus Magnesium Total Bilirubin AST ALT Alkaline Phosphatase Troponin I High Sens 554.7 H* D Total Protein Albumin Urine Color Urine Appearance Urine pH Ur Specific Emerson Urine Protein Urine Glucose (UA) Urine Ketones Urine Blood Urine Nitrite Ur Leukocyte Esterase Urine RBC Urine WBC Ur Squamous Epith Cells Urine Bacteria Hyaline Casts Urine Opiates Screen Ur Buprenorphine Scrn Ur Oxycodone Screen Urine Methadone Screen Urine Fentanyl Screen Ur Barbiturates Screen Ur Phencyclidine Scrn Ur Amphetamines Screen U Benzodiazepines Scrn Urine Cocaine Screen U Marijuana (THC) Screen Ethyl Alcohol A.phagocytophil DNA PCR Babesia microti DNA PCR Borrelia sp DNA (PCR) Lyme Screen IgG & IgM Lyme Progressive Test Borrelia miyamotoi (PCR) COVID-19 (STEVE) COVID-19 Clin Com E.chaffeensis DNA (PCR) Influenza Type A (AISHA) Influenza Type B (AISHA) Influenza A & B Note Tick-borne Disease PCR 07/17/25 07/17/25 07/17/25 00:17 00:27 06:05 WBC RBC Hgb Hct MCV MCH MCHC RDW Plt Count MPV Immature Gran % (Auto) Neut % (Auto) Lymph % (Auto) Mcmullen % (Auto) Eos % (Auto) Baso % (Auto) Lymph # (Auto) Mcmullen # (Auto) Eos # (Auto) Baso # (Auto) Abs Immat Gran (auto) Absolute Neuts (auto) Absolute Nucleated RBC Nucleated RBC % (auto) Neutrophils % (Manual) Band Neutrophils % Lymphocytes % (Manual) Monocytes % (Manual) Abs Neuts (Manual) Lymphocytes # (Manual) Monocytes # (Manual) Toxic Granulation Toxic Vacuolation Platelet Estimate Plt Morphology Comment RBC Morphology Spherocytes [place]vik Cells Schistocytes PT INR Sodium Potassium Chloride Carbon Dioxide Anion Gap BUN Creatinine Estim Creat Clear Calc Estimated GFR POC Glucose 146 H 140 H Random Glucose Lactic Acid Lactic Acid F/U @ 2Hr Lactic Acid F/U @ 4Hr Calcium Phosphorus Magnesium Total Bilirubin AST ALT Alkaline Phosphatase Troponin I High Sens 442.3 H* Total Protein Albumin Urine Color Urine Appearance Urine pH Ur Specific Emerson Urine Protein Urine Glucose (UA) Urine Ketones Urine Blood Urine Nitrite Ur Leukocyte Esterase Urine RBC Urine WBC Ur Squamous Epith Cells Urine Bacteria Hyaline Casts Urine Opiates Screen Ur Buprenorphine Scrn Ur Oxycodone Screen Urine Methadone Screen Urine Fentanyl Screen Ur Barbiturates Screen Ur Phencyclidine Scrn Ur Amphetamines Screen U Benzodiazepines Scrn Urine Cocaine Screen U Marijuana (THC) Screen Ethyl Alcohol A.phagocytophil DNA PCR Babesia microti DNA PCR Borrelia sp DNA (PCR) Lyme Screen IgG & IgM Lyme Progressive Test Borrelia miyamotoi (PCR) COVID-19 (STEVE) COVID-19 Clin Com E.chaffeensis DNA (PCR) Influenza Type A (AISHA) Influenza Type B (AISHA) Influenza A & B Note Tick-borne Disease PCR Assessment and Plan Final Anesthetic Review Family History of Problems with Anesthesia: No History of Problems with Anesthesia: No
[2025-07-17 08:41] LABS: Platelet Count 80 X10*3/uL (160-400)
[2025-07-17 08:58] LABS: Anion Gap 10 (12-20); Blood Urea Nitrogen 18 mg/dL (9-16); Calcium 8.2 mg/dL (8.4-10.2); Carbon Dioxide 23 mmol/L (22-29); Chloride 110 mmol/L (96-108); Creatinine Clr Calc Pharmacy 47.7; Estimated Glomerular Filt Rate > 60; INTERNATIONAL NORM RATIO 1.6 (0.9-1.1); Potassium 3.8 mmol/L (3.3-5.1); Prothrombin Time 18.4 SEC (10.9-12.4); Sodium 139 mmol/L (135-145)
[2025-07-17 09:10] LABS: HBS Num1 50.64 mIU/mL (0-7.99); HBc Num1 1.08 S/CO (0.00-0.79); HBsAGNum1 0.41 S/CO (0.00-0.99); Hepatitis B Surface Antigen Negative (Negative); ~Hepatitis B Surface Antibody REACTIVE (Nonreactive)
[2025-07-17] MEDS: Nicotine 14 MG PATCH.TD24 TRANSDERMA (09:56)
[2025-07-17] MEDS: Emtricitabine/Tenofov Alafenam TABLET 1 TAB PO (09:58)
[2025-07-17 10:16] LABS: HBc Num2 1.02 S/CO; HBc Num3 1.01 S/CO
[2025-07-17 12:05] LABS: Glucose, Whole Blood 113 mg/dL (60-115)
--- NOTE | 2025-07-17 13:02 | PM.PNGS ---
Subjective Subjective Date of Service: 07/17/25 Interval history: Had cystoscopy yesterday for hydronephrosis and ureteral calculus Here in a little cloudy Denies nausea or vomiting Admits to some abdominal pain Physical Exam Vital Signs: Vital Signs: Last Vital Signs Temp 97.9 F 07/17/25 12:00 Pulse 72 07/17/25 12:00 Resp 18 07/17/25 12:00 BP 132/75 07/17/25 12:00 Pulse Ox 97 07/17/25 12:00 O2 Del Method Nasal Cannula 07/17/25 12:00 O2 Flow Rate 2 07/17/25 12:00 BMI result Body Mass Index 20.8 Const: Other: Sitting up on chair, answers questions Resp: Other: Mildly short of breath Cardio: Rate: regular rate GI: Other: Some tenderness on right upper quadrant Palpation (GI): Soft to palpation, not firm and no guarding Objective Data Active Medications Buprenorphine/Naloxone (Buprenorphine/Naloxone 8/2 Mg Film) 1 film SUBLINGUAL DAILY [facility] Last Admin: 07/17/25 09:01 Dose: 1 film Documented By: OLEG Dextrose (Dextrose 50 % 25 Gm/50 Ml Syringe) 25 gm IVPUSH Q15M PRN; Protocol PRN Reason: per Hypoglycemia Standing Ord. Last Admin: 07/16/25 06:49 Dose: 25 gm Documented By: JOSEPH Emtricitabine/Tenofovir Alafenamide (Emtricitabine/Tenofov Alafenam Tablet) 1 tab PO DAILY [facility] Last Admin: 07/17/25 09:58 Dose: 1 tab Documented By: OLEG Famotidine (Famotidine/Pf 20 Mg/2 Ml Vial) 20 mg IVPUSH BID [facility] Last Admin: 07/17/25 09:57 Dose: 20 mg Documented By: OLEG Heparin Sodium (Porcine) (Heparin Sodium,Porcine 5,000 Unit/Ml Vial) 5,000 unit SUBCUT Q8H [facility] Last Admin: 07/17/25 09:57 Dose: 5,000 unit Documented By: OLEG Hydromorphone HCl (Hydromorphone Hcl 1 Mg/Ml Syringe) 0.5 mg IVPUSH Q4H PRN; Protocol PRN Reason: Pain, Moderate(Pain Scale 4-6) Last Admin: 07/16/25 15:32 Dose: 0.5 mg Documented By: GIOVANI Piperacillin Sod/Tazobactam (Sod 4.5 gm/ Sodium Chloride) 100 mls @ 200 mls/hr IV Q8H [facility] Last Admin: 07/17/25 12:04 Dose: 200 mls/hr Documented By: OLEG Dextrose (D10) 1,000 mls @ 100 mls/hr IVCONT .Q10H [facility] Last Admin: 07/17/25 10:33 Dose: 100 mls/hr Documented By: OLEG Insulin Human Lispro (Insulin Lispro 100 Unit/Ml 3 Ml Vial) 0 unit SUBCUT Q6H [facility]; Protocol Last Admin: 07/17/25 12:08 Dose: Not Given Documented By: OLEG Non-Admin Reason: No Insulin Coverage Mirtazapine (Mirtazapine 30 Mg Tablet) 30 mg PO BEDTIME [facility] Last Admin: 07/16/25 19:57 Dose: Not Given Documented By: JV Non-Admin Reason: npo Naloxone HCl (Naloxone Hcl 0.4 Mg/Ml Vial) 0.04 mg IVPUSH Q5M PRN PRN Reason: Excessive sedation or RR < 8 Nicotine (Nicotine 14 Mg Patch.Td24) 14 mg TRANSDERMA DAILY [facility] Last Admin: 07/17/25 09:56 Dose: 14 mg Documented By: OLEG Ondansetron HCl (Ondansetron Hcl 4 Mg/2 Ml Vial) 4 mg IVPUSH Q8H PRN PRN Reason: Nausea and Vomiting Last Admin: 07/16/25 10:15 Dose: 4 mg Documented By: GIOVANI Quetiapine Fumarate (Quetiapine Fumarate 200 Mg Tablet) 200 mg PO BEDTIME [facility] Last Admin: 07/16/25 19:57 Dose: Not Given Documented By: JV Non-Admin Reason: npo Rilpivirine (Rilpivirine Hcl 25 Mg Tablet) 25 mg PO DAILY [facility] Last Admin: 07/17/25 09:58 Dose: 25 mg Documented By: OLEG Sertraline HCl (Sertraline Hcl 100 Mg Tablet) 100 mg PO DAILY [facility] Last Admin: 07/17/25 09:55 Dose: 100 mg Documented By: OLEG Labs 07/17/25 08:01 07/17/25 08:03 Labs: Laboratory Results - last 24 hr 07/15/25 07/16/25 07/16/25 14:04 13:54 15:02 MCV MCH MCHC RDW Plt Count MPV Absolute Nucleated RBC Nucleated RBC % (auto) PT INR Anion Gap Estim Creat Clear Calc Estimated GFR POC Glucose 90 68 Random Glucose Calcium Troponin I High Sens A.phagocytophil DNA PCR NOT DETECTED Babesia microti DNA PCR NOT DETECTED Borrelia sp DNA (PCR) NOT DETECTED Borrelia miyamotoi (PCR) NOT DETECTED E.chaffeensis DNA (PCR) NOT DETECTED Hep Bs Antigen Hep Bs Antibody Hep B Core Total Ab Hep B Core IgM Ab Tick-borne Disease PCR SEE NOTE 07/16/25 07/16/25 07/16/25 15:25 17:06 17:27 MCV 92.3 MCH 30.3 MCHC 32.9 RDW 15.7 Plt Count 75 L MPV 11.4 Absolute Nucleated RBC 0.030 H Nucleated RBC % (auto) 0.2 PT INR Anion Gap Estim Creat Clear Calc Estimated GFR POC Glucose 90 118 H Random Glucose Calcium Troponin I High Sens A.phagocytophil DNA PCR Babesia microti DNA PCR Borrelia sp DNA (PCR) Borrelia miyamotoi (PCR) E.chaffeensis DNA (PCR) Hep Bs Antigen Hep Bs Antibody Hep B Core Total Ab Hep B Core IgM Ab Tick-borne Disease PCR 07/16/25 07/17/25 07/17/25 22:05 00:17 00:27 MCV MCH MCHC RDW Plt Count MPV Absolute Nucleated RBC Nucleated RBC % (auto) PT INR Anion Gap Estim Creat Clear Calc Estimated GFR POC Glucose 146 H Random Glucose Calcium Troponin I High Sens 554.7 H* D 442.3 H* A.phagocytophil DNA PCR Babesia microti DNA PCR Borrelia sp DNA (PCR) Borrelia miyamotoi (PCR) E.chaffeensis DNA (PCR) Hep Bs Antigen Hep Bs Antibody Hep B Core Total Ab Hep B Core IgM Ab Tick-borne Disease PCR 07/17/25 07/17/25 07/17/25 06:05 08:01 08:02 MCV 92.0 MCH 30.4 MCHC 33.0 RDW 15.6 Plt Count 80 L MPV 11.8 Absolute Nucleated RBC 0.000 Nucleated RBC % (auto) 0.0 PT INR Anion Gap Estim Creat Clear Calc Estimated GFR POC Glucose 140 H Random Glucose Calcium Troponin I High Sens A.phagocytophil DNA PCR Babesia microti DNA PCR Borrelia sp DNA (PCR) Borrelia miyamotoi (PCR) E.chaffeensis DNA (PCR) Hep Bs Antigen Negative Hep Bs Antibody REACTIVE Hep B Core Total Ab Reactive Hep B Core IgM Ab Cancelled Tick-borne Disease PCR 07/17/25 07/17/25 08:03 11:53 MCV MCH MCHC RDW Plt Count MPV Absolute Nucleated RBC Nucleated RBC % (auto) PT 18.4 H D INR 1.6 H Anion Gap 10 L Estim Creat Clear Calc 47.7 Estimated GFR > 60 POC Glucose 113 Random Glucose 144 H Calcium 8.2 L Troponin I High Sens A.phagocytophil DNA PCR Babesia microti DNA PCR Borrelia sp DNA (PCR) Borrelia miyamotoi (PCR) E.chaffeensis DNA (PCR) Hep Bs Antigen Hep Bs Antibody Hep B Core Total Ab Hep B Core IgM Ab Tick-borne Disease PCR Microbiology Microbiology Results: Microbiology 07/15/25 Unknown Urine Culture - Preliminary Urine Catheterized - Angel Catheter Gram negative jennifer 07/15/25 12:05 Blood Culture - Preliminary Blood - Venous Gram negative jennifer 07/15/25 12:02 Blood Culture - Preliminary Blood - Venous Gram negative jennifer Procedures Date of Service Date of Service: 07/17/25 Progress Note: A&P Assessment and plan (1) Abdominal pain: Status: Acute Assessment and Plan: WBC coming down Patient waiting for EGD Cystoscopy done yesterday Abdomen is soft and benign Some tenderness right upper quadrant Transaminases improving Hepatitis profile pending Continue current care for now If with high suspicion for cholecystitis, would recommend IR drain/antibiotic treatment We will follow Time Spent With Patient Time: Total time managing care of this patient today ____ minutes. Quality Stroke Does the patient have a stroke diagnosis?: No VTE Prior VTE?: No VTE Risk Level:: Medical - low VTE Device Contraindication: N/A - Device Ordered VTE Drug Contraindication: N/A - Med Ordered
--- NOTE | 2025-07-17 13:59 | P.CONCA_ITS ---
History of Present Illness History of Present Illness Date of Service: 07/17/25 Requesting physician: Hannah Booth Consult reason: chest pain and troponin elevation Chief complaint: Shock Narrative: I was consulted to see Anthony in cardiology consultation today for reported chest pain yesterday with troponins that were elevated. History was obtained with help of shopping investigator at bedside and patient's friend at bedside. Despite the shopping investigator patient is a poor historian. Patient admitted to the hospital with septic shock related to possibly urinary tract infection with obstructed uropathy undergoing stent placement with subsequent multisystem involvement with elevated liver enzymes, KIRAN, elevated lactic acid. Patient also noted to have gallbladder stones. Patient also noted to have gastric outlet obstruction. Because of the chest pain had troponins drawn yesterday which was slightly elevated with rising for consistent with myocardial injury. Patient's EKGs done yesterday was normal. On further inquiring whether I asked him whether what kind of chest pain he had he is very vague about it. He said he had chest pain yesterday starting in late in the evening felt like pressure but then said was sharp stabbing pain and then continued till he went to bed without any relief. When he woke up this morning he did not have any significant chest pain. Patient when asked whether he had chest pains like this before. He is very vague about it. He said he gets chest pain almost on every day basis especially when he forgets to take his medications at home. He said he is quite forgetful. When asked about exertional chest pain said he occasionally gets that. However he has not had any prior obvious cardiac issues. Does have diabetes, prior smoking, anxiety/depressive disorder. Echocardiogram done at bedside showed [id number] LV systolic dysfunction with LVEF of 40-45% more of less diffuse prostate without any regional wall motion abnormality. Review of Systems 2 Constitutional: Constitutional: Reports no additional constitutional complaints Cardiovascular: Cardiovascular: Reports chest pain at rest, Denies leg edema, Denies lightheadedness, Denies Loss of Consciousness, Denies palpitations and Denies dyspnea Respiratory: Respiratory: Denies dyspnea Gastrointestinal: Gastrointestinal: Reports no additional gastrointestinal complaints Genitourinary: Genitourinary: Reports no additional male genitourinary complaints Neurologic: Reports system reviewed and no additional complaints, except as documented Endocrine: Endocrine: Denies palpitations PMFSH Past Medical History Medical History Nicotine dependence, cigarettes, uncomplicated Type 2 diabetes mellitus Hepatitis B Hepatitis C HIV (human immunodeficiency virus infection) Family History Family History Father Cancer of abdominal wall Paternal Uncle Cancer of abdominal wall Mother Alzheimer dementia Maternal Uncle Cancer Maternal Grandmother Cancer Family history: reviewed and not pertinent Surgical History Surgical History History of left inguinal hernia repair History of cystoscopy History of colonoscopy Social History Social History Household Members: None Housing: Apartment Do you presently have visiting nurse or other home services: Yes (housekeeping) Patient Tobacco Use Status: Current everyday Tobacco user Tobacco use type: Cigarette Cigarette Packs Per Day: 0.5 Cigarettes Per Day: 10.0 Substance Use Type: Marijuana service: No Current occupational status: retired [employer] Allergies Allergy/AdvReac Type Severity Reaction Status Date / Time No Known Allergies (No Known Allergy Verified 07/15/25 11:06 Allergies*) Active Medications: Current Medications Buprenorphine/Naloxone (Buprenorphine/Naloxone 8/2 Mg Film) 1 film SUBLINGUAL DAILY [facility] Last Admin: 07/17/25 09:01 Dose: 1 film Dextrose (Dextrose 50 % 25 Gm/50 Ml Syringe) 25 gm IVPUSH Q15M PRN; Protocol PRN Reason: per Hypoglycemia Standing Ord. Last Admin: 07/16/25 06:49 Dose: 25 gm Emtricitabine/Tenofovir Alafenamide (Emtricitabine/Tenofov Alafenam Tablet) 1 tab PO DAILY [facility] Last Admin: 07/17/25 09:58 Dose: 1 tab Famotidine (Famotidine/Pf 20 Mg/2 Ml Vial) 20 mg IVPUSH BID [facility] Last Admin: 07/17/25 09:57 Dose: 20 mg Heparin Sodium (Porcine) (Heparin Sodium,Porcine 5,000 Unit/Ml Vial) 5,000 unit SUBCUT Q8H [facility] Last Admin: 07/17/25 09:57 Dose: 5,000 unit Hydromorphone HCl (Hydromorphone Hcl 1 Mg/Ml Syringe) 0.5 mg IVPUSH Q4H PRN; Protocol PRN Reason: Pain, Moderate(Pain Scale 4-6) Last Admin: 07/16/25 15:32 Dose: 0.5 mg Piperacillin Sod/Tazobactam (Sod 4.5 gm/ Sodium Chloride) 100 mls @ 200 mls/hr IV Q8H [facility] Last Infusion: 07/17/25 12:34 Dose: Infused Dextrose (D10) 1,000 mls @ 100 mls/hr IVCONT .Q10H [facility] Last Admin: 07/17/25 10:33 Dose: 100 mls/hr Insulin Human Lispro (Insulin Lispro 100 Unit/Ml 3 Ml Vial) 0 unit SUBCUT Q6H [facility]; Protocol Last Admin: 07/17/25 12:08 Dose: Not Given Mirtazapine (Mirtazapine 30 Mg Tablet) 30 mg PO BEDTIME [facility] Last Admin: 07/16/25 19:57 Dose: Not Given Naloxone HCl (Naloxone Hcl 0.4 Mg/Ml Vial) 0.04 mg IVPUSH Q5M PRN PRN Reason: Excessive sedation or RR < 8 Nicotine (Nicotine 14 Mg Patch.Td24) 14 mg TRANSDERMA DAILY [facility] Last Admin: 07/17/25 09:56 Dose: 14 mg Ondansetron HCl (Ondansetron Hcl 4 Mg/2 Ml Vial) 4 mg IVPUSH Q8H PRN PRN Reason: Nausea and Vomiting Last Admin: 07/16/25 10:15 Dose: 4 mg Quetiapine Fumarate (Quetiapine Fumarate 200 Mg Tablet) 200 mg PO BEDTIME [facility] Last Admin: 07/16/25 19:57 Dose: Not Given Rilpivirine (Rilpivirine Hcl 25 Mg Tablet) 25 mg PO DAILY [facility] Last Admin: 07/17/25 09:58 Dose: 25 mg Sertraline HCl (Sertraline Hcl 100 Mg Tablet) 100 mg PO DAILY [facility] Last Admin: 07/17/25 09:55 Dose: 100 mg Home Medications ?Medication ?Instructions ?Recorded ?Confirmed ?Last Taken ?Type buprenorphine 8 mg-naloxone 2 mg 1 film sublingual [facility]SEY LY 01/12/24 07/15/25 09/13/24 History sublingual film emtricitabine 200 mg-rilpivirine 1 tab PO DAILY 07/15/25 09/13/24 History 25 mg-tenofovir alafenam 25 mg tablet (Odefsey) lisinopril 2.5 mg tablet 2.5 mg PO DAILY 01/12/24 Unknown History metformin 500 mg tablet,extended 1,000 mg PO DAILY@170 0 01/12/24 07/15/25 Unknown History release 24 hr mirtazapine 30 mg tablet 30 mg PO BEDTIME 01/12/24 Unknown History quetiapine 200 mg tablet 200 mg PO BEDTIME 01/12/24 1 Unknown History sertraline 100 mg tablet 100 mg PO DAILY 01/12/2409/13/24 History calcium 500 mg (as carbonate)-vit 1 tab PO BID 5 07/15/25 Unknown History D3 10 mcg (400 unit) chewable tablet ferrous gluconate 324 mg (38 mg 324 mg PO QAM 07/15/25 07/15/25 Unknown History iron) tablet insulin glargine 100 unit/mL (3 34 unit subcut BEDTIME 07/15/25 07/15/25 Unknown History mL) subcutaneous pen (Lantus Solostar U-100 Insulin) Physical Exam 2 Vital Signs: Vital Signs: Last Vital Signs Temp 97.9 F 07/17/25 12:00 Pulse 72 07/17/25 12:00 Resp 18 07/17/25 12:00 BP 132/75 07/17/25 12:00 Pulse Ox 97 07/17/25 12:00 O2 Del Method Nasal Cannula 07/17/25 12:00 O2 Flow Rate 2 07/17/25 12:00 BMI result Body Mass Index 20.8 Const: General: cooperative, comfortable, no acute distress, alert, awake and tired appearing Nutritional Appearance: underweight O rientation/consciousness: patient oriented x3 Limitations: no limitations HEENT: Head: Yes normocephalic and Yes atraumatic Neck: Neck: Yes trachea midline, Yes supple and Yes no JVD Resp: Effort & Inspection: normal respiratory effort Auscultation: clear to auscultation bilaterally Cardio: Jugular venous distension: no JVD Rate: regular rate Rhythm: r egular rhythm Heart sounds: S1 normal heart sound present, S2 normal heart sound present, no click, no gallops, no murmurs and no rubs GI: Auscultation: normal bowel sounds Skin: General skin exam: no rashes or lesions noted Neuro: General: patient oriented x3 and no focal motor deficits Extrem: General: Yes no clubbing, cyanosis or edema Objective Labs and Meds 07/17/25 08:01 07/17/25 08:03 Lab results: Laboratory Results - last 24 hr 07/15/25 07/16/25 07/16/25 14:04 13:54 15:02 WBC RBC Hgb Hct MCV MCH MCHC RDW Plt Count MPV Absolute Nucleated RBC Nucleated RBC % (auto) PT INR Sodium Potassium Chloride Carbon Dioxide Anion Gap BUN Creatinine Estim Creat Clear Calc Estimated GFR POC Glucose 90 68 Random Glucose Calcium Troponin I High Sens A.phagocytophil DNA PCR NOT DETECTED Babesia microti DNA PCR NOT DETECTED Borrelia sp DNA (PCR) NOT DETECTED Borrelia miyamotoi (PCR) NOT DETECTED E.chaffeensis DNA (PCR) NOT DETECTED Hep Bs Antigen Hep Bs Antibody Hep B Core Total Ab Hep B Core IgM Ab Tick-borne Disease PCR SEE NOTE 07/16/25 07/16/25 07/16/25 15:25 17:06 17:27 WBC 13.1 H RBC 3.23 L Hgb 9.8 L Hct 29.8 L MCV 92.3 MCH 30.3 MCHC 32.9 RDW 15.7 Plt Count 75 L MPV 11.4 Absolute Nucleated RBC 0.030 H Nucleated RBC % (auto) 0.2 PT INR Sodium Potassium Chloride Carbon Dioxide Anion Gap BUN Creatinine Estim Creat Clear Calc Estimated GFR POC Glucose 90 118 H Random Glucose Calcium Troponin I High Sens A.phagocytophil DNA PCR Babesia microti DNA PCR Borrelia sp DNA (PCR) Borrelia miyamotoi (PCR) E.chaffeensis DNA (PCR) Hep Bs Antigen Hep Bs Antibody Hep B Core Total Ab Hep B Core IgM Ab Tick-borne Disease PCR 07/16/25 07/17/25 07/17/25 22:05 00:17 00:27 WBC RBC Hgb Hct MCV MCH MCHC RDW Plt Count MPV Absolute Nucleated RBC Nucleated RBC % (auto) PT INR Sodium Potassium Chloride Carbon Dioxide Anion Gap BUN Creatinine Estim Creat Clear Calc Estimated GFR POC Glucose 146 H Random Glucose Calcium Troponin I High Sens 554.7 H* D 442.3 H* A.phagocytophil DNA PCR Babesia microti DNA PCR Borrelia sp DNA (PCR) Borrelia miyamotoi (PCR) E.chaffeensis DNA (PCR) Hep Bs Antigen Hep Bs Antibody Hep B Core Total Ab Hep B Core IgM Ab Tick-borne Disease PCR 07/17/25 07/17/25 07/17/25 06:05 08:01 08:02 WBC 11.3 H RBC 3.13 L Hgb 9.5 L Hct 28.8 L MCV 92.0 MCH 30.4 MCHC 33.0 RDW 15.6 Plt Count 80 L MPV 11.8 Absolute Nucleated RBC 0.000 Nucleated RBC % (auto) 0.0 PT INR Sodium Potassium Chloride Carbon Dioxide Anion Gap BUN Creatinine Estim Creat Clear Calc Estimated GFR POC Glucose 140 H Random Glucose Calcium Troponin I High Sens A.phagocytophil DNA PCR Babesia microti DNA PCR Borrelia sp DNA (PCR) Borrelia miyamotoi (PCR) E.chaffeensis DNA (PCR) Hep Bs Antigen Negative Hep Bs Antibody REACTIVE Hep B Core Total Ab Reactive Hep B Core IgM Ab Cancelled Tick-borne Disease PCR 07/17/25 07/17/25 08:03 11:53 WBC RBC Hgb Hct MCV MCH MCHC RDW Plt Count MPV Absolute Nucleated RBC Nucleated RBC % (auto) PT 18.4 H D INR 1.6 H Sodium 139 Potassium 3.8 D Chloride 110 H Carbon Dioxide 23 Anion Gap 10 L BUN 18 H Creatinine 1.19 Estim Creat Clear Calc 47.7 Estimated GFR > 60 POC Glucose 113 Random Glucose 144 H Calcium 8.2 L Troponin I High Sens A.phagocytophil DNA PCR Babesia microti DNA PCR Borrelia sp DNA (PCR) Borrelia miyamotoi (PCR) E.chaffeensis DNA (PCR) Hep Bs Antigen Hep Bs Antibody Hep B Core Total Ab Hep B Core IgM Ab Tick-borne Disease PCR Imaging Radiologist's impression: Impressions Guidance Fluoroscopy 07/16/25 14:25 IMPRESSION: Fluoroscopy during procedure. Please see procedure report for additional information. Electronically signed by: Barrera Bustamante MD 07/17/2025 07:55 AM EDT Assessment and Plan (1) Myocardial injury: Status: Acute Patient admitted with septic shock with multiorgan system involvement which could potentially also represent myocardial involvement. Patient does have mildly depressed LV ejection fraction which is most likely due to depressed myocardium from sepsis/stress-induced cardiomyopathy. Troponin elevation most likely related to the same. Not sure if patient has chest pain in his very atypical. However he is at risk for obstructive coronary artery disease given his risk factors. Although I think with normal EKG with chest pain for such prolonged period of time with rise and fall in troponin which appear to be most likely related to his acute medical illness, likelihood of acute coronary syndrome as a primary event in his very low. For now I would manage him with aspirin and statins and beta-maryjane therapy. He will require outpatient ischemic workup once his acute medical illness has resolved in few weeks time. (2) Preoperative cardiovascular examination: Status: Acute Patient noted to have gastric outlet obstruction on imaging and is scheduled to undergo upper endoscopy. This needs to be performed at the sedation. Patient has currently optimized to undergo the procedure with low to intermediate risk for perioperative cardiovascular morbidity mortality. Continue metoprolol as well as statins in the perioperative. Will follow as outpatient. Thank you for allowing me to partake in his care Procedures Date of Service Date of Service: 07/17/25
--- NOTE | 2025-07-17 15:17 | HO.PM.IMPN ---
Subjective Subjective Date of Service: 07/17/25 Interval History: Pt with reported chest pain last night; troponins with delta change from yesterday, though serial troponins last night flat Currently pt reports feels well and wants to go home Denies nausea, vomiting, abdominal pain Denies chest pain Complains of leaking around his catheter Review of Systems Review of Systems: Yes all other systems are reviewed and are negative Physical Exam Exam: Exam: General: AOx3, no acute distress. Frail, chronically ill appearing, dissheveled Resp: CTA bilaterally CVS: S1, S2, RRR GI: +BS, no distention, mild central abd tenderness Skin: Warm, dry Neuro: Cranial nerves II-XII grossly intact bilaterally. Motor grossly intact bilaterally Extremities: No edema Psych: Appropriate affect Vital Signs: Vital Signs: Last Vital Signs Temp 97.9 F 07/17/25 12:00 Pulse 72 07/17/25 12:00 Resp 18 07/17/25 12:00 BP 132/75 07/17/25 12:00 Pulse Ox 97 07/17/25 12:00 O2 Del Method Nasal Cannula 07/17/25 12:00 O2 Flow Rate 2 07/17/25 12:00 BMI result Body Mass Index 20.8 Objective Data Active Medications Buprenorphine/Naloxone (Buprenorphine/Naloxone 8/2 Mg Film) 1 film SUBLINGUAL DAILY [facility] Last Admin: 07/17/25 09:01 Dose: 1 film Documented By: OLEG Dextrose (Dextrose 50 % 25 Gm/50 Ml Syringe) 25 gm IVPUSH Q15M PRN; Protocol PRN Reason: per Hypoglycemia Standing Ord. Last Admin: 07/16/25 06:49 Dose: 25 gm Documented By: JOSEPH Emtricitabine/Tenofovir Alafenamide (Emtricitabine/Tenofov Alafenam Tablet) 1 tab PO DAILY [facility] Last Admin: 07/17/25 09:58 Dose: 1 tab Documented By: OLEG Famotidine (Famotidine/Pf 20 Mg/2 Ml Vial) 20 mg IVPUSH BID [facility] Last Admin: 07/17/25 09:57 Dose: 20 mg Documented By: OLEG Heparin Sodium (Porcine) (Heparin Sodium,Porcine 5,000 Unit/Ml Vial) 5,000 unit SUBCUT Q8H [facility] Last Admin: 07/17/25 09:57 Dose: 5,000 unit Documented By: OLEG Hydromorphone HCl (Hydromorphone Hcl 1 Mg/Ml Syringe) 0.5 mg IVPUSH Q4H PRN; Protocol PRN Reason: Pain, Moderate(Pain Scale 4-6) Last Admin: 07/16/25 15:32 Dose: 0.5 mg Documented By: GIOVANI Piperacillin Sod/Tazobactam (Sod 4.5 gm/ Sodium Chloride) 100 mls @ 200 mls/hr IV Q8H [facility] Last Infusion: 07/17/25 12:34 Dose: Infused Documented By: OLEG Dextrose (D10) 1,000 mls @ 100 mls/hr IVCONT .Q10H [facility] Last Admin: 07/17/25 10:33 Dose: 100 mls/hr Documented By: OLEG Insulin Human Lispro (Insulin Lispro 100 Unit/Ml 3 Ml Vial) 0 unit SUBCUT Q6H [facility]; Protocol Last Admin: 07/17/25 12:08 Dose: Not Given Documented By: OLEG Non-Admin Reason: No Insulin Coverage Mirtazapine (Mirtazapine 30 Mg Tablet) 30 mg PO BEDTIME [facility] Last Admin: 07/16/25 19:57 Dose: Not Given Documented By: JV Non-Admin Reason: npo Naloxone HCl (Naloxone Hcl 0.4 Mg/Ml Vial) 0.04 mg IVPUSH Q5M PRN PRN Reason: Excessive sedation or RR < 8 Nicotine (Nicotine 14 Mg Patch.Td24) 14 mg TRANSDERMA DAILY [facility] Last Admin: 07/17/25 09:56 Dose: 14 mg Documented By: OLEG Ondansetron HCl (Ondansetron Hcl 4 Mg/2 Ml Vial) 4 mg IVPUSH Q8H PRN PRN Reason: Nausea and Vomiting Last Admin: 07/16/25 10:15 Dose: 4 mg Documented By: GIOVANI Quetiapine Fumarate (Quetiapine Fumarate 200 Mg Tablet) 200 mg PO BEDTIME [facility] Last Admin: 07/16/25 19:57 Dose: Not Given Documented By: JV Non-Admin Reason: npo Rilpivirine (Rilpivirine Hcl 25 Mg Tablet) 25 mg PO DAILY [facility] Last Admin: 07/17/25 09:58 Dose: 25 mg Documented By: OLEG Sertraline HCl (Sertraline Hcl 100 Mg Tablet) 100 mg PO DAILY [facility] Last Admin: 07/17/25 09:55 Dose: 100 mg Documented By: OLEG Labs 07/17/25 08:01 07/17/25 08:03 Labs: Laboratory Results - last 24 hr 07/15/25 07/16/25 07/16/25 14:04 15:25 17:06 MCV 92.3 MCH 30.3 MCHC 32.9 RDW 15.7 Plt Count 75 L MPV 11.4 Absolute Nucleated RBC 0.030 H Nucleated RBC % (auto) 0.2 PT INR Anion Gap Estim Creat Clear Calc Estimated GFR POC Glucose 90 Random Glucose Calcium Troponin I High Sens A.phagocytophil DNA PCR NOT DETECTED Babesia microti DNA PCR NOT DETECTED Borrelia sp DNA (PCR) NOT DETECTED Borrelia miyamotoi (PCR) NOT DETECTED E.chaffeensis DNA (PCR) NOT DETECTED Hep Bs Antigen Hep Bs Antibody Hep B Core Total Ab Hep B Core IgM Ab Tick-borne Disease PCR SEE NOTE 07/16/25 07/16/25 07/17/25 17:27 22:05 00:17 MCV MCH MCHC RDW Plt Count MPV Absolute Nucleated RBC Nucleated RBC % (auto) PT INR Anion Gap Estim Creat Clear Calc Estimated GFR POC Glucose 118 H 146 H Random Glucose Calcium Troponin I High Sens 554.7 H* D A.phagocytophil DNA PCR Babesia microti DNA PCR Borrelia sp DNA (PCR) Borrelia miyamotoi (PCR) E.chaffeensis DNA (PCR) Hep Bs Antigen Hep Bs Antibody Hep B Core Total Ab Hep B Core IgM Ab Tick-borne Disease PCR 07/17/25 07/17/25 07/17/25 00:27 06:05 08:01 MCV 92.0 MCH 30.4 MCHC 33.0 RDW 15.6 Plt Count 80 L MPV 11.8 Absolute Nucleated RBC 0.000 Nucleated RBC % (auto) 0.0 PT INR Anion Gap Estim Creat Clear Calc Estimated GFR POC Glucose 140 H Random Glucose Calcium Troponin I High Sens 442.3 H* A.phagocytophil DNA PCR Babesia microti DNA PCR Borrelia sp DNA (PCR) Borrelia miyamotoi (PCR) E.chaffeensis DNA (PCR) Hep Bs Antigen Hep Bs Antibody Hep B Core Total Ab Hep B Core IgM Ab Tick-borne Disease PCR 07/17/25 07/17/25 07/17/25 08:02 08:03 11:53 MCV MCH MCHC RDW Plt Count MPV Absolute Nucleated RBC Nucleated RBC % (auto) PT 18.4 H D INR 1.6 H Anion Gap 10 L Estim Creat Clear Calc 47.7 Estimated GFR > 60 POC Glucose 113 Random Glucose 144 H Calcium 8.2 L Troponin I High Sens A.phagocytophil DNA PCR Babesia microti DNA PCR Borrelia sp DNA (PCR) Borrelia miyamotoi (PCR) E.chaffeensis DNA (PCR) Hep Bs Antigen Negative Hep Bs Antibody REACTIVE Hep B Core Total Ab Reactive Hep B Core IgM Ab Cancelled Tick-borne Disease PCR Microbiology Microbiology Results: Microbiology 07/15/25 Unknown Urine Culture - Preliminary Urine Catheterized - Angel Catheter Gram negative jennifer 07/15/25 12:05 Blood Culture - Preliminary Blood - Venous Gram negative jennifer 07/15/25 12:02 Blood Culture - Preliminary Blood - Venous Gram negative jennifer Assessment and Plan (1) Urinary tract obstruction by kidney stone: Status: Acute (2) Septic shock: Status: Acute Plan 69-year-old gentleman with past medical history of HIV disease on HAART, hepatitis-B and C, prostate cancer, hypertension, BPH requiring intermittent catheterization for dysuria presents to the ED with complaints of pain during urination. He requested to place in a Angel to help him pass urine. In the ED he was found to be hypotensive, CT abdomen and pelvis was done which showed right-sided hydroureter with proximal ureteric calculi. However his up CT abdomen was also suggesting gastric outlet obstruction. Pt was placed on pressors and admitted to the ICU. BP improved and pt was taken off pressors and transferred to the medical floor Septic shock in the setting of complex urinary tract infection with right ureteral obstruction and bacteremia CTA abdomen and pelvis showing a proximal ureteric stone and a right-sided hydronephrosis. It looks like the stone that might have passed down into the ureter might have caused the obstruction. He received 3 L of fluid bolus, but remained hypotensive so was on Levophed 07/15-07/16 Bedside echo shows IVC fluctuating with respiration but 1.9 cm, RV normal, LV systolic function slightly reduced. Urology consulted, placed right ureteral stent on 07/16 Urine and 2/2 blood cultures positive for Gram-negative rods Continue Zosyn, day 3 Follow urine and blood cultures Angel can be removed and pt will need to follow up with for stent management KIRAN, resolved Likely secondary to ATN from hypotension and volume depletion Baseline creatinine normal, creatinine today is 1.9 Right-sided hydronephrosis on the CT abdomen from a stone that might have been passed to ureter Avoid nephrotoxic medications Question of gastric outlet obstruction: As seen on the CT abdomen and pelvis GI consulted, EGD today cancelled Will trial food tonight; if pt tolerates food and asymptomatic, EGD unnecessary Transaminitis with a question of cholecystitis Pt with transaminitis AST 650, ALT 360 initially, now trending down Possibly secondary to SIRS from systemic sepsis Ultrasound showing cholelithiasis with gallbladder edema, equivocal for cholecystitis General surgery consulted, has Quintero's sign positive Current plan to treat as above; if pt symptomatic IR drain/antibiotic treatment Elevated troponins Troponin 299.9-->554.7-->442.3 Pt experienced some chest pain last night Echo showed moderately reduced LVEF to 40% and moderate biatrial enlargement Cardiology consulted thank secondary to sepsis/stress-induced cardiomyopathy Manage pt with aspirin, statin, and beta-maryjane therapy Pt will outpatient ischemic workup Lactic acidosis: Secondary to shock Received IV fluid boluses, bedside echo suggestive of volume repletion Lactate trended down, volume repleted, capillary refilling time normal, blood pressure normal, perfusion normal. Treat as above with abx Chronic anemia Stable, at baseline Closely monitor H&H Transfuse for hemoglobin less than 7 grams/deciliter Endocrine: At home he is on 34 units of Lantus but at the hospital he was hypoglycemic even without getting any insulin possibly secondary to sepsis and poor reserve given his malnutrition. Blood sugars under control Sliding scale insulin as needed Musculoskeletal: Decubitus ulcer prevention protocol Prophylaxis: Heparin, famotidine Pt will require continued hospitalization to monitor p.o. intake for possible gastric outlet obstruction. Pt is also being treated empirically for bacteremia and UTI while awaiting blood and urine cultures. If pt is unable to tolerate food he will need an EGD tomorrow; however, if pt is able to tolerate food we will consider discharge pending blood and urine cultures and sensitivities Quality Stroke Does the patient have a stroke diagnosis?: No VTE Prior VTE?: No VTE Risk Level:: Medical - low VTE Device Contraindication: N/A - Device Ordered VTE Drug Contraindication: N/A - Med Ordered
--- NOTE | 2025-07-17 16:05 | MHC.CM.PN ---
EMR REVIEWED AND PER MD ROUNDS, PATIENT IS NOT MEDICALLY CLEARED FOR DISCHARGE DUE TO MANAGEMENT OF SEPTIC SHOCK/UTI.
[2025-07-17] MEDS: oxyBUTYnin chloride ER 5 MG TAB.ER.24 PO (17:51)
[2025-07-17 17:52] LABS: Glucose, Whole Blood 156 mg/dL (60-115)
--- NOTE | 2025-07-17 19:22 | PC.NURSE ---
After holguin catheter removed, patient voided yellow urine with a clot present. Photo sent to provider via [place].
[2025-07-18 00:16] LABS: Glucose, Whole Blood 138 mg/dL (60-115)
[2025-07-18 03:21] VITALS: BP 167/82; PULSE 63; RESP 18; TEMP 36.8; O2SAT 98
[2025-07-18 06:15] LABS: Glucose, Whole Blood 148 mg/dL (60-115)
[2025-07-18 07:19] VITALS: BP 133/74; PULSE 57; RESP 18; TEMP 36.4; O2SAT 98
[2025-07-18] MEDS: Emtricitabine/Tenofov Alafenam TABLET 1 TAB PO (09:13)
[2025-07-18] MEDS: Nicotine 14 MG PATCH.TD24 TRANSDERMA (09:14)
--- NOTE | 2025-07-18 09:19 | PM.PNGS ---
Subjective Subjective Date of Service: 07/18/25 Interval history: Feels better Denies abdominal pain No nausea or vomiting Passing flatus Physical Exam Vital Signs: Vital Signs: Last Vital Signs Temp 97.6 F 07/18/25 07:19 Pulse 57 07/18/25 07:19 Resp 18 07/18/25 07:19 BP 133/74 07/18/25 07:19 Pulse Ox 98 07/18/25 07:19 O2 Del Method Nasal Cannula 07/18/25 07:19 O2 Flow Rate 2 07/18/25 07:19 BMI result Body Mass Index 20.8 Const: Other: Seems more alert General: comfortable and no acute distress Resp: Effort & Inspection: normal respiratory effort Cardio: Rate: regular rate GI: Palpation (GI): Soft to palpation, not firm, nontender and no guarding Objective Data Active Medications Aspirin (Aspirin 81 Mg Tab.Chew) 81 mg PO DAILY [facility] Atorvastatin Calcium (Atorvastatin Calcium 40 Mg Tablet) 40 mg PO DAILY [facility] Buprenorphine/Naloxone (Buprenorphine/Naloxone 8/2 Mg Film) 1 film SUBLINGUAL DAILY [facility] Last Admin: 07/17/25 09:01 Dose: 1 film Documented By: OLEG Dextrose (Dextrose 50 % 25 Gm/50 Ml Syringe) 25 gm IVPUSH Q15M PRN; Protocol PRN Reason: per Hypoglycemia Standing Ord. Last Admin: 07/16/25 06:49 Dose: 25 gm Documented By: JOSEPH Emtricitabine/Tenofovir Alafenamide (Emtricitabine/Tenofov Alafenam Tablet) 1 tab PO DAILY [facility] Last Admin: 07/17/25 09:58 Dose: 1 tab Documented By: OLEG Famotidine (Famotidine/Pf 20 Mg/2 Ml Vial) 20 mg IVPUSH BID [facility] Last Admin: 07/17/25 20:54 Dose: 20 mg Documented By: JV Heparin Sodium (Porcine) (Heparin Sodium,Porcine 5,000 Unit/Ml Vial) 5,000 unit SUBCUT Q8H [facility] Last Admin: 07/18/25 00:25 Dose: Not Given Documented By: JV Non-Admin Reason: procedure in AM Hydromorphone HCl (Hydromorphone Hcl 1 Mg/Ml Syringe) 0.5 mg IVPUSH Q4H PRN; Protocol PRN Reason: Pain, Moderate(Pain Scale 4-6) Last Admin: 07/16/25 15:32 Dose: 0.5 mg Documented By: GIOVANI Piperacillin Sod/Tazobactam (Sod 4.5 gm/ Sodium Chloride) 100 mls @ 200 mls/hr IV Q8H [facility] Last Infusion: 07/18/25 06:37 Dose: Infused Documented By: JV Dextrose (D10) 1,000 mls @ 100 mls/hr IVCONT .Q10H [facility] Last Admin: 07/17/25 20:55 Dose: 100 mls/hr Documented By: JV Insulin Human Lispro (Insulin Lispro 100 Unit/Ml 3 Ml Vial) 0 unit SUBCUT Q6H [facility]; Protocol Last Admin: 07/18/25 06:37 Dose: Not Given Documented By: JV Non-Admin Reason: No Insulin Coverage Mirtazapine (Mirtazapine 30 Mg Tablet) 30 mg PO BEDTIME [facility] Last Admin: 07/17/25 20:54 Dose: 30 mg Documented By: JV Naloxone HCl (Naloxone Hcl 0.4 Mg/Ml Vial) 0.04 mg IVPUSH Q5M PRN PRN Reason: Excessive sedation or RR < 8 Nicotine (Nicotine 14 Mg Patch.Td24) 14 mg TRANSDERMA DAILY [facility] Last Admin: 07/17/25 09:56 Dose: 14 mg Documented By: OLEG Ondansetron HCl (Ondansetron Hcl 4 Mg/2 Ml Vial) 4 mg IVPUSH Q8H PRN PRN Reason: Nausea and Vomiting Last Admin: 07/16/25 10:15 Dose: 4 mg Documented By: GIOVANI Quetiapine Fumarate (Quetiapine Fumarate 200 Mg Tablet) 200 mg PO BEDTIME [facility] Last Admin: 07/17/25 20:54 Dose: 200 mg Documented By: JV Quetiapine Fumarate (Quetiapine Fumarate 25 Mg Tablet) 25 mg PO DAILY PRN PRN Reason: Anxiety Rilpivirine (Rilpivirine Hcl 25 Mg Tablet) 25 mg PO DAILY [facility] Last Admin: 07/17/25 09:58 Dose: 25 mg Documented By: OLEG Sertraline HCl (Sertraline Hcl 100 Mg Tablet) 100 mg PO DAILY [facility] Last Admin: 07/17/25 09:55 Dose: 100 mg Documented By: OLEG Labs 07/17/25 08:01 07/17/25 08:03 Labs: Laboratory Results - last 24 hr 07/17/25 07/17/25 07/17/25 08:02 11:53 17:48 POC Glucose 113 156 H Hep Bs Antigen Negative Hep Bs Antibody REACTIVE Hep B Core Total Ab Reactive Hep B Core IgM Ab Cancelled 07/18/25 07/18/25 00:11 06:10 POC Glucose 138 H 148 H Hep Bs Antigen Hep Bs Antibody Hep B Core Total Ab Hep B Core IgM Ab Microbiology Microbiology Results: Microbiology 07/15/25 12:05 Blood Culture - Final Blood - Venous Serratia marcescens 07/15/25 12:02 Blood Culture - Final Blood - Venous Enterobacter cloacae complex 07/15/25 Unknown Urine Culture - Final Urine Catheterized - Angel Catheter Serratia marcescens Enterobacter cloacae complex Procedures Date of Service Date of Service: 07/18/25 Progress Note: A&P Assessment and plan (1) Abdominal pain: Status: Acute Assessment and Plan: Clinically looks well Abdomen is soft, benign, nontender Denies abdominal pain If the patient is a going for EGD, okay to advance diet as tolerated Has other concurrent medical issues Time Spent With Patient Time: Total time managing care of this patient today ____ minutes. Quality Stroke Does the patient have a stroke diagnosis?: No VTE Prior VTE?: No VTE Risk Level:: Medical - low VTE Device Contraindication: N/A - Device Ordered VTE Drug Contraindication: N/A - Med Ordered
[2025-07-18 11:12] VITALS: BP 152/74; PULSE 53; RESP 18; TEMP 36.8; O2SAT 98
[2025-07-18 11:41] LABS: Glucose, Whole Blood 72 mg/dL (60-115)
--- NOTE | 2025-07-18 14:56 | PM.DS ---
DS: Providers Provider Date of Service: 07/18/25 Date of admission: 07/15/25 16:39 Date of discharge: 07/18/25 Primary care physician: Lonnie Britton MD Consults: 07/15/25 14:17 Consult to General Surgery Stat Consulting Provider: [facility] General Surgeons Reason for consultation: gastric outlet Has provider been notified: Yes 07/16/25 09:22 Consult to Gastroenterology Routine Consulting Provider: [facility] Gastroenterology Services Reason for consultation: gastric outlet obstruction 07/16/25 09:24 Consult to Urology Routine Consulting Provider: [facility] Urology Services Reason for consultation: ureteric stones and hydronephrosis Has provider been notified: No 07/16/25 14:02 Consult to Infectious Diseases Routine Consulting Provider: [facility] Reason for consultation: HIV 07/16/25 22:49 Consult to Cardiology Routine Consulting Provider: [facility] Cardi[facility] Specialists Reason for consultation: chest pain; high trops DS: Diagnosis Discharge Diagnosis (1) Abdominal pain: Status: Acute DS: Summary Hospital Course Hospital Course: From admission HPI: Date of Service: 07/15/25 Chief Complaint: Pain while urinating 69-year-old gentleman with past medical history of HIV disease on HAART, hepatitis-B and C, prostate cancer, hypertension, BPH requiring intermittent catheterization for dysuria presents to the ED with complaints of pain during urination. He requested to place in a Angel to help him pass urine. In the ED he was found to be hypotensive, CT abdomen and pelvis was done which showed right-sided hydroureter with proximal ureteric calculi. However his up CT abdomen was also suggesting gastric outlet obstruction, has significant transaminitis underwent ultrasound of the abdomen which showed cholelithiasis with gallbladder wall edema. He received septic bolus fluids, but persisted to be hypotensive so MICU was consulted for admission. Hospital Course: Pt was admitted to the hospital for septic shock in the setting of complex urinary tract infection and KIRAN with right ureteral obstruction that required initial admission to the ICU for pressor support. Pt was seen and evaluated by Urology who placed a right ureteral stent with resolution of blockage. Patient's hospital stay complicated by 2/2 blood cultures coming back positive for Serratia marcescens and Enterobacter cloacae complex susceptible to ciprofloxacin. Pt was started on IV antibiotics and eventually weaned from Levophed and transferred to the hospital floor. Hospital stay was complicated by multiple other issues, including chest pain and elevated troponins. pt was seen and evaluated by Cardiology who thought patient's troponin represented a secondary NSTEMI in the setting of sepsis/stress-induced cardiomyopathy. Echocardiogram showed reduced LVEF of 40%, and pt was started on aspirin and statin but beta-maryjane was held has patient's heart rate was noted to be in the 40-50s while sleeping. Imaging was also concerning for possible acute cholecystitis the pt was seen and evaluated by General surgery. Was also seen by GI for possible gastric outlet obstruction. Pt, however, no longer experienced nausea, vomiting, or abdominal pain post stenting, and he was able to tolerate a solid diet by time of discharge. Pt did not require any additional workup for possible cholecystectomy or EGD. Pt will be discharged on ciprofloxacin 500 mg b.i.d. x11 days, as well as aspirin 81 mg daily and atorvastatin 40 mg at bedtime. Pt should follow up with Dr. Leilani calderon in Urology 1-2 weeks' time for stent management, as well as with Dr. Kaur in Cardiology for outpatient ischemic cardiac workup. 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 Additional details concerning hospital stay as indicated below. Septic shock in the setting of complex urinary tract infection with right ureteral obstruction and bacteremia CTA abdomen and pelvis showing a proximal ureteric stone and a right-sided hydronephrosis. It looks like the stone that might have passed down into the ureter might have caused the obstruction. He received 3 L of fluid bolus, but remained hypotensive so was on Levophed 07/15-07/16 Bedside echo shows IVC fluctuating with respiration but 1.9 cm, RV normal, LV systolic function slightly reduced. Urology consulted, placed right ureteral stent on 07/16 Urine and 2/2 blood cultures positive for Serratia marcescens and Enterobacter cloacae complex Treated with Zosyn x3 days; will be discharged on cipr 500mg bid x11 days Angel was removed and pt has been voiding freely; he will need to follow up with for stent management KIRAN, resolved Likely secondary to ATN from hypotension and volume depletion Baseline creatinine normal, creatinine today is 1.9 Right-sided hydronephrosis on the CT abdomen from a stone that might have been passed to ureter Avoid nephrotoxic medications Question of gastric outlet obstruction: As seen on the CT abdomen and pelvis GI consulted, EGD canceled as pt tolerating food and no longer symptomatic Transaminitis with a question of cholecystitis Pt with transaminitis AST 650, ALT 360 initially, now trending down Possibly secondary to SIRS from systemic sepsis Ultrasound showing cholelithiasis with gallbladder edema, equivocal for cholecystitis General surgery consulted as Quintero's sign positive Treated as above with resolution of symptoms; no cholecystectomy indicated Elevated troponins Troponin 299.9-->554.7-->442.3 Pt experienced some chest pain during the night Echo showed moderately reduced LVEF to 40% and moderate biatrial enlargement Cardiology consulted thank secondary to sepsis/stress-induced cardiomyopathy Manage pt with aspirin and statin; beta-maryjane held due to HR in the 40-50s while sleeping Pt will need outpatient ischemic workup Lactic acidosis: Secondary to shock Received IV fluid boluses, bedside echo suggestive of volume repletion Lactate trended down, volume repleted, capillary refilling time normal, blood pressure normal, perfusion normal. Treated as above with abx Chronic anemia Stable, at baseline Endocrine: At home he is on 34 units of Lantus but at the hospital he was hypoglycemic even without getting any insulin possibly secondary to sepsis and poor reserve given his malnutrition. Blood sugars under control Continue home meds Musculoskeletal: Decubitus ulcer prevention protocol HIV Continue home meds Time Attestation Discharge Coordination Time (in mins): 35 Quality: Safe Use of Opioids Does Pt have an Active Cancer Diagnosis on the Problem List?: No Quality: Stroke Does the patient have a stroke diagnosis?: No Physical Exam Exam: Exam: General: AOx3, no acute distress. Chronically ill appearing, dissheveled Resp: CTA bilaterally CVS: S1, S2, RRR GI: +BS, no distention, NT Skin: Warm, dry Neuro: Cranial nerves II-XII grossly intact bilaterally. Motor grossly intact bilaterally Extremities: No edema Psych: Appropriate affect Vital Signs: Vital Signs: Last Vital Signs Temp 98.3 F 07/18/25 11:12 Pulse 53 07/18/25 11:12 Resp 18 07/18/25 11:12 BP 152/74 H 07/18/25 11:12 Pulse Ox 98 07/18/25 11:12 O2 Del Method Nasal Cannula 07/18/25 11:12 O2 Flow Rate 2 07/18/25 11:12 BMI result Body Mass Index 20.8 DS: Data Data Completed and Pending Pending studies at discharge: Pending at discharge 07/16/25 14:42 Surgical [PTH] Routine Labs on day of discharge: Laboratory Results - last 24 hr 07/17/25 07/18/25 07/18/25 17:48 00:11 06:10 POC Glucose 156 H 138 H 148 H 07/18/25 11:38 POC Glucose 72 Discharge Plan Discharge Anticipated Discharge Date/Time: 07/18/25 13:45 Patient Disposition: Home Health Service Discharge Diagnosis: Septic shock in the setting of complex urinary tract infection with right ureteral obstruction and bacteremia Referrals: Alma Cifuentes MD [Physician, Urology] - 1 Week Referral Note: F/U for right ureteral stenting in the hospital Lonnie Britton MD [Primary Care Provider, Medical] - 1 Week Hunter Kaur MD [Physician, Cardiology] - 1 Week Referral Note: F/U on elevated trops in hospital; needs ischemic workup Discharge Medications: New ciprofloxacin HCl 500 mg tablet 500 mg PO Q12H Qty: 23 0RF Rx Instructions: Take 1 tab twice a day with food for the next 11 days, starting the evening of 07/18 and ending the evening of 07/29. aspirin 81 mg tablet 81 mg PO DAILY Qty: 90 0RF Rx Instructions: Take 1 daily atorvastatin [Lipitor] 40 mg tablet 40 mg PO BEDTIME Qty: 90 0RF Rx Instructions: Take 1 tablet daily at bedtime Continued calcium carbonate-vitamin D3 500 mg-10 mcg (400 unit) tablet,chewable 1 tab PO BID insulin glargine [Lantus Solostar U-100 Insulin] 100 unit/mL (3 mL) insulin pen 34 unit subcut BEDTIME ferrous gluconate 324 mg (38 mg iron) tablet 324 mg PO QAM buprenorphine-naloxone 8-2 mg film 1 film sublingual DAILY Odefsey 200-25-25 mg tablet 1 tab PO DAILY lisinopril 2.5 mg tablet 2.5 mg PO DAILY mirtazapine 30 mg tablet 30 mg PO BEDTIME quetiapine 200 mg tablet 200 mg PO BEDTIME sertraline 100 mg tablet 100 mg PO DAILY metformin 500 mg tablet extended release 24 hr 1,000 mg PO DAILY@1700 bisacodyl [Dulcolax (bisacodyl)] 5 mg tablet,delayed release (DR/EC) 10 mg PO BEDTIME Qty: 180 4RF Discharge Orders: Discharge Order (Routine); Ordered 07/18/25 Ordered By: Hannah Booth Activity on Discharge: As tolerated Stand Alone Forms: Patient Portal Discharge page Print Language: Indonesian Care Plan Goals: See below Health Concerns: Septic shock UTI Right ureteral obstruction Bacteremia Elevated troponins Transaminitis Cholecystitis Gastric outlet obstruction Plan of Treatment: You were admitted to the hospital for septic shock in the setting of complex urinary tract infection with right ureteral obstruction that required initial admission to the ICU for blood pressure support on Levophed. You were seen and evaluated by Urology who placed a right ureteral stent with resolution of your blockage. Your blood cultures came back positive for bacteremia, and both urine and blood cultures were growing the same organism that is susceptible to ciprofloxacin. You will be discharged home on a course of ciprofloxacin for the next 11 days. Your hospital stay was also complicated by multiple other issues, including elevated troponins and chest pain. You were seen and evaluated by Cardiology where echocardiogram showed moderately reduced LVEF of 40%. Elevated troponins thought secondary to sepsis/stress-induced cardiomyopathy, and you will be started on an aspirin and statin, though you have not been started on a beta-maryjane as your heart rate was noted to be in the 40s to 50s while sleeping. Imaging and labs were also concerning for possible acute gallbladder infection and gastric outlet obstruction, though after ureteral stenting you were nausea, vomiting, and abdominal pain resolved and you were able to tolerate a full diet. There was no indication for either an upper endoscopy or gallbladder surgery. -- take ciprofloxacin 500 mg twice a day with food for the next 11 days starting on the evening of 07/18 and ending the evening of 07/29. This antibiotic will cover both UTI and bacteremia -- you will need to follow up with Dr. Cifuentes Urology in 1-2 weeks' time for stent management -- you will be started on aspirin 81 mg daily and atorvastatin 40 mg at bedtime for possible CAD. You will need to follow up with Dr. Kaur in Cardiology for outpatient cardiac workup and monitoring -- follow up with your PCP in 1 week for routine post hospitalization visit -- resume all of your other home medications Assessment: See discharge summary
[2025-07-18 15:14] VITALS: BP 130/82; PULSE 101; RESP 18; TEMP 36.6; O2SAT 96
[2025-07-18 15:19] LABS: Hepatitis B Viral DNA Qn - cp NOT DETECTED Log IU/mL (NOT DETECTED); Hepatitis B Viral DNA Qn-IU/mL NOT DETECTED (NOT DETECTED)
--- NOTE | 2025-07-18 15:39 | MHC.CM.PN ---
pt. has been medically cleared to [place], he will arrange his own ride home, home care services to be provided by [facility].
--- NOTE | 2025-07-18 15:45 | W.MHC.F2F ---
Service Date Service Date: 07/18/25 Encounter Date of encounter: 07/18/25 Reasons for Services Signs and symptoms assessed: Mild confusion, physical deconditioning, primarily bed-bound, prolonged and complicated hospital stay Reason for senior living: wound care and medication management Homebound: Leaving the home is medically contraindicated at this time without the asist of a device and/or another person due th the listed conditions above and below. Reason homebound: unsteady gait / fall risk, leg weakness, poor balance / fall risk and weakness related to hospital stay Certification: Based on the above findings, I certify that this patient is confined to the home and needs intermittent senior living care, physical therapy and/or speech therapy, or continues to need occupational therapy. The patient is under my care, and I have initiated the establishment of the plan of care. The patient will be followed by a physician who will periodically review the plan of care. Time Spent With Patient Time: Total time managing care of this patient today ____ minutes.
[2025-07-19 16:39] LABS: Absolute CD3 Count 67 cells/uL (840-3060); Absolute CD8 Count 32 cells/uL (180-1170); Percent CD3 Cells 63 % (57-85); Percent CD8 Cells 30 % (12-42)
--- NOTE | 2025-07-30 07:23 | P.CDIM_ITS ---
PROVIDER RESPONSE TEXT: To clarify, the appropriate diagnosis supported by the clinical indicators: Mild QUERY TEXT: PHYSICIAN'S DOCUMENTATION REQUEST Date of Query: 07/18/2025 08:03 AM EDT Patient Name: Anthony Marmolejo Admit Date: 07/15/2025 Dear Hannah BOONE, A review of the medical record indicates additional documentation may be needed. Please review below and update the documentation accordingly. Documentation includes the diagnosis of malnutrition. Additional clinical indicators from the record include: BMI 20.8 poor reserve given his malnutrition noted no nutritional assessment by RD If possible, please provide additional specificity regarding the severity of the malnutrition using the above information: Mild Moderate Severe Other (explain) Clinically unable to determine (explain) Thank you, Tamar Kelley RN Use of terms such as suspected, likely, concern for, or probable (associated with a specific diagnosis that is being evaluated, monitored, or treated as if it exists) are acceptable and can be coded in the inpatient setting, when documented at the time of discharge. Please use your independent medical judgment in providing your response. THIS QUERY IS PART OF THE PERMANENT MEDICAL RECORD
== END 2025-07-18 15:43 | disposition home health service (06) | DRG 853 ==
LOC: HO.ED 16:03 → HO.EDOVER 16:54 → HO.ICU 16:56 → HO.IMC 07-16 17:18
PROVIDERS: Hospitalist; Internal Medicine; Nurse Practitioner; Physician Assistant Medical; Registered Nurse Community Health; Student in an Organized Health Care Education/Training Program; Urology; Admitting Provider Internal Medicine Critical Care Medicine; Emergency Provider Emergency Medicine; PCP Internal Medicine; Visit Provider Student in an Organized Health Care Education/Training Program
PROC: 0T768DZ Dilation of Right Ureter with Intraluminal Device, Via Natural or Artificial Opening Endoscopic (ICD-10-PCS; principal; 2025-07-16 14:00)
DX: A41.9 Sepsis, unspecified organism (principal); N17.0 Acute kidney failure with tubular necrosis; R65.21 Severe sepsis with septic shock; N13.6 Pyonephrosis; K31.1 Adult hypertrophic pyloric stenosis; I51.81 Takotsubo syndrome; E44.1 Mild protein-calorie malnutrition; E11.649 Type 2 diabetes mellitus with hypoglycemia without coma; N32.89 Other specified disorders of bladder; D64.9 Anemia, unspecified; Z21 Asymptomatic human immunodeficiency virus [HIV] infection status; B96.89 Other specified bacterial agents as the cause of diseases classified elsewhere; K80.20 Calculus of gallbladder without cholecystitis without obstruction; Z68.20 Body mass index [BMI] 20.0-20.9, adult; N40.1 Benign prostatic hyperplasia with lower urinary tract symptoms; R33.8 Other retention of urine; F17.210 Nicotine dependence, cigarettes, uncomplicated; Z71.6 Tobacco abuse counseling; Z86.19 Personal history of other infectious and parasitic diseases; Z85.46 Personal history of malignant neoplasm of prostate; Z79.4 Long term (current) use of insulin; Z79.84 Long term (current) use of oral hypoglycemic drugs; Z79.899 Other long term (current) drug therapy
CPT/HCPCS: 36415; 71045; 74018; 74177; 76700; 80048; 80053; 80307; 81001; 82947; 83605; 83735; 84100; 84484; 85007; 85025; 85027; 85610; 86359; 86360; 86617; 86618; 86692; 86704; 86706; 86707; 87040; 87077; 87086; 87088; 87186; 87205; 87340; 87350; 87468; 87469; 87478; 87484; 87502; 87517; 87635; 87798; 88300; 93005; 93306; 99284; C1758; C1769; C2617; J0131; J0690; J0696; J1171; J1308; J1644; J1885; J2003; J2371; J2405; J2543; J2704; J3010; J3374; J3480; J7120; Q9967

== ENCOUNTER → 2025-07-15 12:27 | Outpatient (BNV) | payer OTHER, SELFPAY | PROVIDERS: Emergency Provider Emergency Medicine; PCP Internal Medicine; Visit Provider Internal Medicine Cardiovascular Disease | DX: I49.1 Atrial premature depolarization (principal) | CPT/HCPCS: 93010 ==

== ENCOUNTER → 2025-07-15 12:29 | Outpatient (BNV) | payer OTHER, SELFPAY | PROVIDERS: PCP Internal Medicine; Visit Provider Radiology Diagnostic Radiology | DX: N13.2 Hydronephrosis with renal and ureteral calculous obstruction (principal); K80.20 Calculus of gallbladder without cholecystitis without obstruction; R16.2 Hepatomegaly with splenomegaly, not elsewhere classified; J98.11 Atelectasis; I51.7 Cardiomegaly; R91.8 Other nonspecific abnormal finding of lung field; Z97.8 Presence of other specified devices | CPT/HCPCS: 71045; 74177; 76700 ==

== ENCOUNTER 2025-07-15 16:39 | Outpatient (BNV) | payer OTHER, SELFPAY | END 2025-07-16 12:00 | PROVIDERS: Admitting Provider Internal Medicine Critical Care Medicine; Emergency Provider Emergency Medicine; PCP Internal Medicine; Visit Provider Radiology Diagnostic Radiology | DX: N20.1 Calculus of ureter (principal) | CPT/HCPCS: 74018 ==

== ENCOUNTER 2025-07-15 16:39 | Outpatient (BNV) | payer OTHER, SELFPAY | END 2025-07-16 21:02 | PROVIDERS: Admitting Provider Internal Medicine Critical Care Medicine; Emergency Provider Emergency Medicine; PCP Internal Medicine; Visit Provider Internal Medicine Cardiovascular Disease | DX: R07.9 Chest pain, unspecified (principal) | CPT/HCPCS: 93010 ==

== ENCOUNTER 2025-07-15 16:39 | Outpatient (BNV) | payer OTHER, SELFPAY | END 2025-07-17 07:00 | PROVIDERS: Admitting Provider Internal Medicine Critical Care Medicine; Emergency Provider Emergency Medicine; PCP Internal Medicine; Visit Provider Internal Medicine Cardiovascular Disease | DX: I51.7 Cardiomegaly (principal) | CPT/HCPCS: 93306 ==

== ENCOUNTER 2025-07-15 16:39 | Outpatient (BNV) | payer OTHER, SELFPAY | END 2025-07-18 12:15 | PROVIDERS: Admitting Provider Internal Medicine Critical Care Medicine; Emergency Provider Emergency Medicine; PCP Internal Medicine; Visit Provider Radiology Diagnostic Radiology | DX: N20.1 Calculus of ureter (principal); Z96.0 Presence of urogenital implants | CPT/HCPCS: 74018 ==

== ENCOUNTER → 2025-07-15 16:39 | Outpatient (BNV) | payer OTHER, SELFPAY | PROVIDERS: Admitting Provider Internal Medicine Critical Care Medicine; Emergency Provider Emergency Medicine; PCP Internal Medicine; Visit Provider Internal Medicine Critical Care Medicine | DX: A41.9 Sepsis, unspecified organism (principal); R65.21 Severe sepsis with septic shock; K31.1 Adult hypertrophic pyloric stenosis; N20.0 Calculus of kidney; N13.8 Other obstructive and reflux uropathy; N39.0 Urinary tract infection, site not specified; N17.9 Acute kidney failure, unspecified | CPT/HCPCS: 99291 ==

== ENCOUNTER → 2025-07-15 16:39 | Outpatient (BNV) | payer OTHER, SELFPAY | PROVIDERS: Admitting Provider Internal Medicine Critical Care Medicine; Emergency Provider Emergency Medicine; PCP Internal Medicine; Visit Provider Urology | DX: N13.1 Hydronephrosis with ureteral stricture, not elsewhere classified (principal) | CPT/HCPCS: 52332; 52352; 74420 ==

== ENCOUNTER → 2025-07-15 16:39 | Outpatient (BNV) | payer OTHER, SELFPAY | PROVIDERS: Admitting Provider Internal Medicine Critical Care Medicine; Emergency Provider Emergency Medicine; PCP Internal Medicine; Visit Provider Internal Medicine Cardiovascular Disease | DX: I5A Non-ischemic myocardial injury (non-traumatic) (principal); Z01.810 Encounter for preprocedural cardiovascular examination | CPT/HCPCS: 99222 ==

== ENCOUNTER → 2025-07-15 16:39 | Outpatient (BNV) | payer OTHER, SELFPAY | PROVIDERS: Admitting Provider Internal Medicine Critical Care Medicine; Emergency Provider Emergency Medicine; PCP Internal Medicine; Visit Provider Internal Medicine | DX: I95.9 Hypotension, unspecified (principal); R10.9 Unspecified abdominal pain | CPT/HCPCS: 99222 ==

== ENCOUNTER → 2025-07-15 16:39 | Outpatient (BNV) | payer OTHER, SELFPAY | PROVIDERS: Admitting Provider Internal Medicine Critical Care Medicine; Emergency Provider Emergency Medicine; PCP Internal Medicine; Visit Provider Internal Medicine | DX: K31.1 Adult hypertrophic pyloric stenosis (principal); R10.9 Unspecified abdominal pain; R11.0 Nausea; R79.89 Other specified abnormal findings of blood chemistry | CPT/HCPCS: 99223 ==

== ENCOUNTER → 2025-07-15 16:39 | Outpatient (BNV) | payer OTHER, SELFPAY | PROVIDERS: Admitting Provider Internal Medicine Critical Care Medicine; Emergency Provider Emergency Medicine; PCP Internal Medicine | DX: K31.1 Adult hypertrophic pyloric stenosis (principal) | CPT/HCPCS: 99222; 99232 ==

== ENCOUNTER → 2025-07-15 16:39 | Outpatient (BNV) | payer OTHER, SELFPAY | PROVIDERS: Admitting Provider Internal Medicine Critical Care Medicine; Emergency Provider Emergency Medicine; PCP Internal Medicine; Visit Provider Student in an Organized Health Care Education/Training Program | DX: A41.9 Sepsis, unspecified organism (principal); R65.21 Severe sepsis with septic shock; N20.0 Calculus of kidney; N13.8 Other obstructive and reflux uropathy | CPT/HCPCS: 99232; 99499 ==

== ENCOUNTER 2025-07-25 09:37 | Outpatient (AMB) | payer OTHER, SELFPAY ==
--- OUTSIDE RECORDS SUMMARY | 2025-07-25 11:09 | XMS_ITS | Patient Health Record ---
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
--- NOTE | 2025-07-25 11:40 | A.OFFVIS_ITS ---
Intake Visit Reasons: f/u stone stent discuss KUB Intake Note: Patient presents today for a follow up/stone stent discuss KUB * 07/18 KUB Urology Meds- None Allergies to Antibiotic- No Known Allergies Blood Thinner- None Die Cast Technician Required: Yes Die Cast Technician Language: Georgian Information Interpreted: non-clinical & clinical Accompanied by: Self / Same As Patient Allergies No Known Allergies (No Known Allergies*) Allergy (Verified 07/25/25 11:40) HPI Comments Details: 07/25/25-- History of Present Illness The patient is a 70-year-old male presenting with history of nephrolithiasis. Recent inpatient hospitalization for right hydronephrosis. A right stent was previously placed, at time of procedure a stone was removed from the bladder possibly passed, but there is a suspicion of a remaining stone in the ureter. The plan is to perform another procedure to closely examine the ureter and use a laser to fragment the stone if present. If the stone is not in the ureter, the stent will be removed, but if fragmentation is necessary, a new stent will be placed to facilitate healing. Results - Imaging: KUB and CAT scan results reviewed with the patient. Plan 1. Right Ureteral Stone - Plan for right ureteroscopy with possible laser lithotripsy to address the ureteral stone. - If the stone is located in the ureter, laser lithotripsy will be performed to fragment the stone. - If the stone is not in the ureter, the stent will be removed. - If fragmentation is necessary, a new stent will be placed to facilitate healing. [facility] Medical History Preoperative cardiovascular examination Cholelithiasis Nicotine dependence, cigarettes, uncomplicated Type 2 diabetes mellitus Hepatitis B Hepatitis C HIV (human immunodeficiency virus infection) Surgical History History of left inguinal hernia repair History of cystoscopy History of colonoscopy Family History Father Cancer of abdominal wall Paternal Uncle Cancer of abdominal wall Mother Alzheimer dementia Maternal Uncle Cancer Maternal Grandmother Cancer Social History Household Members: None Housing: Apartment Do you presently have visiting nurse or other home services: Yes (housekeeping) Patient Tobacco Use Status: Current everyday Tobacco user Tobacco use type: Cigarette Cigarette Packs Per Day: 0.5 Cigarettes Per Day: 10.0 Substance Use Type: Marijuana service: No Current occupational status: retired Review of Systems Const All systems reviewed & are unremarkable except as noted in HPI and below Reports no additional complaints Eyes Reports no additional complaints ENT Reports no additional complaints Card Reports no additional complaints Resp Reports no additional complaints GI Reports no additional complaints Reports as per HPI Musc Reports no additional complaints Skin/Breast Reports system reviewed and no additional complaints, except as documented Neuro Reports no additional complaints Psych Reports no additional complaints Endo Reports no additional complaints Isreal/Lymph Reports no additional complaints Aller/Immun Reports no additional complaints Results Reviewed Results Reviewed: Date of Service: 07/18/25 Reason for Exam: check stent EXAMINATION: XR ABDOMEN KUB CLINICAL INDICATION: check stent COMPARISON: Fluoroscopic image from 2 days ago TECHNIQUE: AP view of the abdomen. FINDINGS: Double-J catheter is noted in the right side extending from the region of the right kidney to the bladder. There remains in a similar position to the prior. 7 mm short axis calcified stone is again identified at the level of the superior endplate of L4, similar to the prior. IMPRESSION: Stable position of a double-J right ureteral catheter. Stable 7 mm short axis diameter stone in the mid right ureter. Date of Service: 07/15/25 Reason for Exam: abd pain EXAMINATION: CT ABDOMEN PELVIS WITH IV CONTRAST HISTORY: abd pain COMPARISON: Comparison is made with the prior examination dated 07/12/2025. TECHNIQUE: CT scan of the abdomen and pelvis was performed following administration of 85 mL Omnipaque 350 using standard departmental protocol. Coronal and sagittal reformatted images were generated and reviewed. Oral contrast material was not administered at the request of the referring physician. This CT exam was performed with one or more of the following dose reduction techniques: automated exposure control, adjustment of the mA and/or kV according to patient size, use of iterative reconstruction technique. DLP: 323 mGy-cm FINDINGS: LOWER CHEST: There is scarring at the lung bases. There is no pleural effusion. CARDIOVASCULATURE: The heart is normal in size. There is no pericardial effusion. LIVER: The liver is enlarged. No liver mass is identified. The hepatic and portal veins are patent. GALLBLADDER / BILE DUCTS: The gallbladder is distended and demonstrates a large gallstone. There is no intra or extrahepatic biliary ductal dilatation. SPLEEN: The spleen is enlarged. No focal splenic lesion is identified. PANCREAS: The pancreas is unremarkable in appearance. ADRENAL GLANDS: Within normal limits. KIDNEYS/RETROPERITONEUM: There is a delayed nephrogram on the right and moderate hydronephrosis to the level of a 7 mm proximal ureteral calculus at the level of the superior endplate of L4 (series 3, image 37). No renal masses are identified. LYMPH NODES: No abdominal or pelvic lymphadenopathy. VASCULATURE: The abdominal aorta demonstrates atherosclerotic calcification, but is normal in caliber. MESENTERY/PERITONEUM: There is a small amount of free fluid in the right upper quadrant. No masses. There is no free intraperitoneal gas. STOMACH: There is marked distention of the stomach with gas and fluid suggestive of gastric outlet obstruction. SMALL BOWEL: The small bowel is normal in caliber. COLON: The colon is unremarkable. APPENDIX: Normal. URINARY BLADDER/PELVIC ORGANS: The urinary bladder is decompressed with a Angel catheter. The prostate is enlarged. BONES / SOFT TISSUES: There is degenerative disc disease of the spine. IMPRESSION: 1. Moderate right hydroureteronephrosis to the level of a 7 mm proximal ureteral calculus. Other findings as noted above. Assessment & Plan Assessment & Plan (1) Ureteral stent present: Code(s): Z96.0 - Presence of urogenital implants Category: Medical (2) Hydronephrosis, right: Code(s): N13.30 - Unspecified hydronephrosis Category: Medical (3) Ureteral stone: Code(s): N20.1 - Calculus of ureter Category: Medical Plan Plan for Cystoscopy, right ureteroscopy, possible laser lithotripsy, ureteral stent removal vs exchange. Risks discussed included but not limited to, possible need to repeat procedure if stone is not completely fragmented, Irritative voiding symptoms, bladder spasms, urgency, blood in urine. Orders: Orders AMB Urinalysis Automated Today Z12.5 - Encounter for screening for malignant neoplasm of prostate Patient Instructions: The patient had an opportunity to ask questions regarding treatment plan. The patient expressed understanding and agreement with the above treatment plan. The patient is aware they should contact our office by phone for worsening of their current condition or the appearance of new symptoms. Compliance is encouraged with any medications and followup testing that is ordered. It is a privilege to be allowed the opportunity to participate in the urologic care of your patient. If you have any questions or concerns regarding treatment for the above conditions please do not hesitate to contact me. The office telephone contact is [phone]. This note is constructed in part using voice recognition software. While every effort has been made to ensure accuracy research program assistant errors may have been included. Yours sincerely, Alma Cifuentes MD Scribe Plan - Not visible on output: Patient was informed and verbally consented to the use of an ambient scribe for clinic note documentation during this visit. Coding Level of Care Code Est Pt Level 4 (60297) Diagnoses Ureteral stent present Z96.0 Hydronephrosis, right N13.30 Ureteral stone N20.1
== END 2025-07-25 12:05 | disposition home or self-care (01) ==
LOC: HO.HUSH 09:37
PROVIDERS: PCP Student in an Organized Health Care Education/Training Program; Visit Provider Urology
DX: Z96.0 Presence of urogenital implants (principal); N13.30 Unspecified hydronephrosis; N20.1 Calculus of ureter; Z12.5 Encounter for screening for malignant neoplasm of prostate
CPT/HCPCS: 99214

== ENCOUNTER → 2025-07-25 09:37 | Outpatient (BNVA) | payer OTHER, SELFPAY | PROVIDERS: PCP Student in an Organized Health Care Education/Training Program; Visit Provider Urology | DX: Z48.816 Encounter for surgical aftercare following surgery on the genitourinary system (principal); N20.1 Calculus of ureter; N13.30 Unspecified hydronephrosis; Z96.0 Presence of urogenital implants | CPT/HCPCS: 81003; 99212 ==

== ENCOUNTER → 2025-07-30 08:47 | Day surgery (SDC) | payer OTHER, SELFPAY ==
--- OUTSIDE RECORDS SUMMARY | 2025-07-29 15:31 | XMS_ITS | Data Portability ---
Author Organization [employer] [facility], [facility] Address [address] [place] [address] Care Team Providers Care Tactical Intelligence Officer Name Role Phone HIM CCA OTHER Unavailable Primary Care Provider [phone] Assessment Encounter Date Assessment Date Assessment LastModified by Organization Details LastModified Time 07/12/2025 07/12/2025 I provided real -time medical direction via phone for this encounter, and was available for additional phone based assistance as needed. I have reviewed and agree with the Assessment and Plan as documented by the [employer]. We discussed the diagnostic uncertainty of home [...] to call 911- verbalized understanding of instruction [email or web address] Not available 07/12/2025 14:02:58 Plan of Treatment Reminders Order Date Submit Date Provider Last Modified By Organization Details Last Modified Time Details Appointments None recorded. Lab culture, urine 2024 [place] [facility] (Centralized Electronic Ordering - All Locations), Patient Can Go To The Location Of Their Choice, [address] 18:05:31 urinalysis , dipstick 2024 [facility], [address] [place] [address], [phone] 18:23:14 BMP, serum or plasma 2024 [facility], [address] [place] [address], [phone] 18:23:30 Referral None recorded. Procedures None recorded. Surgeries None recorded. Imaging None recorded. Medication Orders Macrobid 100 mg capsule 2024 025 [facility], [address], [place], [phone], 05:01:45 Macrobid 100 mg capsule 2024 025 [facility], [address], [place], [phone], 05:01:45 Patient TargetsNo targets recorded. Patient Instructions Encounter Date Encounter Id Patient Instructions Last Modified By Organization Details Last Modified Time 07/12/2025 [id number] holguin catheter change* [email or web address] Not available 07/12/2025 13:14:43 Reason for Referral None Reported. Results Created Date Observation Date Name Description Value Unit Range Abnormal Flag Note LastModifiedBy Organization Detail LastModifiedTime 07/12/2007/14/2025 URINE CULTU RE, ROUTI NE urine culture, routine Final report abnormal Not Available [facility] ([facility]) [address] [facility], [place], [address], 07/14/2025 18:05:31 07/12/2007/14/2025 URINE CULTU RE, ROUTI NE result 1 Serrat ia marces cens abnormal Great er than 100,0 00 colon y formi ng units per mL Not Available [facility] ([facility]) [address] [facility], [place], [address], 07/14/2025 18:05:31 07/12/2007/14/2025 URINE CULTU RE, ROUTI NE result 2 Entero bacter asburi ae abnormal Some Enter obact erale s may devel op resis tance durin g thera py with third -gene ratio n cepha lospo rins. This resis tance is most commo nly seen with Citro bacte r freun dii compl ex, Enter obact er cloac ae compl ex, and Klebs iella aerog ba. Stow luz that initi ally test susce ptibl e may becom e resis tant withi n a few days after initi ation of thera py. Testi ng subse quent isola luz may be warra nted if clini gerry indic ated. (CLSI M100- Ed33) Great er than 100,0 00 colon y formi ng units per mL Not Available [facility] ([facility]) [address] [facility], [place], [address], 07/14/2025 18:05:31 07/12/20 25 07/14/2025 URINE CULTU RE, ROUTI NE antimicrobia l susceptibili ty Commen t S = Susce ptibl e; I = Inter media te; R = Resis tant P = Posit shaquille; N = Negat shaquille MICS are expre ssed in micro grams per mL Antib iotic RSLT# 1 RSLT# 2 RSLT# 3 RSLT# 4 Amoxi cilli n/Cla vulan ic Acid R R Cefaz mehran R Cefep yovanny S S Cefox itin R R Cefpo doxim e S Ceftr iaxon e S S Cipro floxa luciano S S Ertap enem S S Genta micin S S Levof loxac in S S Merop enem S S Nitro furan toin R I Piper acill in/Ta zobac fairchild S Tetra cycli ne R S Tobra mycin S S Trime thopr im/Salas lfa S Not Available [facility] ([facility]) [address] [facility], [place], [address], 07/14/2025 18:05:31 Result Notes None recorded. Medical Equipment None Reported. Allergies Allergen ID Allergen Name Allergen Category Reaction Reaction Severity Criticality Documentation Date Start Date Code Code System Note Provider Name and Address Organization Details Recorded Time 50226 ibuprofen medicatio n Not available Not available Not available 07/12/2025 5640 RxNorm Not Available [employer] - production 11:09:01 Medications Name Sig Start Date Stop Date Status Note LastModified by Organization Details LastModified Time atorvastati n 40 mg tablet TAKE 1 TABLET BY MOUTH EVERY DAY AT BEDTIME active Not Available Not Available No t Available atorvastati n 20 mg tablet TAKE 1 TABLET BY [...] Not Available Not Available No t Available ciprofloxac in 500 mg tablet TAKE 1 TABLET BY MOUTH EVERY TWELVE HOURS WITH FOOD FOR 11 DAYS STARTING IN THE EVENING OF 07/18/25 AND STOP IN THE EVENING OF 07/29/25 active Not Available Not Available No t Available aspirin 81 mg tablet,kirk yed release TAKE 1 TABLET BY MOUTH EVERY DAY active Not Available Not Available No t Available Macrobid 100 mg capsule Take 1 capsule every 12 hours by oral route for 6 days. 07/25 completed Not Available Not Available Not Available mirtazapine 30 mg tablet TAKE 1 TABLET BY MOUTH EVERY DAY AT BEDTIME active Not Available Not Available No t Available docusate sodium 100 mg capsule TAKE 1 CAPSULE BY MOUTH TWICE DAILY IN THE MORNING AND AT BEDTIME NEEDED FOR CONSTIPAT ION active Not Available Not Available No t Available bisacodyl 5 mg tablet,kirk yed release TAKE 2 TABLETS BY MOUTH ONCE DAILY AT BEDTIME active Not Available Not Available No t Available polyethylen e glycol 3350 17 gram/dose oral powder MIX DIRECTED AND TAKE DIRECTED BY GI Dept active Not Available Not Available No t Available metformin ER 500 mg tablet,exte nded release 24 hr TAKE 2 TABLETS BY MOUTH DAILY IN THE EVENING WITH MEALS active Not Available Not Available No t Available lisinopril 2.5 mg tablet TAKE 1 TABLET BY MOUTH DAILY active Not Available Not Available No t Available nicotine (polacrilex ) 4 mg buccal lozenge DISSOLVE 1 LOZENGE BY MOUTH EVERY 2 HOURS NEEDED FOR SMOKING CESSATION active Not Available Not Available No t Available nicotine (polacrilex ) 2 mg buccal lozenge DISSOLVE 1 LOZENGE IN MOUTH NEEDED SMOKING CESSATION DO NOT EXCEED 20 LOZENGE IN 24 HOURS active Not Available Not Available No t Available calcium 500 mg (as carbonate)- vit D3 10 mcg (400 unit) chewable tablet CHEW 1 TABLET BY MOUTH TWICE DAILY AT NOON AND IN THE EVENING active Not Available Not Available No t Available varenicline tartrate 0.5 mg (11)-1 mg [...] TIMES DAILY active Not Available Not Available No t Available Lantus Solostar U-100 Insulin 100 unit/mL (3 mL) subcutaneou s pen INJECT 34 UNITS SUBCUTANE OUSLY AT BEDTIME active Not Available Not Available No t Available buprenorphi ne 8 mg-naloxone 2 mg sublingual film DISSOLVE [...] Not Available No t Available Reguloid (psyllium husk-sucros e) 3 gram/12 gram oral powder DISSOLVE 1 TABLESPOO NFUL (3 GRAMS OF fiber) IN 8 OUNCES OF WATER AND TAKE BY MOUTH TWICE DAILY active Not Available Not Available No t Available Ultra-Fine Pen Needle 31 gauge x 3/16 USE DIRECTED active Not Available Not Available No t Available Omron Blood Pressure Monitor-3 Series kit USE TO CHECK BLOOD PRESSURE ONCE DAILY DIRECTED active Not Available Not Available No t Available Vitals Date Recorded Body temperature Body weight Respiratory rate Heart rate Body height Oxygen saturation Oxygen saturation in Arterial blood by Pulse oximetry Systolic And Diastolic Provider Name and Address Organization Details Last Updated DateTime 5 97.5 [degF] 10595.9 2 g 18 /min 76 /min 170.18 cm 99 % 99 % 117/56 mm[Hg] Not Available [employer] - production 5 13:08:57 Social History None recorded. Functional Status None recorded. Mental Status None recorded. Family History Nothing Reported. Medical History No medical history recorded. Past Encounters Encounter ID Performer Location Encounter Start Date Encounter Closed Date Diagnosis/Indication Diagnosis SNOMED-CT Code Diagnosis ICD10 Code Diagnosis IMO Codes Diagnosis Note [id number] Jesusita Varma MD [email or web address] ED Medical [address] [address] 07/12/2025 13:08:49 07/13/2025 19:28:32 Complication of urinary catheter [id number] T83.9XXA [id number] With the complaint of urethral plain there [...] Guarantor Name 07/12/2025 1 [facility] - DOS ON OR AFTER 2022 - DUAL ELIGIBLE - ALF OPTIONS AND ONE CARE (MEDICARE REPLACEMENT/ADV ANTAGE - HMO) Anthony Marmolejo [id number] Anthony Marmolejo Notes Date Note Type Note Provider Name and Address Organization Details Recorded Time 07/12/2025 text/html ROS as noted in the HPI HPI: Pt went to [facility] ED 07/06/25 for urinary retention, got Holguin [...] Mellitus Type 2 PMH Reviewed at 07/12/2025 Allergies Reviewed at 07/12/2025:08 Comments: Reviewed HPI. [employer] Organization Information for Jourdan Quintero Legal Name: [facility] Address: [address] [place] [address], [place] [address], Assistant Associate Professor: Carl Bird MD [facility] No.: [id number] [employer] POC Test Results from Jourdan Quintero Urine Dipstick (13:31:30) Urine leukocytes: 2+LEUUrine nitrites: -NITUrine urobilinogen: 0.2UROUrine protein: 4+PROUrine pH: -pHUrine blood: 1.0BLOUrine specific gravity: 1.02SGUrine ketones: -KETUrine bilirubin: -BILUrine glucose: -GLUAttachments uploaded as part of this test result can be found under Documents section. epoc (13:41:45) pH: 7.391pH unitspCO2: 44.0deHbwB6: 27.7mmHgNa: 137mmol/LK: 4.3mmol/LiCa: 1.25mmol/LCl: 97mmol/LTCO2: 25.6mEq/LHct: 32%Hb: 10.8g/dLGlu: 94mg/dLLac: 1.01mmol/LCr: 1.32mg/dLBUN: 19mg/dLAmmol/LHCO3: 26.8mmol/LAttachment s uploaded as part of this test result can be found under Documents section. .................... .................... .................... .................... .................... .................... .................... . Lock[employer]ch Coat Joiner Note From Jourdan Quintero: Patient Chief complaint [...] level and located roughly at about the correction point of the shaft. Patient notes no [...] is tinged red with no noted clots. [facility] Jesusita Varma consulted [facility] provider removes old Holguin catheter with no disturbances and or abnormalities, new fully catheter inserted 16 Portuguese size, sterile technique applied. 100cc urine output, kenan in color. Both urine dip and culture acquired, noted leukocytes. Pt expresses significant relief after replacing holguin. Pt given 100 mg of oral macrobid on scene. POC blood work acquired. Culture sent to appropriate facility, [facility] [place] order for macrobid to local pharmacy for patient. Patient educated on red flag signs and symptoms and informed to call emergency services if any present. [facility] Lab Orders: culture, urine: Performed urinalysis, dipstick: Performed BMP, serum or plasma: Performed [facility] Medication Orders: Macrobid 100 mg capsule: Performed .................... .................... .................... .................... .................... .................... .................... . [facility] Consulted: Jesusita Varma .................... .................... .................... .................... .................... .................... .................... . Disposition: Fulfilled Jesusita Varma MD [address] [facility],[address], [place], [address], [place] - TADEO VALDEZ 07/12/2025 17:45:41
--- OUTSIDE RECORDS SUMMARY | 2025-07-29 15:31 | XMS_ITS | Patient Health Record ---
Demographics Address [address] [place] [address] Preferred Language Unknown Marital Status unmarried Mormon Affiliation Unknown Race Unknown Ethnic Group Unknown Author Organization [employer] Address [address] [place] [address] Care Team Providers Care Band Attacher Name Role Phone Barrera Nuñez Unavailable [phone] Reason For Referral No Information Plan Of Treatment No Information
== END ==
LOC: HO.SSS 08:49
PROVIDERS: PCP Internal Medicine; Visit Provider Urology
DX: N20.0 Calculus of kidney (principal); Z53.8 Procedure and treatment not carried out for other reasons

== ENCOUNTER 2025-08-07 11:45 | Outpatient (REF) | payer OTHER, SELFPAY ==
[2025-08-07 13:26] LABS: Appearance Urine Cloudy; Glucose Urine UA Negative (Negative); PH 6.0 (5.0-9.0); Specific Gravity - Urine 1.025 (1.005-1.025); UMIC TRIGGER UA YES
--- OUTSIDE RECORDS SUMMARY | 2025-08-07 14:38 | XMS_ITS | Patient Health Record ---
Demographics Address [address] [place] [address] Preferred Language Unknown Marital Status unmarried Tenriism Affiliation Unknown Race Unknown Ethnic Group Unknown Author Organization [employer] Address [address] [place] [address] Care Team Providers Care Policyholder Information Clerk Name Role Phone Barrera Nuñez Unavailable [phone] Reason For Referral No Information Plan Of Treatment No Information
--- OUTSIDE RECORDS SUMMARY | 2025-08-07 14:39 | XMS_ITS | Data Portability ---
Author Organization [employer] [facility], [facility] Address [address] [place] [address] Care Team Providers Care Delivery Assistant Name Role Phone HIM CCA OTHER Unavailable Primary Care Provider Assessment Encounter Date Assessment Date Assessment LastModified by Organization Details LastModified Time 07/12/2025 07/12/2025 I provided real -time medical direction via phone for this encounter, and was available for additional phone based assistance as needed. I have reviewed and agree with the Assessment and Plan as documented by the [employer]. We discussed the diagnostic uncertainty of home [...] to call 911- verbalized understanding of instruction [email or web address] Not available 07/12/2025 14:02:58 Plan of Treatment Reminders Order Date Submit Date Provider Last Modified By Organization Details Last Modified Time Details Appointments None recorded. Lab culture, urine 2024 [place] [facility] (Centralized Electronic Ordering - All Locations), Patient Can Go To The Location Of Their Choice, [address] 18:05:31 urinalysis , dipstick 2024 [facility], [address] [place] [address], [phone] 18:23:14 BMP, serum or plasma 2024 [facility], [address] [place] [address], [phone] 18:23:30 Referral None recorded. Procedures None recorded. Surgeries None recorded. Imaging None recorded. Medication Orders Macrobid 100 mg capsule 2024 025 [facility], [address] [place], [place], [phone], 05:01:45 Macrobid 100 mg capsule 2024 025 [facility], [address] [place], [place], [phone], 05:01:45 Patient TargetsNo targets recorded. Patient Instructions Encounter Date Encounter Id Patient Instructions Last Modified By Organization Details Last Modified Time 07/12/2025 [id number] holguin catheter change* [email or web address] Not available 07/12/2025 13:14:43 Reason for Referral None Reported. Results Created Date Observation Date Name Description Value Unit Range Abnormal Flag Note LastModifiedBy Organization Detail LastModifiedTime 07/12/2007/14/2025 URINE CULTU RE, ROUTI NE urine culture, routine Final report abnormal Not Available [facility] ([facility]) [address] [facility], [place], [address], 07/14/2025 18:05:31 07/12/2007/14/2025 URINE CULTU RE, ROUTI NE result 1 Serrat ia marces cens abnormal Great er than 100,0 00 colon y formi ng units per mL Not Available [facility] ([facility]) [address] [facility], [place], [address], 07/14/2025 18:05:31 07/12/2007/14/2025 URINE CULTU RE, ROUTI [...] compl ex, and Klebs iella aerog ba. Kerens luz that initi ally test susce ptibl e may becom e resis tant withi n a few days after initi ation of thera py. Testi ng subse quent isola luz may be warra nted if clini gerry indic ated. (CLSI M100- Ed33) Great er than 100,0 00 colon y formi ng units per mL Not Available [facility] ([facility]) [address] [facility], [place], [address], 07/14/2025 18:05:31 07/12/20 25 07/14/2025 URINE CULTU [...] thopr im/Salas lfa S Not Available [facility] ([facility]) [address] [facility], [place], [address], 07/14/2025 18:05:31 Result Notes None recorded. Medical Equipment None Reported. Allergies Allergen ID Allergen Name Allergen Category Reaction Reaction Severity Criticality Documentation Date Start Date Code Code System Note Provider Name and Address Organization Details Recorded Time 65553 ibuprofen medicatio n Not available Not available [...] Details Last Updated DateTime 5 97.5 [degF] 53903.9 2 g 18 /min 76 /min 170.18 cm 99 % 99 % 117/56 mm[Hg] Not Available [employer] - production 5 13:08:57 Social History None recorded. Functional Status None recorded. Mental Status None recorded. Family History Nothing Reported. Medical History No medical history recorded. Past Encounters Encounter ID Performer Location Encounter Start Date Encounter Closed Date Diagnosis/Indication Diagnosis SNOMED-CT Code Diagnosis ICD10 Code Diagnosis IMO Codes Diagnosis Note [id number] Jesusita Varma MD [facility] ED Medical [address] [address] 07/12/2025 13:08:49 07/13/2025 19:28:32 Complication of urinary catheter [id number] T83.9XXA [id number] With the complaint of urethral plain there [...] Fall Member ID Guarantor Name 07/12/[address] [facility] - DOS ON OR AFTER 2022 - DUAL ELIGIBLE - FDC OPTIONS AND ONE CARE (MEDICARE REPLACEMENT/ADV ANTAGE - HMO) Anthony Marmolejo [id number] Anthony Marmolejo Notes Date Note Type Note Provider Name and Address Organization Details Recorded Time 07/12/2025 text/html ROS as noted in the HPI HPI: Pt went to [facility] 07/06/25 for urinary [...] Allergies Reviewed at 07/12/2025:08 Comments: Reviewed HPI. [employer] Organization Information for Jourdan Quintero Legal Name: [facility] Address: [address] [place] [address], [place] [address], Car Tracer: Carl Bird MD [facility] No.: [id number] [employer] POC Test Results from Jourdan Quintero Urine Dipstick (13:31:30) Urine leukocytes: 2+LEUUrine nitrites: -NITUrine urobilinogen: 0.2UROUrine protein: 4+PROUrine pH: -pHUrine blood: 1.0BLOUrine specific gravity: 1.02SGUrine ketones: -KETUrine bilirubin: -BILUrine glucose: -GLUAttachments uploaded as part of this test result can be found under Documents section. epoc (13:41:45) pH: 7.391pH unitspCO2: 44.1rlJwlY5: 27.7mmHgNa: 137mmol/LK: 4.3mmol/LiCa: 1.25mmol/LCl: 97mmol/LTCO2: 25.6mEq/LHct: 32%Hb: 10.8g/dLGlu: 94mg/dLLac: 1.01mmol/LCr: 1.32mg/dLBUN: 19mg/dLAmmol/LHCO3: 26.8mmol/LAttachment s uploaded as part of this test result can be found under Documents section. .................... .................... .................... .................... .................... .................... .................... . [employer] Note From Jourdan Quintero: Patient Chief complaint [...] level and located roughly at about the penitentiary point of the shaft. Patient notes no [...] tinged red with no noted clots. [facility] Varma consulted [facility] provider removes old Holguin catheter with no disturbances and or abnormalities, new fully catheter inserted 16 Chinese size, sterile technique applied. 100cc urine output, kenan in color. Both urine dip and culture acquired, noted leukocytes. Pt expresses significant relief after replacing holguin. Pt given 100 mg of oral macrobid on scene. POC blood work acquired. Culture sent to appropriate facility, [facility] sends an order for macrobid to local pharmacy for patient. Patient educated on red flag signs and symptoms and informed to call emergency services if any present. [facility] Lab Orders: culture, urine: Performed urinalysis, dipstick: Performed BMP, serum or plasma: Performed [facility] Medication Orders: Macrobid 100 mg capsule: Performed .................... .................... .................... .................... .................... .................... .................... . [facility] Consulted: Jesusita Varma .................... .................... .................... .................... .................... .................... .................... . Disposition: Fulfilled Jesusita Varma MD [address] [facility],[address], [place], [address], [place] - TADEO VALDEZ 07/12/2025 17:45:41
== END 2025-08-07 11:46 | disposition home or self-care (01) ==
LOC: HO.HHCL 11:45
PROVIDERS: PCP Internal Medicine; Visit Provider Emergency Medicine
DX: R31.0 Gross hematuria (principal)
CPT/HCPCS: 81001

== ENCOUNTER 2025-08-17 16:18 | Outpatient (REF) | payer OTHER, SELFPAY ==
--- OUTSIDE RECORDS SUMMARY | 2025-08-17 16:26 | XMS_ITS | Patient Health Record ---
Demographics Address [address] [place] [address] Preferred Language Unknown Marital Status unmarried Baptism Affiliation Unknown Race Unknown Ethnic Group Unknown Author Organization [employer] Address [address] [place] [address] Care Team Providers Care Rags Laborer Name Role Phone Barrera Nuñez Unavailable [phone] Reason For Referral No Information Plan Of Treatment No Information
--- OUTSIDE RECORDS SUMMARY | 2025-08-17 16:26 | XMS_ITS | Continuity of Care Document ---
Author Organization [employer] [facility], [facility] Address [address] [place] [id number] Care Team Providers Care Seasonal Delivery Driver Name Role Phone HIM CCA OTHER Unavailable Primary Care Provider Assessment Encounter Date Assessment Date Assessment LastModified by Organization Details LastModified Time 07/12/2025 07/12/2025 I provided real -time medical direction via phone for this encounter, and was available for additional phone based assistance as needed. I have reviewed and agree with the Assessment and Plan as documented by the Chief Design Branch. We discussed the diagnostic uncertainty of home [...] to call 911- verbalized understanding of instruction [email or web address] Not available 07/12/2025 14:02:58 Plan of Treatment Reminders Order Date Submit Date Provider Last Modified By Organization Details Last Modified Time Details Appointments None recorded. Lab culture, urine 2024 [place] [facility] (Centralized Electronic Ordering - All Locations), Patient Can Go To The Location Of Their Choice, [address] 18:05:31 urinalysis , dipstick 2024 [facility], [address] [place] [address], [id number] 18:23:14 BMP, serum or plasma 2024 [facility], [address] [place] [address], [id number] 18:23:30 Referral None recorded. Procedures None recorded. Surgeries None recorded. Imaging None recorded. Medication Orders Macrobid 100 mg capsule 2024 025 [facility], [address] [place] [address], [id number], 05:01:45 Macrobid 100 mg capsule 2024 025 [facility], [address], [place], [id number], 05:01:45 Patient TargetsNo targets recorded. Patient Instructions Encounter Date Encounter Id Patient Instructions Last Modified By Organization Details Last Modified Time 07/12/2025 [id number] holguin catheter change* [email or web address] Not available 07/12/2025 13:14:43 Reason for Referral None Reported. Results Created Date Observation Date Name Description Value Unit Range Abnormal Flag Note LastModifiedBy Organization Detail LastModifiedTime 07/12/2007/14/2025 URINE CULTU RE, ROUTI NE urine culture, routine Final report abnormal Not Available [facility] ([facility]) [address] [facility], [place], [address], 07/14/2025 18:05:31 07/12/2007/14/2025 URINE CULTU RE, ROUTI NE result 1 Serrat ia marces cens abnormal Great er than 100,0 00 colon y formi ng units per mL Not Available [facility] ([facility]) [address] [facility], [place], [address], 07/14/2025 18:05:31 07/12/2007/14/2025 URINE CULTU RE, ROUTI [...] compl ex, and Klebs iella aerog ba. [place] luz that initi ally test susce ptibl e may becom e resis tant withi n a few days after initi ation of thera py. Testi ng subse quent isola luz may be warra nted if clini gerry indic ated. (CLSI M100- Ed33) Great er than 100,0 00 colon y formi ng units per mL Not Available [facility] ([facility]) [address] [facility], [place], [address], 07/14/2025 18:05:31 07/12/20 25 07/14/2025 URINE CULTU [...] thopr im/Salas lfa S Not Available [facility] ([facility]) [address] [facility], [place], [address], 07/14/2025 18:05:31 Result Notes None recorded. Medical Equipment None Reported. Allergies Allergen ID Allergen Name Allergen Category Reaction Reaction Severity Criticality Documentation Date Start Date Code Code System Note Provider Name and Address Organization Details Recorded Time 13172 ibuprofen medicatio n Not available Not available [...] rate Heart rate Body height Oxygen saturation Systolic And Diastolic Provider Name and Address Organization Details Last Updated DateTime 5 97.5 [degF] 66767.9 2 g 18 /min 76 /min 170.18 cm 99 % 117/56 mm[Hg] Not Available [facility] - production 5 13:08:57 Social History None recorded. Functional Status None recorded. Mental Status None recorded. Family History Nothing Reported. Medical History No medical history recorded. Past Encounters Encounter ID Performer Location Encounter Start Date Encounter Closed Date Diagnosis/Indication Diagnosis SNOMED-CT Code Diagnosis ICD10 Code Diagnosis IMO Codes Diagnosis Note [id number] Jesusita Varma MD [facility] ED Medical [address] [address] 07/12/2025 13:08:49 07/13/2025 19:28:32 Complication of urinary catheter 017916577 T83.9XXA [id number] With the complaint of urethral plain there [...] Fall Member ID Guarantor Name 07/12/2025 1 [facility] - DOS ON OR AFTER 2022 - DUAL ELIGIBLE - GROUP HOME OPTIONS AND ONE CARE (MEDICARE REPLACEMENT/ADV ANTAGE - HMO) Anthony Marmolejo [id number] Anthony Marmolejo Notes Date Note Type Note Provider Name and Address Organization Details Recorded Time 07/12/2025 text/html ROS as noted in the HPI HPI: Pt went to [facility] 07/[facility]25 for urinary retention, got Holguin [...] Allergies Reviewed at 07/12/2025:08 Comments: Reviewed HPI. Chief Design Branch Organization Information for Jourdan Quintero Legal Name: [facility] Address: [address] [place] [address], [place] [address], Ammonium Sulfate Operator: Carl Bird MD CLIA No.: [id number] Chief Design Branch POC Test Results from Jourdan Quintero Urine Dipstick (13:31:30) Urine leukocytes: 2+LEUUrine nitrites: -NITUrine urobilinogen: 0.2UROUrine protein: 4+PROUrine pH: -pHUrine blood: 1.0BLOUrine specific gravity: 1.02SGUrine ketones: -KETUrine bilirubin: -BILUrine glucose: -GLUAttachments uploaded as part of this test result can be found under Documents section. epoc (13:41:45) pH: 7.391pH unitspCO2: 44.3baMlxG9: 27.7mmHgNa: 137mmol/LK: 4.3mmol/LiCa: 1.25mmol/LCl: 97mmol/LTCO2: 25.6mEq/LHct: 32%Hb: 10.8g/dLGlu: 94mg/dLLac: 1.01mmol/LCr: 1.32mg/dLBUN: 19mg/dLAmmol/LHCO3: 26.8mmol/LAttachment s uploaded as part of this test result can be found under Documents section. .................... .................... .................... .................... .................... .................... .................... . Chief Design Branch Note From Jourdan Quintero: Patient Chief complaint [...] level and located roughly at about the custodial point of the shaft. Patient notes no [...] is tinged red with no noted clots. [facility] Jesusita Varma consulted [facility] provider removes old Holguin catheter with no disturbances and or abnormalities, new fully catheter inserted 16 Wallisian size, sterile technique applied. 100cc urine output, kenan in color. Both urine dip and culture acquired, noted leukocytes. Pt expresses significant relief after replacing holguin. Pt given 100 mg of oral macrobid on scene. POC blood work acquired. Culture sent to appropriate facility, [facility] sends an order for macrobid to local pharmacy for patient. Patient educated on red flag signs and symptoms and informed to call emergency services if any present. [facility] Lab Orders: culture, urine: Performed urinalysis, dipstick: Performed BMP, serum or plasma: Performed [facility] Medication Orders: Macrobid 100 mg capsule: Performed .................... .................... .................... .................... .................... .................... .................... . [facility] Consulted: Jesusita Varma .................... .................... .................... .................... .................... .................... .................... . Disposition: Fulfilled Jesusita Varma MD [address] [facility],[address], [place], [address], TADEO CHRISTIANSON 07/12/2025 17:45:41
--- OUTSIDE RECORDS SUMMARY | 2025-08-17 16:26 | XMS_ITS | Data Portability ---
Author Organization [employer] [facility], [facility] Address [address] [place] [address] Care Team Providers Care Tools Developer Name Role Phone HIM CCA OTHER Unavailable Primary Care Provider Assessment Encounter Date Assessment Date Assessment LastModified by Organization Details LastModified Time 07/12/2025 07/12/2025 I provided real -time medical direction via phone for this encounter, and was available for additional phone based assistance as needed. I have reviewed and agree with the Assessment and Plan as documented by the Glass Checker. We discussed the diagnostic uncertainty of home [...] to call 911- verbalized understanding of instruction [email or web address] Not available 07/12/2025 14:02:58 Plan of Treatment Reminders Order Date Submit Date Provider Last Modified By Organization Details Last Modified Time Details Appointments None recorded. Lab culture, urine 2024 [place] [facility] (Centralized Electronic Ordering - All Locations), Patient Can Go To The Location Of Their Choice, [address] 18:05:31 urinalysis , dipstick 2024 [facility], [address] [place] [address], [phone] 18:23:14 BMP, serum or plasma 2024 [facility], [address] [place] [address], [id number] 18:23:30 Referral None recorded. Procedures None recorded. Surgeries None recorded. Imaging None recorded. Medication Orders Macrobid 100 mg capsule 2024 025 [facility], [address] [place], [place], [id number], 05:01:45 Macrobid 100 mg capsule 2024 025 [facility], [address] [place], [place], [phone], 05:01:45 Patient TargetsNo targets recorded. Patient Instructions Encounter Date Encounter Id Patient Instructions Last Modified By Organization Details Last Modified Time 07/12/2025 [id number] holguin catheter change* [email or web address] Not available 07/12/2025 13:14:43 Reason for Referral None Reported. Results Created Date Observation Date Name Description Value Unit Range Abnormal Flag Note LastModifiedBy Organization Detail LastModifiedTime 07/12/2007/14/2025 URINE CULTU RE, ROUTI NE urine culture, routine Final report abnormal Not Available [facility] ([facility]) [address] [facility], [place], [address], 07/14/2025 18:05:31 07/12/2007/14/2025 URINE CULTU RE, ROUTI NE result 1 Serrat ia marces cens abnormal Great er than 100,0 00 colon y formi ng units per mL Not Available [facility] ([facility]) [address] [facility], [place], [address], 07/14/2025 18:05:31 07/12/2007/14/2025 URINE CULTU RE, ROUTI [...] compl ex, and Klebs iella aerog ba. [place] luz that initi ally test susce ptibl e may becom e resis tant withi n a few days after initi ation of thera py. Testi ng subse quent isola luz may be warra nted if clini gerry indic ated. (CLSI M100- Ed33) Great er than 100,0 00 colon y formi ng units per mL Not Available [facility] ([facility]) [address] [facility], [place], [address], 07/14/2025 18:05:31 07/12/20 25 07/14/2025 URINE CULTU [...] thopr im/Salas lfa S Not Available [facility] ([facility]) [address] [facility], [place], [address], 07/14/2025 18:05:31 Result Notes None recorded. Medical Equipment None Reported. Allergies Allergen ID Allergen Name Allergen Category Reaction Reaction Severity Criticality Documentation Date Start Date Code Code System Note Provider Name and Address Organization Details Recorded Time 74050 ibuprofen medicatio n Not available Not available [...] Available Ultra-Fine Pen Needle 31 gauge x /16 USE DIRECTED active Not Available Not Available No t Available [employer] Blood Pressure Monitor-3 Series kit USE TO CHECK BLOOD PRESSURE ONCE DAILY DIRECTED active Not Available Not Available No t Available Vitals Date Recorded Body temperature Body weight Respiratory rate Heart rate Body height Oxygen saturation Systolic And Diastolic Provider Name and Address Organization Details Last Updated DateTime 5 97.5 [degF] 20982.9 2 g 18 /min 76 /min 170.18 [...] ICD10 Code Diagnosis IMO Codes Diagnosis Note [id number] Jesusita Varma MD [facility] Medical [address] [address] 07/12/2025 13:08:49 07/13/2025 19:28:32 Complication of urinary catheter [id number] T83.9XXA [id number] With the complaint of urethral plain there [...] Guarantor Name 07/12/2025 1 [facility] - DOS ON OR AFTER 2022 - DUAL ELIGIBLE - RETIREMENT OPTIONS AND ONE CARE (MEDICARE REPLACEMENT/ADV ANTAGE - HMO) Anthony Marmolejo [id number] Anthony Marmolejo Notes Date Note Type Note Provider Name and Address Organization Details Recorded Time 07/12/2025 text/html ROS as noted in the HPI HPI: Pt went to [facility] 07/06/25 for [...] Allergies Reviewed at 07/12/2025:08 Comments: Reviewed HPI. Glass Checker Organization Information for Jourdan Quintero [employer] Legal Name: [facility] Address: [address] [place] [address], [place], [place] [address], Sofa Cover Inspector: Carl Bird MD IA No.: [id number] Glass Checker POC Test Results from Jourdan Quintero MOI Urine Dipstick (13:31:30) Urine leukocytes: 2+LEUUrine nitrites: -NITUrine urobilinogen: 0.2UROUrine protein: 4+PROUrine pH: -pHUrine blood: 1.0BLOUrine specific gravity: 1.02SGUrine ketones: -KETUrine bilirubin: -BILUrine glucose: -GLUAttachments uploaded as part of this test result can be found under Documents section. epoc (13:41:45) pH: 7.391pH unitspCO2: 44.4mvIwhB7: 27.7mmHgNa: 137mmol/LK: 4.3mmol/LiCa: 1.25mmol/LCl: 97mmol/LTCO2: 25.6mEq/LHct: 32%Hb: 10.8g/dLGlu: 94mg/dLLac: 1.01mmol/LCr: 1.32mg/dLBUN: 19mg/dLAmmol/LHCO3: 26.8mmol/LAttachment s uploaded as part of this test result can be found under Documents section. .................... .................... .................... .................... .................... .................... .................... . Glass Checker Note From Jourdan Quintero: Patient Chief complaint [...] level and located roughly at about the long term point of the shaft. Patient notes no [...] is tinged red with no noted clots. [facility] Jesusita Varma consulted [facility] provider removes old Holguin catheter with no disturbances and or abnormalities, new fully catheter inserted 16 Hungarian size, sterile technique applied. 100cc urine output, kenan in color. Both urine dip and culture acquired, noted leukocytes. Pt expresses significant relief after replacing holguin. Pt given 100 mg of oral macrobid on scene. POC blood work acquired. Culture sent to appropriate facility, [facility] sends an order for macrobid to local pharmacy for patient. Patient educated on red flag signs and symptoms and informed to call emergency services if any present. [facility] Lab Orders: culture, urine: Performed urinalysis, dipstick: Performed BMP, serum or plasma: Performed [facility] Medication Orders: Macrobid 100 mg capsule: Performed .................... .................... .................... .................... .................... .................... .................... . [facility] Consulted: Jesusita Varma .................... .................... .................... .................... .................... .................... .................... . Disposition: Derrek Varma MD [address] [facility],[address], [place], [address], [facility] [employer] 07/12/2025 17:45:41
[2025-08-17 18:07] LABS: Appearance Urine Cloudy; Glucose Urine UA Negative (Negative); PH 6.5 (5.0-9.0); Specific Gravity - Urine 1.015 (1.005-1.025); UMIC TRIGGER UA YES
== END 2025-08-17 16:19 | disposition home or self-care (01) ==
LOC: HO.LNP 16:18
PROVIDERS: Visit Provider Urology
DX: A41.53 Sepsis due to Serratia (principal); N13.6 Pyonephrosis; Z96.0 Presence of urogenital implants
CPT/HCPCS: 81001; 87086

== ENCOUNTER → 2025-08-21 08:32 | Outpatient (REF) | payer OTHER, SELFPAY ==
--- NOTE | ~2025-08-21 | NM_ITS ---
Lexiscan Myocardial perfusion study Indication: Elevated troponins Technique: The patient was brought in for a Lexiscan perfusion study on 08/21/2025 and was injected 0.4 mg of Lexiscan intravenously. Within a minute of this injection 25 mCi of sestamibi was given intravenously. Images were obtained using the SPECT gamma camera interlaced with the gating device. Images were obtained in supine position. Resting perfusion study was performed on 08/30/2025. Patient was administered 25 mCi of sestamibi intravenously at rest. Images were then obtained in supine position. Total DLP 78 mGy-cm. Images were processed with the software and compared side to side in short axis, horizontal long axis and vertical long axis views. Findings: Raw aquisition reviewed. Arms by the patient's side. The stress perfusion study showed no significant perfusion abnormality. Both uncorrected as well as CT attenuation corrected images were reviewed. The gated study shows normal LV systolic function with calculated LVEF of 54%. LV cavity is normal in size. The gated study shows normal wall thickening and contraction of segments. Resting study shows decreased tracer uptake along the inferior wall. Some improvement with CT attenuation correction could indicate diaphragmatic attenuation artifact. Gating at rest reveals normal wall motion with visually normal LVEF. The findings are consistent with no significant reversible or fixed perfusion defects. NM/NM cardiolite stress test Impression: 1. Myocardial perfusion imaging study shows probably normal myocardial perfusion. 2. Gated LVEF is 54% during stress and visually normal during rest. 3. Transient ischemic dilatation not present. EKG component of the test reported separately. Electronically signed by: Bertin Gilman MD 09/01/2025 01:27 PM [facility]
--- NOTE | 2025-08-21 08:46 | CA_ITS ---
Transthoracic Echocardiogram Patient (Last, First, Middle): Anthony Marmolejo, Gender: M Date of : 1955 Age: 70 Procedure Date: 08/21/2025 Procedure Type: Transthoracic Echocardiogram Location: OP Height: 165.1 cm Weight: 55.34 kg BSA: 1.60 m2 Heart Rate: 56 bpm BP: 120 / 68 mmHg Mechanical Meter Tester: SB Referring MD: Hunter Kaur MD Symptoms: I5A - Non-ischemic myocardial injury (non-traumatic), 95.9, Z01.810 Study Quality: Adequate/limited ordered ECG Rhythm: Sinus bradycardia Conclusions: - The left ventricular systolic function is normal. The calculated ejection fraction is 69% by biplane method. Findings Left Ventricle Normal left ventricular cavity size. The left ventricular systolic function is normal. The calculated ejection fraction is 69% by biplane method. There is no evidence of regional wall motion abnormalities. There is mild septal asymmetric hypertrophy. Right Ventricle Normal right ventricular cavity size and systolic function. Prior Study Comparison Changes noted compared to prior study dated: 07/17/2025. LVEF improved. Measurements 2D Linear Measurements IVSd: 1.16 0.6-0.9/0.6-1.0 cm LVIDd: 4.26 3.9-5.3/4.2-5.9 cm LVIDd Index: 2.66 2.4-3.2/2.2-3.1 cm/m2 LVIDs: 2.29 2.0-3.6 cm LVPWd: 0.97 0.7-1.1 cm LV Mass: 191.34 67-162/88-224 g LV Mass Index: 119.58 43-95/49-115 g/m2 LVOT Diam: 2.20 3.0+(-)1.3 cm 2D Systolic Function EF 4C: 64.10 >55% EF 2C: 71.80 >55% EF BiP: 68.50 >55% Mitral Valve MV Pk E: 0.55 MV PK A: 0.49 MV Decel Time: 319.00 E/A: 1.10 E'Lateral: 9.57 E'Medial: 6.74 E/E' Med: 8.10 E/E' Lat: 5.70 PHT: 93.00 MVA PHT: 2.37 Decel [place]: 1.72 LVOT LVOT Pk Andrea: 1.08 LVOT Mn Andrea: 0.63 LVOT VTI: 0.22 LVOT Pk Grad: 5.00 LVOT Mn Grad: 2.00 LVOT Diam: 2.20 LVOT Area: 3.80 Diastolic Function MV Pk E: 0.55 MV Pk A: 0.49 E/A: 1.10 E'Medial: 6.74 E/E' Med: 8.10 E' Laterial: 9.57 E/E' Lat: 5.70 Right Ventricle TAPSE (mm): 22.10 TVS' Andrea: 11.50 Pulmonary Veins Pulm Vein S/D 1.70 Updated in Other Vendor System with Status of Final Bertin Gilman MD electronically signed on 08/21/2025 12:25:00 PM with status of Final
--- NOTE | 2025-08-21 08:46 | CA_ITS ---
Acquisition Time: 2025-08-21 09:48:41 Total Exercise Time: 00:02:00 Test Indications: elevated troponins Medications: see h&p Protocol: LEXISCAN Max HR: 77 BPM 50% of Pred: 151 BPM Max BP: 118/80 mmHG Max Work Load: 1.0 METS Pharmacological stress test with Lexiscan while pt swings his legs in chair, with reports of SOB, without any arrythmias, with normotensive response to injection. Nondiagnostic EKG for ischemia. In recovery, pt treated with IVP Aminophylline 75 mg to reverse Lexiscan after which pt feeling back to baseline. Nuclear images pending. Test reviewed with Dr. Levine. Referred By: Hunter Kaur Electronically Signed By: Geoffrey Anna
--- OUTSIDE RECORDS SUMMARY | 2025-08-21 08:59 | XMS_ITS | Continuity of Care Document ---
Author Organization [employer] [facility], [facility] Address [address] [place] [id number] Care Team Providers Care Creative Services Writer Name Role Phone HIM CCA OTHER Unavailable Primary Care Provider Assessment Encounter Date Assessment Date Assessment LastModified by Organization Details LastModified Time 07/12/2025 07/12/2025 I provided real -time medical direction via phone for this encounter, and was available for additional phone based assistance as needed. I have reviewed and agree with the Assessment and Plan as documented by the Nursing Officer. We discussed the diagnostic uncertainty of home [...] Appointments None recorded. Lab culture, urine 2024 [place] [facility] (Centralized Electronic Ordering - All Locations), Patient Can Go To The Location Of Their Choice, [address] 18:05:31 urinalysis , dipstick 2024 [facility], [address] [place] [address], [id number] 18:23:14 BMP, serum or plasma 2024 [facility], [address] [place] [address], [id number] 18:23:30 Referral None recorded. Procedures None recorded. Surgeries None recorded. Imaging None recorded. Medication Orders Macrobid 100 mg capsule 2024 025 [facility], [address] [place] [address], [phone], 05:01:45 Macrobid 100 mg capsule 2024 025 [facility], [address] [place], [place], [id number], 05:01:45 Patient TargetsNo targets recorded. Patient Instructions Encounter Date Encounter Id Patient Instructions Last Modified By Organization Details Last Modified Time 07/12/2025 [id number] holguin catheter change* [email or web address] Not available 07/12/2025 13:14:43 Reason for Referral None Reported. Results Created Date Observation Date Name Description Value Unit Range Abnormal Flag Note LastModifiedBy Organization Detail LastModifiedTime 07/12/2007/14/2025 URINE CULTU RE, ROUTI NE urine culture, routine Final report abnormal Not Available [facility] ([facility]) [address] [facility], [place], [address], 07/14/2025 18:05:31 07/12/2007/14/2025 URINE CULTU RE, ROUTI NE result 1 Serrat ia marces cens abnormal Great er than 100,0 00 colon y formi ng units per mL Not Available [facility] ([facility]) [address] [facility], [place], [address], 07/14/2025 18:05:31 07/12/2007/14/2025 URINE CULTU RE, ROUTI [...] compl ex, and Klebs iella aerog ba. [place] luz that initi ally test susce ptibl e may becom e resis tant withi n a few days after initi ation of thera py. Testi ng subse quent isola luz may be warra nted if clini gerry indic ated. (CLSI M100- Ed33) Great er than 100,0 00 colon y formi ng units per mL Not Available [facility] ([facility]) [address] [facility], [place], [address], 07/14/2025 18:05:31 07/12/20 25 07/14/2025 URINE CULTU [...] thopr im/Salas lfa S Not Available [facility] ([facility]) [address] [facility], [place], [address], 07/14/2025 18:05:31 Result Notes None recorded. Medical Equipment None Reported. Allergies Allergen ID Allergen Name Allergen Category Reaction Reaction Severity Criticality Documentation Date Start Date Code Code System Note Provider Name and Address Organization Details Recorded Time 61505 ibuprofen medicatio n Not available Not available [...] Details Last Updated DateTime 5 97.5 [degF] 17918.9 2 g 18 /min 76 /min 170.18 [...] ICD10 Code Diagnosis IMO Codes Diagnosis Note [id number] Jesusita Varma MD [facility] ED Medical [address] [phone] 07/12/2025 13:08:49 07/13/2025 19:28:32 Complication of urinary catheter 315529857 T83.9XXA 6030736 With the complaint of urethral plain there [...] Fall Member ID Guarantor Name 07/12/2025 1 [facility] - DOS ON OR AFTER 2022 - DUAL ELIGIBLE - [facility] OPTIONS AND ONE CARE (MEDICARE REPLACEMENT/ADV ANTAGE - HMO) Anthony Marmolejo [id number] Anthony Marmolejo Notes Date Note Type Note Provider Name and Address Organization Details Recorded Time 07/12/2025 text/html ROS as noted in the HPI HPI: Pt went to [facility] ED 07/06/25 for urinary retention, got Holguin [...] Allergies Reviewed at 07/12/2025:08 Comments: Reviewed HPI. Nursing Officer Organization Information for Jourdan Quintero Legal Name: [facility] Address: [address] [place] [address], [place] [address], [place] Operator: Carl Bird MD CLIA No.: [id number] Nursing Officer POC Test Results from Jourdan Quintero Urine Dipstick (13:31:30) Urine leukocytes: 2+LEUUrine nitrites: -NITUrine urobilinogen: 0.2UROUrine protein: 4+PROUrine pH: -pHUrine blood: 1.0BLOUrine specific gravity: 1.02SGUrine ketones: -KETUrine bilirubin: -BILUrine glucose: -GLUAttachments uploaded as part of this test result can be found under Documents section. epoc (13:41:45) pH: 7.391pH unitspCO2: 44.8unSzrH7: 27.7mmHgNa: 137mmol/LK: 4.3mmol/LiCa: 1.25mmol/LCl: 97mmol/LTCO2: 25.6mEq/LHct: 32%Hb: 10.8g/dLGlu: 94mg/dLLac: 1.01mmol/LCr: 1.32mg/dLBUN: 19mg/dLAmmol/LHCO3: 26.8mmol/LAttachment s uploaded as part of this test result can be found under Documents section. .................... .................... .................... .................... .................... .................... .................... . Nursing Officer Note From Jourdan Quintero: Patient Chief complaint [...] is tinged red with no noted clots. [facility] Jesusita Varma consulted [facility] provider removes old Holguin catheter with no disturbances and or abnormalities, new fully catheter inserted 16 [place] size, sterile technique applied. 100cc urine output, kenan in color. Both urine dip and culture acquired, noted leukocytes. Pt expresses significant relief after replacing holguin. Pt given 100 mg of oral macrobid on scene. POC blood work acquired. Culture sent to appropriate facility, [facility] sends an order for macrobid to local pharmacy for patient. Patient educated on red flag signs and symptoms and informed to call emergency services if any present. [facility] Lab Orders: culture, urine: Performed urinalysis, dipstick: Performed BMP, serum or plasma: Performed [facility] Medication Orders: Macrobid 100 mg capsule: Performed .................... .................... .................... .................... .................... .................... .................... . [facility] Consulted: Jesusita Varma .................... .................... .................... .................... .................... .................... .................... . Disposition: Fulfilled Jesusita Varma MD [address] [facility],[address], [place], [address], TADEO CHRISTIANSON 07/12/2025 17:45:41
--- OUTSIDE RECORDS SUMMARY | 2025-08-21 08:59 | XMS_ITS | Data Portability ---
Author Organization [employer] [facility], [facility] Address [address] [place] [address] Care Team Providers Care Oncology Rep Specialist Name Role Phone HIM CCA OTHER Unavailable Primary Care Provider [phone] Assessment Encounter Date Assessment Date Assessment LastModified by Organization Details LastModified Time 07/12/2025 07/12/2025 I provided real -time medical direction via phone for this encounter, and was available for additional phone based assistance as needed. I have reviewed and agree with the Assessment and Plan as documented by the Braid Folder. We discussed the diagnostic uncertainty of home [...] Appointments None recorded. Lab culture, urine 2024 [place] [facility] (Centralized Electronic Ordering - All Locations), Patient Can Go To The Location Of Their Choice, [address] 18:05:31 urinalysis , dipstick 2024 [facility], [address] [place] [address], [id number] 18:23:14 BMP, serum or plasma 2024 [facility], [address] [place] [address], [id number] 18:23:30 Referral None recorded. Procedures None recorded. Surgeries None recorded. Imaging None recorded. Medication Orders Macrobid 100 mg capsule 2024 025 [facility], [address] [place], [place], [id number], 05:01:45 Macrobid 100 mg capsule 2024 025 [facility], [address] [place], [place], [id number], 05:01:45 Patient TargetsNo targets recorded. Patient Instructions Encounter Date Encounter Id Patient Instructions Last Modified By Organization Details Last Modified Time 07/12/2025 [id number] holguin catheter change* [id number] Not available 07/12/2025 13:14:43 Reason for Referral None Reported. Results Created Date Observation Date Name Description Value Unit Range Abnormal Flag Note LastModifiedBy Organization Detail LastModifiedTime 07/12/2007/14/2025 URINE CULTU RE, ROUTI NE urine culture, routine Final report abnormal Not Available [facility] ([facility]) [address] [facility], [place], [address], 07/14/2025 18:05:31 07/12/2007/14/2025 URINE CULTU RE, ROUTI NE result 1 Serrat ia marces cens abnormal Great er than 100,0 00 colon y formi ng units per mL Not Available [facility] ([facility]) [address] [facility], [place], [address], 07/14/2025 18:05:31 07/12/2007/14/2025 URINE CULTU RE, ROUTI [...] compl ex, and Klebs iella aerog ba. [place] luz that initi ally test susce ptibl e may becom e resis tant withi n a few days after initi ation of thera py. Testi ng subse quent isola luz may be warra nted if clini gerry indic ated. (CLSI M100- Ed33) Great er than 100,0 00 colon y formi ng units per mL Not Available [facility] ([facility]) [address] [facility], [place], [address], 07/14/2025 18:05:31 07/12/20 25 07/14/2025 URINE CULTU [...] thopr im/Salas lfa S Not Available [facility] ([facility]) [address] [facility], [place], [address], 07/14/2025 18:05:31 Result Notes None recorded. Medical Equipment None Reported. Allergies Allergen ID Allergen Name Allergen Category Reaction Reaction Severity Criticality Documentation Date Start Date Code Code System Note Provider Name and Address Organization Details Recorded Time 81690 ibuprofen medicatio n Not available Not available [...] Details Last Updated DateTime 5 97.5 [degF] 48536.9 2 g 18 /min 76 /min 170.18 [...] ICD10 Code Diagnosis IMO Codes Diagnosis Note [id number] Jesusita Varma MD [facility] ED Medical [address] [phone] 07/12/2025 13:08:49 07/13/2025 19:28:32 Complication of urinary catheter [id number] T83.9XXA [id number] With the complaint of urethral plain there [...] Fall Member ID Guarantor Name 07/12/2025 1 [facility] - DOS ON OR AFTER 2022 - DUAL ELIGIBLE - [facility] OPTIONS AND ONE CARE (MEDICARE REPLACEMENT/ADV ANTAGE - HMO) Anthony Marmolejo [id number] Anthony Marmolejo Notes Date Note Type Note [...] Allergies Reviewed at 07/12/2025:08 Comments: Reviewed HPI. Braid Folder Organization Information for Jourdan Quintero [employer] Legal Name: [facility] Address: [address] [place] [address], [place], [place] [address], Project Technician: Carl Bird MD IA No.: [id number] Braid Folder POC Test Results from Jourdan Quintero MOI Urine Dipstick (13:31:30) Urine leukocytes: 2+LEUUrine nitrites: -NITUrine urobilinogen: 0.2UROUrine protein: 4+PROUrine pH: -pHUrine blood: 1.0BLOUrine specific gravity: 1.02SGUrine ketones: -KETUrine bilirubin: -BILUrine glucose: -GLUAttachments uploaded as part of this test result can be found under Documents section. epoc (13:41:45) pH: 7.391pH unitspCO2: 44.9kcFbzL6: 27.7mmHgNa: 137mmol/LK: 4.3mmol/LiCa: 1.25mmol/LCl: 97mmol/LTCO2: 25.6mEq/LHct: 32%Hb: 10.8g/dLGlu: 94mg/dLLac: 1.01mmol/LCr: 1.32mg/dLBUN: 19mg/dLAmmol/LHCO3: 26.8mmol/LAttachment s uploaded as part of this test result can be found under Documents section. .................... .................... .................... .................... .................... .................... .................... . Braid Folder Note From Jourdan Quintero: Patient Chief complaint [...] level and located roughly at about the skilled nursing point of the shaft. Patient notes no [...] tinged red with no noted clots. [facility] Jesusita Varma consulted [facility] provider removes old Holguin catheter with no disturbances and or abnormalities, new fully catheter inserted 16 [place] size, sterile technique applied. 100cc urine output, kenan in color. Both urine dip and culture acquired, noted leukocytes. Pt expresses significant relief after replacing holguin. Pt given 100 mg of oral macrobid on scene. POC blood work acquired. Culture sent to appropriate facility, [facility] sends an order for macrobid to local pharmacy for patient. Patient educated on red flag signs and symptoms and informed to call emergency services if any present. [facility] Lab Orders: culture, urine: Performed urinalysis, dipstick: Performed BMP, serum or plasma: Performed [facility] Medication Orders: Macrobid 100 mg capsule: Performed .................... .................... .................... .................... .................... .................... .................... . [facility] Consulted: Jesusita Varma .................... .................... .................... .................... .................... .................... .................... . Disposition: Derrek Varma MD [address] [facility], [place], [address], [facility] Dead Inventory Management SystemTADEO SUAREZ 07/12/2025 17:45:41
--- OUTSIDE RECORDS SUMMARY | 2025-08-21 08:59 | XMS_ITS | Patient Health Record ---
Demographics Address [address] [place] [place] [address] Preferred Language Unknown Marital Status unmarried Rastafari Affiliation Unknown Race Unknown Ethnic Group Unknown Author Organization [employer] Address [address] [place] [address] Care Team Providers Care Life Care Planner Name Role Phone Barrera Nuñez Unavailable [phone] Reason For Referral No Information Plan Of Treatment No Information
== END ==
LOC: HO.CARD 08:32
PROVIDERS: PCP Student in an Organized Health Care Education/Training Program; Visit Provider Internal Medicine Cardiovascular Disease
DX: Z01.810 Encounter for preprocedural cardiovascular examination (principal); I5A Non-ischemic myocardial injury (non-traumatic); I95.9 Hypotension, unspecified
CPT/HCPCS: 78452; 93017; 93308; A9500; J0280; J2785

== ENCOUNTER → 2025-08-21 08:46 | Outpatient (BNV) | payer OTHER, SELFPAY | PROVIDERS: PCP Student in an Organized Health Care Education/Training Program | DX: I42.2 Other hypertrophic cardiomyopathy (principal); I5A Non-ischemic myocardial injury (non-traumatic); R06.02 Shortness of breath | CPT/HCPCS: 78452; 93016; 93018; 93308 ==

== ENCOUNTER 2025-09-04 13:18 | Outpatient (REF) | payer OTHER, SELFPAY ==
--- NOTE | ~2025-09-04 | CT_ITS ---
EXAMINATION: CT CHEST WITH CONTRAST CLINICAL INFORMATION: 10/07/2023 COMPARISON: None available. TECHNIQUE: Multidetector volumetric CT imaging of the chest was obtained after the administration of 65 mL of Omnipaque 350 intravenous contrast without immediate adverse reactions. Axial MIP volume rendering provided. Sagittal and coronal reformatted images were obtained. This CT examination was performed using dose optimization techniques as appropriate, variously including the following: *Automated exposure control *Adjustment of mA and/or kV according to patient size (this includes techniques or standardized protocols for targeted exams where dose is matched to indication/reason for exam; i.e. extremities or head) *Use of iterative reconstruction technique FINDINGS: LUNGS: Axial image 64/500: Right apical 1.4 x 3 mm solid pulmonary nodule when accounting for slice selection is essentially unchanged. There are a few other scattered micronodules under unchanged. Mild changes of centrilobular emphysema are most pronounced in the mid to upper chest. MEDIASTINUM: The mediastinum is normal. PLEURA: There is no pleural effusion. No pleural mass or thickening. AXILLA: No lymphadenopathy. UPPER ABDOMEN: See same day CT Urogram OSSEOUS STRUCTURES: 4.9 mm sclerotic lesion in posterior left seventh rib was also present on the prior examination and measured 1022 Hounsfield units and probably represents a benign bone island. CT/CT chest w IV con IMPRESSION: Stable small pulmonary nodules growing no further follow-up. Mild changes of emphysema show minimal progression. Fleischner guidelines were followed. Electronically signed by: Sheldon Ascencio MD 09/04/2025 03:25 PM [facility]
--- NOTE | ~2025-09-04 | CT_ITS ---
EXAMINATION: CT ABDOMEN AND PELVIS WITHOUT AND WITH CONTRAST CLINICAL INFORMATION: Hematuria and weight loss COMPARISON: 07/15/2025 TECHNIQUE: Noncontrast CT of the abdomen and pelvis is performed followed by split bolus contrast-enhanced images using 85 mL Omnipaque 350 contrast. Postcontrast imaging is performed during the combined nephrogram and excretion phase. Sagittal and coronal reformatted images were obtained on the technologist's workstation for both the precontrast and postcontrast phases. This CT examination was performed using dose optimization techniques as appropriate, variously including the following: *Automated exposure control *Adjustment of mA and/or kV according to patient size (this includes techniques or standardized protocols for targeted exams where dose is matched to indication/reason for exam; i.e. extremities or head) *Use of iterative reconstruction technique FINDINGS: LUNG BASES: The visualized lung bases are unremarkable. LIVER, GALLBLADDER, AND BILIARY TREE: The liver is normal in size, shape, and attenuation. No focal hepatic lesion or biliary ductal dilatation is present. Again seen is a 3.3 cm lamellated stone in the gallbladder. The gallbladder is nearly empty of bile. There is no biliary ductal dilation. PANCREAS: The pancreatic duct is mildly prominent in the head of pancreas SPLEEN: The spleen remains mildly enlarged, but slightly improved from the prior. ADRENAL GLANDS: Unremarkable. KIDNEYS AND URETERS: Since the prior study, a double-J catheter has been placed extending between the right kidney and the bladder 7 x 9 mm stone remains in the mid ureter at the level of upper L4, previously in a nearly identical location. Hydroureter has nearly resolved. There is persistent mild to moderate hydronephrosis. There is mildly decreased concentration and excretion of contrast from the right kidney relative to the left consistent with mild decreased right renal function. BLADDER: There is a 9 x 13 mm calcification along the posterior left margin of the bladder that could represent a stone, possibly within a ureterocele, better demonstrated on CT 07/12/2025 . However, the calcification might be extrinsic to the bladder and on the surface of the prostate. GASTROINTESTINAL TRACT: The stomach remains distended, but less than on the prior. There is moderate stool in the right and transverse colon. ABDOMINAL WALL: No significant hernia is appreciated. LYMPH NODES: Normal. VASCULAR: Unremarkable. PELVIC VISCERA: Unremarkable. OSSEUS STRUCTURES: There is moderate disc space narrowing with vacuum phenomenon, end plate sclerosis, and endplate osteophytes at L5-S1. There is also facet sclerosis and osteophytes, right greater than left. CT/CT urogram IMPRESSION: 7 x 9 mm stone remains in the mid right ureter. The position is relatively unchanged from the prior examination. A double-J catheter has been placed and extends from the right renal pelvis into the right bladder. There is evidence of mildly decreased function of the right kidney. There is a 9 x 13 mm calcification in the region of the posterior bladder, left of midline. Calcification might be extrinsic to the bladder, but could be within a ureterocele. Bladder was not well distended by contrast on the delayed images. Calcification is is best demonstrated on CT from 07/12/2025. Mildly improved splenomegaly. Persistent but improved distention of the stomach raises question of underlying delayed gastric emptying. Cholelithiasis. Mildly dilated pancreatic duct in the head of pancreas of uncertain etiology. Electronically signed by: Sheldon Ascencio MD 09/04/2025 02:39 PM EST
[2025-09-04 16:22] LABS: Creatinine POC 0.9 mg/dL (0.5-1.4); GFR POC > 60
--- OUTSIDE RECORDS SUMMARY | 2025-09-04 20:46 | XMS_ITS | Patient Health Record ---
Demographics Address [address] [place] [address] Preferred Language Unknown Marital Status unmarried Mosque Affiliation Unknown Race Unknown Ethnic Group Unknown Author Organization [employer] Address [address] [place] [address] Care Team Providers Care Counselling Psychologist Name Role Phone Barrera Nuñez Unavailable [phone] Reason For Referral No Information Plan Of Treatment No Information
== END 2025-09-04 13:19 | disposition home or self-care (01) ==
LOC: HO.CT 13:18
PROVIDERS: PCP Student in an Organized Health Care Education/Training Program; Visit Provider Student in an Organized Health Care Education/Training Program
DX: R63.4 Abnormal weight loss (principal); R31.9 Hematuria, unspecified; F17.200 Nicotine dependence, unspecified, uncomplicated
CPT/HCPCS: 71260; 74178; 82565

== ENCOUNTER → 2025-09-04 13:20 | Outpatient (BNV) | payer OTHER, SELFPAY | PROVIDERS: PCP Student in an Organized Health Care Education/Training Program; Visit Provider Radiology Diagnostic Radiology | DX: K80.20 Calculus of gallbladder without cholecystitis without obstruction (principal); R16.1 Splenomegaly, not elsewhere classified; N20.1 Calculus of ureter; N21.0 Calculus in bladder; K86.89 Other specified diseases of pancreas | CPT/HCPCS: 71260; 74178 ==

== ENCOUNTER 2025-09-09 08:10 | Outpatient (AMB) | payer OTHER, SELFPAY ==
[2025-09-09 08:13] VITALS: BP 130/62; PULSE 70; BMI 21.0
--- NOTE | 2025-09-09 08:13 | A.OFFVIS_ITS ---
Vital Signs 09/09/25 08:13 Height 5 ft 5 in Weight 126 lb 1.671 oz BMI 21.0 BP 130/62 Blood Pressure Location Lt brachial Position Sitting Pulse 70 Pulse Source Pulse Oximeter Intake Visit Reasons: F?U per NS NSTEMI r/s 08-30-25 Forklift Truck Operator Required: No Forklift Technician: Forklift Technician Present Allergies No Known Allergies (No Known Allergies*) Allergy (Verified 09/09/25 08:19) Medication List - Last Reconciled 09/09/25 by WAYNE Francis aspirin 81 mg PO DAILY atorvastatin (Lipitor) 40 mg PO BEDTIME bisacodyl (Dulcolax (bisacodyl)) 10 mg (2 x 5 mg) PO BEDTIME buprenorphine-naloxone 8-2 mg 1 film sublingual DAILY calcium carbonate-vitamin D3 500 mg-10 mcg (400 unit) 1 tab PO BID ciprofloxacin HCl 500 mg PO Q12H lmembqdzbk-lnwiquyp-empgjs ala 200-25-25 mg (Odefsey) 1 tab PO DAILY ferrous gluconate 324 mg PO QAM insulin glargine (Lantus Solostar U-100 Insulin) 34 units subcut BEDTIME lisinopril 2.5 mg PO DAILY metformin ER 1,000 mg PO DAILY@1700 mirtazapine 30 mg PO BEDTIME quetiapine 200 mg PO BEDTIME sertraline 100 mg PO DAILY HPI HPI F?U per NS NSTEMI r/s 08-30-25: Details: The patient is a 70 year old male presenting for post-hospitalization follow-up. He was admitted in June with sepsis, likely related to a urinary tract infection and obstructed uropathy, for which he underwent stent placement. His hospitalization was complicated by multisystem involvement, including elevated liver enzymes, acute kidney injury, and elevated lactic acid, as well as gallbladder stones and gastric outlet obstruction. During his admission, he had elevated troponins and vague chest discomfort. An echocardiogram showed mild to moderate left ventricular systolic dysfunction with an ejection fraction of 40-45% without regional wall motion abnormalities. The troponin elevation was attributed to his acute medical illness rather than a primary acute coronary syndrome. Following resolution of his acute illness, an outpatient nuclear stress test on 08/21/2025 showed normal myocardial perfusion imaging with an ejection fraction of 54%. A repeat limited echocardiogram on the same date showed an improved e jection fraction of 69% with no regional wall motion abnormalities. His past medical history is significant for tobacco use, type 2 diabetes, HIV, hepatitis B, and hepatitis C. His current medications include aspirin, atorvastatin, and lisinopril 2.5 mg daily. A lab test on 07/17/2025 showed a creatinine of 1.19. Currently, he denies chest pain but endorses occasional trouble breathing, heart palpitations, and dizziness at times. He continues to smoke and his physical activity is limited to short walks with his dog. His LOCOMOTIVE PIPE FITTER is present and he has VNA services at home that help him with medication management. [facility] Medical History Preoperative cardiovascular examination Cholelithiasis Nicotine dependence, cigarettes, uncomplicated Type 2 diabetes mellitus Hepatitis B Hepatitis C HIV (human immunodeficiency virus infection) Surgical History History of left inguinal hernia repair History of cystoscopy History of colonoscopy Family History Father Cancer of abdominal wall Paternal Uncle Cancer of abdominal wall Mother Alzheimer dementia Maternal Uncle Cancer Maternal Grandmother Cancer Social History Household Members: None Housing: Apartment Do you presently have visiting nurse or other home services: Yes (housekeeping) Patient Tobacco Use Status: Current everyday Tobacco user Tobacco use type: Cigarette Cigarette Packs Per Day: 0.5 Cigarettes Per Day: 10.0 Substance Use Type: Marijuana service: No Current occupational status: retired Review of Systems Const All systems reviewed & are unremarkable except as noted in HPI and below ENT Denies dizziness Card Denies chest pain, Denies chest pain at rest, Denies chest pain with activity, Denies rapid heart rate, Denies pedal edema, Denies edema, Denies leg edema, Denies lightheadedness, Denies palpitations, Denies dyspnea, Denies dyspnea on exertion and Denies orthopnea Resp Denies cough, Denies dyspnea and Denies dyspnea on exertion GI Denies hematochezia and Denies change in stool character Musc Denies abnormal gait, Denies limited range of motion, Denies muscle cramps, Denies muscle weakness, Denies numbness, Denies radiating pain into limb, Denies stiffness and Denies tingling Neuro Denies abnormal gait, Denies dizziness, Denies numbness and Denies tingling Endo Denies palpitations Physical Exam Vital Signs: Last Vital Signs Pulse 70 09/09/25 08:13 BP 130/62 09/09/25 08:13 BMI result Body Mass Index 21.0 Const General: cooperative, healthy appearing, comfortable and no acute distress Orientation/consciousness: patient oriented x3 Neck Neck: Yes normal visual inspection Resp Effort & Inspection: normal respiratory effort Auscultation: clear to auscultation bilaterally, no crackles, no rales, no rhonchi and no wheezes Cardio Rate: regular rate Rhythm: regular rhythm Heart sounds: S1 normal heart sound present, S2 normal heart sound present, no gallops, no murmurs and no rubs Neuro General: patient oriented x3 Extrem General: Yes normal to inspection and No no pedal edema Psych Appearance: grossly normal Mental Status: mental status grossly normal Speech and movement: Normal speech and movement present Assessment & Plan Assessment & Plan (1) Troponin level elevated: Code(s): R79.89 - Other specified abnormal findings of blood chemistry Category: Medical Plan: Troponin elevation greater than 500 during hospital admission for sepsis, acute illness - most likely type 2 event, secondary NSTEMI. EF initially reduced at 40-45 % and repeat limited echocardiogram as outpatient showed improvement in EF back to normal. His nuclear stress test showed normal perfusion imaging. Currently no anginal symptoms. Continue aspirin, atorvastatin and will put on low-dose of metoprolol for cardio protection. (2) Myocardial injury: Code(s): I5A - Non-ischemic myocardial injury (non-traumatic) Category: Medical Plan: As above (3) Cardiomyopathy: Code(s): I42.9 - Cardiomyopathy, unspecified Category: Medical Plan: EF down during acute illness and improved following his full recovery. Will add a low-dose of metoprolol to his low-dose lisinopril to help with neurohormonal modulation. (4) History of smoking 30 or more pack years: Code(s): Z87.891 - Personal history of nicotine dependence Category: Social Hx Plan: He reports some shortness of breath with activity. Likely related to long-term smoking history. (5) Hospital discharge follow-up: Code(s): Z51.89 - Encounter for other specified aftercare Category: Medical Plan: Hospital notes reviewed Plan I informed the patient that during his recent hospitalization, his heart muscle was strained from the severe illness, causing it to weaken temporarily. I reviewed the results of his recent cardiac tests from July, including a normal stress test and a repeat heart ultrasound, which confirmed that his heart function has now returned to normal. I explained that because his heart has shown it can get weak under stress, there is a chance it could happen again with a future illness. To protect his heart, I recommended starting a new medication, low-dose metoprolol, to be taken once daily. I advised him that he might feel tired at first, but this side effect should go away. We will schedule a follow- up visit in our office in about six months to check on him. The patient indicated understanding and did not have any questions. Medications: New metoprolol succinate ER Take 1/2 tablet daily 12.5 mg (1/2 x 25 mg) PO DAILY 45 tabs 1RF Patient Instructions: - You will start a new medication called metoprolol. - When you first start taking metoprolol, you might feel a little tired, but this should go away. - Continue taking all your other medicines as prescribed. - Your recent heart tests were good and show your heart function is back to normal. - We will schedule a follow-up appointment for you in our office in about six months. Patient was informed and verbally consented to the use of an ambient scribe for clinic note documentation during this visit. Visit time spent on chart review, interview, assessment, orders, documentation. Coding Level of Care Code Est Pt Level 4 (65993) Add On Problem Visit Only Diagnoses Troponin level elevated R79.89 Myocardial injury I5A Cardiomyopathy I42.9 History of smoking 30 or more pack years Z87.891 Hospital discharge follow-up Z51.89 Time Spent (min) 28
== END 2025-09-09 08:34 | disposition home or self-care (01) ==
LOC: HO.HCS 08:10
PROVIDERS: PCP Student in an Organized Health Care Education/Training Program; Visit Provider Nurse Practitioner Family
DX: R79.89 Other specified abnormal findings of blood chemistry (principal); I5A Non-ischemic myocardial injury (non-traumatic); I42.9 Cardiomyopathy, unspecified; Z87.891 Personal history of nicotine dependence; Z51.89 Encounter for other specified aftercare
CPT/HCPCS: 99214; G2211

== ENCOUNTER → 2025-09-09 08:10 | Outpatient (BNVA) | payer OTHER, SELFPAY | PROVIDERS: PCP Student in an Organized Health Care Education/Training Program; Visit Provider Nurse Practitioner Family | DX: I5A Non-ischemic myocardial injury (non-traumatic) (principal); I42.9 Cardiomyopathy, unspecified; R79.89 Other specified abnormal findings of blood chemistry; Z87.891 Personal history of nicotine dependence; Z51.89 Encounter for other specified aftercare | CPT/HCPCS: 99212 ==